=== PATIENT | male | born 1965 | race Caucasian/White ===

== ENCOUNTER → 2016-12-10 | Outpatient (CLI) | payer MEDICARE, MEDICAID ==
[~2016-12-10] MED LIST: COGE1INJ OR; HYDR25TA8 OR; INVE6TAB3 OR; LISI5TAB
--- NOTE | 2016-12-10 09:02 | REP ---
Right upper quadrant sonography: History: Right upper quadrant abdominal pain. Question gallstones. Comparison CT study is from July 28, 2016. Findings: Scanning through the right upper quadrant of the abdomen demonstrates a normal sized thin-walled gallbladder without evidence of stone or polyp. Common bile duct is normal measuring 0.4 cm in greatest diameter. No focal liver lesion is appreciated. There is no evidence of ascites. Limited views of the pancreas due to bowel gas show no abnormality. There is evidence of fatty infiltration of the liver. The right kidney measures 11.6 x 6.0 x 5.0 cm. No hydronephrosis is seen. There are two tiny hyperechoic foci in the right mid lateral kidney each measuring 0.4 and 0.5 cm in greatest diameter. These may reflect small parenchymal scars or calcifications. No cyst or mass is seen. Impression: Mild fatty liver change. No evidence of cholelithiasis. No other acute abnormality. Signed by Robinson Mohr MD 12/10/2016 01:57 P
== END ==
LOC: M RAD 07:45
PROVIDERS: ATTEND Physician Assistant Medical
DX: R10.9 Unspecified abdominal pain (principal)

== ENCOUNTER → 2016-12-30 | Outpatient (CLI) | payer MEDICARE, MEDICAID ==
--- NOTE | 2016-12-30 13:59 | REP ---
Clinical: Lower back pain. Technique: AP, lateral and coned-down views of the lumbosacral spine. Comparison: 07/28/2016. Findings: Moderate to early advanced multilevel degenerative changes involving the visualized lower thoracic spine through the lumbosacral spine including osteophytosis, endplate sclerosis, disc space narrowing and hypertrophic facet changes are minimally progressive compared to prior examination. There is no evidence for acute fracture / compression injury or subluxation. Impression: Moderate to early advanced multilevel degenerative changes mildly progressed from prior examination. No acute fracture / compression injury or subluxation. Signed by Franck Myers MD 12/30/2016 01:50 P
== END ==
LOC: M SMT 13:35
PROVIDERS: ATTEND Nurse Practitioner Adult Health
DX: M51.17 Intervertebral disc disorders with radiculopathy, lumbosacral region (principal); M51.24 Other intervertebral disc displacement, thoracic region

== ENCOUNTER → 2017-05-16 | Outpatient (CLI) | payer MEDICARE, MEDICAID ==
[2017-05-16 11:17] LABS: BASO % 0.5 % (0.0-1.0); EOS # 0.1 K/mm3 (0.0-0.50); LYMPH # 6.3 K/mm3 (1.5-4.5); LYMPH % 27.8 % (24.0-44.0); MEAN CORPUSCULAR HEMOGLOBIN 27.9 pg (27.0-33.0); MEAN CORPUSCULAR HGB CONC 34.3 g/dl (32.0-36.5); MEAN CORPUSCULAR VOLUME 81.3 fl (80.0-96.0); MONO # 0.2 K/mm3 (0.0-0.8); MONO % 2.4 % (0.0-5.0); NEUTROPHILS % 0.1 % (36.0-66.0); RED CELL DISTRIBUTION WIDTH 13.4 % (11.5-14.5)
[2017-05-16 11:40] LABS: WHITE BLOOD COUNT 6.6 K/mm3 (4.0-10.0)
[2017-05-16 11:45] LABS: ALBUMIN 4.2 GM/DL (3.2-5.2); ALBUMIN/GLOBULIN RATIO 1.24 (1.00-1.93); ALKALINE PHOSPHATASE 114 U/L (45-117); ALT/SGPT 26 U/L (12-78); ANION GAP 9 MEQ/L (8-16); AST/SGOT 13 U/L (15-37); BILIRUBIN,TOTAL 0.4 MG/DL (0.2-1.0); BLOOD UREA NITROGEN 10 MG/DL (7-18); CALCIUM LEVEL 9.2 MG/DL (8.5-10.1); CARBON DIOXIDE LEVEL 28 MEQ/L (21-32); CHLORIDE LEVEL 105 MEQ/L (98-107); CHOLESTEROL LEVEL 149 MG/DL (<200); CREATININE FOR GFR 0.89 MG/DL (0.70-1.30); FREE T4 1.22 NG/DL (0.76-1.46); GLOMERULAR FILTRATION RATE > 60.0 (>56); GLUCOSE, FASTING 92 MG/DL (70-105); POTASSIUM SERUM 3.6 MEQ/L (3.5-5.1); SODIUM LEVEL 142 MEQ/L (136-145); TOTAL PROTEIN 7.6 GM/DL (6.4-8.2); TRIGLYCERIDES LEVEL 91 MG/DL (<150)
== END ==
LOC: M LAB 10:07
PROVIDERS: ATTEND Nurse Practitioner Adult Health
DX: E87.6 Hypokalemia (principal); E78.5 Hyperlipidemia, unspecified; E55.9 Vitamin D deficiency, unspecified; Z51.81 Encounter for therapeutic drug level monitoring; Z79.899 Other long term (current) drug therapy

== ENCOUNTER → 2017-08-20 | Outpatient (CLI) | payer MEDICARE, MEDICAID ==
--- NOTE | 2017-08-20 12:31 | REP ---
CT study of the brain without contrast: History: TIA. Comparison brain CT study is from April 12, 2014. Comparison brain MRI study is from April 12, 2014. Those prior studies showed findings consistent with right internal carotid artery occlusion. 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 CT findings: Digital preliminary traffic signal technician radiograph is unremarkable. Bone window settings demonstrate an intact bony calvarium. Visualized paranasal sinuses are clear. No intraorbital abnormality is seen. Lateral third and fourth ventricles are normal in size and position. 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 This is developmental and incidental. There is no evidence of infarction, hemorrhage, extra-axial fluid collection or midline shift on today's CT study. Impression: Previously described area of pachygyria again seen in the right parietal lobe unchanged. This is developmental. No acute intracranial abnormality. Signed by Robinson Mohr MD 08/21/2017 07:34 A
== END ==
LOC: M RAD 09:50
PROVIDERS: ATTEND Internal Medicine Cardiovascular Disease
DX: E55.9 Vitamin D deficiency, unspecified (principal); Z86.73 Personal history of transient ischemic attack (TIA), and cerebral infarction without residual deficits; Z79.899 Other long term (current) drug therapy

== ENCOUNTER → 2017-09-16 | Outpatient (CLI) | payer MEDICARE, MEDICAID ==
[2017-09-16 12:42] LABS: ANION GAP 10 MEQ/L (8-16); BLOOD UREA NITROGEN 11 MG/DL (7-18); CARBON DIOXIDE LEVEL 27 MEQ/L (21-32); CHLORIDE LEVEL 102 MEQ/L (98-107); CREATININE FOR GFR 0.93 MG/DL (0.70-1.30); GLOMERULAR FILTRATION RATE > 60.0 (>56); GLUCOSE, FASTING 90 MG/DL (70-105); POTASSIUM SERUM 3.8 MEQ/L (3.5-5.1); SODIUM LEVEL 139 MEQ/L (136-145)
== END ==
LOC: M LAB 11:31
PROVIDERS: ATTEND Nurse Practitioner Adult Health
DX: E87.6 Hypokalemia (principal)

== ENCOUNTER 2018-01-15 13:10 | Emergency (ER) | payer MEDICARE, MEDICAID ==
[2018-01-15 14:19] LABS: BASO # 0.1 10^3/uL (0.0-0.2); BASO % 0.5 % (0.0-1.0); EOS # 0.2 10^3/uL (0.0-0.50); EOS % 1.4 % (0.0-3.0); HEMATOCRIT 41.9 % (42.0-52.0); HEMOGLOBIN 14.2 g/dl (13.5-17.5); IMMATURE GRANULOCYTE % 0.5 % (0-3.0); LYMPH # 2.4 10^3/uL (1.5-4.5); LYMPH % 22.3 % (24.0-44.0); MEAN CORPUSCULAR HEMOGLOBIN 27.4 pg (27.0-33.0); MEAN CORPUSCULAR HGB CONC 33.9 g/dl (32.0-36.5); MEAN CORPUSCULAR VOLUME 80.9 fl (80.0-96.0); MONO # 0.7 10^3/uL (0.0-0.8); MONO % 6.3 % (0.0-5.0); NEUTROPHILS # 7.6 10^3/uL (1.8-7.7); PLATELET COUNT, AUTOMATED 270 10^3/uL (150-450); RED BLOOD COUNT 5.18 10^6/uL (4.30-6.10); RED CELL DISTRIBUTION WIDTH 13.2 % (11.5-14.5); WHITE BLOOD COUNT 10.9 10^3/uL (4.0-10.0)
[2018-01-15 14:29] LABS: ANION GAP 10 MEQ/L (8-16); BLOOD UREA NITROGEN 10 MG/DL (7-18); CALCIUM LEVEL 9.2 MG/DL (8.5-10.1); CARBON DIOXIDE LEVEL 27 MEQ/L (21-32); CHLORIDE LEVEL 102 MEQ/L (98-107); CK-MB VALUE MASS < 1.0 NG/ML (<3.6); CPK CREATINE PHOSPHOKINASE 150 U/L (39-308); CREATININE FOR GFR 1.08 MG/DL (0.70-1.30); GLOMERULAR FILTRATION RATE > 60.0 (>56); GLUCOSE, FASTING 109 MG/DL (70-100); MB/CK RELATIVE INDEX 0.66 (< OR =4); POTASSIUM SERUM 3.4 MEQ/L (3.5-5.1); SODIUM LEVEL 139 MEQ/L (136-145); TROPONIN I < 0.02 NG/ML (< 0.10)
[2018-01-15] MEDS ORDERED: ISOVUE-370 76% 100ML VIAL (Q9967) As Ordered (15:03)
[2018-01-15] MEDS: POTASSIUM CHLORIDE 10 MEQ SR TABLET PO (16:09)
[2018-01-15 19:54] LABS: CK-MB VALUE MASS < 1.0 NG/ML (<3.6); CPK CREATINE PHOSPHOKINASE 141 U/L (39-308); TROPONIN I < 0.02 NG/ML (< 0.10)
== END 2018-01-15 21:03 | disposition home or self-care (01) ==
LOC: M ED 13:10
DX: E27.9 Disorder of adrenal gland, unspecified (principal); R07.9 Chest pain, unspecified; I10 Essential (primary) hypertension; E78.5 Hyperlipidemia, unspecified; K21.9 Gastro-esophageal reflux disease without esophagitis; F20.9 Schizophrenia, unspecified; M54.40 Lumbago with sciatica, unspecified side; Z82.49 Family history of ischemic heart disease and other diseases of the circulatory system; Z79.899 Other long term (current) drug therapy; Z88.6 Allergy status to analgesic agent; Z91.013 Allergy to seafood; Z91.018 Allergy to other foods; Z91.010 Allergy to peanuts
CPT/HCPCS: Q9967

== ENCOUNTER → 2018-02-05 | Outpatient (CLI) | payer MEDICARE, MEDICAID ==
[2018-02-05 12:45] LABS: BASO % 0.4 % (0.0-1.0); EOS # 0.2 10^3/uL (0.0-0.50); EOS % 1.9 % (0.0-3.0); HEMATOCRIT 45.1 % (42.0-52.0); HEMOGLOBIN 15.5 g/dl (13.5-17.5); IMMATURE GRANULOCYTE % 0.4 % (0-3.0); LYMPH # 2.2 10^3/uL (1.5-4.5); LYMPH % 27.1 % (24.0-44.0); MEAN CORPUSCULAR HGB CONC 34.4 g/dl (32.0-36.5); MEAN CORPUSCULAR VOLUME 81.4 fl (80.0-96.0); MONO # 0.5 10^3/uL (0.0-0.8); NEUTROPHILS # 5.1 10^3/uL (1.8-7.7); NEUTROPHILS % 64.2 % (36.0-66.0); PLATELET COUNT, AUTOMATED 240 10^3/uL (150-450); RED BLOOD COUNT 5.54 10^6/uL (4.30-6.10); RED CELL DISTRIBUTION WIDTH 13.4 % (11.5-14.5)
[2018-02-05 13:14] LABS: TOTAL 25(OH) VITAMIN D 60.1 NG/ML (30.0-100.0)
[2018-02-05 13:17] LABS: ALBUMIN 4.5 GM/DL (3.2-5.2); ALBUMIN/GLOBULIN RATIO 1.29 (1.00-1.93); ALKALINE PHOSPHATASE 104 U/L (45-117); ALT/SGPT 28 U/L (12-78); ANION GAP 9 MEQ/L (8-16); AST/SGOT 19 U/L (7-37); BILIRUBIN,TOTAL 0.6 MG/DL (0.2-1.0); BLOOD UREA NITROGEN 14 MG/DL (7-18); CALCIUM LEVEL 9.7 MG/DL (8.5-10.1); CARBON DIOXIDE LEVEL 27 MEQ/L (21-32); CHLORIDE LEVEL 103 MEQ/L (98-107); CHOLESTEROL LEVEL 146 MG/DL (<200); CREATININE FOR GFR 1.05 MG/DL (0.70-1.30); FREE T4 1.31 NG/DL (0.76-1.46); GLOMERULAR FILTRATION RATE > 60.0 (>56); GLUCOSE, FASTING 82 MG/DL (70-100); HDL CHOLESTEROL 40 MG/DL (>40); NON-HDL-C 106 MG/DL; SODIUM LEVEL 139 MEQ/L (136-145); TRIGLYCERIDES LEVEL 90 MG/DL (<150)
[2018-02-05 13:29] LABS: ESTIMATED AVERAGE GLUCOSE 123 MG/DL (60-110); HEMOGLOBIN A1c 5.9 %
== END ==
LOC: M LAB 11:52
DX: Z51.81 Encounter for therapeutic drug level monitoring (principal); Z79.899 Other long term (current) drug therapy; E55.9 Vitamin D deficiency, unspecified; E78.5 Hyperlipidemia, unspecified; E87.6 Hypokalemia
CPT/HCPCS: 84443

== ENCOUNTER → 2018-05-21 | Outpatient (CLI) | payer MEDICARE, MEDICAID ==
[2018-05-21 09:27] LABS: BASO % 0.5 % (0.0-1.0); EOS # 0.2 10^3/uL (0.0-0.50); EOS % 2.3 % (0.0-3.0); HEMOGLOBIN 14.7 g/dl (13.5-17.5); IMMATURE GRANULOCYTE % 0.5 % (0-3.0); LYMPH # 2.2 10^3/uL (1.5-4.5); LYMPH % 26.5 % (24.0-44.0); MEAN CORPUSCULAR HEMOGLOBIN 27.5 pg (27.0-33.0); MEAN CORPUSCULAR HGB CONC 33.4 g/dl (32.0-36.5); MEAN CORPUSCULAR VOLUME 82.4 fl (80.0-96.0); MONO # 0.6 10^3/uL (0.0-0.8); MONO % 7.5 % (0.0-5.0); NEUTROPHILS # 5.2 10^3/uL (1.8-7.7); NEUTROPHILS % 62.7 % (36.0-66.0); PLATELET COUNT, AUTOMATED 250 10^3/uL (150-450); RED BLOOD COUNT 5.34 10^6/uL (4.30-6.10); RED CELL DISTRIBUTION WIDTH 13.2 % (11.5-14.5); WHITE BLOOD COUNT 8.3 10^3/uL (4.0-10.0)
[2018-05-21 10:03] LABS: TOTAL 25(OH) VITAMIN D 58.8 NG/ML (30.0-100.0)
[2018-05-21 10:06] LABS: ALBUMIN 4.3 GM/DL (3.2-5.2); ALBUMIN/GLOBULIN RATIO 1.26 (1.00-1.93); ALKALINE PHOSPHATASE 101 U/L (45-117); ALT/SGPT 29 U/L (12-78); ANION GAP 9 MEQ/L (8-16); AST/SGOT 14 U/L (7-37); BILIRUBIN,TOTAL 0.4 MG/DL (0.2-1.0); BLOOD UREA NITROGEN 19 MG/DL (7-18); CALCIUM LEVEL 9.2 MG/DL (8.5-10.1); CARBON DIOXIDE LEVEL 28 MEQ/L (21-32); CHLORIDE LEVEL 103 MEQ/L (98-107); CHOLESTEROL LEVEL 138 MG/DL (<200); CHOLESTEROL RISK RATIO 2.875 (<5); CREATININE FOR GFR 1.01 MG/DL (0.70-1.30); GLOMERULAR FILTRATION RATE > 60.0 (>56); GLUCOSE, FASTING 89 MG/DL (70-100); HDL CHOLESTEROL 48 MG/DL (>40); LDL CHOLESTEROL 77.2 MG/DL (<100); NON-HDL-C 90 MG/DL; POTASSIUM SERUM 4.1 MEQ/L (3.5-5.1); SODIUM LEVEL 140 MEQ/L (136-145); TOTAL PROTEIN 7.7 GM/DL (6.4-8.2); TRIGLYCERIDES LEVEL 64 MG/DL (<150)
[2018-05-21 10:29] LABS: ESTIMATED AVERAGE GLUCOSE 120 MG/DL (60-110); HEMOGLOBIN A1c 5.8 %
== END ==
LOC: M LAB 08:08
DX: E78.5 Hyperlipidemia, unspecified (principal); I10 Essential (primary) hypertension; R22.31 Localized swelling, mass and lump, right upper limb; E55.9 Vitamin D deficiency, unspecified
CPT/HCPCS: 84443

== ENCOUNTER → 2018-09-16 | Outpatient (REF) | payer MEDICARE, MEDICAID ==
[2018-09-16 13:42] LABS: BASO % 0.4 % (0.0-1.0); EOS # 0.1 10^3/uL (0.0-0.50); EOS % 1.4 % (0.0-3.0); HEMATOCRIT 43.2 % (42.0-52.0); HEMOGLOBIN 14.7 g/dl (13.5-17.5); IMMATURE GRANULOCYTE % 0.6 % (0-3.0); LYMPH # 1.8 10^3/uL (1.5-4.5); MEAN CORPUSCULAR HEMOGLOBIN 27.8 pg (27.0-33.0); MEAN CORPUSCULAR VOLUME 81.8 fl (80.0-96.0); MONO # 0.7 10^3/uL (0.0-0.8); MONO % 6.9 % (0.0-5.0); NEUTROPHILS # 7.4 10^3/uL (1.8-7.7); NEUTROPHILS % 72.7 % (36.0-66.0); PLATELET COUNT, AUTOMATED 283 10^3/uL (150-450); RED BLOOD COUNT 5.28 10^6/uL (4.30-6.10); WHITE BLOOD COUNT 10.2 10^3/uL (4.0-10.0)
[2018-09-16 14:05] LABS: ALBUMIN 4.3 GM/DL (3.2-5.2); ALBUMIN/GLOBULIN RATIO 1.43 (1.00-1.93); ALKALINE PHOSPHATASE 108 U/L (45-117); ALT/SGPT 30 U/L (12-78); ANION GAP 12 MEQ/L (8-16); AST/SGOT 18 U/L (7-37); BILIRUBIN,TOTAL 0.5 MG/DL (0.2-1.0); BLOOD UREA NITROGEN 14 MG/DL (7-18); CALCIUM LEVEL 9.4 MG/DL (8.5-10.1); CARBON DIOXIDE LEVEL 25 MEQ/L (21-32); CHLORIDE LEVEL 102 MEQ/L (98-107); CREATININE FOR GFR 0.99 MG/DL (0.70-1.30); GLOMERULAR FILTRATION RATE > 60.0 (>56); GLUCOSE, FASTING 80 MG/DL (70-100); POTASSIUM SERUM 3.8 MEQ/L (3.5-5.1); SODIUM LEVEL 139 MEQ/L (136-145); TOTAL PROTEIN 7.3 GM/DL (6.4-8.2)
== END ==
LOC: M SFHCPLAZ 11:44
DX: I10 Essential (primary) hypertension (principal)
CPT/HCPCS: 80053

== ENCOUNTER → 2018-10-19 | Outpatient (REF) | payer MEDICARE, MEDICAID ==
[~2018-10-19] MED LIST changes: +HALD5INJ2 IM; +HYDR25TAB PO; +KLOR20TA42 FT; +RANI1SYP PO; +SING5CHW23 PO; +TIZA4CAP PO; +ZYRT10CA PO
[2018-10-19 13:19] LABS: PTH INTACT 61.5 PG/ML (18.5-88.0); TOTAL 25(OH) VITAMIN D 75.3 NG/ML (30.0-100.0)
== END ==
LOC: M SFHCPLAZ 10:32
PROVIDERS: ATTEND Physician Assistant Medical
DX: Z12.5 Encounter for screening for malignant neoplasm of prostate (principal); E55.9 Vitamin D deficiency, unspecified; E78.00 Pure hypercholesterolemia, unspecified; Z23 Encounter for immunization
CPT/HCPCS: 36415; 82306; 82550; 83970; 90682; G0008; G0103; G0463

== ENCOUNTER → 2018-12-31 | Outpatient (CLI) | payer MEDICARE, MEDICAID ==
[~2018-12-31] MED LIST changes: +PROHANCE 279.3MG/ML 15ML VIAL (A9576) As Ordered ONE; +PROHANCE 279.3MG/ML 5ML VIAL (A9576) As Ordered ONE
--- NOTE | 2019-01-01 09:52 | REP ---
MRI ABDOMEN WITH AND WITHOUT CONTRAST: Multiple sequences obtained in the axial and coronal planes prior to and following the intravenous administration of 19 mL ProHance. Correlation made with prior CT abdomen 07/28/[address] angiogram chest 01/15/2018. Tiny subcentimeter cyst is seen in the right lobe of the liver. Spleen, right adrenal, pancreas and kidneys are unremarkable. No adenopathy or free fluid is seen. Once again, there is a left adrenal nodule seen. It measures approximately 2.8 x 2.[address] abdomen, 07/28/2016, it measured approximately 2.2 x 1.4 cm and therefore has mildly increased in size. On CT of the chest 01/15/2018, it measured approximately 2.4 x 1.8 cm. It is fairly low in signal on T2-weighted images. It is intermediate in signal on T2-weighted images with mixed ill-defined low and high signal areas. There is no significant drop in signal comparing in-phase to [id number]-[id number] images and therefore, this could not be definitely characterized. As an adrenal adenoma. There is fairly avid heterogeneous enhancement following the intravenous administration of gadolinium. IMPRESSION: Nonspecific left adrenal nodule. This cannot be definitively characterized as an adrenal adenoma. It has progressively slowly increased in size since the CT of the abdomen 07/28/2016. At that time, it measured about 2.2 x 1.4 cm. It currently measures 2.8 x 2.2 cm. Further characterization may be possible using triple phase CT scanning, utilizing precontrast, as well as two post contrast scans 70 seconds and 15 minutes after contrast administration. This technique has been shown to diagnose lipid-poor adrenal adenomas. If there is a history of cancer, and therefore, a possibility of a slow-growing metastasis, CT guided biopsy could be performed, however, prior to any biopsy attempt, 24-hour urine metanephrine or catecholamine values should be obtained to exclude pheochromocytoma. Electronically Signed by Harley Rodriguez MD 01/01/2019 07:50 P
== END ==
LOC: M RAD 16:28
PROVIDERS: ATTEND Family Medicine
DX: E27.9 Disorder of adrenal gland, unspecified (principal)
CPT/HCPCS: 74183; A9576

== ENCOUNTER → 2019-01-07 | Outpatient (REF) | payer MEDICARE, MEDICAID ==
[~2019-01-07] MED LIST changes: -PROHANCE 279.3MG/ML 15ML VIAL (A9576) As Ordered ONE; -PROHANCE 279.3MG/ML 5ML VIAL (A9576) As Ordered ONE
[2019-01-13 08:06] LABS: FREE CORTISOL URINE 6 ug/L (Undefined)
[2019-01-13 12:01] LABS: DOPAMINE 387 ug/24 hr (0-510); DOPAMINE TOTAL URINE 172 ug/L (Undefined); EPINEPHRINE 5 ug/24 hr (0-20); EPINEPHRINE TOTAL URINE 2 ug/L (Undefined); NOREPINEPHRINE 38 ug/24 hr (0-135); NOREPINEPHRINE TOTAL URINE 17 ug/L (Undefined)
== END ==
LOC: M LAB REF 09:27
PROVIDERS: ATTEND Family Medicine
DX: E27.9 Disorder of adrenal gland, unspecified (principal)

== ENCOUNTER → 2019-02-08 | Outpatient (CLI) | payer MEDICARE, MEDICAID ==
[~2019-02-08] MED LIST changes: +ISOVUE-370 76% 100ML VIAL (Q9967) As Ordered ONE
--- NOTE | 2019-02-09 07:10 | REP ---
REASON FOR EXAM: Assess adrenal gland. CONTRAST: 100 mL Isovue 370. The latest prior abdominal and pelvic CT for comparison is dated 07/28/2016, a noncontrast enhanced examination. The imaged portion of the upper abdomen seen on the chest CT of 01/15/2018 was also reviewed. That was a contrast enhanced exam only and showed a left adrenal gland nodule. The lung bases are clear. The precontrast enhanced portion of the examination shows a left adrenal gland nodule which measures 2.5 cm. It has increased slightly in size from the prior exam and has consistently high Hounsfield unit readings above what is accepted to diagnose benignity. There is no nephroureterolithiasis. There are no choleliths. Contrast enhanced portion of the examination shows diffuse fatty infiltration of the pancreas. The left adrenal gland nodule enhances significantly on both immediate and delayed contrast enhanced scanning with values increasing when delayed imaging is compared to immediate contrast enhanced imaging. The liver, gallbladder, spleen, right adrenal gland, and kidneys are within normal limits and essentially unchanged. The abdominal aorta and para-aortic regions are within normal limits. There is no evidence of para-aortic adenopathy. The bowel loops and the mesenteries are within normal limits. There is no evidence of free fluid or free air. There is no significant change in appearance of the imaged osseous structures. IMPRESSION: 1. Left adrenal gland nodule as described above. Benignity cannot be confirmed. Pre- and post Gadolinium enhanced abdominal MRI was performed on 12/31/2018 showing the left adrenal gland nodule which could not definitively be characterized as a benign process. This needs to be correlated clinically since benignity cannot be confirmed at this time. 2. Diffuse fatty infiltration of the pancreas. 3. Other findings as discussed above. Electronically Signed by Percy Ellsworth DO 02/09/2019 04:23 P
== END ==
LOC: M RAD 02-04 17:01
PROVIDERS: ATTEND Physician Assistant Medical
DX: E27.9 Disorder of adrenal gland, unspecified (principal); K86.89 Other specified diseases of pancreas
CPT/HCPCS: 74170; Q9967

== ENCOUNTER → 2019-02-16 | Outpatient (REF) | payer MEDICARE, MEDICAID ==
[~2019-02-16] MED LIST changes: -ISOVUE-370 76% 100ML VIAL (Q9967) As Ordered ONE
[2019-02-16 11:58] LABS: BASO % 0.4 % (0.0-1.0); EOS # 0.1 10^3/uL (0.0-0.50); EOS % 1.5 % (0.0-3.0); HEMATOCRIT 44.3 % (42.0-52.0); HEMOGLOBIN 14.7 g/dl (13.5-17.5); LYMPH # 1.6 10^3/uL (1.5-4.5); LYMPH % 19.3 % (24.0-44.0); MEAN CORPUSCULAR HEMOGLOBIN 27.6 pg (27.0-33.0); MEAN CORPUSCULAR HGB CONC 33.2 g/dl (32.0-36.5); MEAN CORPUSCULAR VOLUME 83.1 fl (80.0-96.0); MONO # 0.7 10^3/uL (0.0-0.8); MONO % 8.7 % (0.0-5.0); NEUTROPHILS # 5.7 10^3/uL (1.8-7.7); NEUTROPHILS % 69.2 % (36.0-66.0); PLATELET COUNT, AUTOMATED 239 10^3/uL (150-450); RED BLOOD COUNT 5.33 10^6/uL (4.30-6.10); WHITE BLOOD COUNT 8.2 10^3/uL (4.0-10.0)
[2019-02-16 12:35] LABS: ALBUMIN 4.5 GM/DL (3.2-5.2); ALT/SGPT 27 U/L (12-78); BILIRUBIN,TOTAL 0.4 MG/DL (0.2-1.0); BLOOD UREA NITROGEN 11 MG/DL (7-18); CALCIUM LEVEL 8.8 MG/DL (8.5-10.1); CARBON DIOXIDE LEVEL 29 MEQ/L (21-32); CHLORIDE LEVEL 102 MEQ/L (98-107); CPK CREATINE PHOSPHOKINASE 189 U/L (39-308); CREATININE FOR GFR 0.88 MG/DL (0.70-1.30); GLOMERULAR FILTRATION RATE > 60.0 (>56); GLUCOSE, FASTING 90 MG/DL (70-100); POTASSIUM SERUM 3.4 MEQ/L (3.5-5.1); PTH INTACT 81.1 PG/ML (18.5-88.0); SODIUM LEVEL 138 MEQ/L (136-145)
[2019-02-16 12:47] LABS: HEMOGLOBIN A1c 5.9 %
== END ==
LOC: M SFHCPLAZ 09:19
PROVIDERS: ATTEND Physician Assistant Medical
DX: J30.2 Other seasonal allergic rhinitis (principal); E78.00 Pure hypercholesterolemia, unspecified; E55.9 Vitamin D deficiency, unspecified; Z12.5 Encounter for screening for malignant neoplasm of prostate; E66.9 Obesity, unspecified; R73.01 Impaired fasting glucose
CPT/HCPCS: 36415; 80053; 82306; 82550; 83036; 83970; 85025; G0103; G0463

== ENCOUNTER → 2019-03-22 | Outpatient (CLI) | payer MEDICARE, MEDICAID ==
[~2019-03-22] MED LIST changes: +ACETAMINOPHEN 325 MG TAB As Ordered ONE; +LIDOCAINE 1% MDV 20ML VIAL As Ordered ONE
--- NOTE | 2019-03-22 11:02 | REP ---
Chest x-ray: Single view. History: Post left adrenal needle biopsy. Rule out pneumothorax. Comparison study: February 14, 2018. Findings: The lungs are well inflated and clear. There is no evidence of pneumothorax or hydrothorax. Mediastinum is not widened. Heart size is normal. Pulmonary vasculature is not increased. Impression: No active disease. No pneumothorax seen. Electronically Signed by Robinson Mohr MD 03/22/2019 03:40 P
--- NOTE | 2019-03-22 15:44 | REP ---
CT-guided adrenal gland biopsy The procedure is performed by ANANT Jules, under the personal supervision of Dr. Mohr. The patient has a history of a left adrenal gland nodule measuring 2.[address] scan dated 02/08/2019. The risks and benefits of the procedure were explained to the patient and informed consent was obtained both orally and written. Directly prior to the start of the procedure, a formal timeout was done in the exam room. The left adrenal nodule was localized using CT guidance. Skin was prepped and draped in the usual sterile fashion. 12 ml of 1% lidocaine was used as a local anesthetic. Using CT guidance a 19/20 gauge coaxial needle biopsy system was inserted and advanced into the nodule. 4 core biopsy samples were obtained and sent to the lab. CT images obtained directly after the biopsy show no evidence of hematoma, or pneumothorax. After the appropriate amount of monitored convalescence the patient was discharged from the department. Reviewed by ANANT Delacruz 03/22/2019 12:45 P Electronically Signed by Robinson Mohr MD 03/22/2019 03:35 P
== END ==
LOC: M RADPRO 08:51
PROVIDERS: ATTEND Physician Assistant Medical
DX: D35.02 Benign neoplasm of left adrenal gland (principal)

== ENCOUNTER → 2019-06-02 | Outpatient (REF) | payer MEDICARE, MEDICAID ==
[~2019-06-02] MED LIST changes: -ACETAMINOPHEN 325 MG TAB As Ordered ONE; -LIDOCAINE 1% MDV 20ML VIAL As Ordered ONE
[2019-06-02 11:51] LABS: CHOLESTEROL RISK RATIO 3.511 (<5)
== END ==
LOC: M SFHCPLAZ 07:43
PROVIDERS: ATTEND Physician Assistant Medical
DX: E78.00 Pure hypercholesterolemia, unspecified (principal)

== ENCOUNTER → 2019-08-02 | Outpatient (CLI) | payer MEDICARE, MEDICAID ==
[2019-08-02 10:33] LABS: BASO % 0.5 % (0.0-1.0); EOS # 0.1 10^3/uL (0.0-0.5); EOS % 1.6 % (0.0-3.0); HEMATOCRIT 44.6 % (42.0-52.0); HEMOGLOBIN 14.9 g/dl (13.5-17.5); LYMPH # 2.1 10^3/uL (1.5-5.0); MEAN CORPUSCULAR HEMOGLOBIN 28.4 pg (27.0-33.0); MEAN CORPUSCULAR HGB CONC 33.4 g/dl (32.0-36.5); MEAN CORPUSCULAR VOLUME 85.1 fl (80.0-96.0); MONO # 0.6 10^3/uL (0.0-0.8); MONO % 6.9 % (0.0-5.0); NEUTROPHILS # 5.3 10^3/uL (1.5-8.5); NEUTROPHILS % 64.5 % (36.0-66.0); PLATELET COUNT, AUTOMATED 246 10^3/uL (150-450); RED BLOOD COUNT 5.24 10^6/uL (4.30-6.10); WHITE BLOOD COUNT 8.2 10^3/uL (4.0-10.0)
[2019-08-02 10:59] LABS: ALBUMIN 4.5 GM/DL (3.2-5.2); ALT/SGPT 32 U/L (12-78); BILIRUBIN,TOTAL 0.8 MG/DL (0.2-1.0); BLOOD UREA NITROGEN 13 MG/DL (7-18); CALCIUM LEVEL 9.7 MG/DL (8.5-10.1); CARBON DIOXIDE LEVEL 28 MEQ/L (21-32); CHLORIDE LEVEL 103 MEQ/L (98-107); CHOLESTEROL LEVEL 154 MG/DL (<200); CHOLESTEROL RISK RATIO 3.347 (<5); CPK CREATINE PHOSPHOKINASE 217 U/L (39-308); CREATININE FOR GFR 1.08 MG/DL (0.70-1.30); GLOMERULAR FILTRATION RATE > 60.0 (>56); GLUCOSE, FASTING 86 MG/DL (70-100); HDL CHOLESTEROL 46 MG/DL (>40); LDL CHOLESTEROL 86 MG/DL (<100); NON-HDL-C 108 MG/DL; POTASSIUM SERUM 3.7 MEQ/L (3.5-5.1); SODIUM LEVEL 138 MEQ/L (136-145); TOTAL PROTEIN 7.8 GM/DL (6.4-8.2); TRIGLYCERIDES LEVEL 111 MG/DL (<150)
[2019-08-02 11:10] LABS: TOTAL 25(OH) VITAMIN D 72.5 NG/ML (30.0-100.0)
[2019-08-02 11:11] LABS: PTH INTACT 59.1 PG/ML (18.5-88.0)
[2019-08-02 12:47] LABS: HEMOGLOBIN A1c 5.8 %
== END ==
LOC: M LAB 09:39
PROVIDERS: ATTEND Physician Assistant Medical
DX: E78.00 Pure hypercholesterolemia, unspecified (principal); E55.9 Vitamin D deficiency, unspecified; R73.01 Impaired fasting glucose; Z79.899 Other long term (current) drug therapy

== ENCOUNTER → 2019-12-13 | Outpatient (CLI) | payer MEDICARE, MEDICAID ==
[2019-12-13 11:19] LABS: BASO # 0.1 10^3/uL (0.0-0.2); BASO % 0.6 % (0.0-1.0); EOS # 0.3 10^3/uL (0.0-0.5); EOS % 3.2 % (0.0-3.0); HEMATOCRIT 43.9 % (42.0-52.0); HEMOGLOBIN 14.7 g/dl (13.5-17.5); LYMPH # 2.2 10^3/uL (1.5-5.0); LYMPH % 26.7 % (24.0-44.0); MEAN CORPUSCULAR HEMOGLOBIN 28.2 pg (27.0-33.0); MEAN CORPUSCULAR HGB CONC 33.5 g/dl (32.0-36.5); MEAN CORPUSCULAR VOLUME 84.1 fl (80.0-96.0); MONO # 0.6 10^3/uL (0.0-0.8); MONO % 7.8 % (0.0-5.0); NEUTROPHILS % 61.3 % (36.0-66.0); PLATELET COUNT, AUTOMATED 268 10^3/uL (150-450); RED BLOOD COUNT 5.22 10^6/uL (4.30-6.10); WHITE BLOOD COUNT 8.2 10^3/uL (4.0-10.0)
[2019-12-13 11:31] LABS: HEMOGLOBIN A1c 5.6 %
[2019-12-13 11:52] LABS: ALBUMIN 4.5 GM/DL (3.2-5.2); ALT/SGPT 26 U/L (12-78); BILIRUBIN,TOTAL 0.6 MG/DL (0.2-1.0); BLOOD UREA NITROGEN 14 MG/DL (7-18); CALCIUM LEVEL 9.5 MG/DL (8.5-10.1); CARBON DIOXIDE LEVEL 30 MEQ/L (21-32); CHLORIDE LEVEL 103 MEQ/L (98-107); CPK CREATINE PHOSPHOKINASE 254 U/L (39-308); CREATININE FOR GFR 0.97 MG/DL (0.70-1.30); GLOMERULAR FILTRATION RATE > 60.0 (>56); GLUCOSE, FASTING 87 MG/DL (70-100); POTASSIUM SERUM 3.6 MEQ/L (3.5-5.1); PTH INTACT 72.8 PG/ML (18.5-88.0); SODIUM LEVEL 138 MEQ/L (136-145); TOTAL 25(OH) VITAMIN D 76.5 NG/ML (30.0-100.0); TOTAL PROTEIN 7.7 GM/DL (6.4-8.2)
== END ==
LOC: M LAB 09:53
PROVIDERS: ATTEND Physician Assistant Medical
DX: E78.00 Pure hypercholesterolemia, unspecified (principal); E55.9 Vitamin D deficiency, unspecified; R73.01 Impaired fasting glucose; I10 Essential (primary) hypertension
CPT/HCPCS: 36415; 80053; 82306; 82550; 83036; 83970; 85025; G0463

== ENCOUNTER → 2020-03-15 | Outpatient (CLI) | payer MEDICARE, MEDICAID ==
--- NOTE | 2020-03-15 11:55 | REP ---
THORACIC SPINE: Three AP and lateral views of the thoracic spine performed. No compression fracture is seen. There is no malalignment with normal thoracic kyphosis. There is a small ossific density at the anterior superior margin of T12 representing either an old avulsion fracture or unfused ossification center. There is mild diffuse spurring. There is mild disc space narrowing and subchondral sclerosis at virtually all levels. The posterior elements are intact. IMPRESSION: No acute fracture or malalignment. Mild diffuse degenerative changes. Electronically Signed by Harley Rodriguez MD 03/15/2020 12:59 P
== END ==
LOC: M WUC 10:21
PROVIDERS: ATTEND Nurse Practitioner Family
DX: S29.012D Strain of muscle and tendon of back wall of thorax, subsequent encounter (principal)

== ENCOUNTER → 2020-04-14 | Outpatient (CLI) | payer MEDICARE, MEDICAID ==
[2020-04-14 12:40] LABS: HEMOGLOBIN A1c 5.8 %
== END ==
LOC: M WUC 09:52
PROVIDERS: ATTEND Physician Assistant Medical
DX: Z12.5 Encounter for screening for malignant neoplasm of prostate (principal); Z79.899 Other long term (current) drug therapy
CPT/HCPCS: 36415; 83036; G0103

== ENCOUNTER 2020-05-21 20:05 | Emergency (ER) | payer MEDICARE, MEDICAID ==
[2020-05-21] MEDS ORDERED: CEPHALEXIN 500 MG CAP ONE (23:35)
[2020-05-21] MEDS ORDERED: ACETAMINOPHEN 500 MG TAB ONE (23:35)
[2020-07-06 18:37] LABS: BASO % 0.3 % (0.0-1.0); EOS # 0.2 10^3/uL (0.0-0.5); EOS % 2.1 % (0.0-3.0); HEMATOCRIT 37.9 % (42.0-52.0); HEMOGLOBIN 12.6 g/dl (13.5-17.5); LYMPH # 1.6 10^3/uL (1.5-5.0); LYMPH % 20.2 % (24.0-44.0); MEAN CORPUSCULAR HEMOGLOBIN 28.1 pg (27.0-33.0); MEAN CORPUSCULAR HGB CONC 33.2 g/dl (32.0-36.5); MEAN CORPUSCULAR VOLUME 84.6 fl (80.0-96.0); MONO # 0.8 10^3/uL (0.0-0.8); MONO % 9.8 % (0.0-5.0); NEUTROPHILS # 5.2 10^3/uL (1.5-8.5); NEUTROPHILS % 67.2 % (36.0-66.0); PLATELET COUNT, AUTOMATED 260 10^3/uL (150-450); RED BLOOD COUNT 4.48 10^6/uL (4.30-6.10); WHITE BLOOD COUNT 7.7 10^3/uL (4.0-10.0)
[2020-07-06 18:53] LABS: ERYTHROCYTE SEDIMENTATION RATE 22 mm/hr (0-20)
== END 2020-05-22 02:00 | disposition home or self-care (01) ==
LOC: M ED 20:05
DX: L03.115 Cellulitis of right lower limb (principal); M79.89 Other specified soft tissue disorders; F79 Unspecified intellectual disabilities; I25.10 Atherosclerotic heart disease of native coronary artery without angina pectoris; I65.29 Occlusion and stenosis of unspecified carotid artery; Z79.899 Other long term (current) drug therapy; Z79.02 Long term (current) use of antithrombotics/antiplatelets; Z91.010 Allergy to peanuts; Z88.6 Allergy status to analgesic agent; Z91.013 Allergy to seafood

== ENCOUNTER → 2020-08-10 | Outpatient (CLI) | payer MEDICARE, MEDICAID ==
[2020-08-10 16:11] LABS: HEMOGLOBIN 14.2 g/dl (13.5-17.5); MEAN CORPUSCULAR HEMOGLOBIN 27.5 pg (27.0-33.0); MEAN CORPUSCULAR HGB CONC 32.3 g/dl (32.0-36.5); MEAN CORPUSCULAR VOLUME 85.1 fl (80.0-96.0); PLATELET COUNT, AUTOMATED 234 10^3/uL (150-450); RED BLOOD COUNT 5.17 10^6/uL (4.30-6.10); WHITE BLOOD COUNT 7.4 10^3/uL (4.0-10.0)
[2020-08-10 16:40] LABS: ALBUMIN 4.5 GM/DL (3.2-5.2); ALT/SGPT 33 U/L (12-78); BILIRUBIN,TOTAL 0.8 MG/DL (0.2-1.0); BLOOD UREA NITROGEN 13 MG/DL (7-18); CALCIUM LEVEL 9.2 MG/DL (8.5-10.1); CARBON DIOXIDE LEVEL 29 MEQ/L (21-32); CHLORIDE LEVEL 104 MEQ/L (98-107); CHOLESTEROL LEVEL 147 MG/DL (<200); CREATININE FOR GFR 1.01 MG/DL (0.70-1.30); GLOMERULAR FILTRATION RATE > 60.0 (>56); GLUCOSE, FASTING 83 MG/DL (70-100); HDL CHOLESTEROL 49 MG/DL (>40); LDL CHOLESTEROL 82 MG/DL (<100); MAGNESIUM LEVEL 2.1 MG/DL (1.8-2.4); NON-HDL-C 98 MG/DL; POTASSIUM SERUM 3.5 MEQ/L (3.5-5.1); SODIUM LEVEL 140 MEQ/L (136-145); TOTAL PROTEIN 7.3 GM/DL (6.4-8.2); TRIGLYCERIDES LEVEL 82 MG/DL (<150)
== END ==
LOC: M WUC 10:53
PROVIDERS: ATTEND Family Medicine
DX: Z12.5 Encounter for screening for malignant neoplasm of prostate (principal); I10 Essential (primary) hypertension; R73.01 Impaired fasting glucose
CPT/HCPCS: 36415; 80053; 80061; 83735; 85027; G0103

== ENCOUNTER 2020-10-10 18:52 | Emergency (ER) | payer MEDICARE, MEDICAID ==
[~2020-10-10] VITALS: Ht 167.6 cm; Wt 86.4 kg
--- NOTE | 2020-10-10 19:41 | ED PDOC ---
Post-Departure Follow-Up 54yo M with hypertension, HLD, schizophrenia, carotid artery stenosis, and asthm a presents with seizure vs syncope. He states that he passed out and fell, but is unsure what happened prior. He denies fever, chills, increased sweating, nausea, vomiting, diarrhea, decreased appetite, chest pain, SOB, cough, leg pain/swelling, recent travel, or other symptoms/injuries. His exam is notable for a small laceration to the R tip and center tip of his tongue along with dried blood to his lower lip. He also has abrasion to his nasal bridge without any deformity or septal hematoma. There is no C spine tenderness. He is otherwise neurologically intact, afebrile and hemodynamically stable. Labs, EKG and imaging were obtained. He was placed on the monitor and seizure precautions were maintained. I spoke with the patient's sister, Evie, who stated that his brother who he lives with (Lito) stated that he patient was pacing up and down as usual when he suddenly heard a loud thump. He went over to the patient, and he was stiff as a board for 2-3 minutes. He appeared dazed when he came to. He has a remote history of seizures as a child, and was previously on antiepileptic medications over 20+ years ago. He has not had any seizures recently. Of note, he is currently on Plavix. DONOVAN RODRIGUEZ MD Oct 10, 2020 19:41
[2020-10-10 19:43] LABS: BASO % 0.3 % (0.0-1.0); EOS % 0.1 % (0.0-3.0); HEMATOCRIT 42.1 % (42.0-52.0); HEMOGLOBIN 13.4 g/dl (13.5-17.5); LYMPH # 1.1 10^3/uL (1.5-5.0); LYMPH % 14.6 % (24.0-44.0); MEAN CORPUSCULAR HGB CONC 31.8 g/dl (32.0-36.5); MEAN CORPUSCULAR VOLUME 84.7 fl (80.0-96.0); MONO # 0.6 10^3/uL (0.0-0.8); MONO % 7.6 % (0.0-5.0); PLATELET COUNT, AUTOMATED 214 10^3/uL (150-450); RED BLOOD COUNT 4.97 10^6/uL (4.30-6.10); WHITE BLOOD COUNT 7.8 10^3/uL (4.0-10.0)
[2020-10-10] MEDS ORDERED: FAMO1TAB25 PO (20:08)
[2020-10-10] MEDS ORDERED: PALI1TAB2 PO (20:08)
[2020-10-10] MEDS ORDERED: ALL10TAB PO (20:08)
[2020-10-10] MEDS ORDERED: GNP200TA4 PO (20:08)
[2020-10-10] MEDS ORDERED: AUST6TAB PO (20:08)
[2020-10-10] MEDS ORDERED: LISI10TA4 PO (20:08)
[2020-10-10] MEDS ORDERED: CLOP75TA2 PO (20:08)
[2020-10-10] MEDS ORDERED: SIMV20TA22 PO (20:08)
[2020-10-10] MEDS ORDERED: VITATAB74 PO (20:08)
--- NOTE | 2020-10-10 20:09 | REPVR ---
PROCEDURE INFORMATION: Exam: CT Cervical Spine Without Contrast Exam date and time: 10/10/2020 7:39 PM Age: 54 years old Clinical indication: Injury or trauma; Fall; Blunt trauma; Additional info: S/P fall TECHNIQUE: Imaging protocol: Computed tomography images of the cervical spine without contrast. Radiation optimization: All CT scans at this facility use at least one of these dose optimization techniques: automated exposure control; mA and/or kV adjustment per patient size (includes targeted exams where dose is matched to clinical indication); or iterative reconstruction. COMPARISON: No relevant prior studies available. FINDINGS: Bones/joints: No acute fracture. Normal alignment. Discs/Spinal canal/Neural foramina: Moderate bilateral foraminal stenosis at C6 and mild to moderate bilateral foraminal stenosis at C7 secondary to uncinate joint hypertrophic changes. Multilevel disc osteophyte complexes resulting in mild to moderate cord impingement at C5-C6, mild right hector cord impingement at C6-C7, and mild cord impingement at C7-T1. Lungs: Lung apices are normal. Soft tissues: Unremarkable. IMPRESSION: Degenerative spondylosis. No acute findings. Electronically signed by: Gen Cadena On 10/10/2020 20:09:48 PM
--- NOTE | 2020-10-10 20:12 | REPVR ---
PROCEDURE INFORMATION: Exam: CT Head Without Contrast Exam date and time: 10/10/2020 7:39 PM Age: 54 years old Clinical indication: Injury or trauma; Fall; Blunt trauma (contusions or hematomas); Additional info: S/P fall TECHNIQUE: Imaging protocol: Computed tomography of the head without contrast. Radiation optimization: All CT scans at this facility use at least one of these dose optimization techniques: automated exposure control; mA and/or kV adjustment per patient size (includes targeted exams where dose is matched to clinical indication); or iterative reconstruction. COMPARISON: CT Head without contrast 01/15/2018 3:09 PM FINDINGS: Brain: Normal. No hemorrhage. Unremarkable white matter. No mass effect. Cerebral ventricles: No ventriculomegaly. Bones/joints: Unremarkable. No acute fracture. Paranasal sinuses: Visualized sinuses are unremarkable. No fluid levels. Mastoid air cells: Visualized mastoid air cells are well aerated. Soft tissues: Unremarkable. IMPRESSION: No acute intracranial abnormality. Electronically signed by: Gen Cadena On 10/10/2020 20:12:34 PM
--- NOTE | 2020-10-10 20:17 | REPVR ---
PROCEDURE INFORMATION: Exam: CT Maxillofacial Without Contrast Exam date and time: 10/10/2020 7:39 PM Age: 54 years old Clinical indication: Injury or trauma; Fall; Blunt trauma (contusions or hematomas); Maxilla; Additional info: S/P fall TECHNIQUE: Imaging protocol: Computed tomography images of the face without contrast. Radiation optimization: All CT scans at this facility use at least one of these dose optimization techniques: automated exposure control; mA and/or kV adjustment per patient size (includes targeted exams where dose is matched to clinical indication); or iterative reconstruction. COMPARISON: No relevant prior studies available. FINDINGS: Orbital cavity: Orbits are normal. Globes are unremarkable. Bones/joints: No acute fracture. Paranasal sinuses: Normal. No air-fluid levels. Soft tissues: Unremarkable. Nasal cavity: Bilateral gaudencio bullosa. IMPRESSION: No acute findings. Electronically signed by: Gen Cadena On 10/10/2020 20:17:36 PM
[2020-10-10 20:20] LABS: BLOOD UREA NITROGEN 13 MG/DL (7-18); CALCIUM LEVEL 8.6 MG/DL (8.5-10.1); CARBON DIOXIDE LEVEL 23 MEQ/L (21-32); CHLORIDE LEVEL 104 MEQ/L (98-107); CREATININE FOR GFR 1.05 MG/DL (0.70-1.30); FREE T4 1.38 NG/DL (0.76-1.46); GLOMERULAR FILTRATION RATE > 60.0 (>56); GLUCOSE, FASTING 117 MG/DL (70-100); POTASSIUM SERUM 4.2 MEQ/L (3.5-5.1); SODIUM LEVEL 138 MEQ/L (136-145)
[2020-10-11] VITALS: BP 131/73
--- NOTE | 2020-10-11 07:31 | ECGEPIP ---
[facility] - ED Test Date: 2020-10-10 Pat Name: CARMEN TRAN Department: Room: - Gender: Male Stand Up Comedian: bridgett : 1965 Requested By: DONOVAN Barragan Order Number: [id number] Reading MD: Paul Pretty Measurements Intervals Gateway Rate: 90 P: 22 OK: 163 QRS: -5 QRSD: 105 T: -12 QT: 329 QTc: 403 Interpretive Statements SINUS RHYTHM WITH OCCASIONAL SUPRAVENTRICULAR PREMATURE COMPLEXES INCOMPLETE RIGHT BUNDLE BRANCH BLOCK POSSIBLE LEFT VENTRICULAR HYPERTROPHY ST DEVIATION AND MODERATE T-WAVE ABNORMALITY, CONSIDER ANTEROLATERAL ISCHEMIA Similar to tracing done 01-15-18 Electronically Signed on 10-11-2020 7:31:37 EST by Paul Pretty
== END 2020-10-11 00:21 | disposition home or self-care (01) ==
LOC: M ED 18:52 → EDBD 18:52 → M ED 10-11 00:21
DX: S01.512A Laceration without foreign body of oral cavity, initial encounter (principal); S00.81XA Abrasion of other part of head, initial encounter; X58.XXXA Exposure to other specified factors, initial encounter; Y92.89 Other specified places as the place of occurrence of the external cause; R56.9 Unspecified convulsions; I10 Essential (primary) hypertension; J45.909 Unspecified asthma, uncomplicated; E78.5 Hyperlipidemia, unspecified; F20.9 Schizophrenia, unspecified; I65.29 Occlusion and stenosis of unspecified carotid artery; Z79.899 Other long term (current) drug therapy; Z79.01 Long term (current) use of anticoagulants

== ENCOUNTER → 2020-10-25 | Outpatient (CLI) | payer MEDICARE, MEDICAID ==
[~2020-10-25] MED LIST changes: +ALL10TAB PO; +AUST6TAB PO; +CLOP75TA2 PO; +FAMO1TAB25 PO; +GNP200TA4 PO; +LISI10TA4 PO; +PALI1TAB2 PO; +SIMV20TA22 PO; +VITATAB74 PO
--- NOTE | 2020-10-26 14:44 | EEG ---
ELECTROENCEPHALOGRAM DATE: 10/25/2020 DIAGNOSIS: Syncope and collapse. EEG# 09-21. REFERRING PHYSICIAN: NAHUM Rubin HISTORY: Patient is a 54-year-old man with a history of hypertension, schizophrenia, childhood seizure who had an episode of syncope and collapse. This EEG was done to rule out epileptic potential. He is currently taking Plavix, Austedo, hydrochlorothiazide, melatonin, lisinopril, trazodone, paliperidone, simvastatin. TECHNICAL DESCRIPTION: This digital EEG was recorded by 21-scalp, ear, and two EKG electrodes and was reviewed in bipolar and referential montages following reformatting in 10-20 international electrode placement system. INTERPRETATION: Patient was noted to be in awake and drowsy states during this EEG. Resting and awake background rhythm consisted of well-formed posterior dominant rhythm with anterior-posterior gradient comprising of 9 Hz alpha activity measuring 15-40 microvolts in amplitude, which was symmetric and reactive to eye opening. Attenuation of posterior dominant rhythm was seen during transition to drowsiness. No sleep was achieved. Hyperventilation could not be performed. Photic stimulation remained unremarkable. EKG revealed normal sinus rhythm. No focal, lateralizing, or epileptiform abnormalities were seen. No relevant clinical activity was noted. CONCLUSION: This EEG in awake, drowsy states is within normal limits.
== END ==
LOC: M SLEEP 08:27
PROVIDERS: ATTEND Physician Assistant Medical
DX: R55 Syncope and collapse (principal)

== ENCOUNTER 2020-11-01 13:38 | Inpatient (IN) | payer MEDICARE, MEDICAID ==
[~2020-11-01] VITALS: Ht 167.6 cm; Wt 80.7 kg
--- OUTSIDE RECORDS SUMMARY | 2020-11-01 13:44 | CCD ---
Author Author [facility] Organization [facility] Address Unknown Phone Unavailable Care Team Providers Care Dye House Wheel Operator Name Role Phone Yeni Kelley Unavailable PROBLEMS Type Condition ICD9-CM Code [id number] Code Onset Dates Condition S tatus SNOMED Code Notes Problem Seasonal allergies J30.2 Active 958810837 Problem Gastroesophageal reflux disease, esophagitis pre sence not specified K21.9 Active 239887498 Problem Essential hypertension I10 Active 47716115 Problem Prostate cancer screening Z12.5 Active 207705 001 Problem Pure hypercholesterolemia E78.00 Active 680807 004 Problem Stenosis of right carotid artery I65.21 Active 682503111443120 Problem Tardive dyskinesia G24.01 Active 419321206 Problem Body mass index (BMI) of 34.0-34.9 in adult Z68.34 Active 298936429 Problem Hyperplastic colonic polyp, unspecified part of colon K63.5 Active 529072658 Problem Impaired fasting glucose R73.01 Active 7870665 07 Problem Vitamin D deficiency E55.9 Active 06715047 Problem Adrenal nodule E27.9 Active 6579400 Problem Psychophysiological insomnia F51.04 Active 425 881253 Problem 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 Active 1 98830477 Problem Obesity, unspecified E66.9 Active 046917111 ALLERGIES Allergen (clinical drug ingredient) Drug/Non Drug Allergy do cumented on EMR Reaction Allergy Type Onset Date Status fish, chocolate, peanut butter Hives Non Drug Allergy Active aspirin Aspirin([facility] Code:[address]-28) hives Drug Allergy Active ENCOUNTERS from 1965 to 2020-10-18 Encounter Location Date Provider Diagnosis [address] [place] [address] Oct, Yeni Dianemundelein IMMUNIZATIONS Vaccine Route Administration Date Status Influenza (18 yrs & older) Flublok Unknown Jul 03, 2020 Administered Influenza (18 yrs & older) Flublok IM Intramuscular Aug 27, 2019 Administered Influenza (18 yrs & older) Flublok IM Intramuscular Oct 19, 2018 Administered TDAP 0.5mL (Boostrix) IM Intramuscular December 20, 2019 Administe red SOCIAL HISTORY Tobacco Use: Social History Observation Description Date Details (start date - stop date) Never Smoker Sex Assigned At : Social History Observation Description Sex Assigned At Unknown Education: Question Answer Notes Level of Education: Finished High School Audit Question Answer Notes Total Score: 0 Interpretation: Alcohol Education Language: Question Answer Notes Languages spoken: Bulgarian Orthodoxy: Question Answer Notes Orthodoxy 21 Oriental Orthodox Sexual Hx: Question Answer Notes Had sex in the last 12 months (vaginal, oral, or anal)? No Have you ever had an STD? No Drug and Alcohol Question Answer Notes Total Score: 0 Interpretation: No problems reported Tobacco Use: Question Answer Notes Are you a: never smoker REASON FOR REFERRAL No Information VITAL SIGNS No information MEDICATIONS Medication SIG (Take, Route, Frequency, Duration) Notes Start Da te End Date Status Haloperidol Decanoate 100 MG/ML 1 ml Intramuscular every 4 weeks Active Hydrochlorothiazide 25 MG 1 tablet in the morning Orally Onc e a day for 30 Days Active Austedo 6 MG 1 tablet with food Orally Once a day Active Lisinopril 10 MG 1 tablet Orally Once a day for 30 days Active Benztropine Mesylate 1 mg 1 tablet Orally twice a day Active Melatonin 10 MG 1 tablet at bedtime Orally once a day for 30 day(s) Active Acid Senior Credit Analyst 10 MG 1 tablet as needed Orally Twice a day Active Potassium Chloride 20 MEQ/15ML (10%) 7.5 ml with food Orally Onc e a day Aug, Active Cimetidine 200 MG 1 tablet at bedtime Orally bid for 30 day(s) Oct, Active Simvastatin 20 MG 1 tablet in the evening Orally Once a day for 30 Da ys Active Paliperidone ER 3 MG 1 tablet in the morning Orally Once a day Active Clopidogrel Bisulfate 75 MG 1 tablet Orally Once a day for 30 Days Active Montelukast Sodium 10 MG 1 tablet Orally Once a day for 30 day(s) Active Austedo 6 MG 1 tablet with food Orally bid for 30 day(s) 0 6 Oct, 2020 Active Vitamin D-3 5000 UNIT 1 tablet Orally Once a day for 30 Active Cetirizine HCl 10 MG 1 capsule Orally Once a day for 30 day(s) Active TraZODone HCl 50 MG 1 tablet at bedtime Orally Once a day for 30 day( s) Active PROCEDURES No Information RESULTS No Results REASON FOR VISIT ? MEDICAL (GENERAL) HISTORY Type Description Date Medical History schizophrenia Medical History HTN Medical History Hyperlipidemia Medical History GERD Medical History seasonal allergies Medical History Adrenal nodule 2.3cm L on CT 01/15/2018-f/u Mri for adrenal nodule 2.8cmx2.2cm L c recomm. for triple phase CT 01/2019 enhances c delayed contrast also 24 hr urine cortisol & metanephrines neg. Medical History Tardive Dyskinesia-Extrapyramidal Moveme nt Disorder Medical History Syncope ER 09/2020 Medical History hypomagnesemia 07/2018, hypokalemia Medical History INtellectual Disability Surgical History cyst on buttocks 1984 Surgical History Rt. Carotid stent 2015 Surgical History Extracted teeth-sees Dr. Ford Surgical History s/p colonoscopy-1 hyperplastic polyp out - Dr. Edmonds 10/2014 Hospitalization History [facility]cyst 1985 Hospitalization History [facility] [place] most recent for Schizophrenia 2003 Hospitalization History [facility] MR, schizophrenia hearin g voices had [id number] hospitalized 2009 Hospitalization History [facility]-paranoid schizophrenia threatene d his siter, 2005 Hospitalization History He had an overdose of meds. including seroquel, neurontin and effexor in Resp. Arrest in ICU 2004 Hospitalization History Paranoid Schiizophrenia-11Days@ [facility] 2006 Goals Section No Information Health Concerns No Information MEDICAL EQUIPMENT No Information MENTAL STATUS No Information FUNCTIONAL STATUS No Information ASSESSMENTS No Information PLAN OF TREATMENT Medication Medication Name Sig Start Date Stop Date Paliperidone ER 3 MG 1 tablet in the morning Orally Once a day Benztropine Mesylate 1 mg 1 tablet Orally twice a day Austedo 6 MG 1 tablet with food Orally bid for 30 day(s) 06 2020 Cimetidine 200 MG 1 tablet at bedtime Orally bid for 30 day(s) 0 4 Oct, 2020 Lisinopril 10 MG 1 tablet Orally Once a day for 30 days TraZODone HCl 50 MG 1 tablet at bedtime Orally Once a day for 30 day(s) Clopidogrel Bisulfate 75 MG 1 tablet Orally Once a day for 30 Da ys Haloperidol Decanoate 100 MG/ML 1 ml Intramuscular every 4 weeks Hydrochlorothiazide 25 MG 1 tablet in the morning Orally Onc e a day for 30 Days Next Appt Details Provider Name:Yeni Kelley, 2021-0 12-13 09:30:00 AM, [address] [place], [address], Insurance Providers Payer Name Payer Address Payer Phone Insured Name Patient Relati onship to Insured Coverage Start Date Coverage End Date MEDICAID C[place] Track [address] [facility] [id number] CARMEN TRAN [facility] MEDICARE Part A and B [address] [facility] [address] [phone] CARMEN TRAN self
--- OUTSIDE RECORDS SUMMARY | 2020-11-01 13:44 | CCD ---
Author Author [facility] Organization [facility] Address Unknown Phone Unavailable Care Team Providers Care Motor Coach Operator Name Role Phone Yeni Kelley Unavailable PROBLEMS Type Condition ICD9-CM Code [id number] Code Onset Dates Condition S tatus SNOMED Code Notes Problem Seasonal allergies J30.2 Active 530436870 Problem Gastroesophageal reflux disease, esophagitis pre sence not specified K21.9 Active 768502195 Problem Essential hypertension I10 Active 12308401 Problem Prostate cancer screening Z12.5 Active 252303 001 Problem Pure hypercholesterolemia E78.00 Active 516545 004 Problem Stenosis of right carotid artery I65.21 Active 757431448310146 Problem Tardive dyskinesia G24.01 Active 150303099 Problem Body mass index (BMI) of 34.0-34.9 in adult Z68.34 Active 649526421 Problem Hyperplastic colonic polyp, unspecified part of colon K63.5 Active 017532993 Problem Impaired fasting glucose R73.01 Active 8746501 07 Problem Vitamin D deficiency E55.9 Active 00786989 Problem Adrenal nodule E27.9 Active 0542423 Problem Psychophysiological insomnia F51.04 Active 425 020435 Problem 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 Active 1 98432171 Problem Obesity, unspecified E66.9 Active 400193909 ALLERGIES Allergen (clinical drug ingredient) Drug/Non Drug Allergy do cumented on EMR Reaction Allergy Type Onset Date Status fish, chocolate, peanut butter Hives Non Drug Allergy Active aspirin Aspirin([facility] Code:[address]-06) hives Drug Allergy Active ENCOUNTERS from 1963 to 2020-10-19 Encounter Location Date Provider Diagnosis [address] [place] [address] Oct, Yeni Swatsworth Syncope and collapse R55 ; Essential hyp ertension I10 ; Impaired fasting glucose R73.01 ; Gastroesophageal reflux disease, esophagitis presence not specified K21.9 ; 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 No Have you ever had an STD? No Drug and Alcohol Question Answer Notes Total Score: 0 Interpretation: No problems reported Tobacco Use: Question Answer Notes Are you a: never smoker REASON FOR REFERRAL No Information VITAL SIGNS Weight 192 lbs Oct, Height 66 in Oct, BMI 30.99 kg/m2 Oct, Heart Rate 108 /min Oct, Respiratory Rate 18 /min Oct, Temperature 98.2 degrees Fahrenheit Oct, Oximetry 96 Oct, Blood pressure systolic 100 mm Hg Oct, Blood pressure diastolic 58 mm Hg Oct, MEDICATIONS Medication SIG (Take, Route, Frequency, Duration) [...] a day for 30 day(s) Active Acid Coil Assembler 10 MG 1 tablet as needed Orally Twice a day Active Potassium Chloride 20 MEQ/15ML (10%) 7.5 ml with food Orally Onc e a day 15 Aug, 2019 Active Cimetidine 200 MG 1 tablet at bedtime Orally bid for 30 day(s) 04 Oct, 2020 Active Simvastatin 20 MG 1 tablet in [...] Information RESULTS No Results REASON FOR VISIT [facility] ED f/u MEDICAL (GENERAL) HISTORY Type Description Date Medical [...] out - Dr. Edmonds 10/2014 Hospitalization History [facility]-cyst 1985 Hospitalization History [facility] [place] most recent for Schizophrenia 2003 Hospitalization History [facility] MR, schizophrenia hearin g voices had hallucin.d-jysukcvmoozbvj-9Sizy hospitalized 2009 Hospitalization History [facility]-paranoid schizophrenia threatene d his siter, 2005 Hospitalization History He had an overdose of meds. including seroquel, neurontin and effexor in Resp. Arrest in ICU 2004 Hospitalization History Paranoid Schiizophrenia-11Days@ [facility] 2006 Goals Section No Information Health Concerns No Information MEDICAL EQUIPMENT No Information MENTAL STATUS No Information FUNCTIONAL STATUS No Information ASSESSMENTS Encounter Date Diagnosis Assessment Notes Treatment Notes Treatm ent Clinical Notes Oct, Syncope and collapse (ICD-10 - R55) Event monitor, Echo. c Dr. Sanchez, EEG; in ED 10/10 Lactic Acid 4.7 resolved quickly 0.9 to nl favor 2 not breathing, CT of head, spine, sinuses were all neg. Also notified Psych. Oct, Essential hypertension (ICD-10 - I10) Controlled on current rx 07/2020 wbc 7.4, 14.2&44.0, 234k 04/2020 8.2, 14.7&43.9, 268k 12/2019 8.2, h&H 14.7&43.9, 268k 07/2019 8.2, 14.9&44.6, 246k 02/2019 8.2, 14.7&44.3, 239k 09/2018 WBC 10.2, H&H 14.7 & 43.2, plats. 283k 05/2018 8.3, 14.7&44.0, 250k 01/2018 10.9, 14.2&41.9, 270k 08/2017 8.2, 15.3&44.3,265k 07/2016 7.5,14.6&41.7,279k 04/2014 6.9, 14.8&43.5,274k 05/2010 8.5, 15.6&45.6,269k 10/2004 6.9, 13.2&36.7,199k 05/2003 13.4,15.5&45.2,239k 07/2020 140, 3.5, 13/1.01, 83, calc9.2, 22, 33, mag. 2.1 02/2019 138,3.4,11/0.88, 90, calc. 8.8, 14, 27, cpk 189 09/2018 Na 139, K3.8, BUn/Cr 14/0.99, gluc. 80, calc. 9.4, ast 18, alt 30 05/2018 140,4.1,19/1.01,89gl,9.2ca,14,29 01/2018 139,3.4,10/1.08,109,9.2 08/2017 140,3.4,9/0.92,94,0.7,17,31 07/2016 138.3.6,11/0.87,gl104,calc.9.4 05/2014 142,3.6,10/0.89,92,13,26 01/2006 141,3.9, 123/0.7,gluc 94,calc.9.1, ast 19 alt39 08/2005 143,4.4,10/0.7,117,8.5,18,47 06/2004 135,3.7,11/0.9,106,9.4,30,62,AP 162, amyl.41 05/2003 143,3.914/0.8,107,9.2,22,32 AP129, amyl.42 10/1999 140,3.8,12/0.7134,8.5,26 04 Oct, 2020 Impaired fasting glucose (ICD-10 - R73.01) Wt. down 12lb.s 04/2020 5.8 12/2019 5.6 07/2019 5.8 02/2019 a1c 5.9 04 Oct, 2020 Gastroesophageal reflux dise ase, esophagitis presence not specified (ICD-10 - K21.9) Improved on increase to bid switched to pepcid c carcinogen in Zantac Oct, Undifferentiated schizophrenia (ICD-10 - F20.3) Managed by ROM Cowan-remains stable, will notify of syncope & collapse Oct, Stenosis of right carotid artery (ICD-10 - I65.2 1) Cont. current rx Oct, Psychophysiological insomnia (ICD-10 - F51.04) 2 to TD above had added by other PCP 05/2014 TSH 1.850,FT4 1.22 05/2010 1.00 08/2005 0.64,0.91 02/2005 1.63 04 Oct, 2020 Obesity, unspecified (ICD-10 - E66.9) 7lbs. wt. lost pls. in spring a1c 5.9 Oct, Tardive dyskinesia (ICD-10 - G24.01) Follows raissa Cowan PLAN OF TREATMENT Medication Medication Name Sig Start Date Stop Date Paliperidone ER 3 MG 1 tablet in the morning Orally Once a day Benztropine Mesylate 1 mg 1 tablet Orally twice a day Austedo 6 MG 1 tablet with food Orally bid for 30 day(s) 06 J 2020 Cimetidine 200 MG 1 tablet at [...] Onc e a day for 30 Days Treatment Notes Assessment Notes Clinical Notes Syncope and collapse Event monitor, Echo . c Dr. Sanchez, EEG; in ED 10/10 Lactic Acid 4.7 resolved quickly 0.9 to nl favor 2 not breathing, CT of head, spine, sinuses were all neg. Also notified Psych. Essential hypertension Controlled on cur rent rx10 wbc 7.4, 14.2&44.0, 234k7 8.2, 14.7&43.9, 268k3/2019 8.2, h&H 14.7&43.9, 268k1 8.2, 14.9&44.6, 246k5/2018 8.2, 14.7&44.3, 239k12 WBC 10.2, H&H 14.7 & 43.2, plats. 283k8 8.3, 14.7&44.0, 250k4/2017 10.9, 14.2&41.9, 270k1/2016 8.2, 15.3&44.3,265k10/2015 7.5,14.6&41.7,279k7/2013 6.9, 14.8&43.5,274k8/2009 8.5, 15.6&45.6,269k1/2004 6.9, 13.2&36.7,199k8/2002 13.4,15.5&45.2,239k10/2019 140, 3.5, 13/1.01, 83, calc9.2, 22, 33, mag. 2. 138,3.4,11/0.88, 90, calc. 8.8, 14, 27, cpk 87839/2017 Na 139, K3.8, BUn/Cr 14/0.99, gluc. 80, calc. 9.4, ast 18, alt 308/2017 140,4.1,19/1.01,89gl,9.2ca,14,294/2018 139,3.4,10/1.08,109,9.211/2017 140,3.4,9/0.92,94,0.7,17,3110/2016 138.3.6,11/0.87,gl104,calc.9. 142,3.6,10/0.89,92,13,264/2005 141,3.9, 123/0.7,gluc 94,calc.9.1, ast 19 qmn7213/2004 143,4.4,10/0.7,117,8.5,18,479/2003 135,3.7,11/0.9,106,9.4,30,62,AP 162, amyl.418/2002 143,3.914/0.8,107,9.2,22,32 AP129, amyl.421/1999 140,3.8,12/0.7134,8.5,26 Impaired fasting glucose Wt. down 12lb.s 04/2020 5. 5.610 5. a1c 5.9 Gastroesophageal reflux disease, esophagitis presence not sp ecified Improved on increase to bid switched to pepcid c carcinogen in Zantac Undifferentiated schizophrenia Managed b y HOSPICE CLINICAL SUPERVISOR Camryn-remains stable, will notify of syncope & collapse Stenosis of right carotid artery Cont. c urrent rx Psychophysiological insomnia 2 to TD abo ve had added by other PCP05/2014 TSH 1.850,FT4 1.228/2009 1.0011/2004 0.64,0.915/2004 1.63 Obesity, unspecified 7lbs. wt. lost pls. in a1c 5.9 Tardive dyskinesia Follows raissa HOSPICE CLINICAL SUPERVISOR Ashleigh campo Treatment Notes Test Name Order Date Electroencephalography (EEG) 2020-10-19 Next Appt Details c SS Reason: Provider Name:Yeni Kelley, 12-13 09:30:00 AM, [address] [place], [address], Insurance Providers Payer Name Payer Address Payer Phone Insured Name Patient Relati onship to Insured Coverage Start Date Coverage End Date MEDICARE Part A and B [address] [facility] [phone] [employer] self MEDICAID [facility] P2i [address] [facility] [id number] [employer] self
--- OUTSIDE RECORDS SUMMARY | 2020-11-01 13:44 | CCD ---
Author Author [facility] Organization [facility] Address Unknown Phone Unavailable Care Team Providers Care Shaft Sinker Name Role Phone Yeni Kelley Unavailable PROBLEMS Type Condition ICD9-CM Code UOC36-WN Code Onset Dates Condition S tatus SNOMED Code Notes Problem Seasonal allergies J30.2 Active 776486387 Problem Gastroesophageal reflux disease, esophagitis pre sence not specified K21.9 Active 615335116 Problem Essential hypertension I10 Active 50639690 Problem Prostate cancer screening Z12.5 Active 694999 001 Problem Pure hypercholesterolemia E78.00 Active 519242 004 Problem Stenosis of right carotid artery I65.21 Active 676922013323453 Problem Tardive dyskinesia G24.01 Active 196547941 Problem Body mass index (BMI) of 34.0-34.9 in adult Z68.34 Active 724486096 Problem Hyperplastic colonic polyp, unspecified part of colon K63.5 Active 597797476 Problem Impaired fasting glucose R73.01 Active 3472425 07 Problem Vitamin D deficiency E55.9 Active 89794023 Problem Adrenal nodule E27.9 Active 3620631 Problem Psychophysiological insomnia F51.04 Active 425 249300 Problem 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 Active 1 12124688 Problem Obesity, unspecified E66.9 Active 995430336 ALLERGIES Allergen (clinical drug ingredient) Drug/Non Drug Allergy do cumented on EMR Reaction Allergy Type Onset Date Status fish, chocolate, peanut butter Hives Non Drug Allergy Active aspirin Aspirin([facility] Code:[address]-36) hives Drug Allergy Active ENCOUNTERS from 1965 to 2020-10-11 Encounter Location Date Provider Diagnosis [address] [place] [address] Sep, Yeni [place] IMMUNIZATIONS Vaccine Route Administration Date Status Influenza [...] Education Language: Question Answer Notes Languages spoken: Sinhala Congregational: Question Answer Notes Congregational 21 Spiritism Sexual Hx: Question Answer Notes Had sex [...] Notes Start Da te End Date Status Simvastatin 20 MG 1 tablet in the evening Orally Once a day for 30 Da ys Active Pepcid AC 10 MG 1 tablet as needed Orally Twice a day for 90 day(s) Active Cetirizine HCl 10 MG 1 capsule Orally Once a day for 30 day(s) Active Paliperidone ER 3 MG 1 tablet in the morning Orally Once a day Active Hydrochlorothiazide 25 MG 1 tablet in the morning Orally Onc e a day for 30 Days Active Acid Premium Auditor 10 MG 1 tablet as needed Orally Twice a day Active Haloperidol Decanoate 100 MG/ML 1 ml Intramuscular every 4 weeks Active Vitamin D-3 5000 UNIT 1 tablet Orally Once a day for 30 Active TraZODone HCl 50 MG 1 tablet at bedtime Orally Once a day for 30 day( s) Active Melatonin 10 MG 1 tablet at bedtime Orally once a day for 30 day(s) Active Benztropine Mesylate 1 mg 1 tablet Orally twice a day Active Austedo 6 MG 1 tablet with food Orally Once a day Active Montelukast Sodium 10 MG 1 tablet Orally Once a day for 30 day(s) Active Clopidogrel Bisulfate 75 MG 1 tablet Orally Once a day for 30 Days Active Potassium Chloride 20 MEQ/15ML (10%) 7.5 ml with food Orally Onc e a day Aug, Active Lisinopril 10 MG 1 tablet Orally Once a day for 30 days Active PROCEDURES No Information RESULTS No Results REASON FOR VISIT Memory issues, confusion MEDICAL (GENERAL) HISTORY Type Description Date Medical History schizophrenia Medical History HTN Medical History Hyperlipidemia Medical History GERD Medical History seasonal allergies Medical History Adrenal nodule 2.3cm L on CT 01/15/2018-f/u Mri for adrenal nodule 2.8cmx2.2cm L c recomm. for triple phase CT 01/2019 enhances c delayed contrast also 24 hr urine cortisol & metanephrines neg. Surgical History cyst on buttocks 1984 Surgical History Rt. Carotid stent 2015 Surgical History Extracted teeth-sees Dr. Ford Surgical History s/p colonoscopy-1 hyperplastic polyp out - Dr. Edmonds 10/2014 Hospitalization History [facility]-cyst 1985 Hospitalization History [facility] [place] most recent for Schizophrenia 2003 Hospitalization History [facility] MR, schizophrenia hearin g voices had hallucin.z-dxsgxdonvhivqj-5Vqsi hospitalized 2009 Hospitalization History [facility]-paranoid schizophrenia threatene d his siter, 2005 Hospitalization History He had an overdose of meds. including seroquel, neurontin and effexor in Resp. Arrest in ICU 2004 Hospitalization History Paranoid Schiizophrenia-11Days@ [facility] 2006 Goals Section No Information Health Concerns No Information MEDICAL EQUIPMENT No Information MENTAL STATUS No Information FUNCTIONAL STATUS No Information ASSESSMENTS No Information PLAN OF TREATMENT Medication Medication Name Sig Start Date Stop Date Haloperidol Decanoate 100 MG/ML 1 ml Intramuscular every 4 weeks Clopidogrel Bisulfate 75 MG 1 tablet Orally Once a day for 30 Da ys Paliperidone ER 3 MG 1 tablet in the morning Orally Once a day Hydrochlorothiazide 25 MG 1 tablet in the morning Orally Onc e a day for 30 Days Benztropine Mesylate 1 mg 1 tablet Orally twice a day Montelukast Sodium 10 MG 1 tablet Orally Once a day for 30 day(s ) Cetirizine HCl 10 MG 1 capsule Orally Once a day for 30 day(s) Austedo 6 MG 1 tablet with food Orally Once a day Vitamin D-3 5000 UNIT 1 tablet Orally Once a day for 30 TraZODone HCl 50 MG 1 tablet at bedtime Orally Once a day for 30 day(s) Lisinopril 10 MG 1 tablet Orally Once a day for 30 days Simvastatin 20 MG 1 tablet in the evening Orally Once a day for 30 Days Pepcid AC 10 MG 1 tablet as needed Orally Twice a day for 90 day (s) Next Appt Details Provider Name:Yeni Kelley, 10-16 02:00:00 PM, [address] [place] [address], [phone], Provider Name:Yeni Kelley, 12-13 09:30:00 AM, [address] [place] [address], [phone], Insurance Providers Payer Name Payer Address Payer Phone Insured Name Patient Relati onship to Insured Coverage Start Date Coverage End Date MEDICAID [email or web address] [address] [facility] [id number] [employer] self MEDICARE Part A and B [address] [facility] [address] [employer] self
--- OUTSIDE RECORDS SUMMARY | 2020-11-01 13:44 | CCD ---
Author Author [facility] Organization [facility] Address Unknown Phone Unavailable Care Team Providers Care Car Packer Name Role Phone Yeni Kelley Unavailable PROBLEMS Type Condition ICD9-CM Code [id number] Code Onset Dates Condition S tatus SNOMED Code Notes Problem Seasonal allergies J30.2 Active 160503358 Problem Gastroesophageal reflux disease, esophagitis pre sence not specified K21.9 Active 090311389 Problem Essential hypertension I10 Active 84717745 Problem Prostate cancer screening Z12.5 Active 147285 001 Problem Pure hypercholesterolemia E78.00 Active 508036 004 Problem Stenosis of right carotid artery I65.21 Active 868067334373721 Problem Tardive dyskinesia G24.01 Active 524843330 Problem Body mass index (BMI) of 34.0-34.9 in adult Z68.34 Active 115811459 Problem Hyperplastic colonic polyp, unspecified part of colon K63.5 Active 264400283 Problem Impaired fasting glucose R73.01 Active 1681322 07 Problem Vitamin D deficiency E55.9 Active 10135505 Problem Adrenal nodule E27.9 Active 2468813 Problem Psychophysiological insomnia F51.04 Active 425 599282 Problem 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 Active 1 95864829 Problem Obesity, unspecified E66.9 Active 716663955 ALLERGIES Allergen (clinical drug ingredient) Drug/Non Drug Allergy do cumented on EMR Reaction Allergy Type Onset Date Status fish, chocolate, peanut butter Hives Non Drug Allergy Active aspirin Aspirin([facility] Code:[address]-71) hives Drug Allergy Active ENCOUNTERS from 1965 to 2020-10-17 Encounter Location Date Provider Diagnosis [address] [place] [address] Oct, [place] IMMUNIZATIONS Vaccine Route Administration Date Status Influenza [...] Education Language: Question Answer Notes Languages spoken: Vietnamese Alevism: Question Answer Notes Alevism 21 Hinduism Sexual Hx: Question Answer Notes Had sex [...] Notes Start Da te End Date Status Lisinopril 10 MG 1 tablet Orally Once a day for 30 days Active Haloperidol Decanoate 100 MG/ML 1 ml Intramuscular every 4 weeks Active Austedo 6 MG 1 tablet with food Orally Once a day Active Benztropine Mesylate 1 mg 1 tablet Orally twice a day Active Melatonin 10 MG 1 tablet at bedtime Orally once a day for 30 day(s) Active Acid Implementation Technician 10 MG 1 tablet as needed Orally [...] the morning Orally Once a day Active TraZODone HCl 50 MG 1 tablet at bedtime Orally Once a day for 30 day( s) Active Montelukast Sodium 10 MG 1 tablet Orally Once a day for 30 day(s) Active Clopidogrel Bisulfate 75 MG 1 tablet Orally Once a day for 30 Days Active Vitamin D-3 5000 UNIT 1 tablet Orally Once a day for 30 Active Cetirizine HCl 10 MG 1 capsule Orally Once a day for 30 day(s) Active Hydrochlorothiazide 25 MG 1 tablet in the morning Orally Onc e a day for 30 Days Active PROCEDURES No Information RESULTS No Results REASON FOR VISIT out of work slip MEDICAL (GENERAL) HISTORY Type Description Date Medical [...] out - Dr. Edmonds 10/2014 Hospitalization History [facility]-cyst [address] [facility] [place] most recent for Schizophrenia 2003 Hospitalization History [facility] MR, schizophrenia hearin g voices had hallucin.n-icpikjnsvumgdj-5Forz hospitalized 2009 Hospitalization History [facility]-paranoid schizophrenia threatene d his siter, 2005 Hospitalization History He had an overdose of meds. including seroquel, neurontin and effexor in Resp. Arrest in ICU 2004 Hospitalization History Paranoid Schiizophrenia-11Days@ [facility] 2006 Goals Section No Information Health Concerns No Information MEDICAL EQUIPMENT No Information MENTAL STATUS No Information FUNCTIONAL STATUS No Information ASSESSMENTS No Information PLAN OF TREATMENT Medication Medication Name Sig Start Date Stop Date Paliperidone ER 3 MG 1 tablet in the morning Orally Once a day Benztropine Mesylate 1 mg 1 tablet Orally twice a day Clopidogrel Bisulfate 75 MG 1 tablet Orally Once a day for 30 Da ys Cimetidine 200 MG 1 tablet at bedtime Orally bid for 30 day(s) 0 4 Oct, 2020 Hydrochlorothiazide 25 MG 1 tablet in the morning Orally Onc e a day for 30 Days TraZODone HCl 50 MG 1 tablet at bedtime Orally Once a day for 30 day(s) Lisinopril 10 MG 1 tablet Orally Once a day for 30 days Haloperidol Decanoate 100 MG/ML 1 ml Intramuscular every 4 weeks Next Appt Details Provider Name:Yeni Kelley, 2021-0 12-13 09:30:00 AM, [address] [place], [address], Insurance Providers Payer Name Payer Address Payer Phone Insured Name Patient Relati onship to Insured Coverage Start Date Coverage End Date MEDICARE Part A and B [address] [facility] [address] [phone] [employer] self MEDICAID [employer] [address] [facility] [id number] [employer] self
--- OUTSIDE RECORDS SUMMARY | 2020-11-01 13:44 | CCD ---
Author Author Barak Cowan Organization Unknown Address [address] [address] Phone Care Team Providers Care Deer Farm Worker Name Role Phone VolodymyrQueen Syeda PCP Allergies, Adverse Reactions, Alerts No Data in Section Problem List Concept Problem Description Status Start Date Created Date Resolv ed Date Snomed Code F20.9 Schizophrenia Active 09/13/2015 09/13/2015 G24.01 Tardive Dyskinesia Active 05/13/2018 05/13/2018 Medications Rx Norm Medication Route Route Concept Start Date Stop Date Dosage Garcia quency Duration Formula Strength Dosage Form Dosage Form Code Dosage Description Medication Id Account Npid Author First Name Author Last Name Taxonomy Code Taxonomy Desc Phone Number [phone] trazodone 10/03/2016 at bedtime 50 mg tablet as needed [id number] Syeda Cowan [id number] Psychiatric/Mental Health [phone] [id number] paliperidone by mouth [id number] 06/08/2020 12/04/2020 once a day 30 3 mg tablet extended release 24hr 06823 [id number] Syeda Cowan [id number] Psychiatric/Mental Health [phone] [id number] Austedo by mouth [id number] 09/05/2020 04/03/2021 twice a day 30 6 mg tablet 70575 [id number] Syeda Cowan [id number] Psychia tric/Mental Health [id number] Social History Social History Element Description Concept Effective Date Smoking Status Unknown if ever smoked [id number] Immunizations No Data in Section Vital Signs Encounter Date Height Ins Weight Lbs Bmi Bp Systolic Bp Diastoli c Oxygen Saturation Respiration Rate Pulse Rate Body Temp Head Circumference Heigh t Lying 10/25/2020 0.00 0.00 0.00 0 0 0.00 0 0 0.00 0.0 0.0 0 Procedures Date Concept Id Description Targeted Site Concept Targeted Site Concept Type 10/25/2020 [id number] [facility] Telemed E/M Lvl 3--Est pt CPT Patient has no history of implantable de vices Encounters Encounter Start Date End Date Encounter Type Description Diagnosis Di agnosis Desc Location Author First Name Author Last Name Npid Taxonomy Cod e Taxonomy Desc Phone Number Location Addr1 Location Addr2 Location [facility] Location Sta te Location Zip [id number] 10/25/2020 10/25/2020 [id number] [facility] Telemed E/M Lvl 3--Est p t F20.9 Schizophrenia, unspecified [facility] [id number] Psychiatric/Mental Health [phone] [address] [address] Plan of Treatment No Data in Section Lab Results No Data in Section Instructions No Data in Section Functional Cognitive Status No Data in Section Insurance Providers Insurance Id Policy Effective Date Policy Thru Date Company N chula [id number] 2007 MEDICARE [id number] MEDICAID
--- OUTSIDE RECORDS SUMMARY | 2020-11-01 13:45 | CCD ---
Author Author [facility] Organization [facility] Address Unknown Phone Unavailable Care Team Providers Care Interior Wirer Name Role Phone [facility], JLAM Unavailable Unavailable Fons, M Mariah CUSTOM FRAMING SPECIALIST Unavailable Unavailable Fons, M Mariah CUSTOM FRAMING SPECIALIST Unavailable Unavailable Fons, M Mariah CUSTOM FRAMING SPECIALIST Unavailable Unavailable Fons, M Mariah CUSTOM FRAMING SPECIALIST Unavailable Unavailable Fons, M Mariah CUSTOM FRAMING SPECIALIST Unavailable Unavailable Fons, M Mariah CUSTOM FRAMING SPECIALIST Unavailable Unavailable Fons, M Mariah CUSTOM FRAMING SPECIALIST Unavailable Unavailable Fons, M Mariah CUSTOM FRAMING SPECIALIST Unavailable Unavailable Fons, M Mariah CUSTOM FRAMING SPECIALIST Unavailable Unavailable Fons, M Mariah CUSTOM FRAMING SPECIALIST Unavailable Unavailable Fons, M Mariah CUSTOM FRAMING SPECIALIST Unavailable Unavailable Fons, M Mariah CUSTOM FRAMING SPECIALIST Unavailable Unavailable Fons, M Mariah CUSTOM FRAMING SPECIALIST Unavailable Unavailable Fons, M Mariah CUSTOM FRAMING SPECIALIST Unavailable Unavailable Fons, M Mariah CUSTOM FRAMING SPECIALIST Unavailable Unavailable Fons, M Mariah CUSTOM FRAMING SPECIALIST Unavailable Unavailable Fons, M Mariah CUSTOM FRAMING SPECIALIST Unavailable Unavailable Fons, M Mariah CUSTOM FRAMING SPECIALIST Unavailable Unavailable Fons, M Mariah CUSTOM FRAMING SPECIALIST Unavailable Unavailable Fons, M Mariah CUSTOM FRAMING SPECIALIST Unavailable Unavailable Fons, M Mariah CUSTOM FRAMING SPECIALIST Unavailable Unavailable Fons, M Mariah CUSTOM FRAMING SPECIALIST Unavailable Unavailable Fons, M Mariah CUSTOM FRAMING SPECIALIST Unavailable Unavailable Fons, M Mariah CUSTOM FRAMING SPECIALIST Unavailable Unavailable Fons, M Mariah CUSTOM FRAMING SPECIALIST Unavailable Unavailable Fons, M Mariah CUSTOM FRAMING SPECIALIST Unavailable Unavailable Fons, M Mariah CUSTOM FRAMING SPECIALIST Unavailable Unavailable Fons, M Mariah CUSTOM FRAMING SPECIALIST Unavailable Unavailable Fons, M Mariah CUSTOM FRAMING SPECIALIST Unavailable Unavailable Fons, M Mariah CUSTOM FRAMING SPECIALIST Unavailable Unavailable Fons, M Mariah CUSTOM FRAMING SPECIALIST Unavailable Unavailable Fons, M Mariah CUSTOM FRAMING SPECIALIST Unavailable Unavailable Fons, M Mariah CUSTOM FRAMING SPECIALIST Unavailable Unavailable Fons, M Mariah CUSTOM FRAMING SPECIALIST Unavailable Unavailable Fons, M Mariah CUSTOM FRAMING SPECIALIST Unavailable Unavailable Fons, M Mariah CUSTOM FRAMING SPECIALIST Unavailable Unavailable Fons, M Mariah CUSTOM FRAMING SPECIALIST Unavailable Unavailable Fons, M Mariah CUSTOM FRAMING SPECIALIST Unavailable Unavailable Fons, M Mariah CUSTOM FRAMING SPECIALIST Unavailable Unavailable Fons, M Mariah CUSTOM FRAMING SPECIALIST Unavailable Unavailable Fons, M Mariah CUSTOM FRAMING SPECIALIST Unavailable Unavailable Fons, M Mariah CUSTOM FRAMING SPECIALIST Unavailable Unavailable Fons, M Mariah CUSTOM FRAMING SPECIALIST Unavailable Unavailable Fons, M Mariah CUSTOM FRAMING SPECIALIST Unavailable Unavailable Fons, M Mariah CUSTOM FRAMING SPECIALIST Unavailable Unavailable Fons, M Mariah CUSTOM FRAMING SPECIALIST Unavailable Unavailable Fons, M Mariah CUSTOM FRAMING SPECIALIST Unavailable Unavailable Fons, M Mariah CUSTOM FRAMING SPECIALIST Unavailable Unavailable Fons, M Mariah CUSTOM FRAMING SPECIALIST Unavailable Unavailable Fons, M Mariah CUSTOM FRAMING SPECIALIST Unavailable Unavailable Fons, M Mariah CUSTOM FRAMING SPECIALIST Unavailable Unavailable Fons, M Mariah CUSTOM FRAMING SPECIALIST Unavailable Unavailable Fons, M Mariah CUSTOM FRAMING SPECIALIST Unavailable Unavailable Fons, M Mariah CUSTOM FRAMING SPECIALIST Unavailable Unavailable Oumar Em Unavailable Evy Ellsworth Unavailable SAMYCORNELL PA Unavailable Unavailable SAMYCORNELL PA Unavailable Unavailable SAMYCORNELL PA Unavailable Unavailable SAMYCORNELL PA Unavailable Unavailable SAMY, CORNELL PA Unavailable Unavailable SAMY, CORNELL PA Unavailable Unavailable SAMY, CORNELL PA Unavailable Unavailable SAMY, CORNELL PA Unavailable Unavailable SAMY, CORNELL PA Unavailable Unavailable SAMY, CORNELL PA Unavailable Unavailable SAMY, CORNELL PA Unavailable Unavailable SAMY, CORNELL PA Unavailable Unavailable SAMY, CORNELL PA Unavailable Unavailable SAMY, CORNELL PA Unavailable Unavailable SAMY, CORNELL PA Unavailable Unavailable SAMY, CORNELL PA Unavailable Unavailable SAMY, CORNELL PA Unavailable Unavailable SAMY, CORNELL PA Unavailable Unavailable SAMY, CORNELL PA Unavailable Unavailable SAMY, CORNELL PA Unavailable Unavailable SAMY, CORNELL PA Unavailable Unavailable SAMY, CORNELL PA Unavailable Unavailable SAMY, CORNELL PA Unavailable Unavailable SAMY, CORNELL PA Unavailable Unavailable SAMY, CORNELL PA Unavailable Unavailable SAMY, CORNELL PA Unavailable Unavailable SAMY, CORNELL PA Unavailable Unavailable SAMY, CORNELL PA Unavailable Unavailable SAMY, CORNELL PA Unavailable Unavailable SAMY, CORNELL PA Unavailable Unavailable SAMY, CORNELL PA Unavailable Unavailable SAMY, CORNELL PA Unavailable Unavailable SAMY, CORNELL PA Unavailable Unavailable SAMY, CORNELL PA Unavailable Unavailable SAMY, CORNELL PA Unavailable Unavailable SAMY, CORNELL PA Unavailable Unavailable SAMY, CORNELL PA Unavailable Unavailable SAMY, CORNELL PA Unavailable Unavailable Yost, Liz KILN FIRER HELPER Unavailable Unavailable Yost, Liz KILN FIRER HELPER Unavailable Unavailable Yost, Liz KILN FIRER HELPER Unavailable Unavailable Yost, Liz KILN FIRER HELPER Unavailable Unavailable Yost, Liz KILN FIRER HELPER Unavailable Unavailable Yost, Ilz KILN FIRER HELPER Unavailable Unavailable Yost, Liz KILN FIRER HELPER Unavailable Unavailable Yost, Liz KILN FIRER HELPER Unavailable Unavailable Yost, Liz KILN FIRER HELPER Unavailable Unavailable Yost, Liz KILN FIRER HELPER Unavailable Unavailable Yost, Liz KILN FIRER HELPER Unavailable Unavailable James Lancastera Unavailable MACQUEEN, SYEDA KILN FIRER HELPER Unavailable Unavailable MACQUEEN, SYEDA KILN FIRER HELPER Unavailable Unavailable MACQUEEN, SYEDA KILN FIRER HELPER Unavailable Unavailable MACQUEEN, SYEDA KILN FIRER HELPER Unavailable Unavailable MACQUEEN, SYEDA KILN FIRER HELPER Unavailable Unavailable MACQUEEN, SYEDA KILN FIRER HELPER Unavailable Unavailable MACQUEEN, SYEDA KILN FIRER HELPER Unavailable Unavailable MACQUEEN, SYEDA KILN FIRER HELPER Unavailable Unavailable MACQUEEN, SYEDA KILN FIRER HELPER Unavailable Unavailable MACQUEEN, SYEDA KILN FIRER HELPER Unavailable Unavailable MACQUEEN, SYEDA KILN FIRER HELPER Unavailable Unavailable Rotella, Isa Unavailable Re-disclosure Warning The records that you are about to access may contain information from federally-assisted alcohol or drug abuse programs. If such information is present, then the following federally mandated warning applies: This information has been disclosed to you from records protected by federal confidentiality rules (42 CFR part 2). The federal rules prohibit you from making any further disclosure of this information unless further disclosure is expressly permitted by the written consent of the person to whom it pertains or as otherwise permitted by 42 CFR part 2. A general authorization for the release of medical or other information is NOT sufficient for this purpose. The Federal rules restrict any use of the information to criminally investigate or prosecute any alcohol or drug abuse patient.The records that you are about to access may contain highly sensitive health information, the redisclosure of which is protected by Article 27-F of the [facility] Public Health law. If you continue you may have access to information: Regarding HIV / AIDS; Provided by facilities licensed or operated by the [facility] Office of Mental Health; or Provided by the [facility] Office for People With Developmental Disabilities. If such information is present, then the following [facility] mandated warning applies: This information has been disclosed to you from confidential records which are protected by state law. State law prohibits you from making any further disclosure of this information without the specific written consent of the person to whom it pertains, or as otherwise permitted by law. Any unauthorized further disclosure in violation of state law may result in a fine or usp sentence or both. A general authorization for the release of medical or other information is NOT sufficient authorization for further disc losure. Allergies and Adverse Reactions Type Description Substance Reaction Status Data Source(s ) aspirin Aspirin Aspirin hives Active eCW1 ([facility]) fish, chocolate, peanut butter fish, chocolate, peanut butte r fish, chocolate, peanut butter Hives Active eCW1 ([facility]) fish, chocolate, peanut butter fish, chocolate, peanut butte r fish, chocolate, peanut butter Hives Active eCW1 ([facility]) Food allergy LATEX LATEX [facility] Family History Family Member Name Family Member Gender Family Member Status Date o f Status Description Data Source(s) Unknown Female Problem MEDENT ([facility]) Encounters Encounter Providers Location Date Indications Data Source(s ) Outpatient Referrer: Mariah [email or web address] 10/30/2020 08:54:42 AM EST [facility] Outpatient Attender: SYEDA ZAMARRIPA NP [facility] 10/25/2020 12:30:00 PM EST - 10/25/2020 12:30:00 PM EST [facility] ([facility]) Attender: SYEDA ZAMARRIPA NP 10/25/2020 12:00:00 AM EST [facility] ([facility]) Outpatient Attender: Mariah SINCLAIR [email or web address].[email or web address] 01:41:03 PM EST - 10/24/2020 03:27:51 PM EST [facility] Unknown [address] [facility] [id number] 10/17/2020 12:00:00 AM EST eCW1 ([facility]) Unknown [address] [facility] [id number] 10/17/2020 12:00:00 AM EST eCW1 ([facility]) Office Visit, Est Pt., Level 4 PC [address] [place] [address] 10/16/2020 12:00:00 AM EST eCW1 ([facility]) Unknown [address] [facility] [id number] 10/11/2020 12:00:00 AM EST eCW1 ([facility]) Outpatient Attender: SYEDA ZAMARRIPA NP [facility] 09/26/2020 01:00:00 AM EST - 09/26/2020 01:00:00 AM EST [facility] ([facility]) Attender: SYEDA ZAMARRIPA NP 09/26/2020 12:00:00 AM EST [facility] ([facility]) Outpatient Attender: SYEDA ZAMARRIPA NP [facility] 09/05/2020 10:30:00 AM EST - 09/05/2020 10:30:00 AM EST [facility] ([facility]) Attender: SYEDA ZAMARRIPA NP 09/05/2020 12:00:00 AM EST [facility] ([facility]) Attender: Shea Lancaster 08/25/2020 12:00:00 AM EST [facility] ([facility]) Extended Individual Psychotherapy - 45 min Attender: Lennox Lancaster [facility] 08/24/2020 12:00:00 PM EST - 08/24/2020 12:00:00 PM EST [facility] ([facility]) Outpatient Referrer: Mariah SINCLAIR [email or web address] 08/24/2020 12:00:00 AM EST [facility] Office Visit, Est Pt., Level 4 PC [address] [place] [address] 08/15/2020 12:00:00 AM EST eCW1 ([facility]) [id number]"Psych[facility]/11[facility] 10:00:00 AM EDT - 08/11/2020 10:00:00 AM EDT [facility] ([facility]) Attender: Shea Lancaster 08/11/2020 12:00:00 AM EDT [facility] ([facility]) TEMPMHCTelemed 30" Psychotherapy [facility]: [facility] 07/24/[facility] 01:00:00 AM EDT - 07/24/2020 01:00:00 AM EDT [facility] ([facility]) Attender: Shea Lancaster 07/24/2020 12:00:00 AM EDT [facility] ([facility]) Outpatient Attender: SYEDA ZAMARRIPA NP [facility] Abhilash jean baptiste 07/12/2020 01:00:00 AM EDT - 07/12/2020 01:00:00 AM EDT [facility] ([facility]) Attender: SYEDA ZAMARRIPA NP 07/12/2020 12:00:00 AM EDT [facility] ([facility]) Outpatient Attender: [facility] 06/17/2020 12:02:08 AM EDT [facility] Outpatient Attender: [facility] 06/16/2020 08:41:00 AM EDT [facility] Outpatient Attender: SYEDA ZAMARRIPA NP [facility] Abhilash jean baptiste 06/15/2020 10:00:00 AM EDT - 06/15/2020 10:00:00 AM EDT [facility] ([facility]) Attender: SYEDA ZAMARRIPA NP 06/15/2020 12:00:00 AM EDT [facility] ([facility]) Outpatient Attender: CORNELL coates 05/11/2020 10:45:00 AM EDT [facility] ([facility]) Outpatient Attender: Mariah COSMEP [email or web address] 0 07:55:55 AM EDT - 05/02/2020 08:35:35 AM EDT [facility] Outpatient [address] [facility] [address] 04/20/2020 12:00:00 AM EDT eCW1 ([facility]) TEMPMHCTelemed 30" Psychotherapy Attender: Shea Lancaster [facility] 04/10/2020 01:30:00 AM EDT - 04/10/2020 01:30:00 AM EDT [facility] ([facility]) Attender: Shea Lancaster 04/10/2020 12:00:00 AM EDT [facility] ([facility]) Outpatient Attender: [facility] 03/31/2020 12:09:00 PM EDT [facility] Injectable Medication Administration w/ Monitoring & E ducation Attender: Evy Ellsworth [facility] 03/29/2020 11:15:00 AM EDT - 03/29/2020 11:15:00 AM EDT [facility]: Evy Ellsworth 03/29/2020 12:00:00 AM EDT [facility] ([facility]) Injectable Medication Administration w/ Monitoring & E ducation Attender: Evy Ellsworth [facility] 03/27/2020 09:30:00 AM EDT - 03/27/2020 09:30:00 AM EDT [facility] ([facility]) Attender: Evy Ellsworth 03/27/2020 12:00:00 AM EDT [facility] ([facility]) Outpatient Attender: Liz owens 03/15/2020 10:00:00 AM EDT MED[facility] ([facility]) Outpatient Attender: CORNELL coates 03/13/2020 02:10:00 PM EDT [facility] ([facility]) TEMPMHCTelemed 30" Psychotherapy Attender: Shea Tonny [facility] 03/08/2020 01:30:00 AM EDT - 03/08/2020 01:30:00 AM EDT [facility] ([facility]) Attender: Shea Lancaster 03/08/2020 12:00:00 AM EDT [facility] ([facility]) Injectable Medication Administration w/ Monitoring & E ducation Attender: Evy Ellsworth [facility] 02/28/2020 09:00:00 AM EDT - 02/28/2020 09:00:00 AM EDT [facility]: Evy Ellsworth 02/28/2020 12:00:00 AM EDT [facility] ([facility]) TEMPMHCTelemed 30" Psychotherapy Attender: Shea Lancaster [facility] 02/24/2020 11:00:00 AM EDT - 02/24/2020 11:00:00 AM EDT [facility] ([facility]) Attender: Shea Lancaster 02/24/2020 12:00:00 AM EDT [facility] ([facility]) Outpatient Attender: SYEDA ZAMARRIPA NP [facility] Abhilash jean baptiste 02/16/2020 11:30:00 AM EDT - 02/16/2020 11:30:00 AM EDT [facility] ([facility]) Attender: SYEDA ZAMARRIPA NP 02/16/2020 12:00:00 AM EDT [facility] ([facility]) TEMPMHCTelemed 30" Psychotherapy Attender: Shea Lancaster [facility] 02/04/2020 10:00:00 AM EDT - 02/04/2020 10:00:00 AM EDT [facility] ([facility]) Attender: Shea Lancaster 02/04/2020 12:00:00 AM EDT [facility] ([facility]) Injectable Medication Administration w/ Monitoring & E ducation Attender: Evy Ellsworth [facility] 01/31/2020 09:00:00 AM EDT - 01/31/2020 09:00:00 AM EDT [facility]: Evy Ellsworth 01/31/2020 12:00:00 AM EDT [facility] ([facility]) Outpatient Attender: SYEDA ZAMARRIPA NP [facility] markel 01/26/2020 09:30:00 AM EDT - 01/26/2020 09:30:00 AM EDT [facility] ([facility]) Attender: SYEDA ZAMARRIPA NP 01/26/2020 12:00:00 AM EDT [facility] ([facility]) TEMPMHCTelemed 30" Psychotherapy Attender: Shea Lancaster [facility] 01/14/2020 11:45:00 AM EDT - 01/14/2020 11:45:00 AM EDT [facility] ([facility]) Attender: Shea Lancaster 01/14/2020 12:00:00 AM EDT [facility] ([facility]) TEMPMHCTelemed 20" psychotherapy Attender: Shea Lancaster [facility] 01/06/2020 11:00:00 AM EDT - 01/06/2020 11:00:00 AM EDT [facility] ([facility]) Attender: Shea Lancaster 01/06/2020 12:00:00 AM EDT [facility] ([facility]) Outpatient Att[facility]: [facility] 01/04/2020 02:54:00 PM EDT [facility] Medication Administration w/ Monitoring & E ducation Attender: Evy Ellsworth [facility] 01/03/2020 09:00:00 AM EDT - 01/03/2020 09:00:00 AM EDT [facility] ([facility]) Attender: Evy Ellsworth 01/03/2020 12:00:00 AM EDT [facility] ([facility]) [address] [place] [address] 12/20/2019 12:00:00 AM EDT eCW1 ([facility]) Outpatient Attender: SYEDA ZAMARRIPA NP [facility] markel 12/16/2019 09:30:00 AM EST - 12/16/2019 09:30:00 AM EST [facility] ([facility]) Attender: SYEDA ZAMARIRPA NP 12/16/2019 12:00:00 AM EST [facility] ([facility]) [address] [address] 12/15/2019 12:00:00 AM EST eCW1 ([facility]) [address] [place] [address] 12/13/2019 12:00:00 AM EST eCW1 ([facility]) [address] [address] 12/13/2019 12:00:00 AM EST [facility] [address] [address] 12/09/2019 12:00:00 AM EST eCW1 ([facility]) Brief Individual Psychotherapy - 30 min Attender: Shea lopez [facility] 12/07/2019 12:45:00 PM EST - 12/07/2019 12:45:00 PM EST [facility] ([facility]) Attender: Shea Lancaster 12/07/2019 12:00:00 AM EST [facility] ([facility]) Injectable Medication Administration w/ Monitoring & E ducation [facility] 12[facility]06[facility] 10:00:00 AM EST - 12/06/2019 10:00:00 AM EST [facility]: Evy Ellsworth 12/06/2019 12:00:00 AM EST [facility] ([facility]) Outpatient Attender: SYEDA ZAMARRIPA NP [facility] Abhilash jean baptiste 12/01/2019 09:00:00 AM EST - 12/01/2019 09:00:00 AM EST [facility] ([facility]) Attender: SYEDA ZAMARRIPA NP 12/01/2019 12:00:00 AM EST [facility] ([facility]) [address], [facility] [address] 11/30/2019 12:00:00 AM EST eCW1 ([facility]) Outpatient Attender: [facility] 11/24/2019 09:01:03 PM [facility] Outpatient Attender: [facility] 11/24/2019 04:38:00 PM [facility] Outpatient Attender: [facility] 11/24/2019 12:27:01 PM [facility] Brief Individual Psychotherapy - 30 min Att[facility]: [facility] 11/19/2019 10:00:00 AM EST - 11/19/2019 10:00:00 AM EST [facility] ([facility]) Attender: Shea Lancaster 11/19/2019 12:00:00 AM EST [facility] ([facility]) Injectable Psychotropic Medication Administration (Inj ection Only) Attender: Isa Edmonds [facility] Sybil 11/08/2019 09:00:00 AM EST - 11/08/2019 09:00:00 AM EST [facility]: Isa Edmonds 11/08/2019 12:00:00 AM EST [facility] 11/05/2019 09:32:09 AM [facility] Out[facility] 11/02/2019 09:01:03 PM [facility] Outpatient Attender: [facility] 11/02/2019 10:42:00 AM [facility] Outpatient Attender: [facility] 11/02/2019 10:38:01 AM [facility] Outpatient Attender: [facility] 11/02/2019 10:37:01 AM [facility] Outpatient Attender: [facility] 11/02/2019 10:35:00 AM [facility] Outpatient Attender: [facility] 11/02/2019 12:00:12 AM [facility] Outpatient Attender: [facility] 11/01/2019 03:16:02 PM [facility] Outpatient Attender: [facility] 11/01/2019 03:15:01 PM [facility] Outpatient Attender: [facility] 11/01/2019 01:05:01 PM [facility] Outpatient Attender: [facility] 11/01/2019 01:04:03 PM [facility] Outpatient Att[facility]: [facility] 11/01/2019 01:03:00 PM [facility] Outpatient Attender: SYEDA ZAMARRIPA NP [facility] Abhilash l 10/27/2019 09:30:00 AM EST - 10/27/2019 09:30:00 AM EST [facility] ([facility]) Attender: SYEDA ZAMARRIPA NP 10/27/2019 12:00:00 AM EST [facility] ([facility]) [facility] [address] [place] [address] 10/25/2019 12:00:00 AM EST eCW1 ([facility]) Attender: Shea Lancaster 10/19/2019 12:00:00 AM EST [facility] ([facility]) Brief Individual Psychotherapy - 30 min Attender: Shea lopez [facility] 10/18/2019 10:00:00 AM EST - 10/18/2019 10:00:00 AM EST [facility] ([facility]) [facility] [address] [place] [address] 10/15/2019 12:00:00 AM EST eCW1 ([facility]) Injectable Medication Administration w/ Monitoring & E ducation Attender: Evy Ellsworth [facility] 10/11/2019 09:00:00 AM EST - 10/11/2019 09:00:00 AM EST [facility]: Evy Ellsworth 10/11/2019 12:00:00 AM EST [facility] ([facility]) [facility] [address] [facility] [address] 09/23/2019 12:00:00 AM EST eCW1 ([facility]) [facility] [address] [facility] [address] 09/22/2019 12:00:00 AM EST eCW1 ([facility]) Brief Individual Psychotherapy - 30 min Attender: Oumar Yi [facility] 09/16/2019 10:45:00 AM EST - 09/16/2019 10:45:00 AM EST [facility] ([facility]) Attender: Oumra Yi 09/16/2019 12:00:0 0 AM EST [facility] ([facility]) Functional Status Immunizations Vaccine Date Status Description Data Source(s) influenza, recombinant, quadrIvalent,injectable, prese rvative free 07/03/2020 09:41:00 AM EDT completed eCW1 ([facility]) influenza, recombinant, quadrIvalent,injectable, prese rvative free 07/03/2020 09:41:00 AM EDT completed eCW1 ([facility]) influenza, recombinant, quadrIvalent,injectable, prese rvative free 07/03/2020 09:41:00 AM EDT completed eCW1 ([facility]) influenza, recombinant, quadrIvalent,injectable, prese rvative free 07/03/2020 09:41:00 AM EDT completed eCW1 ([facility]) influenza, recombinant, quadrIvalent,injectable, prese rvative free 07/03/2020 09:41:00 AM EDT completed eCW1 ([facility]) Tdap 12/20/2019 09:01:00 AM EDT completed e CW1 ([facility]) Tdap 12/20/2019 09:01:00 AM EDT completed e CW1 ([facility]) Tdap 12/20/2019 09:01:00 AM EDT completed e CW1 ([facility]) Tdap 12/20/2019 09:01:00 AM EDT completed e CW1 ([facility]) Tdap 12/20/2019 09:01:00 AM EDT completed e CW1 ([facility]) Tdap 12/20/2019 09:01:00 AM EDT completed e CW1 ([facility]) Tdap 12/20/2019 09:01:00 AM EDT completed e CW1 ([facility]) Medications Medication Brand Name Start Date Product Form Dose Route Admi nistrative Instructions Pharmacy Instructions Status Indications Reaction Description Data Source(s) 3 mg 10/27/2020 12:00:00 AM EST tablet extended release 24hr 30 TAKE 1 TABLET BY MOUTH ONCE A DAY START AFTER 7 DAYS OF PALIPERIDONE 1.5MG DAILY TAKE 1 TABLET BY MOUTH ONCE A DAY START AFTER 7 DAYS OF PALIPERIDONE 1.5MG DAILY SOLD: 10/28/2020 [facility] Cimetidine 200 MG Oral Tablet cimetidine (TAGAMET) 200 MG tablet cimetidine (TAGAMET) 200 MG tablet 10/18/2020 12:00:00 AM EST 200 mg Oral active Take 200 mg by mouth 2 (two) times a day [facility] Austedo 6 MG [facility] 6 MG 10/18/2020 12:00:00 AM EST 1.0 {ta blet_with_food} active Austedo 6 MG eCW1 ([facility]) Austedo 6 MG [place] 6 MG 10/18/2020 12:00:00 AM EST 1.0 {ta blet_with_food} active [place] 6 MG eCW1 ([facility]) 200 mg 10/18/2020 12:00:00 AM EST tablet 60 TAKE ONE TABLET BY MOUTH TWICE A DAY TAKE ONE TABLET BY MOUTH TWICE A DAY SOLD: 10/19/2020 [facility] Cimetidine 200 MG Oral Tablet Cimetidine 200 MG 10/16/2020 12:00:00 AM EST 1.0 {tablet_at_bedtime} active Cimetidine 2 00 MG eCW1 ([facility]) Cimetidine 200 MG Oral Tablet Cimetidine 200 MG 10/16/2020 12:00:00 AM EST 1.0 {tablet_at_bedtime} active Cimetidine 2 00 MG eCW1 ([facility]) Cimetidine 200 MG Oral Tablet Cimetidine 200 MG 10/16/2020 12:00:00 AM EST 1.0 {tablet_at_bedtime} active Cimetidine 2 00 MG eCW1 ([facility]) 50 mg 10/12/2020 12:00:00 AM EST tablet 30 TAKE ONE TABLET BY MOUTH AT BEDTIME NEEDED TAKE ONE TABLET BY MOUTH AT BEDTIME NEEDED SOLD: [facility] 24 HR paliperidone 3 MG Extended Release Oral Tablet paliperidone (INVEGA) 3 MG 24 hr tablet paliperidone (INVEGA) 3 MG 24 hr tablet 10/07/2020 12:00:00 AM EST active TAKE 1 TABLET BY MOUTH ONCE A DAY START AFTER 7 DAYS OF PALIPERIDONE 1.5MG DAILY [facility] [place] 6 MG TABS 71192-762-03 10/03/2020 12:00:00 AM EST active [facility] 25 mg 09/28/2020 12:00:00 AM EST tablet 30 TAKE 1 TABLET BY MOUTH ONCE A DAY IN THE MORNING TAKE 1 TABLET BY MOUTH ONCE A DAY IN THE MORNING SOLD: 09/30/2020 [facility] 125 mcg (5,000 unit) 09/11/2020 12:00:00 AM EST tablet 30 TAKE 1 TABLET BY MOUTH ONCE A DAY TAKE 1 TABLET BY MOUTH ONCE A DAY SOLD: 09/14/2020 [facility] 125 mcg (5,000 unit) 09/11/2020 12:00:00 AM EST tablet 30 TAKE 1 TABLET BY MOUTH ONCE A DAY TAKE 1 TABLET BY MOUTH ONCE A DAY SOLD: 10/12/2020 [facility] 3 mg 09/06/2020 12:00:00 AM EST tablet extended release 24hr 30 TAKE 1 TABLET BY MOUTH ONCE A DAY START AFTER 7 DAYS OF PALIPERIDONE 1.5MG DAILY TAKE 1 TABLET BY MOUTH ONCE A DAY START AFTER 7 DAYS OF PALIPERIDONE 1.5MG DAILY SOLD: 10/12/2020 [facility] 3 mg 09/06/2020 12:00:00 AM EST tablet extended release 24hr 30 TAKE 1 TABLET BY MOUTH ONCE A DAY START AFTER 7 DAYS OF PALIPERIDONE 1.5MG DAILY TAKE 1 TABLET BY MOUTH ONCE A DAY START AFTER 7 DAYS OF PALIPERIDONE 1.5MG DAILY SOLD: 09/09/2020 [facility] [place] Austedo 09/05/2020 12:00:00 AM EST 6 mg by mouth completed [id number] [place] by mouth [id number] 09/05/2020 04/03/2021 twice a day 30 6 mg tablet [id number] Syeda Helm [id number] [facility]) 10 mg 08/28/2020 12:00:00 AM EST tablet 30 TAKE 1 TABLET BY MOUTH ONCE A DAY TAKE 1 TABLET BY MOUTH ONCE A DAY SOLD: 08/31/2020 [facility] 75 mg 08/28/2020 12:00:00 AM EST tablet 30 TAKE 1 TABLET BY MOUTH ONCE A DAY TAKE 1 TABLET BY MOUTH ONCE A DAY SOLD: 08/31/2020 [facility] 10 mg 08/28/2020 12:00:00 AM EST tablet 30 TAKE 1 TABLET BY MOUTH ONCE A DAY TAKE 1 TABLET BY MOUTH ONCE A DAY SOLD: 09/30/2020 [facility] 75 mg 08/28/2020 12:00:00 AM EST tablet 30 TAKE 1 TABLET BY MOUTH ONCE A DAY TAKE 1 TABLET BY MOUTH ONCE A DAY SOLD: 09/30/2020 [facility] 20 mg 08/12/2020 12:00:00 AM EDT tablet 30 TAKE 1 TABLET BY MOUTH ONCE A DAY IN THE EVENING TAKE 1 TABLET BY MOUTH ONCE A DAY IN THE EVENING SOLD: 09/14/2020 [facility] 20 mg 08/12/2020 12:00:00 AM EDT tablet 30 TAKE 1 TABLET BY MOUTH ONCE A DAY IN THE EVENING TAKE 1 TABLET BY MOUTH ONCE A DAY IN THE EVENING SOLD: 08/15/2020 [facility] 20 mg 08/12/2020 12:00:00 AM EDT tablet 30 TAKE 1 TABLET BY MOUTH ONCE A DAY IN THE EVENING TAKE 1 TABLET BY MOUTH ONCE A DAY IN THE EVENING SOLD: 10/12/2020 [facility] 50 mg 07/13/2020 12:00:00 AM EDT tablet 30 TAKE ONE TABLET BY MOUTH AT BEDTIME NEEDED TAKE ONE TABLET BY MOUTH AT BEDTIME NEEDED SOLD: [facility] 50 mg 07/13/2020 12:00:00 AM EDT tablet 30 TAKE ONE TABLET BY MOUTH AT BEDTIME NEEDED TAKE ONE TABLET BY MOUTH AT BEDTIME NEEDED SOLD: [facility] 50 mg 07/13/2020 12:00:00 AM EDT tablet 30 TAKE ONE TABLET BY MOUTH AT BEDTIME NEEDED TAKE ONE TABLET BY MOUTH AT BEDTIME NEEDED SOLD: [facility] 3 mg 06/15/2020 12:00:00 AM EDT tablet extended release 24hr 30 TAKE 1 TABLET BY MOUTH EVERY DAY, START AFTER 7 DAYS OF TAKING THE 1.5MG TABLET TAKE 1 TABLET BY MOUTH EVERY DAY, START AFTER 7 DAYS OF TAKING THE 1.5MG TABLET SOLD: 08/15/2020 [facility] 3 mg 06/15/2020 12:00:00 AM EDT tablet extended release 24hr 30 TAKE 1 TABLET BY MOUTH EVERY DAY, START AFTER 7 DAYS OF TAKING THE 1.5MG TABLET TAKE 1 TABLET BY MOUTH EVERY DAY, START AFTER 7 DAYS OF TAKING THE 1.5MG TABLET SOLD: 06/16/2020 [facility] 3 mg 06/15/2020 12:00:00 AM EDT tablet extended release 24hr 30 TAKE 1 TABLET BY MOUTH EVERY DAY, START AFTER 7 DAYS OF TAKING THE 1.5MG TABLET TAKE 1 TABLET BY MOUTH EVERY DAY, START AFTER 7 DAYS OF TAKING THE 1.5MG TABLET SOLD: 07/16/2020 [facility] 1.5 mg 06/09/2020 12:00:00 AM EDT tablet extended release 24hr 7 TAKE ONE TABLET BY MOUTH EVERY DAY FOR 7 DAYS TAKE ONE TABLET BY MOUTH EVERY DAY FOR 7 DAYS SOLD: 06/11/2020 [facility] 24 HR paliperidone 3 MG Extended Release Oral Tablet paliper idone 06/08/2020 12:00:00 AM EDT 3 mg by mouth completed [id number] pa liperidone by mouth [id number] 06/08/2020 12/04/2020 once a day 30 3 mg tablet extended release 24hr [id number] Syeda Zamarripa [id number] [facility] 20 mEq/15 mL 06/08/2020 12:00:00 AM EDT liquid 473 TAKE 7.5 ML BY MOUTH ONCE DAILY TAKE 7.5 ML BY MOUTH ONCE DAILY SOLD: 06/09/2020 [facility] 24 HR paliperidone 3 MG Extended Release Oral Tablet paliper idone 06/08/2020 12:00:00 AM EDT 3 mg by mouth completed [id number] pa liperidone by mouth [id number] 06/08/2020 09/06/2020 once a day 30 3 mg tablet extended release 24hr [id number] Syeda Zamarripa [id number] [facility] ([facility]) 24 HR paliperidone 3 MG Extended Release Oral Tablet paliper idone 06/08/2020 12:00:00 AM EDT 3 mg by mouth completed [id number] pa liperidone by mouth [id number] 06/08/2020 09/06/2020 once a day 30 3 mg tablet extended release 24hr [id number] Syedareyna Zamarripa [id number] [facility] ([facility]) 10 mg 05/31/2020 12:00:00 AM EDT tablet 90 TAKE ONE TABLET BY MOUTH EVERY DAY AT BEDTIME TAKE ONE TABLET BY MOUTH EVERY DAY AT BEDTIME SOLD: 06/02/2020 [facility] 10 mg 05/31/2020 12:00:00 AM EDT tablet 90 TAKE ONE TABLET BY MOUTH EVERY DAY AT BEDTIME TAKE ONE TABLET BY MOUTH EVERY DAY AT BEDTIME SOLD: 09/21/2020 [facility] montelukast 10 MG Oral Tablet MONTELUKAST SODIUM 05/30/2020 12:0 0:00 AM EDT tablet 30 TAKE 1 TABLET BY MOUTH ONCE A DAY TAKE 1 TABLET BY MOUTH ONCE A DAY SOLD: 06/02/2020 [facility] montelukast 10 MG Oral Tablet MONTELUKAST SODIUM 05/30/2020 12:0 0:00 AM EDT tablet 30 TAKE 1 TABLET BY MOUTH ONCE A DAY TAKE 1 TABLET BY MOUTH ONCE A DAY SOLD: 07/02/2020 [facility] montelukast 10 MG Oral Tablet MONTELUKAST SODIUM 05/30/2020 12:0 0:00 AM EDT tablet 30 TAKE 1 TABLET BY MOUTH ONCE A DAY TAKE 1 TABLET BY MOUTH ONCE A DAY SOLD: 08/31/2020 [facility] montelukast 10 MG Oral Tablet MONTELUKAST SODIUM 05/30/2020 12:0 0:00 AM EDT tablet 30 TAKE 1 TABLET BY MOUTH ONCE A DAY TAKE 1 TABLET BY MOUTH ONCE A DAY SOLD: 09/30/2020 [facility] montelukast 10 MG Oral Tablet MONTELUKAST SODIUM 05/30/2020 12:0 0:00 AM EDT tablet 30 TAKE 1 TABLET BY MOUTH ONCE A DAY TAKE 1 TABLET BY MOUTH ONCE A DAY SOLD: 08/01/2020 [facility] Cephalexin 500 MG Oral Capsule CEPHALEXIN 05/22/2020 12:00:00 AM EDT capsule 20 TAKE ONE CAPSULE BY MOUTH TWICE A DAY FOR 10 DAYS TAKE ONE CAPSULE BY MOUTH TWICE A DAY FOR 10 DAYS SOLD: 05/22/2020 [facility] Lidocaine & Menthol Lidocaine & Menthol 05/11/2020 12:00:00 AM EDT active [facility]) clopidogrel 75 MG Oral Tablet clopidogrel (PLAVIX) 75 MG tablet clopidogrel (PLAVIX) 75 MG tablet 05/01/2020 12:00:00 AM EDT a ctive [facility] montelukast 10 MG Oral Tablet montelukast (SINGULAIR) 10 MG tablet montelukast (SINGULAIR) 10 MG tablet 04/30/2020 12:00:00 AM EDT active [facility] Lisinopril 10 MG Oral Tablet lisinopril (PRINIVIL,ZEST RIL) 10 MG tablet lisinopril (PRINIVIL,ZESTRIL) 10 MG tablet 04/30/2020 12:00:00 AM EDT active [facility] Hydrochlorothiazide 25 MG Oral Tablet hy drochlorothiazide (HYDRODIURIL) 25 MG tablet hydrochlorothiazide (HYDRODIURIL) 25 MG tablet 12:00:00 AM EDT active [facility] 100 mg/mL 04/21/2020 12:00:00 AM EDT solution 1 INJECT ONE MILLILITER INTRAMUSCULARLY EVERY FOUR WEEKS INJECT ONE MILLILITER INTRAMUSCULARLY EV NAS FOUR WEEKS SOLD: 05/20/2020 [facility] 100 mg/mL 04/21/2020 12:00:00 AM EDT solution 1 INJECT ONE MILLILITER INTRAMUSCULARLY EVERY FOUR WEEKS INJECT ONE MILLILITER INTRAMUSCULARLY EV NAS FOUR WEEKS SOLD: 04/25/2020 [facility] Trazodone Hydrochloride 50 MG Oral Tablet traZODone (D ESYREL) 50 MG tablet traZODone (DESYREL) 50 MG tablet 04/20/2020 12:00:00 AM EDT active [facility] 50 mg 04/20/2020 12:00:00 AM EDT tablet 30 TAKE ONE TABLET BY MOUTH AT BEDTIME NEEDED TAKE ONE TABLET BY MOUTH AT BEDTIME NEEDED SOLD: [facility] haloperidol decanoate (HALDOL DECANOATE) 100 MG/ML injection [id number] 04/20/2020 12:00:00 AM EDT active [facility] Simvastatin 20 MG Oral Tablet simvastatin (ZOCOR) 20 M G tablet simvastatin (ZOCOR) 20 MG tablet 04/13/2020 12:00:00 AM EDT ac tive [facility] Cholecalciferol 5000 UNT Oral Tablet [place] lecalciferol (VITAMIN D3) 125 MCG (5000 UT) TABS Cholecalciferol (VITAMIN D3) 125 MCG (5000 UT) TABS 12:00:00 AM EDT 1 {tbl} Oral active Take 1 tablet by mouth daily [facility] 25 mg 03/30/2020 12:00:00 AM EDT tablet 30 TAKE 1 TABLET BY MOUTH ONCE A DAY IN THE MORNING TAKE 1 TABLET BY MOUTH ONCE A DAY IN THE MORNING SOLD: 08/01/2020 [facility] 25 mg 03/30/2020 12:00:00 AM EDT tablet 30 TAKE 1 TABLET BY MOUTH ONCE A DAY IN THE MORNING TAKE 1 TABLET BY MOUTH ONCE A DAY IN THE MORNING SOLD: 08/31/2020 [facility] 25 mg 03/30/2020 12:00:00 AM EDT tablet 30 TAKE 1 TABLET BY MOUTH ONCE A DAY IN THE MORNING TAKE 1 TABLET BY MOUTH ONCE A DAY IN THE MORNING SOLD: 05/29/2020 [facility] 25 mg 03/30/2020 12:00:00 AM EDT tablet 30 TAKE 1 TABLET BY MOUTH ONCE A DAY IN THE MORNING TAKE 1 TABLET BY MOUTH ONCE A DAY IN THE MORNING SOLD: 07/02/2020 [facility] 25 mg 03/30/2020 12:00:00 AM EDT tablet 30 TAKE 1 TABLET BY MOUTH ONCE A DAY IN THE MORNING TAKE 1 TABLET BY MOUTH ONCE A DAY IN THE MORNING SOLD: 04/30/2020 [facility] 25 mg 03/30/2020 12:00:00 AM EDT tablet 30 TAKE 1 TABLET BY MOUTH ONCE A DAY IN THE MORNING TAKE 1 TABLET BY MOUTH ONCE A DAY IN THE MORNING SOLD: 04/02/2020 [facility] cetirizine hydrochloride 10 MG Oral Tablet cetirizine (ZYRTEC) 10 MG tablet cetirizine (ZYRTEC) 10 MG tablet 03/24/2020 12:00:00 AM EDT 10 mg Oral active Take 10 mg by mouth daily [facility] benztropine mesylate 0.5 MG Oral Tablet benztropine (C OGENTIN) 0.5 MG tablet benztropine (COGENTIN) 0.5 MG tablet 03/22/2020 12:00:00 AM EDT active [facility] 300-30 mg 03/21/2020 12:00:00 AM EDT tablet 20 TAKE 1 OR 2 TABLETS BY MOUTH EVERY 4 HOURS NEEDED FOR PAIN MAXIMUM DAILY DOSE = 12 TABLETS TAKE 1 OR 2 TABLETS BY MOUTH EVERY 4 HOURS NEEDED FOR PAIN MAXIMUM DAILY DOSE = 12 TABLETS SOLD: 03/21/2020 [facility] 4 mg 03/15/2020 12:00:00 AM EDT tablet 30 TAKE ONE TABLET BY MOUTH EVERY 6 TO 8 HOURS NEEDED TAKE ONE TABLET BY MOUTH EVERY 6 TO 8 HOURS NEEDED SOLD: 03/15/2020 [facility] 125 mcg (5,000 unit) 03/15/2020 12:00:00 AM EDT tablet 30 TAKE 1 TABLET BY MOUTH ONCE A DAY TAKE 1 TABLET BY MOUTH ONCE A DAY SOLD: 05/17/2020 [facility] 125 mcg (5,000 unit) 03/15/2020 12:00:00 AM EDT tablet 30 TAKE 1 TABLET BY MOUTH ONCE A DAY TAKE 1 TABLET BY MOUTH ONCE A DAY SOLD: 03/16/2020 [facility] tizanidine 4 MG Oral Tablet tiZANidine (ZANAFLEX) 4 MG tablet tiZANidine (ZANAFLEX) 4 MG tablet 03/15/2020 12:00:00 AM EDT active [facility] 125 mcg (5,000 unit) 03/15/2020 12:00:00 AM EDT tablet 30 TAKE 1 TABLET BY MOUTH ONCE A DAY TAKE 1 TABLET BY MOUTH ONCE A DAY SOLD: 07/16/2020 [facility] tizanidine 4 MG Oral Tablet Tizanidine HCL 03/15/2020 12:00:00 AM EDT completed [facility] ([facility]) 125 mcg (5,000 unit) 03/15/2020 12:00:00 AM EDT tablet 30 TAKE 1 TABLET BY MOUTH ONCE A DAY TAKE 1 TABLET BY MOUTH ONCE A DAY SOLD: 08/15/2020 [facility] 125 mcg (5,000 unit) 03/15/2020 12:00:00 AM EDT tablet 30 TAKE 1 TABLET BY MOUTH ONCE A DAY TAKE 1 TABLET BY MOUTH ONCE A DAY SOLD: 04/15/2020 [facility] 125 mcg (5,000 unit) 03/15/2020 12:00:00 AM EDT tablet 30 TAKE 1 TABLET BY MOUTH ONCE A DAY TAKE 1 TABLET BY MOUTH ONCE A DAY SOLD: 06/16/2020 [facility] 10 mg 03/04/2020 12:00:00 AM EDT tablet 30 TAKE 1 TABLET BY MOUTH ONCE A DAY TAKE 1 TABLET BY MOUTH ONCE A DAY SOLD: 07/02/2020 [facility] 10 mg 03/04/2020 12:00:00 AM EDT tablet 30 TAKE 1 TABLET BY MOUTH ONCE A DAY TAKE 1 TABLET BY MOUTH ONCE A DAY SOLD: 06/02/2020 [facility] 75 mg 03/04/2020 12:00:00 AM EDT tablet 30 TAKE 1 TABLET BY MOUTH ONCE A DAY TAKE 1 TABLET BY MOUTH ONCE A DAY SOLD: 07/02/2020 [facility] 10 mg 03/04/2020 12:00:00 AM EDT tablet 30 TAKE 1 TABLET BY MOUTH ONCE A DAY TAKE 1 TABLET BY MOUTH ONCE A DAY SOLD: 08/01/2020 [facility] 75 mg 03/04/2020 12:00:00 AM EDT tablet 30 TAKE 1 TABLET BY MOUTH ONCE A DAY TAKE 1 TABLET BY MOUTH ONCE A DAY SOLD: 08/01/2020 [facility] 10 mg 03/04/2020 12:00:00 AM EDT tablet 30 TAKE 1 TABLET BY MOUTH ONCE A DAY TAKE 1 TABLET BY MOUTH ONCE A DAY SOLD: 04/04/2020 [facility] 75 mg 03/04/2020 12:00:00 AM EDT tablet 30 TAKE 1 TABLET BY MOUTH ONCE A DAY TAKE 1 TABLET BY MOUTH ONCE A DAY SOLD: 03/06/2020 [facility] 10 mg 03/04/2020 12:00:00 AM EDT tablet 30 TAKE 1 TABLET BY MOUTH ONCE A DAY TAKE 1 TABLET BY MOUTH ONCE A DAY SOLD: 03/06/2020 [facility] 75 mg 03/04/2020 12:00:00 AM EDT tablet 30 TAKE 1 TABLET BY MOUTH ONCE A DAY TAKE 1 TABLET BY MOUTH ONCE A DAY SOLD: 04/04/2020 [facility] 75 mg 03/04/2020 12:00:00 AM EDT tablet 30 TAKE 1 TABLET BY MOUTH ONCE A DAY TAKE 1 TABLET BY MOUTH ONCE A DAY SOLD: 05/03/2020 [facility] 10 mg 03/04/2020 12:00:00 AM EDT tablet 30 TAKE 1 TABLET BY MOUTH ONCE A DAY TAKE 1 TABLET BY MOUTH ONCE A DAY SOLD: 05/03/2020 [facility] 75 mg 03/04/2020 12:00:00 AM EDT tablet 30 TAKE 1 TABLET BY MOUTH ONCE A DAY TAKE 1 TABLET BY MOUTH ONCE A DAY SOLD: 06/02/2020 [facility] 20 mg 02/17/2020 12:00:00 AM EDT tablet 30 TAKE 1 TABLET BY MOUTH ONCE A DAY IN THE EVENING TAKE 1 TABLET BY MOUTH ONCE A DAY IN THE EVENING SOLD: 07/16/2020 [facility] 20 mg 02/17/2020 12:00:00 AM EDT tablet 30 TAKE 1 TABLET BY MOUTH ONCE A DAY IN THE EVENING TAKE 1 TABLET BY MOUTH ONCE A DAY IN THE EVENING SOLD: 05/17/2020 [facility] 20 mg 02/17/2020 12:00:00 AM EDT tablet 30 TAKE 1 TABLET BY MOUTH ONCE A DAY IN THE EVENING TAKE 1 TABLET BY MOUTH ONCE A DAY IN THE EVENING SOLD: 03/18/2020 [facility] 20 mg 02/17/2020 12:00:00 AM EDT tablet 30 TAKE 1 TABLET BY MOUTH ONCE A DAY IN THE EVENING TAKE 1 TABLET BY MOUTH ONCE A DAY IN THE EVENING SOLD: 06/16/2020 [facility] 20 mg 02/17/2020 12:00:00 AM EDT tablet 30 TAKE 1 TABLET BY MOUTH ONCE A DAY IN THE EVENING TAKE 1 TABLET BY MOUTH ONCE A DAY IN THE EVENING SOLD: 02/19/2020 [facility] 20 mg 02/17/2020 12:00:00 AM EDT tablet 30 TAKE 1 TABLET BY MOUTH ONCE A DAY IN THE EVENING TAKE 1 TABLET BY MOUTH ONCE A DAY IN THE EVENING SOLD: 04/15/2020 [facility] 0.5 mg 01/27/2020 12:00:00 AM EDT tablet 60 TAKE ONE TABLET BY MOUTH TWICE A DAY TAKE ONE TABLET BY MOUTH TWICE A DAY SOLD: 03/27/2020 [facility] 0.5 mg 01/27/2020 12:00:00 AM EDT tablet 60 TAKE ONE TABLET BY MOUTH TWICE A DAY TAKE ONE TABLET BY MOUTH TWICE A DAY SOLD: 01/28/2020 [facility] 0.5 mg 01/27/2020 12:00:00 AM EDT tablet 60 TAKE ONE TABLET BY MOUTH TWICE A DAY TAKE ONE TABLET BY MOUTH TWICE A DAY SOLD: 02/25/2020 [facility] 50 mg 01/26/2020 12:00:00 AM EDT tablet 30 TAKE 1 TABLET BY MOUTH ONCE A DAY AT BEDTIME TAKE 1 TABLET BY MOUTH ONCE A DAY AT BEDTIME SOLD: 02/25/2020 [facility] Austedo 01/26/2020 12:00:00 AM EDT 6 mg by mouth completed [id number] [place] by mouth [id number] 01/26/2020 08/23/2020 twice a day 30 6 mg tablet 26086 [id number] Syeda Zamarripa [id number] [facility]) 50 mg 01/26/2020 12:00:00 AM EDT tablet 30 TAKE 1 TABLET BY MOUTH ONCE A DAY AT BEDTIME TAKE 1 TABLET BY MOUTH ONCE A DAY AT BEDTIME SOLD: 06/16/2020 [facility] 50 mg 01/26/2020 12:00:00 AM EDT tablet 30 TAKE 1 TABLET BY MOUTH ONCE A DAY AT BEDTIME TAKE 1 TABLET BY MOUTH ONCE A DAY AT BEDTIME SOLD: 05/17/2020 [facility] 01/26/2020 12:00:00 AM EDT 6 mg by mouth completed [id number] [facility] by mouth [id number] 01/26/2020 08/23/2020 twice a day 30 6 mg tablet 55916 [id number] Syeda Zamarripa [id number] [facility] ([facility]) [facility] 01/26/2020 12:00:00 AM EDT 6 mg by mouth completed [id number] [facility] by mouth [id number] 01/26/2020 08/23/2020 twice a day 30 6 mg tablet 43014 [id number] Syeda Camryn [id number] [facility] ([facility]) 50 mg 01/26/2020 12:00:00 AM EDT tablet 30 TAKE 1 TABLET BY MOUTH ONCE A DAY AT BEDTIME TAKE 1 TABLET BY MOUTH ONCE A DAY AT BEDTIME SOLD: 03/27/2020 [facility] 50 mg 01/26/2020 12:00:00 AM EDT tablet 30 TAKE 1 TABLET BY MOUTH ONCE A DAY AT BEDTIME TAKE 1 TABLET BY MOUTH ONCE A DAY AT BEDTIME SOLD: 01/27/2020 [facility] 100 mg/mL 12/27/2019 12:00:00 AM EDT solution 1 INJECT 1 ML INTRAMUSCULARLY EVERY 4 WEEKS INJECT 1 ML INTRAMUSCULARLY EVERY 4 WEEKS SOLD: 12/27/2019 [facility] 100 mg/mL 12/27/2019 12:00:00 AM EDT solution 1 INJECT 1 ML INTRAMUSCULARLY EVERY 4 WEEKS INJECT 1 ML INTRAMUSCULARLY EVERY 4 WEEKS SOLD: 03/27/2020 [facility] 100 mg/mL 12/27/2019 12:00:00 AM EDT solution 1 INJECT 1 ML INTRAMUSCULARLY EVERY 4 WEEKS INJECT 1 ML INTRAMUSCULARLY EVERY 4 WEEKS SOLD: 01/28/2020 [facility] 100 mg/mL 12/27/2019 12:00:00 AM EDT solution 1 INJECT 1 ML INTRAMUSCULARLY EVERY 4 WEEKS INJECT 1 ML INTRAMUSCULARLY EVERY 4 WEEKS SOLD: 02/23/2020 [facility] 10 mg 12/21/2019 12:00:00 AM EDT tablet 180 TAKE 1 TABLET BY MOUTH TWICE A DAY NEEDED TAKE 1 TABLET BY MOUTH TWICE A DAY NEEDED SOLD: 12/23/2019 [facility] 10 mg 12/21/2019 12:00:00 AM EDT tablet 60 TAKE 1 TABLET BY MOUTH TWICE A DAY NEEDED TAKE 1 TABLET BY MOUTH TWICE A DAY NEEDED SOLD: 06/09/2020 [facility] 10 mg 12/20/2019 12:00:00 AM EDT tablet 30 TAKE 1 TABLET BY MOUTH ONCE A DAY TAKE 1 TABLET BY MOUTH ONCE A DAY SOLD: 02/25/2020 [facility] 10 mg 12/20/2019 12:00:00 AM EDT tablet 30 TAKE 1 TABLET BY MOUTH ONCE A DAY TAKE 1 TABLET BY MOUTH ONCE A DAY SOLD: 01/24/2020 [facility] 10 mg 12/20/2019 12:00:00 AM EDT tablet 30 TAKE 1 TABLET BY MOUTH ONCE A DAY TAKE 1 TABLET BY MOUTH ONCE A DAY SOLD: 03/27/2020 [facility] 10 mg 12/20/2019 12:00:00 AM EDT tablet 30 TAKE 1 TABLET BY MOUTH ONCE A DAY TAKE 1 TABLET BY MOUTH ONCE A DAY SOLD: 04/28/2020 [facility] 10 mg 12/20/2019 12:00:00 AM EDT tablet 30 TAKE 1 TABLET BY MOUTH ONCE A DAY TAKE 1 TABLET BY MOUTH ONCE A DAY SOLD: 12/23/2019 [facility] montelukast 10 MG Oral Tablet MONTELUKAST SODIUM 12/09/2019 12:0 0:00 AM EST tablet 30 TAKE 1 TABLET BY MOUTH ONCE A DAY TAKE 1 TABLET BY MOUTH ONCE A DAY SOLD: 02/07/2020 [facility] montelukast 10 MG Oral Tablet MONTELUKAST SODIUM 12/09/2019 12:0 0:00 AM EST tablet 30 TAKE 1 TABLET BY MOUTH ONCE A DAY TAKE 1 TABLET BY MOUTH ONCE A DAY SOLD: 04/04/2020 [facility] montelukast 10 MG Oral Tablet MONTELUKAST SODIUM 12/09/2019 12:0 0:00 AM EST tablet 30 TAKE 1 TABLET BY MOUTH ONCE A DAY TAKE 1 TABLET BY MOUTH ONCE A DAY SOLD: 05/03/2020 [facility] montelukast 10 MG Oral Tablet MONTELUKAST SODIUM 12/09/2019 12:0 0:00 AM EST tablet 30 TAKE 1 TABLET BY MOUTH ONCE A DAY TAKE 1 TABLET BY MOUTH ONCE A DAY SOLD: 03/06/2020 [facility] montelukast 10 MG Oral Tablet MONTELUKAST SODIUM 12/09/2019 12:0 0:00 AM EST tablet 30 TAKE 1 TABLET BY MOUTH ONCE A DAY TAKE 1 TABLET BY MOUTH ONCE A DAY SOLD: 01/09/2020 [facility] montelukast 10 MG Oral Tablet MONTELUKAST SODIUM 12/09/2019 12:0 0:00 AM EST tablet 30 TAKE 1 TABLET BY MOUTH ONCE A DAY TAKE 1 TABLET BY MOUTH ONCE A DAY SOLD: 12/11/2019 [facility] 50 mg 11/03/2019 12:00:00 AM EST tablet 30 TAKE ONE TABLET BY MOUTH AT BEDTIME NEEDED TAKE ONE TABLET BY MOUTH AT BEDTIME NEEDED SOLD: [facility] 50 mg 11/03/2019 12:00:00 AM EST tablet 30 TAKE ONE TABLET BY MOUTH AT BEDTIME NEEDED TAKE ONE TABLET BY MOUTH AT BEDTIME NEEDED SOLD: [facility] 50 mg 11/03/2019 12:00:00 AM EST tablet 30 TAKE ONE TABLET BY MOUTH AT BEDTIME NEEDED TAKE ONE TABLET BY MOUTH AT BEDTIME NEEDED SOLD: [facility] 0.12 % 11/02/2019 12:00:00 AM EST mouthwash 473 RINSE 10MLS [2 TEASPOONFULS] FOR 1 MINUTE THEN SPIT BEFORE BED RINSE 10MLS [2 TEASPOONFULS] FOR 1 MINUT E THEN SPIT BEFORE BED SOLD: 11/03/2019 [facility] 0.5 mg 10/27/2019 12:00:00 AM EST tablet 60 TAKE ONE TABLET BY MOUTH TWICE A DAY TAKE ONE TABLET BY MOUTH TWICE A DAY SOLD: 12/24/2019 [facility] 0.5 mg 10/27/2019 12:00:00 AM EST tablet 60 TAKE ONE TABLET BY MOUTH TWICE A DAY TAKE ONE TABLET BY MOUTH TWICE A DAY SOLD: 11/26/2019 [facility] 0.5 mg 10/27/2019 12:00:00 AM EST tablet 60 TAKE ONE TABLET BY MOUTH TWICE A DAY TAKE ONE TABLET BY MOUTH TWICE A DAY SOLD: 10/30/2019 [facility] 25 mg 10/19/2019 12:00:00 AM EST tablet 30 TAKE 1 TABLET BY MOUTH ONCE A DAY IN THE MORNING TAKE 1 TABLET BY MOUTH ONCE A DAY IN THE MORNING SOLD: 2019 [facility] 25 mg 10/19/2019 12:00:00 AM EST tablet 30 TAKE 1 TABLET BY MOUTH ONCE A DAY IN THE MORNING TAKE 1 TABLET BY MOUTH ONCE A DAY IN THE MORNING SOLD: 03/06/2020 [facility] 25 mg 10/19/2019 12:00:00 AM EST tablet 30 TAKE 1 TABLET BY MOUTH ONCE A DAY IN THE MORNING TAKE 1 TABLET BY MOUTH ONCE A DAY IN THE MORNING SOLD: 02/07/2020 [facility] 25 mg 10/19/2019 12:00:00 AM EST tablet 30 TAKE 1 TABLET BY MOUTH ONCE A DAY IN THE MORNING TAKE 1 TABLET BY MOUTH ONCE A DAY IN THE MORNING SOLD: 01/09/2020 [facility] 25 mg 10/19/2019 12:00:00 AM EST tablet 30 TAKE 1 TABLET BY MOUTH ONCE A DAY IN THE MORNING TAKE 1 TABLET BY MOUTH ONCE A DAY IN THE MORNING SOLD: 11/15/2019 [facility] 25 mg 10/19/2019 12:00:00 AM EST tablet 30 TAKE 1 TABLET BY MOUTH ONCE A DAY IN THE MORNING TAKE 1 TABLET BY MOUTH ONCE A DAY IN THE MORNING SOLD: 10/19/2019 [facility] 200 mg 09/24/2019 12:00:00 AM EST tablet 60 TAKE ONE TABLET BY MOUTH TWICE A DAY NEEDED MAXIMUM DAILY DOSE = 2 TABLETS TAKE ONE TABLET BY MOUTH TWICE A DAY NEEDED MAXIMUM DAILY DOSE = 2 TABLETS SOLD: 11/29/2019 [facility] 200 mg 09/24/2019 12:00:00 AM EST tablet 60 TAKE ONE TABLET BY MOUTH TWICE A DAY NEEDED MAXIMUM DAILY DOSE = 2 TABLETS TAKE ONE TABLET BY MOUTH TWICE A DAY NEEDED MAXIMUM DAILY DOSE = 2 TABLETS SOLD: 09/24/2019 [facility] 200 mg 09/24/2019 12:00:00 AM EST tablet 60 TAKE ONE TABLET BY MOUTH TWICE A DAY NEEDED MAXIMUM DAILY DOSE = 2 TABLETS TAKE ONE TABLET BY MOUTH TWICE A DAY NEEDED MAXIMUM DAILY DOSE = 2 TABLETS SOLD: 12/27/2019 [facility] 200 mg 09/24/2019 12:00:00 AM EST tablet 60 TAKE ONE TABLET BY MOUTH TWICE A DAY NEEDED MAXIMUM DAILY DOSE = 2 TABLETS TAKE ONE TABLET BY MOUTH TWICE A DAY NEEDED MAXIMUM DAILY DOSE = 2 TABLETS SOLD: 02/19/2020 [facility] 200 mg 09/24/2019 12:00:00 AM EST tablet 60 TAKE ONE TABLET BY MOUTH TWICE A DAY NEEDED MAXIMUM DAILY DOSE = 2 TABLETS TAKE ONE TABLET BY MOUTH TWICE A DAY NEEDED MAXIMUM DAILY DOSE = 2 TABLETS SOLD: 01/24/2020 [facility] 200 mg 09/24/2019 12:00:00 AM EST tablet 60 TAKE ONE TABLET BY MOUTH TWICE A DAY NEEDED MAXIMUM DAILY DOSE = 2 TABLETS TAKE ONE TABLET BY MOUTH TWICE A DAY NEEDED MAXIMUM DAILY DOSE = 2 TABLETS SOLD: 11/01/2019 [facility] Cimetidine 200 MG Oral Tablet Cimetidine 200 MG 09/22/2019 12:00:00 AM EST 1.0 {tablet_as_needed} active Cimetidine 20 0 MG eCW1 ([facility]) Cimetidine 200 MG Oral Tablet Cimetidine 200 MG 09/22/2019 12:00:00 A M EST active 1 tablet as needed e CW1 ([facility]) Cimetidine 200 MG Oral Tablet Cimetidine 200 MG 09/22/2019 12:00:00 A M EST active 1 tablet as needed e CW1 ([facility]) Cimetidine 200 MG Oral Tablet Cimetidine 200 MG 09/22/2019 12:00:00 A M EST active 1 tablet as needed e CW1 ([facility]) 10 mg 09/15/2019 12:00:00 AM EST tablet 30 TAKE 1 TABLET BY MOUTH ONCE A DAY TAKE 1 TABLET BY MOUTH ONCE A DAY SOLD: 12/11/2019 [facility] 75 mg 09/15/2019 12:00:00 AM EST tablet 30 TAKE 1 TABLET BY MOUTH ONCE A DAY TAKE 1 TABLET BY MOUTH ONCE A DAY SOLD: 11/12/2019 [facility] 75 mg 09/15/2019 12:00:00 AM EST tablet 30 TAKE 1 TABLET BY MOUTH ONCE A DAY TAKE 1 TABLET BY MOUTH ONCE A DAY SOLD: 01/09/2020 [facility] 10 mg 09/15/2019 12:00:00 AM EST tablet 30 TAKE 1 TABLET BY MOUTH ONCE A DAY TAKE 1 TABLET BY MOUTH ONCE A DAY SOLD: 11/12/2019 [facility] 10 mg 09/15/2019 12:00:00 AM EST tablet 30 TAKE 1 TABLET BY MOUTH ONCE A DAY TAKE 1 TABLET BY MOUTH ONCE A DAY SOLD: 01/09/2020 [facility] 75 mg 09/15/2019 12:00:00 AM EST tablet 30 TAKE 1 TABLET BY MOUTH ONCE A DAY TAKE 1 TABLET BY MOUTH ONCE A DAY SOLD: 10/15/2019 [facility] 10 mg 09/15/2019 12:00:00 AM EST tablet 30 TAKE 1 TABLET BY MOUTH ONCE A DAY TAKE 1 TABLET BY MOUTH ONCE A DAY SOLD: 10/15/2019 [facility] 10 mg 09/15/2019 12:00:00 AM EST tablet 30 TAKE 1 TABLET BY MOUTH ONCE A DAY TAKE 1 TABLET BY MOUTH ONCE A DAY SOLD: 02/07/2020 [facility] 50 mg 09/15/2019 12:00:00 AM EST tablet 30 TAKE ONE TABLET BY MOUTH AT BEDTIME NEEDED TAKE ONE TABLET BY MOUTH AT BEDTIME NEEDED SOLD: [facility] 75 mg 09/15/2019 12:00:00 AM EST tablet 30 TAKE 1 TABLET BY MOUTH ONCE A DAY TAKE 1 TABLET BY MOUTH ONCE A DAY SOLD: 12/11/2019 [facility] 75 mg 09/15/2019 12:00:00 AM EST tablet 30 TAKE 1 TABLET BY MOUTH ONCE A DAY TAKE 1 TABLET BY MOUTH ONCE A DAY SOLD: 02/07/2020 [facility] 10 mg 09/15/2019 12:00:00 AM EST tablet 30 TAKE 1 TABLET BY MOUTH ONCE A DAY TAKE 1 TABLET BY MOUTH ONCE A DAY SOLD: 09/16/2019 [facility] 50 mg 09/15/2019 12:00:00 AM EST tablet 30 TAKE ONE TABLET BY MOUTH AT BEDTIME NEEDED TAKE ONE TABLET BY MOUTH AT BEDTIME NEEDED SOLD: [facility] 75 mg 09/15/2019 12:00:00 AM EST tablet 30 TAKE 1 TABLET BY MOUTH ONCE A DAY TAKE 1 TABLET BY MOUTH ONCE A DAY SOLD: 09/16/2019 [facility] 20 mg 08/27/2019 12:00:00 AM EST tablet 30 TAKE 1 TABLET BY MOUTH ONCE A DAY IN THE EVENING TAKE 1 TABLET BY MOUTH ONCE A DAY IN THE EVENING SOLD: 01/21/2020 [facility] 125 mcg (5,000 unit) 08/27/2019 12:00:00 AM EST tablet 30 TAKE 1 TABLET BY MOUTH ONCE A DAY TAKE 1 TABLET BY MOUTH ONCE A DAY SOLD: 11/12/2019 [facility] 20 mg 08/27/2019 12:00:00 AM EST tablet 30 TAKE 1 TABLET BY MOUTH ONCE A DAY IN THE EVENING TAKE 1 TABLET BY MOUTH ONCE A DAY IN THE EVENING SOLD: 12/24/2019 [facility] 20 mEq/15 mL 08/27/2019 12:00:00 AM EST liquid 225 TAKE 7.5MLS (1 & 1/2 TEASPOONFULS) BY MOUTH ONCE A DAY WITH FOOD TAKE 7.5MLS (1 & 1/2 TEASPOONFULS) BY MOUTH ONCE A DAY WITH FOOD SOLD: 12/11/2019 [facility] 125 mcg (5,000 unit) 08/27/2019 12:00:00 AM EST tablet 30 TAKE 1 TABLET BY MOUTH ONCE A DAY TAKE 1 TABLET BY MOUTH ONCE A DAY SOLD: 02/15/2020 [facility] 20 mg 08/27/2019 12:00:00 AM EST tablet 30 TAKE 1 TABLET BY MOUTH ONCE A DAY IN THE EVENING TAKE 1 TABLET BY MOUTH ONCE A DAY IN THE EVENING SOLD: 10/27/2019 [facility] 20 mg 08/27/2019 12:00:00 AM EST tablet 30 TAKE 1 TABLET BY MOUTH ONCE A DAY IN THE EVENING TAKE 1 TABLET BY MOUTH ONCE A DAY IN THE EVENING SOLD: 11/26/2019 [facility] 125 mcg (5,000 unit) 08/27/2019 12:00:00 AM EST tablet 30 TAKE 1 TABLET BY MOUTH ONCE A DAY TAKE 1 TABLET BY MOUTH ONCE A DAY SOLD: 12/13/2019 [facility] 20 mEq/15 mL 08/27/2019 12:00:00 AM EST liquid 225 TAKE 7.5MLS (1 & 1/2 TEASPOONFULS) BY MOUTH ONCE A DAY WITH FOOD TAKE 7.5MLS (1 & 1/2 TEASPOONFULS) BY MOUTH ONCE A DAY WITH FOOD SOLD: 09/24/2019 [facility] 20 mEq/15 mL 08/27/2019 12:00:00 AM EST liquid 225 TAKE 7.5MLS (1 & 1/2 TEASPOONFULS) BY MOUTH ONCE A DAY WITH FOOD TAKE 7.5MLS (1 & 1/2 TEASPOONFULS) BY MOUTH ONCE A DAY WITH FOOD SOLD: 01/09/2020 [facility] 125 mcg (5,000 unit) 08/27/2019 12:00:00 AM EST tablet 30 TAKE 1 TABLET BY MOUTH ONCE A DAY TAKE 1 TABLET BY MOUTH ONCE A DAY SOLD: 01/14/2020 [facility] 20 mEq/15 mL 08/27/2019 12:00:00 AM EST liquid 225 TAKE 7.5MLS (1 & 1/2 TEASPOONFULS) BY MOUTH ONCE A DAY WITH FOOD TAKE 7.5MLS (1 & 1/2 TEASPOONFULS) BY MOUTH ONCE A DAY WITH FOOD SOLD: 10/19/2019 [facility] 20 mg 08/27/2019 12:00:00 AM EST tablet 30 TAKE 1 TABLET BY MOUTH ONCE A DAY IN THE EVENING TAKE 1 TABLET BY MOUTH ONCE A DAY IN THE EVENING SOLD: 09/28/2019 [facility] 20 mEq/15 mL 08/27/2019 12:00:00 AM EST liquid 225 TAKE 7.5MLS (1 & 1/2 TEASPOONFULS) BY MOUTH ONCE A DAY WITH FOOD TAKE 7.5MLS (1 & 1/2 TEASPOONFULS) BY MOUTH ONCE A DAY WITH FOOD SOLD: 11/15/2019 [facility] 100 mg/mL 08/16/2019 12:00:00 AM EST solution 1 INJECT 1 ML INTRAMUSCULARLY EVERY 4 WEEKS INJECT 1 ML INTRAMUSCULARLY EVERY 4 WEEKS SOLD: 10/11/2019 [facility] 100 mg/mL 08/16/2019 12:00:00 AM EST solution 1 INJECT 1 ML INTRAMUSCULARLY EVERY 4 WEEKS INJECT 1 ML INTRAMUSCULARLY EVERY 4 WEEKS SOLD: 12/03/2019 [facility] 100 mg/mL 08/16/2019 12:00:00 AM EST solution 1 INJECT 1 ML INTRAMUSCULARLY EVERY 4 WEEKS INJECT 1 ML INTRAMUSCULARLY EVERY 4 WEEKS SOLD: 11/07/2019 [facility] 0.5 mg 08/07/2019 12:00:00 AM EDT tablet 60 TAKE ONE TABLET BY MOUTH TWICE A DAY TAKE ONE TABLET BY MOUTH TWICE A DAY SOLD: 09/06/2019 [facility] 0.5 mg 08/07/2019 12:00:00 AM EDT tablet 60 TAKE ONE TABLET BY MOUTH TWICE A DAY TAKE ONE TABLET BY MOUTH TWICE A DAY SOLD: 10/07/2019 [facility] montelukast 10 MG Oral Tablet MONTELUKAST SODIUM 07/01/2019 12:0 0:00 AM EDT tablet 30 TAKE ONE TABLET BY MOUTH EVERY D AY TAKE ONE TABLET BY MOUTH EVERY DAY SOLD: 10/23/2019 [facility] montelukast 10 MG Oral Tablet MONTELUKAST SODIUM 07/01/2019 12:0 0:00 AM EDT tablet 30 TAKE ONE TABLET BY MOUTH EVERY D AY TAKE ONE TABLET BY MOUTH EVERY DAY SOLD: 09/24/2019 [facility] 10 mg 06/25/2019 12:00:00 AM EDT tablet 30 TAKE ONE TABLET BY MOUTH EVERY DAY TAKE ONE TABLET BY MOUTH EVERY DAY SOLD: 11/01/2019 [facility] 10 mg 06/25/2019 12:00:00 AM EDT tablet 30 TAKE ONE TABLET BY MOUTH EVERY DAY TAKE ONE TABLET BY MOUTH EVERY DAY SOLD: 09/28/2019 [facility] 100 mg/mL 05/29/2019 12:00:00 AM EDT solution 1 INJECT 1ML INTRAMUSCULARLY EVERY 4 WEEKS INJECT 1ML INTRAMUSCULARLY EVERY 4 WEEKS SOLD: 09/10/2019 [facility] Insurance Providers Payer name Policy type / Coverage type Policy ID Covered democrat ID Covered democrat's relationship to knight Policy Knight Plan Information EMEDNY [id number] SP [id number] MEDICARE [id number] SP [id number] MEDICAID [id number] Eliza [id number] MEDICARE [id number] Eliza [id number] E66 MEDICAID [id number] MEDICARE [id number] MEDICARE [id number] SP [id number] MEDICARE C [id number] S [id number] E66 MEDICAID M [id number] Medicaid P [id number] S [id number] MEDICAID [id number] SP [id number] Medicare P [id number] S [id number] A Medicaid Dental O [id number] S [id number] MEDICAID [id number] SP [id number] ANSI-Medicaid [id number] ANSI-Medicare Part B [id number] MEDICARE A [id number] Self [id number] E66 MEDICAID M [id number] Self [id number] ANSI-Medicaid [id number] ANSI-Medicare Part B [id number] ANSI-Medicaid [id number] ANSI-Medicare Part B [id number] ANSI-Medicaid [id number] ANSI-Medicare Part B [id number] MEDICARE A [id number] Self [id number] A ANSI-Medicaid [id number] ANSI-Medicare Part B [id number] MEDICAID [id number] SP [id number] ANSI-Medicaid [id number] ANSI-Medicare Part B [id number] ANSI-Medicare Part B [id number] ANSI-Medicaid [id number] ANSI-Medicare Part B [id number] ANSI-Medicaid [id number] ANSI-Medicaid [id number] ANSI-Medicare Part B [id number] ANSI-Medicaid [id number] ANSI-Medicare Part B [id number] ANSI-Medicaid [id number] ANSI-Medicare Part B [id number] [facility]-Medicare Part B [id number] [facility] [id number] ANSI-Medicare Part B [id number] [facility]-Medicaid [id number] ANSI-Medicare Part B [id number] [facility]-Medicaid [id number] MEDICARE [id number] SP [id number] E66 MEDICARE [id number] SP [id number] A MEDICARE C [id number] S [id number] A MEDICAID [id number] SP [id number] Medicaid [employer] Part B Self Medicare [place] Primary Self Problems, Conditions, and Diagnoses Code Display Name Description Problem Type Effective Dates Data Source(s) 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 [facility] ndition 10/25/2020 12:00:00 AM EST [facility] ([facility]) F20.9 Schizophrenia, unspecified Schizophrenia Condition 10/25/2020 12:00:00 AM EST [facility] ([facility]) R55 Syncope Syncope [id number] 10/24/2020 12:00:00 AM ES T [facility] G45.9 TIA (transient ischemic attack) TIA (transient ischemi c attack) [id number] 03/27/2020 12:00:00 AM EDT [facility] E78.5 Hyperlipidemia Hyperlipidemia [id number] 03/27/2020 12:00: 00 AM EDT [facility] I10 Hypertension Hypertension [id number] 03/27/2020 12:00:00 A M EDT [facility] 525.13 LOSS OF TEETH DUE TO CARIES LOSS OF TEETH DUE TO RADHA S 11/01/2019 03:14:29 PM EST [facility] G45.9 Transient cerebral ischemic attack, unsp ecified Transient cerebral ischemic attack, unsp Diagnosis 10/24/2020 01:41:03 PM EST [facility] I65.21 Occlusion and stenosis of right carotid artery Occlusion and stenosis of right carotid Diagnosis 10/24/2020 01:41:03 PM EST [facility] E78.5 Hyperlipidemia, unspecified Hyperlipidemia, unspecifie d Diagnosis 10/24/2020 01:41:03 PM EST [facility] I10 Essential (primary) hypertension Essential (primary) h ypertension Diagnosis 10/24/2020 01:41:03 PM EST [facility] R55 Syncope and collapse Syncope and collapse Diagnosis 10/24/2020 01:41:03 PM EST [facility] I73.9 Peripheral vascular disease, unspecified Peripheral vascular disease, unspecified Diagnosis 05/02/2020 07:55:55 AM EDT [facility] Surgeries/Procedures Procedure Description Date Indications Data Source(s) [facility] [place] E/M Lvl 3--Est pt 10/25/2020 12:00:00 AM EST - 10/25/2020 12:00:00 AM [facility] [place]med E/M Lvl 3--Est pt 10/25/2020 12:00:[address] [facility] ([facility]) POCT AMB EKG POCT AMB EKG Routine 10/24/2020 3:58 PM EST Syncope, unspecified syncope type 10/24/2020 08:58:00 PM EST Syncope, unspecified syncope type [facility] Syncope, unspecified syncope type [facility] Telemed E/M Lvl 3--Est pt 09/26/2020 12:00:00 AM EST - 09/26/2020 12:00:00 AM EST [facility] E/M Lvl 3--Est pt 09/26/2020 12:00:[address] [facility] ([facility]) [facility] Telemed E/M Lvl 3--Est pt 09/05/2020 12:00:00 AM EST - 09/05/2020 12:00:00 AM EST [facility] E/M Lvl 3--Est pt 09/05/2020 12:00:[address] [facility] ([facility]) Extended Individual Psychotherapy - 45 min 08/25/2020 12:00:00 AM EST - 08/25/2020 12:00:00 AM EST [facility] ([facility]) Extended Individual Psychotherapy - 45 min 0 12:00:00 AM EST [facility] ([facility]) [id number]"Psychotherapy 0 12:00:00 AM EDT - 08/11/2020 12:00:00 AM EDT [facility] [id number]"Psychotherapy 08/11/2020 12:00:00 AM EDT [facility] ([facility]) TEMPMHCTelemed 30" Psychotherapy 020 12:00:00 AM EDT - 07/24/2020 12:00:00 AM EDT [facility] TEMPMHCTelemed 30" Psychotherapy 07/24/2020 12:00:00 A M EDT [facility] ([facility]) MHC Telemed E/M Lvl 3--Est pt 07/12/2020 12:00:00 AM EDT - 07/12/2020 12:00:00 AM EDT [facility] Tele[facility] E/M Lvl 3--Est pt 07/12/2020 12:00:00 AM E DT [facility] ([facility]) [facility] Telemed E/M Lvl 3--Est pt 06/15/2020 12:00:00 AM EDT - 06/15/2020 12:00:00 AM EDT [facility] [place]med E/M Lvl 3--Est pt 06/15/2020 12:00:00 AM E DT [facility] ([facility]) TEMPMHCTelemed 30" Psychotherapy 020 12:00:00 AM EDT - 04/10/2020 12:00:00 AM EDT [facility] TEMPMHCTelemed 30" Psychotherapy 04/10/2020 12:00:00 A M EDT [facility] ([facility]) Comprehensive medication services, per 15 minutes 03/29/2020 12:00:00 AM EDT - 03/29/2020 12:00:00 AM EDT [facility] ([facility]) Comprehensive medication services, per 15 minutes 03/29/2020 12:00:00 AM EDT [facility] ([facility]) Comprehensive medication services, per 15 minutes 03/27/2020 12:00:00 AM EDT - 03/27/2020 12:00:00 AM EDT [facility] ([facility]) Comprehensive medication services, per 15 minutes 03/27/2020 12:00:00 AM EDT [facility] ([facility]) TEMPMHCTelemed 30" Psychotherapy 020 12:00:00 AM EDT - 03/08/2020 12:00:00 AM EDT [facility] TEMPMHCTelemed 30" Psychotherapy 03/08/2020 12:00:00 A M EDT [facility] ([facility]) Comprehensive medication services, per 15 minutes 02/28/2020 12:00:00 AM EDT - 02/28/2020 12:00:00 AM EDT [facility] ([facility]) Comprehensive medication services, per 15 minutes 02/28/2020 12:00:00 AM EDT [facility] ([facility]) TEMPMHCTelemed 30" Psychotherapy 12:00:00 AM EDT - 02/24/2020 12:00:00 AM EDT [facility] TEMPMHCTelemed 30" Psychotherapy 02/24/2020 12:00:00 A M EDT [facility] ([facility]) OFFICE OUTPATIENT VISIT 15 MINUTES 02/15 12:00:00 AM EDT - 02/16/2020 12:00:00 AM EDT [facility] OUTPATIENT VISIT 15 MINUTES 02/16/2020 12:00:00 AM EDT [facility] ([facility]) TEMPMHCTelemed 30" Psychotherapy 12:00:00 AM EDT - 02/04/2020 12:00:00 AM EDT [facility] TEMPMHCTelemed 30" Psychotherapy 02/04/2020 12:00:00 A M EDT [facility] ([facility]) Comprehensive medication services, per 15 minutes 01/31/2020 12:00:00 AM EDT - 01/31/2020 12:00:00 AM EDT [facility] ([facility]) Comprehensive medication services, per 15 minutes 01/31/2020 12:00:00 AM EDT [facility] ([facility]) MHC Telemed E/M Lvl 3--Est pt 01/26/2020 12:00:00 AM EDT - 01/26/2020 12:00:00 AM EDT [facility] Telemed E/M Lvl 3--Est pt 01/26/2020 12:00:00 AM E DT [facility] ([facility]) TEMPMHCTelemed 30" Psychotherapy 12:00:00 AM EDT - 01/14/2020 12:00:00 AM EDT [facility] ([facility]) TEMPMHCTelemed 30" Psychotherapy 01/14/2020 12:00:00 A M EDT [facility] ([facility]) TEMPMHCTelemed 20" psychotherapy 020 12:00:00 AM EDT - 01/06/2020 12:00:00 AM EDT [facility] ([facility]) TEMPMHCTelemed 20" psychotherapy 01/06/2020 12:00:00 A M EDT [facility] ([facility]) Comprehensive medication services, per 15 minutes 01/03/2020 12:00:00 AM EDT - 01/03/2020 12:00:00 AM EDT [facility] ([facility]) Comprehensive medication services, per 15 minutes 01/03/2020 12:00:00 AM EDT [facility] ([facility]) Office Visit, Est Pt., Level 3 FC 12/20/2019 12:00:00 AM EDT eCW1 ([facility]) Office Visit, Est Pt., Level 4 PC 12/20/2019 12:00:00 AM EDT [facility]CW1 ([facility]) TDAP 0.5mL ([facility]) 12/20/2019 12:00:00 AM EDT [facility] ([facility]) IMMUNIZATION ADMIN 12/20/2019 12:00:00 AM EDT [facility]CW1 ([facility]) OFFICE OUTPATIENT VISIT 15 MINUTES 12/15 12:00:00 AM EST - 12/16/2019 12:00:00 AM EST [facility] ([facility]) OFFICE OUTPATIENT VISIT 15 MINUTES 12/16/2019 12:00:00 AM EST [facility] ([facility]) Office Visit, Est Pt., Level 2 FC 12/13/2019 12:00:00 AM EST eCW1 ([facility]) Brief Individual Psychotherapy - 30 min 12/07/2019 12:00:00 AM EST - 12/07/2019 12:00:00 AM EST [facility] ([facility]) Brief Individual Psychotherapy - 30 min 12/07/2019 12: 00:00 AM EST [facility] ([facility]) Comprehensive medication services, per 15 minutes 12/06/2019 12:00:00 AM EST - 12/06/2019 12:00:00 AM EST [facility] ([facility]) Comprehensive medication services, per 15 minutes 12/06/2019 12:00:00 AM EST [facility] ([facility]) OFFICE OUTPATIENT VISIT 15 MINUTES 12/01 12:00:00 AM EST - 12/01/2019 12:00:00 AM EST [facility] Psych[facility] ADD ON - 30 Minutes 12/01/2019 12:00:00 AM EST [facility] ([facility]) OFFICE OUTPATIENT VISIT 15 MINUTES 12/01/2019 12:00:00 AM EST [facility] ([facility]) Brief Individual Psychotherapy - 30 min 11/19/2019 12:00:00 AM EST - 11/19/2019 12:00:00 AM EST [facility] ([facility]) Brief Individual Psychotherapy - 30 min 11/19/2019 12: 00:00 AM EST [facility] ([facility]) THERAPEUTIC PROPHYLACTIC/DX INJECTION SUBQ/IM 11/08/2019 12:00:00 AM EST - 11/08/2019 12:00:00 AM EST [facility] ([facility]) THERAPEUTIC PROPHYLACTIC/DX INJECTION SUBQ/IM 11/08/19 20 12:00:00 AM EST [facility] ([facility]) OFFICE OUTPATIENT VISIT 15 MINUTES 10/27 12:00:00 AM EST - 10/27/2019 12:00:00 AM EST [facility] OUTPATIENT VISIT 15 MINUTES 10/27/2019 12:00:00 AM EST [facility] ([facility]) Brief Individual Psychotherapy - 30 min 10/19/2019 12:00:00 AM EST - 10/19/2019 12:00:00 AM EST [facility] ([facility]) Brief Individual Psychotherapy - 30 min 10/18/2019 12: 00:00 AM EST [facility] ([facility]) Comprehensive medication services, per 15 minutes 10/11/2019 12:00:00 AM EST - 10/11/2019 12:00:00 AM EST [facility] ([facility]) Comprehensive medication services, per 15 minutes 10/11/2019 12:00:00 AM EST [facility] ([facility]) Brief Individual Psychotherapy - 30 min 09/16/2019 12:00:00 AM EST - 09/16/2019 12:00:00 AM EST [facility] ([facility]) Brief Individual Psychotherapy - 30 min 09/16/2019 12: 00:00 AM EST [facility] ([facility]) Results ID Date Data Source [id number] 10/30/2020 06:09:38 PM EST [facility] Name Value Range Interpretation Code Description Data Lynette rce(s) Supporting Document(s) &PDF [facility] RLHZHf5wKkPKOwQk28/ACSguENZyn5FcYDrcIFh5DJnlNSGaB8KpnXfwMWdVSgSMVphONZBEKN5lJwCv yKE QvzSYaB4jnoPFawjZOs8Sef9QsiBqfevmMIfWxJf6JImJyTE5fru7CAHMvDL0sss4AWHV2PD3DkXx4AM OrX1ZaFOCwQZRnc8GrMJ7AJV9qfPwyJrV9Nm5+DPbtFJE6lxOqhS7CJYTbCK9g7nrLhu/g/gcC+3C7QB 9kIaVCNGCNyyJSHjcf3fdi4u2TYrt8I4+tLXeb/etP EhZrQ9bD53fE3iQDjp4oHUPs+WO8IQxibM00zn9FBpidXK/Rh1EiBBmZ/h3cyfxc7GEt3xjljQ7192R9 9UHBZyAOQlRz2q44KQOPF0ljX7U/5IZHln/+VYl/8j9us+HMP9Lw9s0SA3nYAWYOI8yXj5d156gsZAxO E9fxboMuGtjpEGgCosTSW6vnhCHtFqXmIuCyX1uxLY A3ZAIGyc8iCU1bkNUXYWEoEDlvhL12VRCRCvUBAPiV7aT2DIsYz0tOgkUvfXw41kEDDfapAlQ4DtG/lV OROiaDJOIe9QZQV8LVLxOMeYjtr8wLbM8mdL0rIkNlBRYlbq0xn+2iKWiIpnw0ZZXjv6euf/+2Wudtdn J5/izDlmZlfcsXG3BIFn169ef5KNfUWGX2d6aqyug6 vCOvuKhzJAZjHRrLMACAvoetyT9XcZGfLyjgPE6Tt/gwmCOyqZfb7fGTXfcBgQVhTeURjmOCIgKl0RTW 1PNPYyy96aNsCA2XNhnNIji4UCYvSDN9Icu+hiH8e/PAOLO+9+eNA3ub5N71UtyUnh1zw+yvqE5zypmuAF [file] ICAgICAgICAgICAgICAgICAgICAgICAgICAgICAgICAgICAgICAgICAgICAgICAgICAgICAgICAgICAg ICAgICAgICAgICAgICAgICAgICAgICAgICAgICAgIA 0KICAgICAgICAgICAgICAgICAgICAgICAgICAgICAgICAgICAgICAgICAgICAgICAgICAgICAgICAgIC OpKHOlOFDeGLAqTQJxFIPgLDAuILVcOAUbWZPrHRIfAEQaFBMkFRSfCX0PILSrLOSkZKVaIWSjFZPtCK AgICAgICAgICAgICAgICAgICAgICAgICAgICAgICAg HMHdCIGcRIIsIHXaGYIjEWHzQJEpNMZsJJBzUAYvUWSoMTOvZWPjEVBzQTIdPNCyWZNiSI6TJIDnXXCm ICAgICAgICAgICAgICAgICAgICAgICAgICAgICAgICAgICAgICAgICAgICAgICAgICAgICAgICAgICAg ICAgICAgICAgICAgICAgICAgICAgICAgICAgICAgIC IiIH4HIYVlSZFfVQKtKFNdREWbCDDhYETlOIOiBSRvSIZtYLRnWTZeZWAaDWHnOJYdNAFbOSExMJMhPZ BjVAAvVYBeAWQjCECtWPNjNGYzGUQxAELvMAPmOEVeZZJoZYHrKKUbNYRuBW9VTZMpAODdSLKaHOLaCG AgICAgICAgICAgICAgICAgICAgICAgICAgICAgICAg HHMgEGFdAUNxWIOeYQUrXNQhGOEhIUJjMUGeGPMmEFXtTKOvBEOhDQZwEOElDXCgFUHiIAXvTW1POFQv ICAgICAgICAgICAgICAgICAgICAgICAgICAgICAgICAgICAgICAgICAgICAgICAgICAgICAgICAgICAg ICAgICAgICAgICAgICAgICAgICAgICAgICAgICAgIC PnTQEjPK3LTOBzTDEaPNIeAZAgLBDgOHXdUHLbAVElNMUbMHOkQSKdZZCkPHUmTSYqKQAjTOPgMHLhGZ ZgGFNsLFOdOMRnVMBvJFOmKQThPRNxVNTlKXDfDMBsUGJdTAGcDEKhWWLiAIJnUK2RZSRuZKPtTGMeXQ AgICAgICAgICAgICAgICAgICAgICAgICAgICAgICAg GJDnRJNdXDUnTROpBJBvORAoEMVmFSWjWGIvGTNpAPLbXOYrRIJvWKJvHLMnFEMrAKBjRLPwXYYfDN1A ICAgICAgICAgICAgICAgICAgICAgICAgICAgICAgICAgICAgICAgICAgICAgICAgICAgICAgICAgICAg ICAgICAgICAgICAgICAgICAgICAgICAgICAgICAgIC PdTPAaNBJwFS5XVW03nLChf2U6LOJdWM6bckz/Oq2KJCwalrOipSYoOF9YKdZcCW4sxu5LEfDxMC3ayb 9LVXhDByCmN7M8mMJoGAGaFLDCZbYkJ09rJYyfEa87CWgsFAVwAtMqENd6Cr8UNyLrY4xnJXCzSeT5UG GeGpEvMErhDC5Lo4OzgOBeQCm+Yj6XEL8le2XbBDnr KVHjPQ0ouk5BORnIMkZyF9C3jWJlC3B2FZmsWo4WEAWrMLGgTMynSGYFEHdkGP3TAP5kncW8QK1CiZQp CVPmGPLzoQLgQVb6A97liEWtQNyrAQ0XEKO+Joanna+Oj4XRQOjEXDeONOsZtOdFQPDPpPpX63brCJmIYYx GGT1WTVmJd4CDHLeI5PcykVlpXbgmmZfIIMlLJZZZX 9AHLijyfKvjOOcvGsuJX08tDpzEB7TTt3CYoIkDI7kzh2QzHPhTw3UDIWiXG2JJTAbVEZiFJPjOPM3HG WbWiToAEsiGVEcRFQoGGK4WJFmAKFjSZ1UGzUhTNErLPT2LdooQTWrFQEygo2FZPSqCFUzAzB7AGRfDC GlOIWtVEikZKIuRSPgUOrrFARwUNUwEO9ICxYwAEAt FDX5KsBxXAZtPHBvjg2ULDCaEPTrOpa0FJFjCCIkFKOyRTkoANUlRCZlJIH8UAWtZERoEV2TWwUtCSAd BKZcJcAuUUGrUCZpvi7LQTDzXLWuZWQgNGGxHGIsQEBiZForVDXkFBG4NyXvYPHzZPCoWV6TFtUqVRCf QPO4FzYlKZJrEVOcbo5VWMPmHYWkGCC0JHEbGYZiXR AzJBqjLTEqSFK6TtM3GANaHNLvYN5ANhNoVWKpGZW1DFZvSUVkWGEnlj0KZWObEHFwYkx5ACHsVGHcRS LcPZsqJJDbCLPyLgu2FAZgHDAdOA9UUiPjKHKrLFB1CQDsGTLwHQBdpw1IUAKpKBLmGkHjCTOeRIRdFI ScWAlbLEYgYPH2NGumNUYnCKHjAZ5YHpQuJCsxYZBD Box6BQvfS1n0COVdKW7AR9Gek4VxJApjVAYUOKjjRO3cfcYlNLLvIb9RP4nROnrqOmwqAXZ3R0LhDnkz GDZ3WDApFGYyCRFsMAOcDKH3WA1rHTBbWkLgUeF1IUD3Q5R7FPx3PQQ3NZD4VVS3C9IpViyeDnDlMC7Z Xc2FErT8GRO3cKUkIx8DWCr1WtEGWrIyHS8FOHl= ID Date Data Source [id number] 08/25/2020 07:36:32 AM EST [facility] Name Value Range Interpretation Code Description Data Lynette rce(s) Supporting Document(s) &PDF [facility] ZLIMPd7wYaGCKwPq74/KHTvcOOSsw5CeYRxzVPh6PZdtCYGlT7ZtlKtlUDeGHjFDRlnKVYECTR2yHoFb vci [file] AgICAgICAgICAgICAgICAgICAgICAgICAgICAgICAgICAgICAgICAgICAgICAgICAgICAgICAgICAgIC AgICAgICAgICAgICAgICAgDQogICAgICAgICAgICAg ICAgICAgICAgICAgICAgICAgICAgICAgICAgICAgICAgICAgICAgICAgICAgICAgICAgICAgICAgICAg ICAgICAgICAgICAgICAgICAgICAgICAgICAgDQogICAgICAgICAgICAgICAgICAgICAgICAgICAgICAg ICAgICAgICAgICAgICAgICAgICAgICAgICAgICAgIC AgICAgICAgICAgICAgICAgICAgICAgICAgICAgICAgICAgICAgDQogICAgICAgICAgICAgICAgICAgIC AgICAgICAgICAgICAgICAgICAgICAgICAgICAgICAgICAgICAgICAgICAgICAgICAgICAgICAgICAgIC AgICAgICAgICAgICAgICAgICAgDQogICAgICAgICAg ICAgICAgICAgICAgICAgICAgICAgICAgICAgICAgICAgICAgICAgICAgICAgICAgICAgICAgICAgICAg ICAgICAgICAgICAgICAgICAgICAgICAgICAgICAgDQogICAgICAgICAgICAgICAgICAgICAgICAgICAg ICAgICAgICAgICAgICAgICAgICAgICAgICAgICAgIC AgICAgICAgICAgICAgICAgICAgICAgICAgICAgICAgICAgICAgICAgDQogICAgICAgICAgICAgICAgIC AgICAgICAgICAgICAgICAgICAgICAgICAgICAgICAgICAgICAgICAgICAgICAgICAgICAgICAgICAgIC AgICAgICAgICAgICAgICAgICAgICAgDQogICAgICAg ICAgICAgICAgICAgICAgICAgICAgICAgICAgICAgICAgICAgICAgICAgICAgICAgICAgICAgICAgICAg ICAgICAgICAgICAgICAgICAgICAgICAgICAgICAgICAgDQogICAgICAgICAgICAgICAgICAgICAgICAg ICAgICAgICAgICAgICAgICAgICAgICAgICAgICAgIC AgICAgICAgICAgICAgICAgICAgICAgICAgICAgICAgICAgICAgICAgICAgDQogICAgICAgICAgICAgIC AgICAgICAgICAgICAgICAgICAgICAgICAgICAgICAgICAgICAgICAgICAgICAgICAgICAgICAgICAgIC BhBVRpBACmUYEyOMHkBGXhOJQiQWSpPZIuKZm7N6rt NMXzMWCmKX9nVZf1Cr6+OQeNQoQzWIQ0gyTrgK2NEQ0vg0YwICrrAQNvk5CiJEy6RF4QKSAsWRylFG9S RQvymm8LNHSmJSAgpKWOm8xsDoZcLLI3RNBgUdzhOX7BIVTuP5nwpiGjKCOjLFLAQBpqKPOVYD8UYrMc J1RarG75KBTGHu0+PAlhudMyIzjPOjV6QAYwz8EfQO g9IK0FYABoIWjwHF9WMKYqkN0eAEcjKV4WMmKuOMGoQJCCUgOwK77qdLKaFFq2X2ZmXbXsDLNtDtvkTL MgPDwvTmFtZXMgWyBdDQogID4+ID4+AUodLC3UPUtsygKwQQVvMf9GSSCzEVW2UUSiuMUlHlEzCRAMCE gpJJ1GuIGwOLQ5eX6cFPvyFFOyNHShS3mBOzFuxRnn EQ81bJmcfoHtoLKfOZi+Uo5ALJ3pb7PgBHb3hjShAKgwCOQ2CMnbJYWeUVFoWXWwVYF2PTJ1NPZTQvMa ICQrENLnZWnmSKEkFXBrqt7IDJLoTMAkViAhCBOdDTImTZBqUBeqCLClBPCxWFu7UZNcDIJkFQ5JZcPp IGNfISLtIYHxMKSxGJLgwp5VIAYeMPNkBqXhARVqVP JmZTZqZBldXGCsJWDxRjG4PKDmIIIsQU8IXuUnQXGdQQY2TsJuSAPcOTKbcs3OHSToHYSaWapwNBLoIR UqYKEfVHbdHNPmODN0Lle7WNThYRWzKT4XPcEgSYIxCBY1KYGjDLEiYAFjlc1YRIOaTMJoZFJ7UAMkFN YwOQOlKEhfUSHqEGV3KZH2TKMyQAPlQI7OTiSeYUEy CJWrMbWnSADuIYYaqy4MTWSaLVZmQtUcLKQfIYMzZJGdSRvtRFMvYKYmAlorQVPpUVNnGV0NDbAkYVRb IYX8DLvgCDSqJSYgwf3YWALfDCPsYDd7WERtFRPcPYHmTSjtTUDpTWLwPCM9WEJlMDMnII6QTlAfCPVy QKVeMLBbZIPfQVWspu4KSIUlKRBcYgGwLRMsMXVsAE VeFPstBCOuBYVpKkOnNAHwGIFbFG3QYhDyFVBoIMJ7XWCvKQGdHDKiye4JPRPdBRChFQP6QSBmHVWzLN UzLBzeMSUwELDbSJi8HTFsTFYzPQ1RRwQuAZYrMpA4ZpRaVHMkDQSryu2VYSAgEIIzGML8GQSvPKNlHW RiRNc1xxQhxCTuKAw3HI5WD7ApbuWoTutOTm1Fu205 MDU6YCOaUq6LD9oqKe5qNBUcWDIAPv3JPQh5E2EmYQAjKpI0WnLiY5X4BQG9YoCbAtA6IQKpHME9KeV+ FGajS1T1A3BkSeC6ETYrPXtaRWJ5DrZgKZF1XDGjZspmXM9vQBVREm1+UOfrkJVdbSrzWWTQNkM5LcC2 VIxxWWYMHf8T ID Date Data Source [id number] 11/01/2019 01:11:53 PM [facility] Vital SignsBlood Pressure: 126/78 Patient History Medical History:Impulse control disorderHypertensionHyperlipidemiaObesityparanoid schizophreniamild MRFamily History:FH Stroke-- motherSocial/Personal History: Smoking Status: never smokerCurrent Problems: LOSS OF TEETH DUE TO CARIES (ICD- 525.13) (NGG81-X73.139)PHYSICAL EXAMINATION (ICD-V70.0) (FOI84-D32.00)SPECIAL SCREENING MALIGNANT NEOPLASM OF TESTIS (ICD-V76.45) (PHC00-Y43.71)LOCALIZED SUPERFICIAL SWELLING MASS OR LUMP (ICD-782.2) (FRG26-Z31.9)DYSTROPHIC NAILS (ICD-703.8) (UNV24-N49.3)FH STROKE (ICD-V17.1) (CNB98-L89.3)UNSPECIFIED VITAMIN D DEFICIENCY (ICD-268.9) (BBZ36-G43.9)LONG-TERM (CURRENT) USE OF OTHER MEDICATIONS (ICD-V58.69)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) (UZX91-I61.0)OBESITY (ICD-278.00) (OPX31-J22.9)HYPERLIPIDEMIA (ICD-272.4) (VTV16-S68.5)HYPERTENSION (ICD-401.9) (XFU55-L75)Current Medications: CHLORHEXIDINE GLUCONATE 0.12 % SOLN (CHLORHEXIDINE GLUCONATE) Rinse for 1 minute with 10mL before bed; Route: MOUTH/THROATHYDROXYZINE HCL TABLET (HYDROXYZINE HCL TABS) 3 po @ hsHALDOL DECANOATE 50 MG/ML INTRAMUSCULAR SOLUTION (HALOPERIDOL DECANOATE) 1 1/2 ml (75mg) q 4 wksLISINOPRIL 10 MG ORAL TABLET (LISINOPRIL) 1 po qdHYDROCHL OROTHIAZIDE 25 MG ORAL TABLET (HYDROCHLOROTHIAZIDE) 1 po qdZOCOR 5 MG ORAL TABLET (SIMVASTATIN) 1 po qdCurrent Allergies: * LATEX (Critical)* FISH (Severe)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) (Severe)ADULT ASPIRIN LOW STRENGTH (Moderate)Past Medical History:(reviewed - no changes required) Impulse control disorderHypertensionHyperlipidemiaObesityparanoid schizophreniamild MR Dental Chart: Procedures:Type - CDT Code - Description B - (D0150) Comprehensive oral evaluation - new or established patient (Performed by Trish Lund DMD) B - (D0274) Bitewings, 4 radiographic images (Performed by Alyson Person) B - (D0230) Intraoral, periapical, each additional radiographic image on Tooth # 11 (Performed by Alyson Person) B - (D0230) Intraoral, periapical, each additional radiographic image on Tooth # 24 (Performed by Alyson Persno) B - (D0220) Intraoral, periapical, first radiographic image on Tooth # 6 (Performed by Alyson Person) B - (D0230) Intraoral, periapical, each additional radiographic image on Tooth # 8 (Performed by Alyson Person) Treatments:Type - CDT Code - Description T - (D2330) Resin, one surface, anterior on Tooth # 10 on Tooth Surface F (Performed by Alyson Person) T - (D2150) Amalgam, 2 surfaces, primary or permanent on Tooth # 1 on Tooth Surface MO (Performed by Alyson Person) T - (D5214) Mandibular partial denture, cast metal framework with resin denture bases (including retentive/clasping materials, rests, and teeth) on Tooth # 20,19,18,17,29,30,31 (Performed by Alyson Person) T - (D7140) Extraction, erupted tooth or exposed root (elevation and/or forceps removal) on Tooth # 18 (Performed by Alyson Person) T - (D2330) Resin, one surface, anterior on Tooth # 6 on Tooth Surface F (Performed by Alyson Person) T - (D2331) Resin, 2 surfac es, anterior on Tooth # 8 on Tooth Surface DF (Performed by Alyson Person) T - (D7140) Extraction, erupted tooth or exposed root (elevation and/or forceps removal) on Tooth # 17 (Performed by Alyson Person) T - (D5211) Upper partial denture - resin base (including any conventional clasps, rests and teeth) on Tooth # 2,3,13,14,15,16 (Performed by Alyson Person) T - (D2330) Resin, one surface, anterior on Tooth # 7 on Tooth Surface F (Performed by Alyson Person) Existing:Type - CDT Code - Description[E] Decay On #1 Surface M, #10 Surface F, #17 Surface OB, #6 Surface F, #7 Surface F, #8 Surface FD[E] Amalgam Mormon On #17 Surface MO, #18 Surface MODB, #4 Surface O, #5 Surface O[E] Root Canal On #24 Region A[E] Resin-Based Composite - Direct On #10 Surface DFL, #12 Surface O, #7 Surface MFL, #8 Surface DFL[E] Missing - [place] and Root On #13 Surface O Region XR, #14 Surface O Region XR, #15 Surface O Region XR, #16 Surface O Region XR, #19 Surface O Region XR, #2 Surface O Region XR, #20 S urface O Region XR, #29 Surface O Region XR, #3 Surface O Region XR, #30 Surface O Region XR, #31 Surface O Region XR, #32 Surface O Region XR Chart Notes:jaymie (Nov 01 2019 2:05PM): COUNT INCLUDES THE [facility](-)Comp exam, 4BWX-dexcoy, PA# 6,8,11 and 24Patient referred for extraction of # 17 and 18 and fabrication of max and jason RPD. Patient was given an option for crown on # 18 because of large amalgam bahai. Patient said he cannot afford a crown out of pocket. Patient is brushing once/day, not flossing regularly and no rinsesMarginal and interproximal calculus in sextant 5. Tissues- inflammed and clotted blood seen in sextant [address] Dr[address] Lund prescribed chlorohexidine mouthwash OHI-brushing am pm, flossing and then using Listerine zero total carePatient was cooperativeNV-Adult prophy and Filling ( patient is aware that gums have to be healthy before composite fillings can be done in sextant 2BAlyson taylor by jaymie (11/01/2019 2:04 PM): ; jovi (Nov 01 2019 3:13PM): COUNT INCLUDES THE [facility](-). CC: none. Reviewed Xrays. Exam:spont. bleeding on upper, caries detected. Discussed about #18 and #17 OCS: WNL, IO/ EO completed, No significant hard findings upon clinical exam Pt was cooperative.OHI givenReferral: GD for upper and lower detureRX: CHXNV:recallAlyson Person by jovi (11/01/2019 3:13 PM): Tooth Notes and Watches:- Tooth 18 Note: Patient was given an option for crown on # 18 because of large amalgam bahai. Patient said he cannot afford a crown out of pocket. Referred for extraction of # 17 and 18 and fabrication of max and jason RPDBbrandonLewisa by jaymie (11/01/2019 2:02 PM): Assessment & Plan Problems:Added: LOSS OF TEETH DUE TO CARIES (ICD-525.13) (ICD10- K08.139)Medications:CHLORHEXIDINE GLUCONATE 0.12 % SOLNHYDROXYZINE HCL TABLETHALDOL DECANOATE 50 MG/ML INTRAMUSCULAR SOLUTIONLISINOPRIL 10 MG ORAL TABLETHYDROCHLOROTHIAZIDE 25 MG ORAL TABLETZOCOR 5 MG ORAL TABLETMedication Changes:New Prescription:CHLORHEXIDINE GLUCONATE 0.12 % SOLN-Rinse for 1 minute with 10mL before bed Qty: 1[Bottle] Refills: 0 Method: ElectronicAllergies:* LATEX (Critical)* FISH (Severe)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) (Severe)ADULT ASPIRIN LOW STRENGTH (Moderate)Orders:Multi-Service Referral [CPT- 99363] Name Value Range Interpretation Code Description Data Lynette rce(s) Supporting Document(s) Procedure Social History Code Duration Value Status Description Data Source(s ) Smoking 10/25/2020 12:00:00 AM EST Unknown if ever smoked comp leted Unknown if ever smoked [facility] ([facility] Smoking 10/17/2020 12:00:00 AM EST Never Smoker completed Never S moker eCW1 ([facility]) Smoking 10/17/2020 12:00:00 AM EST Never Smoker completed Never S moker eCW1 ([facility]) Smoking 10/17/2020 12:00:00 AM EST Never Smoker completed Never S moker eCW1 ([facility]) Smoking 09/26/2020 12:00:00 AM EST Unknown if ever smoked comp leted Unknown if ever smoked [facility]) Smoking 09/05/2020 12:00:00 AM EST Unknown if ever smoked comp leted Unknown if ever smoked [facility] ([facility]) Smoking 08/25/2020 12:00:00 AM EST Unknown if ever smoked comp leted Unknown if ever smoked [facility] 08/15/2020 12:00:00 AM EST Never Smoker completed Never S moker eCW1 ([facility]) Smoking 08/15/2020 12:00:00 AM EST Never Smoker completed Never S moker eCW1 ([facility]) Smoking 08/11/2020 12:00:00 AM EDT Unknown if ever smoked comp leted Unknown if ever smoked [facility] ([facility]) Smoking 07/24/2020 12:00:00 AM EDT Unknown if ever smoked comp leted Unknown if ever smoked [facility] ([facility]) Smoking 07/12/2020 12:00:00 AM EDT Unknown if ever smoked comp leted Unknown if ever smoked [facility] ([facility]) Smoking 06/15/2020 12:00:00 AM EDT Unknown if ever smoked comp leted Unknown if ever smoked [facility] ([facility]) Smoking 05/11/2020 12:00:00 AM EDT Patient has never smoked co mpleted Patient has never smoked [facility] ([facility]) Alcohol intake 05/02/2020 12:00:00 AM EDT Never completed [facility] Smoking 05/02/2020 12:00:00 AM EDT Never smoker completed Never s moker [facility] Smoking 04/20/2020 12:00:00 AM EDT Never Smoker completed Never S rangelker eCW1 ([facility]) Smoking 04/10/2020 12:00:00 AM EDT Unknown if ever smoked comp leted Unknown if ever smoked [facility] ([facility]) Smoking 03/29/2020 12:00:00 AM EDT Unknown if ever smoked comp leted Unknown if ever smoked [facility] ([facility]) Smoking 03/27/2020 12:00:00 AM EDT Unknown if ever smoked comp leted Unknown if ever smoked [facility] ([facility]) Smoking 03/08/2020 12:00:00 AM EDT Unknown if ever smoked comp leted Unknown if ever smoked [facility] ([facility]) Smoking 02/28/2020 12:00:00 AM EDT Unknown if ever smoked comp leted Unknown if ever smoked [facility] ([facility]) Smoking 02/24/2020 12:00:00 AM EDT Unknown if ever smoked comp leted Unknown if ever smoked [facility] ([facility]) Smoking 02/16/2020 12:00:00 AM EDT Unknown if ever smoked comp leted Unknown if ever smoked [facility] ([facility]) Smoking 02/04/2020 12:00:00 AM EDT Unknown if ever smoked comp leted Unknown if ever smoked [facility] ([facility]) Smoking 01/31/2020 12:00:00 AM EDT Unknown if ever smoked comp leted Unknown if ever smoked [facility] ([facility]) Smoking 01/26/2020 12:00:00 AM EDT Unknown if ever smoked comp leted Unknown if ever smoked [facility] ([facility]) Smoking 01/14/2020 12:00:00 AM EDT Unknown if ever smoked comp leted Unknown if ever smoked [facility] ([facility]) Smoking 01/06/2020 12:00:00 AM EDT Unknown if ever smoked comp leted Unknown if ever smoked [facility] ([facility]) Smoking 01/03/2020 12:00:00 AM EDT Unknown if ever smoked comp leted Unknown if ever smoked [facility] ([facility]) Smoking 12/16/2019 12:00:00 AM EST Unknown if ever smoked comp leted Unknown if ever smoked [facility] ([facility]) Smoking 12/07/2019 12:00:00 AM EST Unknown if ever smoked comp leted Unknown if ever smoked [facility] ([facility]) Smoking 12/06/2019 12:00:00 AM EST Unknown if ever smoked comp leted Unknown if ever smoked [facility] ([facility]) Smoking 12/01/2019 12:00:00 AM EST Unknown if ever smoked comp leted Unknown if ever smoked [facility] ([facility]) Smoking 11/19/2019 12:00:00 AM EST Unknown if ever smoked comp leted Unknown if ever smoked [facility] ([facility]) Smoking 11/08/2019 12:00:00 AM EST Unknown if ever smoked comp leted Unknown if ever smoked [facility] ([facility]) Smoking 10/27/2019 12:00:00 AM EST Unknown if ever smoked comp leted Unknown if ever smoked [facility] ([facility]) Smoking 10/19/2019 12:00:00 AM EST Unknown if ever smoked comp leted Unknown if ever smoked [facility] ([facility]) Smoking 10/11/2019 12:00:00 AM EST Unknown if ever smoked comp leted Unknown if ever smoked [facility] ([facility]) Smoking 09/16/2019 12:00:00 AM EST Unknown if ever smoked comp leted Unknown if ever smoked [facility] ([facility]) Vital Signs ID Date Data Source UNK Name Value Range Interpretation Code Description Data Source(s) Body mass index (BMI) [Ratio] 0.00 kg/m2 No rmal (applies to non-numeric results) 0.00 kg/m2 [facility] Body weight Measured 0.00 lbs Normal (applies to n on-numeric results) 0.00 lbs [facility]) Body height 0.00 in Normal (applies to non-numeric resu lts) 0.00 in [facility] ([facility]) Diastolic blood pressure 0 mm[Hg] Normal (applies to non-numeric results) 0 mm[Hg] [facility] ([facility]) Systolic blood pressure 0 mm[Hg] Normal (applies t o non-numeric results) 0 mm[Hg] [facility] ([facility]) Oxygen saturation in Arterial blood by Pulse oximetry 96 % 96 % [facility] Body mass index (BMI) [Ratio] 30.99 kg/m2 30.99 kg/m2 [facility] Body weight 87.091 kg 87.091 kg [facility] Body height 167.6 cm 167.6 cm [facility] Heart rate 80 /min 80 /min [facility] Diastolic blood pressure 68 mm[Hg] 68 mm[Hg] [facility] Systolic blood pressure 118 mm[Hg] 118 mm[Hg] [facility] Diastolic blood pressure 58 mm[Hg] 58 mm[Hg] eCW1 ([facility]) Systolic blood pressure 100 mm[Hg] 100 mm[Hg] e CW1 ([facility]) Body temperature 98.2 [degF] 98.2 [degF] eCW1 ( [facility]) Respiratory rate 18 /min 18 /min eCW1 ([facility]) Heart rate 108 /min 108 /min eCW1 ([facility]) Body mass index (BMI) [Ratio] 30.99 kg/m2 30.99 kg/m2 W1 ([facility]) Body height 66 [in_i] 66 [in_i] eCW1 ([facility]) Body weight 192 [lb_av] 192 [lb_av] eCW1 ([facility]) Diastolic blood pressure 0 mm[Hg] Normal (applies to non-numeric results) 0 mm[Hg] [facility] ([facility]) Systolic blood pressure 0 mm[Hg] Normal (applies t o non-numeric results) 0 mm[Hg] [facility] ([facility]) Body mass index (BMI) [Ratio] 0.00 kg/m2 No rmal (applies to non-numeric results) 0.00 kg/m2 [facility] Body weight Measured 0.00 lbs Normal (applies to n on-numeric results) 0.00 lbs [facility] Body height 0.00 in Normal (applies to non-numeric resu lts) 0.00 in [facility] ([facility]) Diastolic blood pressure 78 mm[Hg] 78 mm[Hg] eCW1 ([facility]) Systolic blood pressure 112 mm[Hg] 112 mm[Hg] e CW1 ([facility]) Body temperature 97.2 [degF] 97.2 [degF] eCW1 ( [facility]) Respiratory rate 18 /min 18 /min eCW1 ([facility]) Heart rate 74 /min 74 /min eCW1 ([facility]) Body mass index (BMI) [Ratio] 32.92 kg/m2 32.92 kg/m2 eCW1 ([facility]) Body height 66 [in_i] 66 [in_i] eCW1 ([facility]) Body weight 204 [lb_av] 204 [lb_av] eCW1 ([facility]) Diastolic blood pressure 0 mm[Hg] Normal (applies to non-numeric results) 0 mm[Hg] [facility] ([facility]) Systolic blood pressure 0 mm[Hg] Normal (applies t o non-numeric results) 0 mm[Hg] [facility] ([facility]) Body mass index (BMI) [Ratio] 0.00 kg/m2 No rmal (applies to non-numeric results) 0.00 kg/m2 [facility] Body weight Measured 0.00 lbs Normal (applies to n on-numeric results) 0.00 lbs [facility] Body height 0.00 in Normal (applies to non-numeric resu lts) 0.00 in [facility] ([facility]) Body mass index (BMI) [Ratio] 33.7 kg/m2 33.7 k g/m2 [facility] ([facility]) Body height 66 [in_i] 66 [in_i] [facility] ([facility], [facility]) 5'6" Body weight 209.00 [lb_av] 209.00 [lb_av] MED[facility] T ([facility], [facility]) Body temperature 98.2 [degF] 98.2 [degF] [facility] ([facility], [facility]) Oxygen saturation in Arterial blood by Pulse oximetry 98 % 98 % [facility] ([facility], [facility]) Respiratory rate 14 /min 14 /min [facility] ( [facility], [facility]) Heart rate 88 /min 88 /min [facility] ([facility], [facility]) Diastolic blood pressure 82 mm[Hg] 82 mm[Hg] [facility] ([facility], [facility]) Systolic blood pressure 134 mm[Hg] 134 mm[Hg] M EDENT ([facility], [facility]) Diastolic blood pressure 72 mm[Hg] 72 mm[Hg] eCW1 ([facility]) Systolic blood pressure 120 mm[Hg] 120 mm[Hg] e CW1 ([facility]) Body temperature 98.2 [degF] 98.2 [degF] eCW1 ( [facility]) Respiratory rate 18 /min 18 /min eCW1 ([facility]) Heart rate 106 /min 106 /min eCW1 ([facility]) Body mass index (BMI) [Ratio] 33.34 kg/m2 33.34 kg/m2 W1 ([facility]) Body height 66 [in_i] 66 [in_i] eCW1 ([facility]) Body weight 206.6 [lb_av] 206.6 [lb_av] eCW1 ([facility]) Body mass index (BMI) [Ratio] 34.2 kg/m2 34.2 k g/m2 [facility] ([facility], [facility]) Body height 66 [in_i] 66 [in_i] [facility] ([facility]) 5'6" Body weight 212.00 [lb_av] 212.00 [lb_av] MED[facility] T ([facility], [facility]) Body temperature 98.0 [degF] 98.0 [degF] [facility] ([facility], [facility]) Oxygen saturation in Arterial blood by Pulse oximetry 98 % 98 % [facility] ([facility], [facility]) Respiratory rate 20 /min 20 /min [facility] ( [facility], [facility]) Heart rate 96 /min 96 /min [facility] ([facility], [facility]) Diastolic blood pressure 83 mm[Hg] 83 mm[Hg] [facility] ([facility], [facility]) Systolic blood pressure 145 mm[Hg] 145 mm[Hg] [facility] Body mass index (BMI) [Ratio] 34.2 kg/m2 34.2 k g/m2 [facility] ([facility], [facility]) Body height 66 [in_i] 66 [in_i] [facility] ([facility], [facility]) 5'6" Body weight 212.00 [lb_av] 212.00 [lb_av] [facility] T ([facility], [facility]) Body temperature 98.6 [degF] 98.6 [degF] [facility] ([facility] [place] [facility], [facility]) Oxygen saturation in Arterial blood by Pulse oximetry 98 % 98 % [facility] ([facility] [place] [facility], [facility]) Heart rate 99 /min 99 /min [facility] ([facility], [facility]) Diastolic blood pressure 86 mm[Hg] 86 mm[Hg] [facility] ([facility], [facility]) Systolic blood pressure 146 mm[Hg] 146 mm[Hg] [facility], [facility]) Diastolic blood pressure 0 mm[Hg] Normal (applies to non-numeric results) 0 mm[Hg] [facility] ([facility]) Systolic blood pressure 0 mm[Hg] Normal (applies t o non-numeric results) 0 mm[Hg] [facility] ([facility]) Body mass index (BMI) [Ratio] 0.00 kg/m2 No rmal (applies to non-numeric results) 0.00 kg/m2 [facility] Body weight Measured 0.00 lbs Normal (applies to n on-numeric results) 0.00 lbs [facility] ([facility]) Body height 0.00 in Normal (applies to non-numeric resu lts) 0.00 in [facility] ([facility]) Diastolic blood pressure 0 mm[Hg] Normal (applies to non-numeric results) 0 mm[Hg] [facility] ([facility]) Systolic blood pressure 0 mm[Hg] Normal (applies t o non-numeric results) 0 mm[Hg] [facility] ([facility]) Body mass index (BMI) [Ratio] 0.00 kg/m2 No rmal (applies to non-numeric results) 0.00 kg/m2 [facility] Body weight Measured 0.00 lbs Normal (applies to n on-numeric results) 0.00 lbs [facility] ([facility]) Body height 0.00 in Normal (applies to non-numeric resu lts) 0.00 in [facility]) Diastolic blood pressure 76 mm[Hg] 76 mm[Hg] eCW1 ([facility]) Systolic blood pressure 124 mm[Hg] 124 mm[Hg] e CW1 ([facility]) Body temperature 97.6 [degF] 97.6 [degF] eCW1 ( [facility]) Respiratory rate 20 /min 20 /min eCW1 ([facility]) Heart rate 70 /min 70 /min eCW1 ([facility]) Body mass index (BMI) [Ratio] 34.41 kg/m2 34.41 kg/m2 eCW1 ([facility]) Body height 66 [in_us] 66 [in_us] eCW1 ([facility]) Body weight Measured 213.2 [lb_av] 213.2 [lb_av ] eCW1 ([facility]) Diastolic blood pressure 60 mm[Hg] 60 mm[Hg] eCW1 ([facility]) Systolic blood pressure 122 mm[Hg] 122 mm[Hg] e CW1 ([facility]) Body temperature 98.1 [degF] 98.1 [degF] eCW1 ( [facility]) Respiratory rate 18 /min 18 /min eCW1 ([facility]) Heart rate 99 /min 99 /min eCW1 ([facility]) Body mass index (BMI) [Ratio] 33.73 kg/m2 33.73 kg/m2 eCW1 ([facility]) Body height 66 [in_us] 66 [in_us] eCW1 ([facility]) Body weight Measured 209 [lb_av] 209 [lb_av] eC W1 ([facility]) Diastolic blood pressure 0 mm[Hg] Normal (applies to non-numeric results) 0 mm[Hg] [facility] ([facility]) Systolic blood pressure 0 mm[Hg] Normal (applies t o non-numeric results) 0 mm[Hg] [facility] ([facility]) Body mass index (BMI) [Ratio] 0.00 kg/m2 No rmal (applies to non-numeric results) 0.00 kg/m2 [facility] Body weight Measured 213.00 lbs Normal (applies to n on-numeric results) 213.00 lbs [facility]) Body height 0.00 in Normal (applies to non-numeric resu lts) 0.00 in [facility] ([facility]) Diastolic blood pressure 0 mm[Hg] Normal (applies to non-numeric results) 0 mm[Hg] [facility] ([facility]) Systolic blood pressure 0 mm[Hg] Normal (applies t o non-numeric results) 0 mm[Hg] [facility] ([facility]) Body mass index (BMI) [Ratio] 0.00 kg/m2 No rmal (applies to non-numeric results) 0.00 kg/m2 [facility] Body weight Measured 215.00 lbs Normal (applies to n on-numeric results) 215.00 lbs [facility] ([facility]) Body height 0.00 in Normal (applies to non-numeric resu lts) 0.00 in [facility] ([facility]) Patient Treatment Plan of Care Planned Activity Planned Date Details Description Data Source (s) Cimetidine 200 MG Oral Tablet 10/18/2020 12:00:00 AM EST [facility] Austedo 6 MG 10/18/2020 12:00:00 AM EST e CW1 ([facility]) Austedo 6 MG 10/18/2020 12:00:00 AM EST e CW1 ([facility]) Cimetidine 200 MG Oral Tablet 10/16/2020 12:00:00 AM EST eCW1 ([facility]) Cimetidine 200 MG Oral Tablet 10/16/2020 12:00:00 AM EST eCW1 ([facility]) Cimetidine 200 MG Oral Tablet 10/16/2020 12:00:00 AM EST eCW1 ([facility]) 24 HR paliperidone 3 MG Extended Release Oral Tablet 020 12:00:00 AM EST [facility] AUSTEDO 6 MG TABS 10/03/2020 12:00:00 AM EST [facility] clopidogrel 75 MG Oral Tablet 05/01/2020 12:00:00 AM EDT [facility] montelukast 10 MG Oral Tablet 04/30/2020 12:00:00 AM EDT [facility] Lisinopril 10 MG Oral Tablet 04/30/2020 12:00:00 AM EDT [facility] Hydrochlorothiazide 25 MG Oral Tablet 04/28/2020 12:00:00 AM EDT [facility] Trazodone Hydrochloride 50 MG Oral Tablet 04/20/2020 12:00:00 AM ED T [facility] haloperidol decanoate (HALDOL DECANOATE) 100 MG/ML inj ection 04/20/2020 12:00:00 AM EDT [facility] Simvastatin 20 MG Oral Tablet 04/13/2020 12:00:00 AM EDT [facility] Cholecalciferol 5000 UNT Oral Tablet 04/12/2020 12:00:00 AM EDT [facility] cetirizine hydrochloride 10 MG Oral Tablet 03/24/2020 12:00:00 AM E DT [facility] benztropine mesylate 0.5 MG Oral Tablet 03/22/2020 12:00:00 AM EDT [facility] tizanidine 4 MG Oral Tablet 03/15/2020 12:00:00 AM EDT [facility] Cimetidine 200 MG Oral Tablet 09/22/2019 12:00:00 AM EST eCW1 ([facility])
[2020-11-01 14:57] LABS: HEMATOCRIT 46.1 % (42.0-52.0); HEMOGLOBIN 15.1 g/dl (13.5-17.5); MEAN CORPUSCULAR HGB CONC 32.8 g/dl (32.0-36.5); MEAN CORPUSCULAR VOLUME 85.5 fl (80.0-96.0); PLATELET COUNT, AUTOMATED 284 10^3/uL (150-450); RED BLOOD COUNT 5.39 10^6/uL (4.30-6.10); WHITE BLOOD COUNT 10.1 10^3/uL (4.0-10.0)
--- OUTSIDE RECORDS SUMMARY | 2020-11-01 15:04 | CCD ---
Author Author [facility] Organization [facility] Address Unknown Phone Unavailable Care Team Providers Care Senior Chemical Engineer Name Role Phone [facility], JLAM Unavailable Unavailable Fons, M Mariah CURVE CLEANER Unavailable Unavailable Fons, M Mariah CURVE CLEANER Unavailable Unavailable Fons, M Mariah CURVE CLEANER Unavailable Unavailable Fons, M Mariah CURVE CLEANER Unavailable Unavailable Fons, M Mariah CURVE CLEANER Unavailable Unavailable Fons, M Mariah CURVE CLEANER Unavailable Unavailable Fons, M Mariah CURVE CLEANER Unavailable Unavailable Fons, M Mariah CURVE CLEANER Unavailable Unavailable Fons, M Mariah CURVE CLEANER Unavailable Unavailable Fons, M Mariah CURVE CLEANER Unavailable Unavailable Fons, M Mariah CURVE CLEANER Unavailable Unavailable Fons, M Mariah CURVE CLEANER Unavailable Unavailable Fons, M Mariah CURVE CLEANER Unavailable Unavailable Fons, M Mariah CURVE CLEANER Unavailable Unavailable Fons, M Mariah CURVE CLEANER Unavailable Unavailable Fons, M Mariah CURVE CLEANER Unavailable Unavailable Fons, M Mariah CURVE CLEANER Unavailable Unavailable Fons, M Mariah CURVE CLEANER Unavailable Unavailable Fons, M Mariah CURVE CLEANER Unavailable Unavailable Fons, M Mariah CURVE CLEANER Unavailable Unavailable Fons, M Mariah CURVE CLEANER Unavailable Unavailable Fons, M Mariah CURVE CLEANER Unavailable Unavailable Fons, M Mariah CURVE CLEANER Unavailable Unavailable Fons, M Mariah CURVE CLEANER Unavailable Unavailable Fons, M Mariah CURVE CLEANER Unavailable Unavailable Fons, M Mariah CURVE CLEANER Unavailable Unavailable Fons, M Mariah CURVE CLEANER Unavailable Unavailable Fons, M Mariah CURVE CLEANER Unavailable Unavailable Fons, M Mariah CURVE CLEANER Unavailable Unavailable Fons, M Mariah CURVE CLEANER Unavailable Unavailable Fons, M Mariah CURVE CLEANER Unavailable Unavailable Fons, M Mariah CURVE CLEANER Unavailable Unavailable Fons, M Mariah CURVE CLEANER Unavailable Unavailable Fons, M Mariah CURVE CLEANER Unavailable Unavailable Fons, M Mariah CURVE CLEANER Unavailable Unavailable Fons, M Mariah CURVE CLEANER Unavailable Unavailable Fons, M Mariah CURVE CLEANER Unavailable Unavailable Fons, M Mariah CURVE CLEANER Unavailable Unavailable Fons, M Mariah CURVE CLEANER Unavailable Unavailable Fons, M Mariah CURVE CLEANER Unavailable Unavailable Fons, M Mariah CURVE CLEANER Unavailable Unavailable Fons, M Mariah CURVE CLEANER Unavailable Unavailable Fons, M Mariah CURVE CLEANER Unavailable Unavailable Fons, M Mariah CURVE CLEANER Unavailable Unavailable Fons, M Mariah CURVE CLEANER Unavailable Unavailable Fons, M Mariah CURVE CLEANER Unavailable Unavailable Fons, M Mariah CURVE CLEANER Unavailable Unavailable Fons, M Mariah CURVE CLEANER Unavailable Unavailable Fons, M Mariah CURVE CLEANER Unavailable Unavailable Fons, M Mariah CURVE CLEANER Unavailable Unavailable Fons, M Mariah CURVE CLEANER Unavailable Unavailable Fons, M Mariah CURVE CLEANER Unavailable Unavailable Fons, M Mariah CURVE CLEANER Unavailable Unavailable Fons, M Mariah CURVE CLEANER Unavailable Unavailable Oumar Em Unavailable Evy Ellsworth [...] SAMY, CORNELL PA Unavailable Unavailable Yost, Liz TREASURY ANALYST Unavailable Unavailable Yost, Liz TREASURY ANALYST Unavailable Unavailable Yost, Liz TREASURY ANALYST Unavailable Unavailable Yost, Liz TREASURY ANALYST Unavailable Unavailable Yost, Liz TREASURY ANALYST Unavailable Unavailable Yost, Liz TREASURY ANALYST Unavailable Unavailable Yost, Liz TREASURY ANALYST Unavailable Unavailable Yost, Liz TREASURY ANALYST Unavailable Unavailable Yost, Liz TREASURY ANALYST Unavailable Unavailable Yost, Liz TREASURY ANALYST Unavailable Unavailable Yost, Liz TREASURY ANALYST Unavailable Unavailable James Lancastera Unavailable MACQUEEN, SYEDA TREASURY ANALYST Unavailable Unavailable MACQUEEN, SYEDA TREASURY ANALYST Unavailable Unavailable MACQUEEN, SYEDA TREASURY ANALYST Unavailable Unavailable MACQUEEN, SYEDA TREASURY ANALYST Unavailable Unavailable MACQUEEN, SYEDA TREASURY ANALYST Unavailable Unavailable MACQUEEN, SYEDA TREASURY ANALYST Unavailable Unavailable MACQUEEN, SYEDA TREASURY ANALYST Unavailable Unavailable MACQUEEN, SYEDA TREASURY ANALYST Unavailable Unavailable MACQUEEN, SYEDA TREASURY ANALYST Unavailable Unavailable MACQUEEN, SYEDA TREASURY ANALYST Unavailable Unavailable MACQUEEN, SYEDA TREASURY ANALYST Unavailable Unavailable Rotella, Isa Unavailable Re-disclosure Warning [...] is protected by Article 27-F of the [facility] Public Health law. If you continue you may have access to information: Regarding HIV / AIDS; Provided by facilities licensed or operated by the [facility] Office of Mental Health; or Provided by the [facility] Office for People With Developmental Disabilities. If such information is present, then the following [facility] mandated warning applies: This information has [...] law may result in a fine or long term sentence or both. A general authorization for the release of medical or other information is NOT sufficient authorization for further disc losure. Allergies and Adverse Reactions Type Description Substance Reaction Status Data Source(s ) aspirin Aspirin Aspirin hives Active eCW1 ([facility]) fish, chocolate, peanut butter fish, chocolate, peanut butte r fish, chocolate, peanut butter Hives Active eCW1 ([facility]) fish, chocolate, peanut butter fish, chocolate, peanut butte r fish, chocolate, peanut butter Hives Active eCW1 ([facility]) Food allergy LATEX LATEX [facility] Family History Family Member Name Family Member Gender Family Member Status Date o f Status Description Data Source(s) Unknown Female Problem MEDENT ([facility]) Encounters Encounter Providers Location Date Indications Data Source(s ) Outpatient Referrer: Mariah [email or web address] 10/30/2020 08:54:42 AM EST [facility] Outpatient Attender: SYEDA ZAMARRIPA NP [facility] 10/25/2020 12:30:00 PM EST - 10/25/2020 12:30:00 PM EST [facility] ([facility]) Attender: SYEDA ZAMARRIPA NP 10/25/2020 12:00:00 AM EST [facility] ([facility]) Outpatient Attender: Mariah SINCLAIR SJP.NANCY-SJP 01:41:03 PM EST - 10/24/2020 03:27:51 PM EST [facility] Unknown [address] [address] 10/17/2020 12:00:00 AM EST eCW1 ([facility]) Unknown [address] [address] 10/17/2020 12:00:00 AM EST eCW1 ([facility]) Office Visit, Est Pt., Level 4 PC [address] [place] [address] 10/16/2020 12:00:00 AM EST eCW1 ([facility]) Unknown [address] [address] 10/11/2020 12:00:00 AM EST eCW1 ([facility]) Outpatient Attender: SYEDA ZAMARRIPA NP [facility] 09/26/2020 01:00:00 AM EST - 09/26/2020 01:00:00 AM EST [facility] ([facility]) Attender: SYEDA ZAMARRIPA NP 09/26/2020 12:00:00 AM EST [facility] ([facility]) Outpatient Attender: SYEDA ZAMARRIPA NP [facility] 09/05/2020 10:30:00 AM EST - 09/05/2020 10:30:00 AM EST [facility] ([facility]) Attender: SYEDA ZAMARRIPA NP 09/05/2020 12:00:00 AM EST [facility] ([facility]) Attender: Shea Lancaster 08/25/2020 12:00:00 AM EST [facility] ([facility]) Extended Individual Psychotherapy - 45 min Attender: Lennox Lancaster [facility] 08/24/2020 12:00:00 PM EST - 08/24/2020 12:00:00 PM EST [facility] ([facility]) Outpatient Referrer: Mariah SINCLAIR [email or web address] 08/24/2020 12:00:00 AM EST [facility] Office Visit, Est Pt., Level 4 PC [address] [place] [address] 08/15/2020 12:00:00 AM EST eCW1 ([facility]) [id number]"Psychotherapy [facility] 08/11/2020 10:00:00 AM EDT - 08/11/2020 10:00:00 AM EDT [facility] ([facility]) Attender: Shea Lancaster 08/11/2020 12:00:00 AM EDT [facility] ([facility]) TEMPMHCTelemed 30" Psychotherapy [facility]: [facility] 07/24/2020 01:00:00 AM EDT - 07/24/2020 01:00:00 AM EDT [facility] ([facility]) Attender: Shea Lancaster 07/24/2020 12:00:00 AM EDT [facility] ([facility]) Outpatient Attender: SYEDA ZAMARRIPA NP [facility] Abhilash jean baptiste 07/12/2020 01:00:00 AM EDT - 07/12/2020 01:00:00 AM EDT [facility] ([facility]) Attender: SYEDA ZAMARRIPA NP 07/12/2020 12:00:00 AM EDT [facility] ([facility]) Outpatient Attender: [facility] 06/17/2020 12:02:08 AM EDT [facility] Outpatient Attender: [facility] 06/16/2020 08:41:00 AM EDT [facility] Outpatient Attender: SYEDA ZAMARRIPA NP [facility] Abhilash jean baptiste 06/15/2020 10:00:00 AM EDT - 06/15/2020 10:00:00 AM EDT [facility] ([facility]) Attender: SYEDA ZAMARRIPA NP 06/15/2020 12:00:00 AM EDT [facility] ([facility]) Outpatient Attender: CORNELL coates 05/11/2020 10:45:00 AM EDT MEDENT ([facility]) Outpatient Attender: Mariah COSMEP [email or web address].NANCY 0 07:55:55 AM EDT - 05/02/2020 08:35:35 AM EDT [facility] [place] [address] [address] 04/20/2020 12:00:00 AM EDT eCW1 ([facility]) TEMPMHCTelemed 30" Psychotherapy Attender: Shea Lancaster [facility] 04/10/2020 01:30:00 AM EDT - 04/10/2020 01:30:00 AM EDT [facility] ([facility]) Attender: Shea Lancaster 04/10/2020 12:00:00 AM EDT [facility] ([facility]) Outpatient Attender: [facility] 03/31/2020 12:09:00 PM EDT [facility] Injectable Medication Administration w/ Monitoring & E ducation Attender: Evy Ellsworth [facility] 03/29/2020 11:15:00 AM EDT - 03/29/2020 11:15:00 AM EDT [facility] ([facility]) Attender: Evy Ellsworth 03/29/2020 12:00:00 AM EDT [facility] ([facility]) Injectable Medication Administration w/ Monitoring & E ducation Attender: Evy Ellsworth [facility] 03/27/2020 09:30:00 AM EDT - 03/27/2020 09:30:00 AM EDT [facility] ([facility]) Attender: Evy Ellsworth 03/27/2020 12:00:00 AM EDT [facility] ([facility]) Outpatient Attender: Liz owens 03/15/2020 10:00:00 AM EDT MEDENT ([facility]) Outpatient Attender: CORNELL coates 03/13/2020 02:10:00 PM EDT MED[facility] ([facility]) TEMPMHCTelemed 30" Psychotherapy Attender: Shea Tonny [facility] 03/08/2020 01:30:00 AM EDT - 03/08/2020 01:30:00 AM EDT [facility] ([facility]) Attender: Shea Lancaster 03/08/2020 12:00:00 AM EDT [facility] ([facility]) Injectable Medication Administration w/ Monitoring & E ducation Attender: Evy Ellsworth [facility] 02/28/2020 09:00:00 AM EDT - 02/28/2020 09:00:00 AM EDT [facility] ([facility]) Attender: Evy Ellsworth 02/28/2020 12:00:00 AM EDT [facility] ([facility]) TEMPMHCTelemed 30" Psychotherapy Attender: Shea Lancaster [facility] 02/24/2020 11:00:00 AM EDT - 02/24/2020 11:00:00 AM EDT [facility] ([facility]) Attender: Shea Lancaster 02/24/2020 12:00:00 AM EDT [facility] ([facility]) Outpatient Attender: SYEDA ZAMARRIPA NP [facility] Abhilash jean baptiste 02/16/2020 11:30:00 AM EDT - 02/16/2020 11:30:00 AM EDT [facility] ([facility]) Attender: SYEDA ZAMARRIPA NP 02/16/2020 12:00:00 AM EDT [facility] ([facility]) TEMPMHCTelemed 30" Psychotherapy Attender: Shea Lancaster [facility] 02/04/2020 10:00:00 AM EDT - 02/04/2020 10:00:00 AM EDT [facility] ([facility]) Attender: Shea Lancaster 02/04/2020 12:00:00 AM EDT [facility] ([facility]) Injectable Medication Administration w/ Monitoring & E ducation Attender: Evy Ellsworth [facility] 01/31/2020 09:00:00 AM EDT - 01/31/2020 09:00:00 AM EDT [facility] ([facility]) Attender: Evy Ellsworth 01/31/2020 12:00:00 AM EDT [facility] ([facility]) Outpatient Attender: SYEDA ZAMARRIPA NP [facility] 01/26/2020 09:30:00 AM EDT - 01/26/2020 09:30:00 AM EDT [facility] ([facility]) Attender: SYEDA ZAMARRIPA NP 01/26/2020 12:00:00 AM EDT [facility] ([facility]) TEMPMHCTelemed 30" Psychotherapy Attender: Shea Lancaster [facility] 01/14/2020 11:45:00 AM EDT - 01/14/2020 11:45:00 AM EDT [facility] ([facility]) Attender: Shea Lancaster 01/14/2020 12:00:00 AM EDT [facility] ([facility]) TEMPMHCTelemed 20" psychotherapy Attender: Shea Lancaster [facility] 01/06/2020 11:00:00 AM EDT - 01/06/2020 11:00:00 AM EDT [facility] ([facility]) Attender: Shea Lancaster 01/06/2020 12:00:00 AM EDT [facility] ([facility]) Outpatient Attender: JOVI [facility] 01/04/2020 02:54:00 PM EDT [facility] Medication Administration w/ Monitoring & E ducation Attender: Evy Ellsworth [facility] 01/03/2020 09:00:00 AM EDT - 01/03/2020 09:00:00 AM EDT [facility] ([facility]) Attender: Evy Ellsworth 01/03/2020 12:00:00 AM EDT [facility] ([facility]) [address] [place] [address] 12/20/2019 12:00:00 AM EDT [facility]CW1 [facility] Outpatient Attender: SYEDA ZAMARRIPA NP [facility] 12/16/2019 09:30:00 AM EST - 12/16/2019 09:30:00 AM EST [facility] ([facility]) Attender: SYEDA ZAMARRIPA NP 12/16/2019 12:00:00 AM EST [facility] ([facility]) [address] [address] 12/15/2019 12:00:00 AM EST eCW1 ([facility]) [address] [place] [address] 12/13/2019 12:00:00 AM EST eCW1 ([facility]) [address] [address] 12/13/2019 12:00:00 AM EST [facility] [address] [address] 12/09/2019 12:00:00 AM EST [facility]CW1 [facility]) Brief Individual Psychotherapy - 30 min Attender: Shea lopez [facility] 12/07/2019 12:45:00 PM EST - 12/07/2019 12:45:00 PM EST [facility] ([facility]) Attender: Shea Lancaster 12/07/2019 12:00:00 AM EST [facility] ([facility]) Injectable Medication Administration w/ Monitoring & E ducation [facility]: [facility] 12/06/2019 10:00:00 AM EST - 12/06/2019 10:00:00 AM EST [facility] ([facility]) Attender: Evy Ellsworth 12/06/2019 12:00:00 AM EST [facility] ([facility]) Outpatient Attender: SYEDA ZAMARRIPA NP [facility] Abhilash jean baptiste 12/01/2019 09:00:00 AM EST - 12/01/2019 09:00:00 AM EST [facility] ([facility]) Attender: SYEDA ZAMARRIPA NP 12/01/2019 12:00:00 AM EST [facility] ([facility]) [address], [facility] [address] 11/30/2019 12:00:00 AM EST eCW1 ([facility]) Outpatient Attender: [facility] 11/24/2019 09:01:03 PM [facility] Outpatient Attender: [facility] 11/24/2019 04:38:00 PM [facility] Outpatient Attender: [facility] 11/24/2019 12:27:01 PM [facility] Brief Individual Psychotherapy - 30 min Attender: [facility] 11/19/2019 10:00:00 AM EST - 11/19/2019 10:00:00 AM EST [facility] ([facility]) Attender: Shea Lancaster 11/19/2019 12:00:00 AM EST [facility] ([facility]) Injectable Psychotropic Medication Administration (Inj ection Only) Attender: Isa Edmonds [facility] Sybil 11/08/2019 09:00:00 AM EST - 11/08/2019 09:00:00 AM EST [facility] ([facility]) Attender: Isa Edmonds 11/08/2019 12:00:00 AM EST [facility] Outpatient Attender: JOVI [facility] 11/05/2019 09:32:09 AM [facility] 11/02/2019 09:01:03 PM [facility] Outpatient Attender: JO ANNJAVIER [facility] 11/02/2019 10:42:00 AM [facility] Outpatient Attender: JOVI [facility] 11/02/2019 10:38:01 AM [facility] Outpatient Attender: JO ANNJAVIER [facility] 11/02/2019 10:37:01 AM [facility] Outpatient Attender: JO ANNJAVIER [facility] 11/02/2019 10:35:00 AM [facility] Outpatient Attender: JO ANNJAVIER [facility] 11/02/2019 12:00:12 AM [facility] Outpatient Attender: JOVI [facility] 11/01/2019 03:16:02 PM [facility] Outpatient Attender: JO ANNJAVIER [facility] 11/01/2019 03:15:01 PM [facility] Outpatient Attender: JO ANNJAVIER [facility] 11/01/2019 01:05:01 PM [facility] Outpatient Attender: JOVI [facility] 11/01/2019 01:04:03 PM [facility] 11/01/2019 01:03:00 PM [facility] Outpatient Attender: SYEDA ZAMARRIPA NP [facility] Abhilash l 10/27/2019 09:30:00 AM EST - 10/27/2019 09:30:00 AM EST [facility] ([facility]) Attender: SYEDA ZAMARRIPA NP 10/27/2019 12:00:00 AM EST [facility] ([facility]) [facility] [address] [place] [address] 10/25/2019 12:00:00 AM EST eCW1 ([facility]) Attender: Shea Lancaster 10/19/2019 12:00:00 AM EST [facility] ([facility]) Brief Individual Psychotherapy - 30 min Attender: Shea lopez [facility] 10/18/2019 10:00:00 AM EST - 10/18/2019 10:00:00 AM EST [facility] ([facility]) [facility] [address] [place] [address] 10/15/2019 12:00:00 AM EST eCW1 ([facility]) Injectable Medication Administration w/ Monitoring & E ducation Attender: Evy Ellsworth [facility] 10/11/2019 09:00:00 AM EST - 10/11/2019 09:00:00 AM EST [facility] ([facility]) Attender: Evy Ellsworth 10/11/2019 12:00:00 AM EST [facility] ([facility]) [facility] [place] [address] [address] 09/23/2019 12:00:00 AM EST eCW1 ([facility]) [facility] [address] [address] 09/22/2019 12:00:00 AM EST eCW1 ([facility]) Brief Individual Psychotherapy - 30 min Attender: Oumar Yi [facility] 09/16/2019 10:45:00 AM EST - 09/16/2019 10:45:00 AM EST [facility] ([facility]) Attender: Oumar Yi 09/16/2019 12:00:0 0 AM EST [facility] ([facility]) Functional Status Immunizations Vaccine Date Status Description Data Source(s) influenza, recombinant, quadrIvalent,injectable, prese rvative free 07/03/2020 09:41:00 AM EDT completed eCW1 ([facility]) influenza, recombinant, quadrIvalent,injectable, prese rvative free 07/03/2020 09:41:00 AM EDT completed eCW1 ([facility]) influenza, recombinant, quadrIvalent,injectable, prese rvative free 07/03/2020 09:41:00 AM EDT completed eCW1 ([facility]) influenza, recombinant, quadrIvalent,injectable, prese rvative free 07/03/2020 09:41:00 AM EDT completed eCW1 ([facility]) influenza, recombinant, quadrIvalent,injectable, prese rvative free 07/03/2020 09:41:00 AM EDT completed eCW1 ([facility]) Tdap 12/20/2019 09:01:00 AM EDT completed e CW1 ([facility]) Tdap 12/20/2019 09:01:00 AM EDT completed e CW1 ([facility]) Tdap 12/20/2019 09:01:00 AM EDT completed e CW1 ([facility]) Tdap 12/20/2019 09:01:00 AM EDT completed e CW1 ([facility]) Tdap 12/20/2019 09:01:00 AM EDT completed e CW1 ([facility]) Tdap 12/20/2019 09:01:00 AM EDT completed e CW1 ([facility]) Tdap 12/20/2019 09:01:00 AM EDT completed e CW1 ([facility]) Medications Medication Brand Name Start Date Product [...] by mouth 2 (two) times a day [facility] Austedo 6 MG Austedo 6 MG 10/18/2020 12:00:00 AM EST 1.0 {ta blet_with_food} active Austedo 6 MG eCW1 ([facility]) Austedo 6 MG Austedo 6 MG 10/18/2020 12:00:00 AM EST 1.0 {ta blet_with_food} active Austedo 6 MG eCW1 ([facility]) 200 mg 10/18/2020 12:00:00 AM EST tablet 60 TAKE ONE TABLET BY MOUTH TWICE A DAY TAKE ONE TABLET BY MOUTH TWICE A DAY SOLD: 10/19/2020 [facility] Cimetidine 200 MG Oral Tablet Cimetidine 200 MG 10/16/2020 12:00:00 AM EST 1.0 {tablet_at_bedtime} active Cimetidine 2 00 MG eCW1 ([facility]) Cimetidine 200 MG Oral Tablet Cimetidine 200 MG 10/16/2020 12:00:00 AM EST 1.0 {tablet_at_bedtime} active Cimetidine 2 00 MG eCW1 ([facility]) Cimetidine 200 MG Oral Tablet Cimetidine 200 MG 10/16/2020 12:00:00 AM EST 1.0 {tablet_at_bedtime} active Cimetidine 2 00 MG eCW1 ([facility]) 50 mg 10/12/2020 12:00:00 AM EST tablet 30 TAKE ONE TABLET BY MOUTH AT BEDTIME NEEDED TAKE ONE TABLET BY MOUTH AT BEDTIME NEEDED SOLD: [facility] 24 HR paliperidone 3 MG Extended Release Oral Tablet paliperidone (INVEGA) 3 MG 24 hr tablet paliperidone (INVEGA) 3 MG 24 hr tablet 10/07/2020 12:00:00 AM EST active TAKE 1 TABLET BY MOUTH ONCE A DAY START AFTER 7 DAYS OF PALIPERIDONE 1.5MG DAILY [facility] AUSTEDO 6 MG TABS 06831-634-87 10/03/2020 12:00:00 AM EST active [facility] 25 mg 09/28/2020 12:00:00 AM EST tablet 30 TAKE 1 TABLET BY MOUTH ONCE A DAY IN THE MORNING TAKE 1 TABLET BY MOUTH ONCE A DAY IN THE MORNING SOLD: 09/30/2020 [facility] 125 mcg (5,000 unit) 09/11/2020 12:00:00 [...] AM EST 6 mg by mouth completed [id number] Austedo by mouth [id number] 09/05/2020 04/03/2021 twice a day 30 6 mg tablet 17946 [id number] Syeda Helm [id number] Psychia tric/Mental Health [facility] ([facility]) 10 mg 08/28/2020 12:00:00 AM [...] AM EDT 3 mg by mouth completed [id number] pa liperidone by mouth [id number] 06/08/2020 12/04/2020 once a day 30 3 mg tablet extended release 24hr [id number] Syeda Zamarripa [id number] Psychiatric/Menta l Health [facility] ([facility]) 20 mEq/15 mL 06/08/2020 12:00:00 AM EDT liquid 473 TAKE 7.5 ML BY MOUTH ONCE DAILY TAKE 7.5 ML BY MOUTH ONCE DAILY SOLD: 06/09/2020 [facility] 24 HR paliperidone 3 MG Extended Release Oral Tablet paliper idone 06/08/2020 12:00:00 AM EDT 3 mg by mouth completed [id number] pa liperidone by mouth [id number] 06/08/2020 09/06/2020 once a day 30 3 mg tablet extended release 24hr 57914 [id number] Syeda Zamarripa [id number] [facility] ([facility]) 24 HR paliperidone 3 MG Extended Release Oral Tablet paliper idone 06/08/2020 12:00:00 AM EDT 3 mg by mouth completed [id number] pa liperidone by mouth [id number] 06/08/2020 09/06/2020 once a day 30 3 mg tablet extended release 24hr [id number] Syedareyna Zamarripa [id number] [facility] ([facility]) 10 mg 05/31/2020 12:00:00 AM EDT [...] BY MOUTH ONCE A DAY SOLD: 08/01/2020 [facility] Cephalexin 500 MG Oral Capsule CEPHALEXIN 05/22/2020 12:00:00 AM EDT capsule 20 TAKE ONE CAPSULE BY MOUTH TWICE A DAY FOR 10 DAYS TAKE ONE CAPSULE BY MOUTH TWICE A DAY FOR 10 DAYS SOLD: 05/22/2020 [facility] Lidocaine & Menthol Lidocaine & Menthol 05/11/2020 12:00:00 AM EDT active [facility], [facility]) clopidogrel 75 MG Oral Tablet clopidogrel (PLAVIX) 75 MG tablet clopidogrel (PLAVIX) 75 MG tablet 05/01/2020 12:00:00 AM EDT a ctive [facility] montelukast 10 MG Oral Tablet montelukast (SINGULAIR) 10 MG tablet montelukast (SINGULAIR) 10 MG tablet 04/30/2020 12:00:00 AM EDT active [facility] Lisinopril 10 MG Oral Tablet lisinopril (PRINIVIL,ZEST RIL) 10 MG tablet lisinopril (PRINIVIL,ZESTRIL) 10 MG tablet 04/30/2020 12:00:00 AM EDT active [facility] Hydrochlorothiazide 25 MG Oral Tablet hy drochlorothiazide (HYDRODIURIL) 25 MG tablet hydrochlorothiazide (HYDRODIURIL) 25 MG tablet 12:00:00 AM EDT active [facility] 100 mg/mL 04/21/2020 12:00:00 AM EDT [...] MG tablet 04/20/2020 12:00:00 AM EDT active [facility] 50 mg 04/20/2020 12:00:00 AM EDT tablet 30 TAKE ONE TABLET BY MOUTH AT BEDTIME NEEDED TAKE ONE TABLET BY MOUTH AT BEDTIME NEEDED SOLD: [facility] haloperidol decanoate (HALDOL DECANOATE) 100 MG/ML injection [id number] 04/20/2020 12:00:00 AM EDT active [facility] Simvastatin 20 MG Oral Tablet simvastatin (ZOCOR) 20 M G tablet simvastatin (ZOCOR) 20 MG tablet 04/13/2020 12:00:00 AM EDT ac tive [facility] Cholecalciferol 5000 UNT Oral Tablet [facility] lecalciferol (VITAMIN D3) 125 MCG (5000 UT) TABS Cholecalciferol (VITAMIN D3) 125 MCG (5000 UT) TABS 12:00:00 AM EDT 1 {tbl} Oral active Take 1 tablet by mouth daily [facility] 25 mg 03/30/2020 12:00:00 AM EDT tablet [...] active Take 10 mg by mouth daily [facility] benztropine mesylate 0.5 MG Oral Tablet benztropine (C OGENTIN) 0.5 MG tablet benztropine (COGENTIN) 0.5 MG tablet 03/22/2020 12:00:00 AM EDT active [facility] 300-30 mg 03/21/2020 12:00:00 AM [...] MG tablet 03/15/2020 12:00:00 AM EDT active [facility] 125 mcg (5,000 unit) 03/15/2020 12:00:00 AM EDT tablet 30 TAKE 1 TABLET BY MOUTH ONCE A DAY TAKE 1 TABLET BY MOUTH ONCE A DAY SOLD: 07/16/2020 [facility] tizanidine 4 MG Oral Tablet Tizanidine HCL 03/15/2020 12:00:00 AM EDT completed [facility] ([facility], [facility]) 125 mcg (5,000 unit) 03/15/2020 12:00:00 AM [...] AM EDT 6 mg by mouth completed [id number] [place] by mouth [id number] 01/26/2020 08/23/2020 twice a day 30 6 mg tablet [id number] Syeda Zamarripa [id number] [facility] ([facility]) 50 mg 01/26/2020 12:00:00 AM [...] AM EDT 6 mg by mouth completed [id number] [place] by mouth [id number] 01/26/2020 08/23/2020 twice a day 30 6 mg tablet 60954 [id number] Syeda Zamarripa [id number] [facility] ([facility]) [place] 01/26/2020 12:00:00 AM EDT 6 mg by mouth completed [id number] [place] by mouth [id number] 01/26/2020 08/23/2020 twice a day 30 6 mg tablet 50515 [id number] Syeda Camryn [id number] [facility] ([facility]) 50 mg 01/26/2020 12:00:00 AM [...] {tablet_as_needed} active Cimetidine 20 0 MG eCW1 ([facility]) Cimetidine 200 MG Oral Tablet Cimetidine 200 MG 09/22/2019 12:00:00 A M EST active 1 tablet as needed e CW1 ([facility]) Cimetidine 200 MG Oral Tablet Cimetidine 200 MG 09/22/2019 12:00:00 A M EST active 1 tablet as needed e CW1 ([facility]) Cimetidine 200 MG Oral Tablet Cimetidine 200 MG 09/22/2019 12:00:00 A M EST active 1 tablet as needed e CW1 ([facility]) 10 mg 09/15/2019 12:00:00 AM EST tablet [...] type / Coverage type Policy ID Covered green party ID Covered green party's relationship to knight Policy Knight Plan Information EMEDNY [id number] SP [id number] MEDICARE [id number] SP [id number] MEDICAID [id number] Eliza [id number] MEDICARE [id number] Eliza [id number] E66 MEDICAID [id number] MEDICARE [id number] MEDICARE [id number] SP [id number] E66 MEDICARE C [id number] S [id number] E66 MEDICAID M [id number] S [id number] Medicaid P [id number] S [id number] MEDICAID [id number] SP [id number] Medicare P [id number] S [id number] A Medicaid Dental O [id number] S [id number] MEDICAID [id number] SP [id number] ANSI-Medicaid [id number] ANSI-Medicare Part B [id number] MEDICARE A [id number] Self [id number] E66 MEDICAID M [id number] Self [id number] ANSI-Medicaid [id number] ANSI-Medicare Part B [id number] ANSI-Medicaid [id number] ANSI-Medicare Part B [id number] ANSI-Medicaid [id number] ANSI-Medicare Part B [id number] MEDICARE A [id number] Self [id number] A ANSI-Medicaid [id number] ANSI-Medicare Part B [id number] MEDICAID [id number] SP [id number] ANSI-Medicaid [id number] ANSI-Medicare Part B [id number] ANSI-Medicare Part B [id number] ANSI-Medicaid [id number] ANSI-Medicare Part B [id number] ANSI-Medicaid [id number] ANSI-Medicaid [id number] ANSI-Medicare Part B [id number] ANSI-Medicaid [id number] ANSI-Medicare Part B [id number] ANSI-Medicaid [id number] ANSI-Medicare Part B [id number] [facility]-Medicare Part B [id number] [facility] [id number] ANSI-Medicare Part B [id number] [facility]-Medicaid [id number] ANSI-Medicare Part B [id number] [facility]-Medicaid [id number] MEDICARE [id number] SP [id number] E66 MEDICARE [id number] SP [id number] A MEDICARE C [id number] S [id number] A MEDICAID [id number] SP [id number] Medicaid [facility] Part B Self Medicare [place] Primary Self Problems, Conditions, and Diagnoses Code Display Name Description Problem Type Effective Dates Data Source(s) 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 Tardive Dyskinesia Co ndition 10/25/2020 12:00:00 AM EST [facility] ([facility]) F20.9 Schizophrenia, unspecified Schizophrenia Condition 10/25/2020 12:00:00 AM EST [facility] ([facility]) R55 Syncope Syncope [id number] 10/24/2020 12:00:00 AM ES T [facility] G45.9 TIA (transient ischemic attack) TIA (transient ischemi c attack) [id number] 03/27/2020 12:00:00 AM EDT [facility] E78.5 Hyperlipidemia Hyperlipidemia [id number] 03/27/2020 12:00: 00 AM EDT [facility] I10 Hypertension Hypertension [id number] 03/27/2020 12:00:00 A M EDT [facility] 525.13 LOSS OF TEETH DUE TO CARIES LOSS OF TEETH DUE TO RADHA S 11/01/2019 03:14:29 PM EST [facility] G45.9 Transient cerebral ischemic attack, unsp ecified Transient cerebral ischemic attack, unsp Diagnosis 10/24/2020 01:41:03 PM EST [facility] I65.21 Occlusion and stenosis of right carotid artery Occlusion and stenosis of right carotid Diagnosis 10/24/2020 01:41:03 PM EST [facility] E78.5 Hyperlipidemia, unspecified Hyperlipidemia, unspecifie d Diagnosis 10/24/2020 01:41:03 PM EST [facility] I10 Essential (primary) hypertension Essential (primary) h ypertension Diagnosis 10/24/2020 01:41:03 PM EST [facility] R55 Syncope and collapse Syncope and collapse Diagnosis 10/24/2020 01:41:03 PM EST [facility] I73.9 Peripheral vascular disease, unspecified Peripheral vascular disease, unspecified Diagnosis 05/02/2020 07:55:55 AM EDT [facility] Surgeries/Procedures Procedure Description Date Indications Data Source(s) [facility] Telemed E/M Lvl 3--Est pt 10/25/2020 12:00:00 AM EST - 10/25/2020 12:00:00 AM EST [facility] ([facility]) [facility] Telemed E/M Lvl 3--Est pt 10/25/2020 12:00:[address] [facility] ([facility]) POCT AMB EKG POCT AMB EKG Routine 10/24/2020 3:58 PM EST Syncope, unspecified syncope type 10/24/2020 08:58:00 PM EST Syncope, unspecified syncope type [facility] Syncope, unspecified syncope type [facility] Telemed E/M Lvl 3--Est pt 09/26/2020 12:00:00 AM EST - 09/26/2020 12:00:00 AM EST [facility] ([facility]) [facility] Telemed E/M Lvl 3--Est pt 09/26/2020 12:00:[address] [facility] ([facility]) [facility] Telemed E/M Lvl 3--Est pt 09/05/2020 12:00:00 AM EST - 09/05/2020 12:00:00 AM EST [facility] ([facility]) [facility] Telemed E/M Lvl 3--Est pt 09/05/2020 12:00:[address] [facility] ([facility]) Extended Individual Psychotherapy - 45 min 08/25/2020 12:00:00 AM EST - 08/25/2020 12:00:00 AM EST [facility] ([facility]) Extended Individual Psychotherapy - 45 min 0 12:00:00 AM EST [facility] ([facility]) [id number]"Psychotherapy 0 12:00:00 AM EDT - 08/11/2020 12:00:00 AM EDT [facility] ([facility]) [id number]"Psychotherapy 08/11/2020 12:00:00 AM EDT [facility] ([facility]) TEMPMHCTelemed 30" Psychotherapy 020 12:00:00 AM EDT - 07/24/2020 12:00:00 AM EDT [facility] ([facility]) TEMPMHCTelemed 30" Psychotherapy 07/24/2020 12:00:00 A M EDT [facility] ([facility]) MHC Telemed E/M Lvl 3--Est pt 07/12/2020 12:00:00 AM EDT - 07/12/2020 12:00:00 AM EDT [facility] ([facility]) MHC Telemed E/M Lvl 3--Est pt 07/12/2020 12:00:00 AM E DT [facility] ([facility]) [facility] Telemed E/M Lvl 3--Est pt 06/15/2020 12:00:00 AM EDT - 06/15/2020 12:00:00 AM EDT [facility] ([facility]) [facility] Telemed E/M Lvl 3--Est pt 06/15/2020 12:00:00 AM E DT [facility] ([facility]) TEMPMHCTelemed 30" Psychotherapy 020 12:00:00 AM EDT - 04/10/2020 12:00:00 AM EDT [facility] ([facility]) TEMPMHCTelemed 30" Psychotherapy 04/10/2020 12:00:00 A M EDT [facility] ([facility]) Comprehensive medication services, per 15 minutes 03/29/2020 12:00:00 AM EDT - 03/29/2020 12:00:00 AM EDT [facility] ([facility]) Comprehensive medication services, per 15 minutes 03/29/2020 12:00:00 AM EDT [facility] ([facility]) Comprehensive medication services, per 15 minutes 03/27/2020 12:00:00 AM EDT - 03/27/2020 12:00:00 AM EDT [facility] ([facility]) Comprehensive medication services, per 15 minutes 03/27/2020 12:00:00 AM EDT [facility] ([facility]) TEMPMHCTelemed 30" Psychotherapy 020 12:00:00 AM EDT - 03/08/2020 12:00:00 AM EDT [facility] ([facility]) TEMPMHCTelemed 30" Psychotherapy 03/08/2020 12:00:00 A M EDT [facility] ([facility]) Comprehensive medication services, per 15 minutes 02/28/2020 12:00:00 AM EDT - 02/28/2020 12:00:00 AM EDT [facility] ([facility]) Comprehensive medication services, per 15 minutes 02/28/2020 12:00:00 AM EDT [facility] ([facility]) TEMPMHCTelemed 30" Psychotherapy 12:00:00 AM EDT - 02/24/2020 12:00:00 AM EDT [facility] ([facility]) TEMPMHCTelemed 30" Psychotherapy 02/24/2020 12:00:00 A M EDT [facility] ([facility]) OFFICE OUTPATIENT VISIT 15 MINUTES 02/15 12:00:00 AM EDT - 02/16/2020 12:00:00 AM EDT [facility] ([facility]) OFFICE OUTPATIENT VISIT 15 MINUTES 02/16/2020 12:00:00 AM EDT [facility] ([facility]) TEMPMHCTelemed 30" Psychotherapy 12:00:00 AM EDT - 02/04/2020 12:00:00 AM EDT [facility] ([facility]) TEMPMHCTelemed 30" Psychotherapy 02/04/2020 12:00:00 A M EDT [facility] ([facility]) Comprehensive medication services, per 15 minutes 01/31/2020 12:00:00 AM EDT - 01/31/2020 12:00:00 AM EDT [facility] ([facility]) Comprehensive medication services, per 15 minutes 01/31/2020 12:00:00 AM EDT [facility] ([facility]) MHC Telemed E/M Lvl 3--Est pt 01/26/2020 12:00:00 AM EDT - 01/26/2020 12:00:00 AM EDT [facility] ([facility]) MHC Telemed E/M Lvl 3--Est pt 01/26/2020 12:00:00 AM E DT [facility] ([facility]) TEMPMHCTelemed 30" Psychotherapy 12:00:00 AM EDT - 01/14/2020 12:00:00 AM EDT [facility] ([facility]) TEMPMHCTelemed 30" Psychotherapy 01/14/2020 12:00:00 A M EDT [facility] ([facility]) TEMPMHCTelemed 20" psychotherapy 020 12:00:00 AM EDT - 01/06/2020 12:00:00 AM EDT [facility] ([facility]) TEMPMHCTelemed 20" psychotherapy 01/06/2020 12:00:00 A M EDT [facility] ([facility]) Comprehensive medication services, per 15 minutes 01/03/2020 12:00:00 AM EDT - 01/03/2020 12:00:00 AM EDT [facility] ([facility]) Comprehensive medication services, per 15 minutes 01/03/2020 12:00:00 AM EDT [facility] ([facility]) Office Visit, Est Pt., Level 3 FC 12/20/2019 12:00:00 AM EDT eCW1 ([facility]) Office Visit, Est Pt., Level 4 PC 12/20/2019 12:00:00 AM EDT eCW1 ([facility]) TDAP 0.5mL ([facility]) 12/20/2019 12:00:00 AM EDT eCW1 ([facility]) IMMUNIZATION ADMIN 12/20/2019 12:00:00 AM EDT eCW1 ([facility]) OFFICE OUTPATIENT VISIT 15 MINUTES 12/15 12:00:00 AM EST - 12/16/2019 12:00:00 AM EST [facility] ([facility]) OFFICE OUTPATIENT VISIT 15 MINUTES 12/16/2019 12:00:00 AM EST [facility] ([facility]) Office Visit, Est Pt., Level 2 FC 12/13/2019 12:00:00 AM EST eCW1 ([facility]) Brief Individual Psychotherapy - 30 min 12/07/2019 12:00:00 AM EST - 12/07/2019 12:00:00 AM EST [facility] ([facility]) Brief Individual Psychotherapy - 30 min 12/07/2019 12: 00:00 AM EST [facility] ([facility]) Comprehensive medication services, per 15 minutes 12/06/2019 12:00:00 AM EST - 12/06/2019 12:00:00 AM EST [facility] ([facility]) Comprehensive medication services, per 15 minutes 12/06/2019 12:00:00 AM EST [facility] ([facility]) OFFICE OUTPATIENT VISIT 15 MINUTES 12/01 12:00:00 AM EST - 12/01/2019 12:00:00 AM EST [facility] ([facility]) Psychotherapy ADD ON - 30 Minutes 12/01/2019 12:00:00 AM EST [facility] ([facility]) OFFICE OUTPATIENT VISIT 15 MINUTES 12/01/2019 12:00:00 AM EST [facility] ([facility]) Brief Individual Psychotherapy - 30 min 11/19/2019 12:00:00 AM EST - 11/19/2019 12:00:00 AM EST [facility] ([facility]) Brief Individual Psychotherapy - 30 min 11/19/2019 12: 00:00 AM EST [facility] ([facility]) THERAPEUTIC PROPHYLACTIC/DX INJECTION SUBQ/IM 11/08/2019 12:00:00 AM EST - 11/08/2019 12:00:00 AM EST [facility] ([facility]) THERAPEUTIC PROPHYLACTIC/DX INJECTION SUBQ/IM 11/08/19 20 12:00:00 AM EST [facility] ([facility]) OFFICE OUTPATIENT VISIT 15 MINUTES 10/27 12:00:00 AM EST - 10/27/2019 12:00:00 AM EST [facility] ([facility]) OFFICE OUTPATIENT VISIT 15 MINUTES 10/27/2019 12:00:00 AM EST [facility] ([facility]) Brief Individual Psychotherapy - 30 min 10/19/2019 12:00:00 AM EST - 10/19/2019 12:00:00 AM EST [facility] ([facility]) Brief Individual Psychotherapy - 30 min 10/18/2019 12: 00:00 AM EST [facility] ([facility]) Comprehensive medication services, per 15 minutes 10/11/2019 12:00:00 AM EST - 10/11/2019 12:00:00 AM EST [facility] ([facility]) Comprehensive medication services, per 15 minutes 10/11/2019 12:00:00 AM EST [facility] ([facility]) Brief Individual Psychotherapy - 30 min 09/16/2019 12:00:00 AM EST - 09/16/2019 12:00:00 AM EST [facility] ([facility]) Brief Individual Psychotherapy - 30 min 09/16/2019 12: 00:00 AM EST [facility] ([facility]) Results ID Date Data Source [id number] 10/30/2020 06:09:38 PM EST [facility] Name Value Range Interpretation Code Description Data Lynette rce(s) Supporting Document(s) &PDF [facility] RAGSEf6rNtYGEeZh39/WFJnxIIIrp2BiKDsrMLl4IKqmHGGgJ0AavBkxMHpHGxCFHqyGBNGJLL2cNyBe yKE XrtFQpN5myhFNfsfWJb6Kwn1QwaXmrpjbWLoBxEk7QMkLoEB4xqg5BJQXmTC7nmj9RNSM2VU5SmKn4EF KqX7CnBZRnTASjb0ZeZT5TXY3sqZvhQiA9Mz1+LRtpMYE7ulVkiJ7BGGQaOA0j9quPea/g/gcC+3C7QB 5hBwLZMBNMiuITRfuh1ffi0k9FLge3C4+tLXeb/etP ZtGoS6hW35kA1aEOgn5gZEGj+PH1MMqnhH61sn4BCdvpYJ/Ek4VrRNjA/v1srqhy2FVv8bkotX8931H0 4LANVnYINhUq2c28TEDZO2xaI1Q/5IZHln/+VYl/8j9us+VTE7Td7j5XI7dBPIBLH0cUj1c412njRVkB Y5lhngOeQujpPOsHfdIJY7jgnOZvZlOkRbHcE6cgVB M0RJRFra7jAV0qhEICLFOyXAilvH05GDRHPwWDVTaX2aU8QSmJd8vYbyPsxFg08mGHZuhcJtO9FmM/lV EBBarHLGZg4HGTK2ISZcKVfCyxm8gIiC7koJ1dQnRnASTzyn5nj+4tETcZfev4LIPrk0bgu/+2Wudtdn J5/zyLsoNvnrfIF5MFNa169vz3UArXTXH2f3yrngg7 bPXogKqpHUAjXUyORNREpdbfyL9QqNCdFitlRG6Mx/xwoXDegQav0mQDBymIkIJsTmARcjFWEiMh0FFD 8VHAFqj41bMfWN3RWvwBUxy0MSVjZSB2Ppd+hiH8e/PAOLO+9+vDZ7fc0E16QvkEpm7jr+bgaQ7tangeDY [file] ICAgICAgICAgICAgICAgICAgICAgICAgICAgICAgICAgICAgICAgICAgICAgICAgICAgICAgICAgICAg ICAgICAgICAgICAgICAgICAgICAgICAgICAgICAgIA 0KICAgICAgICAgICAgICAgICAgICAgICAgICAgICAgICAgICAgICAgICAgICAgICAgICAgICAgICAgIC NjOKVnXKQiDERrPENfVZRhEDFmXHDxKJDaEVZcXLEwJCFdBDWaIRLpAI5ZSHTbHLBcLIXbEPIxRRPyAL AgICAgICAgICAgICAgICAgICAgICAgICAgICAgICAg TNCgHIOjAWZeJUJkLOCaOADpWQCdSHFwPOLoMGApMJRnLYCdHRScHAOjJZNtZRYdWDYmLI3XVIDpFKVz ICAgICAgICAgICAgICAgICAgICAgICAgICAgICAgICAgICAgICAgICAgICAgICAgICAgICAgICAgICAg ICAgICAgICAgICAgICAgICAgICAgICAgICAgICAgIC TnHU3RJNPzJRHuLCSwWKVoXCHmIRWtWSMzZDSeKEEbGYPdHIAjAMXbJYMkDKDiBOHaGATvGPAfRNTzNO TfPMLjFVFmNPZdPGXoZRFoNJMdTLDlINHbTHSxZVFvMTLoUHArEEPjUYQcKH0WVKLaPYBkFCOfLNYcCI AgICAgICAgICAgICAgICAgICAgICAgICAgICAgICAg UAYcQJTcOQIsFFCzYVMoNKKpOUWjUXMpINDkVVLrBDWlQNChFFPgIUPoWTBiDGDdVKEnNRMgXC3FKHZv ICAgICAgICAgICAgICAgICAgICAgICAgICAgICAgICAgICAgICAgICAgICAgICAgICAgICAgICAgICAg ICAgICAgICAgICAgICAgICAgICAgICAgICAgICAgIC TiYZXeYN8FTIEnCISaWMTyLXHxKHZuPCNjVHDhZFZxWKPePKWnCZWvFPHpFJBiSXFmKRZgPFSbCSBeUZ IxDUHtUGYjFPXxZHSrOJFaKHCdIIBkWOEiDDZpGEYnCXTgEWNhHSNpIMFzNUMhVX1PFJYcYWRyFRAaAR AgICAgICAgICAgICAgICAgICAgICAgICAgICAgICAg XEIfCCDwMPVuBPVdKBEtPGDpUFCdIOMcGJJgKEOdQPUtLRPiMEQyASIqDXNyZWZiSSJfJLIzPYUrZD3L ICAgICAgICAgICAgICAgICAgICAgICAgICAgICAgICAgICAgICAgICAgICAgICAgICAgICAgICAgICAg ICAgICAgICAgICAgICAgICAgICAgICAgICAgICAgIC DhFGFhEPOnTX8OFJ27gOUdm2B5DDGgAA8wbxk/Rs3ZCEnpmbMiqUUaOB2SYjEyHD8gmw6WItZiVQ3yhi 9FLQwRRzUsE7J9mGHdHPOmCUXFXyNiA72aDGhwTr99PRpmLQLxEbFlEIl8Ew9KLxBgQ9xzATNrCqM9LE AhByXjXOpmAS1Ah6AsfRUhTXx+Ga8RUT9qh0RxRWml SOGaCJ2vte2LZHzLSvEnG5O1aGEcH6V9GOrlAx7DYSEzUHAqEGttKQRKRDhaKO8CKE6szjB9SO5DlMVd XBQcTYEbyRUePMu4Y21yhOPuZRyoHG2YUGF+Joanna+Qb3CZUWhXPCbHCAmHfIiBVLRPrMvY03fgXEgTLAe LIC5BKQjFi4ZNDRnD0DwpjErxUvticZiEOLpKXUQJB 0XGVmpjcPraHTdgShxKW18cXqwVR5YUw9YIxItGA9kbf1BoWQaGe5CCRXnTE9XMNDvUCRoVOIsYKI9ZQ QvLnDzEDoaAYSnFVMjDGE4GZSzKSOdSN1VDeThOAUjVVJ3MrypBLXoJUZpit5ZKWBiASUlQdF2VTCwOV KmTERiJGrwAEZoJWBeEAvmGDLgDTHrBI5KDjVoOUWq DAN3HmMeDGGpTKZyzw4ZIHMaXVWjHbi8QVJmFBCnFQRiKNdwSKUjHFDiJWK2SLQxMMRvTX2PJlNoNQEc YLJsDkZyQPBwCDHopd7NIXFaITVkIERaHBAdVRCgQJAvJLvtZNUgBBK4NwBdOWNcKAZkRL8CSjXlAMCq XOO6ZaHhGMRtIFLjlp0IRJJuBLZxDNH0WPJeMGMnZP DhKUrlZZVoXXY4HtS8BGQrSQKaIY3AFnBfEWBgONT5AUAiVNEzFCMpqu6SCXAbGOUyCco0UQIvXJCwSY NcKWijMLPqWFYpFmb3YCJdYUNxTR6JAwYkCRRpHBH9EAJnVXWvAYLddu7TVIVjFHAvVgRkPSDtJZDpVH SxRTkvMSRhXMW3NCxfSNAlGLOlVD4VMsEoWTmoOZIU Mxs0ZHkyP4m4QGVbMU5JA5Pkt5CjXVseBNZSCIozUZ1sgyBuSMYzOu5MK8gUUxcoLeoeVGV6R6GkBrjv CEP2FFZqWYJeTODoQTImCPL2ZV6gBDPgFwIiIuF3SAG0G6J7TJc1RBK1ZSJ8TQY7D5UnHshvPcRnZX6T Pw6BEiY5OMO4kNLgSb2XORo4PlVEFgOjYW6IZCz= ID Date Data Source [id number] 08/25/2020 07:36:32 AM EST [facility] Name Value Range Interpretation Code Description Data Lynette rce(s) Supporting Document(s) &PDF [facility] SUZONw4iVrJYVgBb40/SGVuxBKRch7FqUZfsWDz6CEkoHTPdY6IxxDkoZQuHVxUAStqNAZOPXU3xWtMu vci [file] AgICAgICAgICAgICAgICAgICAgICAgICAgICAgICAgICAgICAgICAgICAgICAgICAgICAgICAgICAgIC AgICAgICAgICAgICAgICAgDQogICAgICAgICAgICAg ICAgICAgICAgICAgICAgICAgICAgICAgICAgICAgICAgICAgICAgICAgICAgICAgICAgICAgICAgICAg ICAgICAgICAgICAgICAgICAgICAgICAgICAgDQogICAgICAgICAgICAgICAgICAgICAgICAgICAgICAg ICAgICAgICAgICAgICAgICAgICAgICAgICAgICAgIC AgICAgICAgICAgICAgICAgICAgICAgICAgICAgICAgICAgICAgDQogICAgICAgICAgICAgICAgICAgIC AgICAgICAgICAgICAgICAgICAgICAgICAgICAgICAgICAgICAgICAgICAgICAgICAgICAgICAgICAgIC AgICAgICAgICAgICAgICAgICAgDQogICAgICAgICAg ICAgICAgICAgICAgICAgICAgICAgICAgICAgICAgICAgICAgICAgICAgICAgICAgICAgICAgICAgICAg ICAgICAgICAgICAgICAgICAgICAgICAgICAgICAgDQogICAgICAgICAgICAgICAgICAgICAgICAgICAg ICAgICAgICAgICAgICAgICAgICAgICAgICAgICAgIC AgICAgICAgICAgICAgICAgICAgICAgICAgICAgICAgICAgICAgICAgDQogICAgICAgICAgICAgICAgIC AgICAgICAgICAgICAgICAgICAgICAgICAgICAgICAgICAgICAgICAgICAgICAgICAgICAgICAgICAgIC AgICAgICAgICAgICAgICAgICAgICAgDQogICAgICAg ICAgICAgICAgICAgICAgICAgICAgICAgICAgICAgICAgICAgICAgICAgICAgICAgICAgICAgICAgICAg ICAgICAgICAgICAgICAgICAgICAgICAgICAgICAgICAgDQogICAgICAgICAgICAgICAgICAgICAgICAg ICAgICAgICAgICAgICAgICAgICAgICAgICAgICAgIC AgICAgICAgICAgICAgICAgICAgICAgICAgICAgICAgICAgICAgICAgICAgDQogICAgICAgICAgICAgIC AgICAgICAgICAgICAgICAgICAgICAgICAgICAgICAgICAgICAgICAgICAgICAgICAgICAgICAgICAgIC SsJUIyCOGgNRMvGSHyCMQdACDfIIXbRZAxVLe9L8qf FFCwSOGxZM5vNKb7Cd6+OJcBTmSnRHF3nwLveZ4ZFY6fu9TlXPtfEWEtp5SdBWk1RT8WGJErAQviEF2Y VDwxza5QDMSzDHQmiHYJz6mdJwDlZCH8BYEzPpbtDL1OJDKcT2qgsiJvBNJyTHXCFCvzXTDDGY7CTiPc F5RbmC41GTMACw1+YVujhfInLrpDMqX1XIFmo5DhKC y4TR7HXFTtYBxpMQ7FINBdwQ5oEIgtFX8ZOjFdSVAiUNFQOtUwV61pkVAvXHm7I0OsQsPbNVUkBmtvDO MgPDwvTmFtZXMgWyBdDQogID4+ID4+GMwnMW8TTCshfiPsGMZwPw7RMGPmPJM0YHTspZGmQbOhCWOETC neMZ2NfLNiBNN3fJ5qUSihVVZfNSGcD9cMVdOkmPaw DH97zJwhhyWeeYPsWSj+Ao6ZQX4sm3UxEEl7duGdUYdfTON5VTwdQVSoRADcTMRtZCD0HWR4WTRHVzLk TBEfAEWfPHwbCCHpXBUbhq7EKZEdQCGnOjFxFWIuQIKsLFLfVKtxLDAzCYJdTYh4WQWsMCVhVX6UZgJk PTDzKFEnYZFgLWOrNXAqkz0CIUKpYDElUyUzVIMbKD BrGRRzBDwlHQOgCGFwXkF7GWSzVQVuNZ6RCzLiDRXtEEW8MzDhSBCgJUWnly4NCTCuDFSiIhxkMWAdIH VaQNXkLMkrFBSmVRS3Uir1YCAmKOWgEA4ECoVzHOMpPDL5XONcRESeECNxxk7IGDKqMPRvIIQ8BBTfGD UkVZSaBZjsGULhRLI9FRC3HMQxOYKsYJ4ZXzOdWEPy RINlAxFlMSZmVFEjjd8WCXKtDFVoItOfFYRdUGUmUSSgIYbuHVBqLMFzIbrvHNXwQWNnCR1UFyTmBRFm MZB5ITccQLCsJFAxxu5HETYbVDPqIMr2SKMxTCCdSRCiINqnWZNaXAPwZKM7WGDqNJZjKE2WWlNdUESa TROuMXJiWDYzGLNboa9XKLHzPQZfKxDgQXHgUNEwOH WtQLtpFVWyXTVeBeTnVXQwJZWiYU6ROoMmQICzEVX2FQWlESZvYJBkhd7PQTIhXTFlEVL9RVAvXOSxEO ZzERmqWUUoUNPrJSf6KXEeMPSdLH3AYcRaHWLgSyJ2LxWoKNDnYHCqhp7YKGMxZZEcDQK9BSBqFREjUA EkTGg4peFmuWXkQNr6RK3RU6JggzMiXyhCAu0Dn451 SIG8UWErRv3IA9ebEt1kTHBgUUAWSe6KTFc2Y3XmHERuGjF0WeZwQ3Y3WCB0ZtWqRpZ3TADjDUR4EoN+ RAgnB4N0S2AxFjN4WIZsNXumMGW8GoJiKUD0YCNiPfraTV8qWLLXEn9+KNrtaVRiaFboBZBHQyU1KnG8 PZthDUJQLx2C ID Date Data Source [id number] 11/01/2019 01:11:53 PM [facility] Vital SignsBlood Pressure: 126/78 Patient History Medical History:Impulse control disorderHypertensionHyperlipidemiaObesityparanoid schizophreniamild MRFamily History:FH Stroke-- motherSocial/Personal History: Smoking Status: never smokerCurrent Problems: LOSS OF TEETH DUE TO CARIES (ICD- 525.13) (EFV61-P65.139)PHYSICAL EXAMINATION (ICD-V70.0) (MAX49-S49.00)SPECIAL SCREENING MALIGNANT NEOPLASM OF TESTIS (ICD-V76.45) (NGQ50-X11.71)LOCALIZED SUPERFICIAL SWELLING MASS OR LUMP (ICD-782.2) (HAC74-R17.9)DYSTROPHIC NAILS (ICD-703.8) (XEG84-L15.3)FH STROKE (ICD-V17.1) (XPM34-C94.3)UNSPECIFIED VITAMIN D DEFICIENCY (ICD-268.9) (VHN15-Y77.9)LONG-TERM (CURRENT) USE OF OTHER MEDICATIONS (ICD-V58.69)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) (TFA98-L74.0)OBESITY (ICD-278.00) (ZFG22-W53.9)HYPERLIPIDEMIA (ICD-272.4) (JHQ86-X66.5)HYPERTENSION (ICD-401.9) (BXR24-O25)Current Medications: CHLORHEXIDINE GLUCONATE 0.12 % SOLN (CHLORHEXIDINE [...] on Tooth # 24 (Performed by Alyson Person) B - ([id number]) Intraoral, periapical, first radiographic [...] #7 Surface F, #8 Surface FD[E] [employer] [place] On #17 Surface MO, #18 Surface MODB, #4 Surface O, #5 Surface O[E] Root Canal On #24 Region A[E] Resin-Based Composite - Direct On #10 Surface DFL, #12 Surface O, #7 Surface MFL, #8 Surface DFL[E] Missing - Ellerbe and Root On #13 Surface O Region [...] XR Chart Notes:jaymie (Nov 01 2019 2:05PM): [facility](-)Comp exam, 4BWX-dexcoy, PA# 6,8,11 and 24Patient referred for extraction of # 17 and 18 and fabrication of max and jason RPD. Patient was given an option for crown on # 18 because of large amalgam tenriism. Patient said he cannot afford a crown [...] PM): ; jovi (Nov 01 2019 3:13PM): [facility](-). CC: none. Reviewed Xrays. Exam:spont. bleeding on [...] on # 18 because of large amalgam tenriism. Patient said he cannot afford a crown [...] (Severe)ADULT ASPIRIN LOW STRENGTH (Moderate)Orders:Multi-Service Referral [CPT- 26713] Name Value Range Interpretation Code Description Data Lynette rce(s) Supporting Document(s) Procedure Social History Code Duration Value Status Description Data Source(s ) Smoking 10/25/2020 12:00:00 AM EST Unknown if ever smoked comp leted Unknown if ever smoked [facility] ([facility] Smoking 10/17/2020 12:00:00 AM EST Never Smoker completed Never S moker eCW1 ([facility]) Smoking 10/17/2020 12:00:00 AM EST Never Smoker completed Never S moker eCW1 ([facility]) Smoking 10/17/2020 12:00:00 AM EST Never Smoker completed Never S moker eCW1 ([facility]) Smoking 09/26/2020 12:00:00 AM EST Unknown if ever smoked comp leted Unknown if ever smoked [facility] ([facility]) Smoking 09/05/2020 12:00:00 AM EST Unknown if ever smoked comp leted Unknown if ever smoked [facility] ([facility]) Smoking 08/25/2020 12:00:00 AM EST Unknown if ever smoked comp leted Unknown if ever smoked [facility] Sm[facility] 08/15/2020 12:00:00 AM EST Never Smoker completed Never S moker eCW1 ([facility]) Smoking 08/15/2020 12:00:00 AM EST Never Smoker completed Never S moker eCW1 ([facility]) Smoking 08/11/2020 12:00:00 AM EDT Unknown if ever smoked comp leted Unknown if ever smoked [facility] ([facility]) Smoking 07/24/2020 12:00:00 AM EDT Unknown if ever smoked comp leted Unknown if ever smoked [facility] ([facility]) Smoking 07/12/2020 12:00:00 AM EDT Unknown if ever smoked comp leted Unknown if ever smoked [facility] ([facility]) Smoking 06/15/2020 12:00:00 AM EDT Unknown if ever smoked comp leted Unknown if ever smoked [facility] ([facility]) Smoking 05/11/2020 12:00:00 AM EDT Patient has never smoked co mpleted Patient has never smoked [facility] ([facility], [facility]) Alcohol intake 05/02/2020 12:00:00 AM EDT Never completed [facility] Smoking 05/02/2020 12:00:00 AM EDT Never smoker completed Never s moker [facility] Smoking 04/20/2020 12:00:00 AM EDT Never Smoker completed Never S rangelker eCW1 ([facility]) Smoking 04/10/2020 12:00:00 AM EDT Unknown if ever smoked comp leted Unknown if ever smoked [facility] ([facility]) Smoking 03/29/2020 12:00:00 AM EDT Unknown if ever smoked comp leted Unknown if ever smoked [facility] ([facility]) Smoking 03/27/2020 12:00:00 AM EDT Unknown if ever smoked comp leted Unknown if ever smoked [facility] ([facility]) Smoking 03/08/2020 12:00:00 AM EDT Unknown if ever smoked comp leted Unknown if ever smoked [facility] ([facility]) Smoking 02/28/2020 12:00:00 AM EDT Unknown if ever smoked comp leted Unknown if ever smoked [facility] ([facility]) Smoking 02/24/2020 12:00:00 AM EDT Unknown if ever smoked comp leted Unknown if ever smoked [facility] ([facility]) Smoking 02/16/2020 12:00:00 AM EDT Unknown if ever smoked comp leted Unknown if ever smoked [facility] ([facility] [place] [facility]) Smoking 02/04/2020 12:00:00 AM EDT Unknown if ever smoked comp leted Unknown if ever smoked [facility] ([facility]) Smoking 01/31/2020 12:00:00 AM EDT Unknown if ever smoked comp leted Unknown if ever smoked [facility] ([facility] [place] [facility]) Smoking 01/26/2020 12:00:00 AM EDT Unknown if ever smoked comp leted Unknown if ever smoked [facility] ([facility]) Smoking 01/14/2020 12:00:00 AM EDT Unknown if ever smoked comp leted Unknown if ever smoked [facility] ([facility] [place] [facility]) Smoking 01/06/2020 12:00:00 AM EDT Unknown if ever smoked comp leted Unknown if ever smoked [facility] ([facility]) Smoking 01/03/2020 12:00:00 AM EDT Unknown if ever smoked comp leted Unknown if ever smoked [facility] ([facility]) Smoking 12/16/2019 12:00:00 AM EST Unknown if ever smoked comp leted Unknown if ever smoked [facility] ([facility]) Smoking 12/07/2019 12:00:00 AM EST Unknown if ever smoked comp leted Unknown if ever smoked [facility] ([facility]) Smoking 12/06/2019 12:00:00 AM EST Unknown if ever smoked comp leted Unknown if ever smoked [facility] ([facility]) Smoking 12/01/2019 12:00:00 AM EST Unknown if ever smoked comp leted Unknown if ever smoked [facility] ([facility]) Smoking 11/19/2019 12:00:00 AM EST Unknown if ever smoked comp leted Unknown if ever smoked [facility] ([facility]) Smoking 11/08/2019 12:00:00 AM EST Unknown if ever smoked comp leted Unknown if ever smoked [facility] ([facility]) Smoking 10/27/2019 12:00:00 AM EST Unknown if ever smoked comp leted Unknown if ever smoked [facility] ([facility]) Smoking 10/19/2019 12:00:00 AM EST Unknown if ever smoked comp leted Unknown if ever smoked [facility] ([facility]) Smoking 10/11/2019 12:00:00 AM EST Unknown if ever smoked comp leted Unknown if ever smoked [facility] ([facility]) Smoking 09/16/2019 12:00:00 AM EST Unknown if ever smoked comp leted Unknown if ever smoked [facility] ([facility]) Vital Signs ID Date Data Source UNK Name Value Range Interpretation Code Description Data Source(s) Body mass index (BMI) [Ratio] 0.00 kg/m2 No rmal (applies to non-numeric results) 0.00 kg/m2 [facility] ([facility]) Body weight Measured 0.00 lbs Normal (applies to n on-numeric results) 0.00 lbs [facility]) Body height 0.00 in Normal (applies to non-numeric resu lts) 0.00 in [facility] ([facility]) Diastolic blood pressure 0 mm[Hg] Normal (applies to non-numeric results) 0 mm[Hg] [facility] ([facility]) Systolic blood pressure 0 mm[Hg] Normal (applies t o non-numeric results) 0 mm[Hg] [facility] ([facility]) Oxygen saturation in Arterial blood by Pulse oximetry 96 % 96 % [facility] Body mass index (BMI) [Ratio] 30.99 kg/m2 30.99 kg/m2 [facility] Body weight 87.091 kg 87.091 kg [facility] Body height 167.6 cm 167.6 cm [facility] Heart rate 80 /min 80 /min [facility] Diastolic blood pressure 68 mm[Hg] 68 mm[Hg] [facility] Systolic blood pressure 118 mm[Hg] 118 mm[Hg] [facility] Diastolic blood pressure 58 mm[Hg] 58 mm[Hg] eCW1 ([facility]) Systolic blood pressure 100 mm[Hg] 100 mm[Hg] e CW1 ([facility]) Body temperature 98.2 [degF] 98.2 [degF] eCW1 ( [facility]) Respiratory rate 18 /min 18 /min eCW1 ([facility]) Heart rate 108 /min 108 /min eCW1 ([facility]) Body mass index (BMI) [Ratio] 30.99 kg/m2 30.99 kg/m2 W1 ([facility]) Body height 66 [in_i] 66 [in_i] eCW1 ([facility]) Body weight 192 [lb_av] 192 [lb_av] eCW1 ([facility]) Diastolic blood pressure 0 mm[Hg] Normal (applies to non-numeric results) 0 mm[Hg] [facility] ([facility]) Systolic blood pressure 0 mm[Hg] Normal (applies t o non-numeric results) 0 mm[Hg] [facility] ([facility]) Body mass index (BMI) [Ratio] 0.00 kg/m2 No rmal (applies to non-numeric results) 0.00 kg/m2 [facility] ([facility]) Body weight Measured 0.00 lbs Normal (applies to n on-numeric results) 0.00 lbs [facility] ([facility]) Body height 0.00 in Normal (applies to non-numeric resu lts) 0.00 in [facility] ([facility]) Diastolic blood pressure 78 mm[Hg] 78 mm[Hg] eCW1 ([facility]) Systolic blood pressure 112 mm[Hg] 112 mm[Hg] e CW1 ([facility]) Body temperature 97.2 [degF] 97.2 [degF] eCW1 ( [facility]) Respiratory rate 18 /min 18 /min eCW1 ([facility]) Heart rate 74 /min 74 /min eCW1 ([facility]) Body mass index (BMI) [Ratio] 32.92 kg/m2 32.92 kg/m2 eCW1 ([facility]) Body height 66 [in_i] 66 [in_i] eCW1 ([facility]) Body weight 204 [lb_av] 204 [lb_av] eCW1 ([facility]) Diastolic blood pressure 0 mm[Hg] Normal (applies to non-numeric results) 0 mm[Hg] [facility] ([facility]) Systolic blood pressure 0 mm[Hg] Normal (applies t o non-numeric results) 0 mm[Hg] [facility] ([facility]) Body mass index (BMI) [Ratio] 0.00 kg/m2 No rmal (applies to non-numeric results) 0.00 kg/m2 [facility] ([facility]) Body weight Measured 0.00 lbs Normal (applies to n on-numeric results) 0.00 lbs [facility] ([facility]) Body height 0.00 in Normal (applies to non-numeric resu lts) 0.00 in [facility] ([facility]) Body mass index (BMI) [Ratio] 33.7 kg/m2 33.7 k g/m2 [facility] ([facility], [facility]) Body height 66 [in_i] 66 [in_i] [facility] ([facility]) 5'6" Body weight 209.00 [lb_av] 209.00 [lb_av] MEDEN T ([facility], [facility]) Body temperature 98.2 [degF] 98.2 [degF] [facility] ([facility], [facility]) Oxygen saturation in Arterial blood by Pulse oximetry 98 % 98 % [facility] ([facility]) Respiratory rate 14 /min 14 /min [facility] ( [facility], [facility]) Heart rate 88 /min 88 /min [facility] ([facility], [facility]) Diastolic blood pressure 82 mm[Hg] 82 mm[Hg] [facility] ([facility], [facility]) Systolic blood pressure 134 mm[Hg] 134 mm[Hg] M EDENT ([facility], [facility]) Diastolic blood pressure 72 mm[Hg] 72 mm[Hg] eCW1 ([facility]) Systolic blood pressure 120 mm[Hg] 120 mm[Hg] e CW1 ([facility]) Body temperature 98.2 [degF] 98.2 [degF] eCW1 ( [facility]) Respiratory rate 18 /min 18 /min eCW1 ([facility]) Heart rate 106 /min 106 /min eCW1 ([facility]) Body mass index (BMI) [Ratio] 33.34 kg/m2 33.34 kg/m2 W1 ([facility]) Body height 66 [in_i] 66 [in_i] eCW1 ([facility]) Body weight 206.6 [lb_av] 206.6 [lb_av] eCW1 ([facility]) Body mass index (BMI) [Ratio] 34.2 kg/m2 34.2 k g/m2 [facility] ([facility], [facility]) Body height 66 [in_i] 66 [in_i] [facility] ([facility], [facility]) 5'6" Body weight 212.00 [lb_av] 212.00 [lb_av] MED[facility] T ([facility], [facility]) Body temperature 98.0 [degF] 98.0 [degF] [facility] ([facility], [facility]) Oxygen saturation in Arterial blood by Pulse oximetry 98 % 98 % [facility] ([facility], [facility]) Respiratory rate 20 /min 20 /min [facility] ( [facility], [facility]) Heart rate 96 /min 96 /min [facility] ([facility], [facility]) Diastolic blood pressure 83 mm[Hg] 83 mm[Hg] [facility] ([facility], [facility]) Systolic blood pressure 145 mm[Hg] 145 mm[Hg] [facility], [facility]) Body mass index (BMI) [Ratio] 34.2 kg/m2 34.2 k g/m2 [facility] ([facility], [facility]) Body height 66 [in_i] 66 [in_i] [facility] ([facility]) 5'6" Body weight 212.00 [lb_av] 212.00 [lb_av] MED[facility] T ([facility], [facility]) Body temperature 98.6 [degF] 98.6 [degF] [facility], [facility]) Oxygen saturation in Arterial blood by Pulse oximetry 98 % 98 % [facility] ([facility], [facility]) Heart rate 99 /min 99 /min [facility] ([facility], [facility]) Diastolic blood pressure 86 mm[Hg] 86 mm[Hg] [facility] ([facility], [facility]) Systolic blood pressure 146 mm[Hg] 146 mm[Hg] [facility] ([facility], [facility]) Diastolic blood pressure 0 mm[Hg] Normal (applies to non-numeric results) 0 mm[Hg] [facility] ([facility]) Systolic blood pressure 0 mm[Hg] Normal (applies t o non-numeric results) 0 mm[Hg] [facility] ([facility]) Body mass index (BMI) [Ratio] 0.00 kg/m2 No rmal (applies to non-numeric results) 0.00 kg/m2 [facility] ([facility]) Body weight Measured 0.00 lbs Normal (applies to n on-numeric results) 0.00 lbs [facility] ([facility]) Body height 0.00 in Normal (applies to non-numeric resu lts) 0.00 in [facility] ([facility]) Diastolic blood pressure 0 mm[Hg] Normal (applies to non-numeric results) 0 mm[Hg] [facility] ([facility]) Systolic blood pressure 0 mm[Hg] Normal (applies t o non-numeric results) 0 mm[Hg] [facility] ([facility]) Body mass index (BMI) [Ratio] 0.00 kg/m2 No rmal (applies to non-numeric results) 0.00 kg/m2 [facility] ([facility]) Body weight Measured 0.00 lbs Normal (applies to n on-numeric results) 0.00 lbs [facility] ([facility]) Body height 0.00 in Normal (applies to non-numeric resu lts) 0.00 in [facility] ([facility]) Diastolic blood pressure 76 mm[Hg] 76 mm[Hg] eCW1 ([facility]) Systolic blood pressure 124 mm[Hg] 124 mm[Hg] e CW1 ([facility]) Body temperature 97.6 [degF] 97.6 [degF] eCW1 ( [facility]) Respiratory rate 20 /min 20 /min eCW1 ([facility]) Heart rate 70 /min 70 /min eCW1 ([facility]) Body mass index (BMI) [Ratio] 34.41 kg/m2 34.41 kg/m2 eCW1 ([facility]) Body height 66 [in_us] 66 [in_us] eCW1 ([facility]) Body weight Measured 213.2 [lb_av] 213.2 [lb_av ] eCW1 ([facility]) Diastolic blood pressure 60 mm[Hg] 60 mm[Hg] eCW1 ([facility]) Systolic blood pressure 122 mm[Hg] 122 mm[Hg] e CW1 ([facility]) Body temperature 98.1 [degF] 98.1 [degF] eCW1 ( [facility]) Respiratory rate 18 /min 18 /min eCW1 ([facility]) Heart rate 99 /min 99 /min eCW1 ([facility]) Body mass index (BMI) [Ratio] 33.73 kg/m2 33.73 kg/m2 eCW1 ([facility]) Body height 66 [in_us] 66 [in_us] eCW1 ([facility]) Body weight Measured 209 [lb_av] 209 [lb_av] eC W1 ([facility]) Diastolic blood pressure 0 mm[Hg] Normal (applies to non-numeric results) 0 mm[Hg] [facility] ([facility]) Systolic blood pressure 0 mm[Hg] Normal (applies t o non-numeric results) 0 mm[Hg] [facility] ([facility]) Body mass index (BMI) [Ratio] 0.00 kg/m2 No rmal (applies to non-numeric results) 0.00 kg/m2 [facility] ([facility]) Body weight Measured 213.00 lbs Normal (applies to n on-numeric results) 213.00 lbs [facility] ([facility]) Body height 0.00 in Normal (applies to non-numeric resu lts) 0.00 in [facility] ([facility]) Diastolic blood pressure 0 mm[Hg] Normal (applies to non-numeric results) 0 mm[Hg] [facility] ([facility]) Systolic blood pressure 0 mm[Hg] Normal (applies t o non-numeric results) 0 mm[Hg] [facility] ([facility]) Body mass index (BMI) [Ratio] 0.00 kg/m2 No rmal (applies to non-numeric results) 0.00 kg/m2 [facility] ([facility]) Body weight Measured 215.00 lbs Normal (applies to n on-numeric results) 215.00 lbs [facility] ([facility]) Body height 0.00 in Normal (applies to non-numeric resu lts) 0.00 in [facility] ([facility] Patient Treatment Plan of Care Planned Activity Planned Date Details Description Data Source (s) Cimetidine 200 MG Oral Tablet 10/18/2020 12:00:00 AM EST [facility] Austedo 6 MG 10/18/2020 12:00:00 AM EST e CW1 ([facility]) Austedo 6 MG 10/18/2020 12:00:00 AM EST e CW1 ([facility]) Cimetidine 200 MG Oral Tablet 10/16/2020 12:00:00 AM EST eCW1 ([facility]) Cimetidine 200 MG Oral Tablet 10/16/2020 12:00:00 AM EST eCW1 ([facility]) Cimetidine 200 MG Oral Tablet 10/16/2020 12:00:00 AM EST eCW1 ([facility]) 24 HR paliperidone 3 MG Extended Release Oral Tablet 020 12:00:00 AM EST [facility] AUSTEDO 6 MG TABS 10/03/2020 12:00:00 AM EST [facility] clopidogrel 75 MG Oral Tablet 05/01/2020 12:00:00 AM EDT [facility] montelukast 10 MG Oral Tablet 04/30/2020 12:00:00 AM EDT [facility] Lisinopril 10 MG Oral Tablet 04/30/2020 12:00:00 AM EDT [facility] Hydrochlorothiazide 25 MG Oral Tablet 04/28/2020 12:00:00 AM EDT [facility] Trazodone Hydrochloride 50 MG Oral Tablet 04/20/2020 12:00:00 AM ED T [facility] haloperidol decanoate (HALDOL DECANOATE) 100 MG/ML inj ection 04/20/2020 12:00:00 AM EDT [facility] Simvastatin 20 MG Oral Tablet 04/13/2020 12:00:00 AM EDT [facility] Cholecalciferol 5000 UNT Oral Tablet 04/12/2020 12:00:00 AM EDT [facility] cetirizine hydrochloride 10 MG Oral Tablet 03/24/2020 12:00:00 AM E DT [facility] benztropine mesylate 0.5 MG Oral Tablet 03/22/2020 12:00:00 AM EDT [facility] tizanidine 4 MG Oral Tablet 03/15/2020 12:00:00 AM EDT [facility] Cimetidine 200 MG Oral Tablet 09/22/2019 12:00:00 AM EST eCW1 ([facility])
[2020-11-01] MEDS ORDERED: VITA500030 PO (15:28)
[2020-11-01] MEDS ORDERED: PATIENT COMMENT (15:28)
[2020-11-01] MEDS ORDERED: MONT5TAB2 PO (15:28)
[2020-11-01 15:36] LABS: ACETAMINOPHEN LEVEL < 2.0 UG/ML (10.0-30.0); ALBUMIN 4.9 GM/DL (3.2-5.2); ALT/SGPT 35 U/L (12-78); BILIRUBIN,DIRECT 0.2 MG/DL (0.0-0.2); BILIRUBIN,TOTAL 0.6 MG/DL (0.2-1.0); BLOOD UREA NITROGEN 9 MG/DL (7-18); CALCIUM LEVEL 9.7 MG/DL (8.5-10.1); CARBON DIOXIDE LEVEL 26 MEQ/L (21-32); CHLORIDE LEVEL 102 MEQ/L (98-107); CREATININE FOR GFR 0.94 MG/DL (0.70-1.30); ETHYL ALCOHOL (ETHANOL) < 0.003 % (0.000-0.010); GLOMERULAR FILTRATION RATE > 60.0 (>56); GLUCOSE, FASTING 104 MG/DL (70-100); POTASSIUM SERUM 4.1 MEQ/L (3.5-5.1); SALICYLATE LEVEL < 1.7 MG/DL (5.0-30.0); SODIUM LEVEL 137 MEQ/L (136-145); TOTAL PROTEIN 7.7 GM/DL (6.4-8.2)
[2020-11-01] MEDS ORDERED: LIDOCAINE 2% 5ML JELLY UROJET TOP ONE (17:30)
[2020-11-01] MEDS ORDERED: diphenhydrAMINE 50MG/ML VIAL (J1200) IM ONE (17:30)
[2020-11-01] MEDS ORDERED: LORazepam 2 MG/ML VIAL IM ONE (17:30)
[2020-11-01] MEDS ORDERED: HALOPERIDOL 5MG/ML VIAL (J1630 PER 1) IM ONE (17:30)
--- NOTE | 2020-11-01 21:04 | ECGEPIP ---
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
[2020-11-01 21:15] LABS: AMPHETAMINES LEVEL URINE NEGATIVE (NEGATIVE); BARBITURATES URINE NEGATIVE (NEGATIVE); BENZODIAZEPINES URINE NEGATIVE (NEGATIVE); CANNABINOIDS URINE NEGATIVE (NEGATIVE); COCAINE METABOLITE URINE NEGATIVE (NEGATIVE); METHADONE URINE NEGATIVE (NEGATIVE); OPIATES URINE NEGATIVE (NEGATIVE); PHENCYCLIDINE URINE NEGATIVE (NEGATIVE)
[2020-11-01 21:21] LABS: RSV AMPLIFICATION NEGATIVE (NEGATIVE)
[2020-11-02] MEDS ORDERED: PALIPERIDONE PALMITATE 234MG/1.5ML INJ (INVEGA)(FREE PSY INPT ONLY) IM ONE (09:15)
[2020-11-02] MEDS: hydroCHLOROthiazide 25 MG TAB PO SCH (09:55)
[2020-11-02] MEDS: MONTELUKAST 10 MG TAB PO SCH (09:55)
[2020-11-02] MEDS: CLOPIDOGREL 75 MG TAB PO SCH (09:55)
[2020-11-02] MEDS: lisinopriL 10 MG TAB PO SCH (09:56)
[2020-11-02] MEDS ORDERED: PALIPERIDONE 3 MG ER TAB (INVEGA) PO SCH (21:00)
[2020-11-02] MEDS ORDERED: SIMVASTATIN 20 MG TAB PO SCH (21:00)
[2020-11-03] MEDS ORDERED: MOM 30ML SUSPENSION UDC PO PRN (10:00)
[2020-11-03] MEDS ORDERED: haloperidoL 5 MG TAB PO PRN (10:00)
[2020-11-03] MEDS ORDERED: FAMOTIDINE 20 MG TAB PO PRN (10:00)
[2020-11-03] MEDS ORDERED: CETIRIZINE (ZyrTEC) 10 MG TAB PO PRN (10:00)
[2020-11-03] MEDS ORDERED: MAALOX 30 ML SUSP *UDC PO PRN (10:00)
[2020-11-03] MEDS ORDERED: LORazepam 1 MG TAB PO PRN (10:00)
--- OUTSIDE RECORDS SUMMARY | 2020-11-03 10:17 | CCD ---
Author Author Barak Burger Organization Unknown Address [address] [address] Phone Care Team Providers Care Inspector Bullet Slugs Name Role Phone Briana Burger PCP Allergies, Adverse Reactions, Alerts No Data [...] Name Taxonomy Code Taxonomy Desc Phone Number [phone] trazodone 10/03/2016 at bedtime 50 mg tablet as needed [phone] Syeda Cowan [id number] Psychiatric/Mental Health [phone] [id number] paliperidone by mouth [id number] 06/08/2020 01/23/2021 once a day 30 3 mg tablet extended release 24hr [id number] [id number] Syeda Cowan [id number] Psychiatric/Mental Health [phone] [id number] [place] by mouth [id number] 09/05/2020 04/03/2021 twice a day 30 6 mg tablet 06462 [id number] [id number] Syeda Cowan [id number] Psychia tric/Mental Health [id number] Social History Social History Element Description Concept Effective Date Smoking Status Unknown if ever smoked [id number] Immunizations No Data in Section Vital Signs No Data in Section Procedures Date Concept Id Description Targeted Site Concept Targeted Site Concept Type 11/01/2020 61522 Injectable Psychotro pic Medication Administration (Injection Only) CPT Patient has no history of implantable de vices Encounters Encounter Start Date End Date Encounter Type Description Diagnosis Di agnosis Desc Location Author First Name Author Last Name Npid Taxonomy Cod e Taxonomy Desc Phone Number Location Addr1 Location Addr2 Location [place] Location [place] Location Zip [id number] 11/01/2020 11/01/2020 20222 Injectable Psyc hotropic Medication Administration (Injection Only) F20.9 Schizophrenia, unspecified [facility] Monicoalberto Fisher [id number] [place] [facility] [phone] [address] [place] [phone] Plan of Treatment No Data in Section Lab Results No Data in Section Instructions No Data in Section Insurance Providers Insurance Id Policy Effective Date Policy Thru Date Company N chula [id number] 2007 MEDICARE [id number] MEDICAID
--- OUTSIDE RECORDS SUMMARY | 2020-11-03 10:17 | CCD ---
Author Author Barak Cowan Organization Unknown Address [address] [place] [phone] Phone Care Team Providers Care Biomass Technician Name Role Phone Syeda Cowan PCP Allergies, Adverse Reactions, Alerts No Data [...] Name Taxonomy Code Taxonomy Desc Phone Number [phone] trazodone 10/03/2016 at bedtime 50 mg tablet as needed [id number] [phone] Syeda Cowan [id number] Psychiatric/Mental Health [phone] paliperidone by mouth [id number] 06/08/2020 01/23/2021 once a day 30 3 mg tablet extended release 24hr 15140 [id number] [id number] Syeda Cowan [id number] Psychiatric/Mental Health [phone] [place] by mouth [id number] 09/05/2020 04/03/2021 twice a day 30 6 mg tablet 18594 [id number] [phone] Syeda Cowan [id number] Psychia tric/Mental Health [id number] Social History Social History Element Description Concept Effective Date Smoking Status Unknown if ever smoked [id number] Immunizations No Data in Section Vital Signs No Data in Section Procedures Date Concept Id Description Targeted Site Concept Targeted Site Concept Type 11/01/2020 00583-83 [facility] Tele[facility] E/M Lvl 3--Est pt CPT Patient has no history of implantable de vices Encounters Encounter Start Date End Date Encounter Type Description Diagnosis Di agnosis Desc Location Author First Name Author Last Name Npid Taxonomy Cod e Taxonomy Desc Phone Number Location Addr1 Location Addr2 Location [facility] Location Sta [place] Location Zip [id number] 11/01/2020 11/01/2020 05130-41 [facility] Telemed E/M Lvl 3--Est p t F20.9 Schizophrenia, unspecified [facility] [id number] Psychiatric/Mental Health [phone] [address] [address] Plan of Treatment No Data in Section Lab Results No Data in Section Instructions No Data in Section Insurance Providers Insurance Id Policy Effective Date Policy Thru Date Company N chula [id number] 2007 MEDICARE [id number] MEDICAID
--- OUTSIDE RECORDS SUMMARY | 2020-11-03 10:18 | CCD ---
Author Author [facility] Organization [facility] Address Unknown Phone Unavailable Care Team Providers Care Furniture Associate Name Role Phone [facility], JLAM Unavailable Unavailable Fons, M Mariah DISTRICT COURT REPORTER Unavailable Unavailable Fons, M Mariah DISTRICT COURT REPORTER Unavailable Unavailable Fons, M Mariah DISTRICT COURT REPORTER Unavailable Unavailable Fons, M Mariah DISTRICT COURT REPORTER Unavailable Unavailable Fons, M Mariah DISTRICT COURT REPORTER Unavailable Unavailable Fons, M Mariah DISTRICT COURT REPORTER Unavailable Unavailable Fons, M Mariah DISTRICT COURT REPORTER Unavailable Unavailable Fons, M Mariah DISTRICT COURT REPORTER Unavailable Unavailable Fons, M Mariah DISTRICT COURT REPORTER Unavailable Unavailable Fons, M Mariah DISTRICT COURT REPORTER Unavailable Unavailable Fons, M Mariah DISTRICT COURT REPORTER Unavailable Unavailable Fons, M Mariah DISTRICT COURT REPORTER Unavailable Unavailable Fons, M Mariah DISTRICT COURT REPORTER Unavailable Unavailable Fons, M Mariah DISTRICT COURT REPORTER Unavailable Unavailable Fons, M Mariah DISTRICT COURT REPORTER Unavailable Unavailable Fons, M Mariah DISTRICT COURT REPORTER Unavailable Unavailable Fons, M Mariah DISTRICT COURT REPORTER Unavailable Unavailable Fons, M Mariah DISTRICT COURT REPORTER Unavailable Unavailable Fons, M Mariah DISTRICT COURT REPORTER Unavailable Unavailable Fons, M Mariah DISTRICT COURT REPORTER Unavailable Unavailable Fons, M Mariah DISTRICT COURT REPORTER Unavailable Unavailable Fons, M Mariah DISTRICT COURT REPORTER Unavailable Unavailable Fons, M Mariah DISTRICT COURT REPORTER Unavailable Unavailable Fons, M Mariah DISTRICT COURT REPORTER Unavailable Unavailable Fons, M Mariah DISTRICT COURT REPORTER Unavailable Unavailable Fons, M Mariah DISTRICT COURT REPORTER Unavailable Unavailable Fons, M Mariah DISTRICT COURT REPORTER Unavailable Unavailable Fons, M Mariah DISTRICT COURT REPORTER Unavailable Unavailable Fons, M Mariah DISTRICT COURT REPORTER Unavailable Unavailable Fons, M Mariah DISTRICT COURT REPORTER Unavailable Unavailable Fons, M Mariah DISTRICT COURT REPORTER Unavailable Unavailable Fons, M Mariah DISTRICT COURT REPORTER Unavailable Unavailable Fons, M Mariah DISTRICT COURT REPORTER Unavailable Unavailable Fons, M Mariah DISTRICT COURT REPORTER Unavailable Unavailable Fons, M Mariah DISTRICT COURT REPORTER Unavailable Unavailable Fons, M Mariah DISTRICT COURT REPORTER Unavailable Unavailable Fons, M Mariah DISTRICT COURT REPORTER Unavailable Unavailable Fons, M Mariah DISTRICT COURT REPORTER Unavailable Unavailable Fons, M Mariah DISTRICT COURT REPORTER Unavailable Unavailable Fons, M Mariah DISTRICT COURT REPORTER Unavailable Unavailable Fons, M Mariah DISTRICT COURT REPORTER Unavailable Unavailable Fons, M Mariah DISTRICT COURT REPORTER Unavailable Unavailable Fons, M Mariah DISTRICT COURT REPORTER Unavailable Unavailable Fons, M Mariah DISTRICT COURT REPORTER Unavailable Unavailable Fons, M Mariah DISTRICT COURT REPORTER Unavailable Unavailable Fons, M Mariah DISTRICT COURT REPORTER Unavailable Unavailable Fons, M Mariah DISTRICT COURT REPORTER Unavailable Unavailable Fons, M Mariah DISTRICT COURT REPORTER Unavailable Unavailable Fons, M Mariah DISTRICT COURT REPORTER Unavailable Unavailable Fons, M Mariah DISTRICT COURT REPORTER Unavailable Unavailable Fons, M Mariah DISTRICT COURT REPORTER Unavailable Unavailable Fons, M Mariah DISTRICT COURT REPORTER Unavailable Unavailable Fons, M Mariah DISTRICT COURT REPORTER Unavailable Unavailable Fons, M Mariah DISTRICT COURT REPORTER Unavailable Unavailable Oumar Em Unavailable Evy Ellsworth [...] SAMY, CORNELL PA Unavailable Unavailable Yost, Liz DIRECTOR RETIREMENT Unavailable Unavailable Yost, Liz DIRECTOR RETIREMENT Unavailable Unavailable Yost, Liz DIRECTOR RETIREMENT Unavailable Unavailable Yost, Liz DIRECTOR RETIREMENT Unavailable Unavailable Yost, Liz DIRECTOR RETIREMENT Unavailable Unavailable Yost, Liz DIRECTOR RETIREMENT Unavailable Unavailable Yost, Liz DIRECTOR RETIREMENT Unavailable Unavailable Yost, Liz DIRECTOR RETIREMENT Unavailable Unavailable Yost, Liz DIRECTOR RETIREMENT Unavailable Unavailable Yost, Liz DIRECTOR RETIREMENT Unavailable Unavailable Yost, Liz DIRECTOR RETIREMENT Unavailable Unavailable Shea Lancaster Unavailable MACQUEEN, SYEDA DIRECTOR RETIREMENT Unavailable Unavailable MACQUEEN, SYEDA DIRECTOR RETIREMENT Unavailable Unavailable MACQUEEN, SYEDA DIRECTOR RETIREMENT Unavailable Unavailable MACQUEEN, SYEDA DIRECTOR RETIREMENT Unavailable Unavailable MACQUEEN, SYEDA DIRECTOR RETIREMENT Unavailable Unavailable MACQUEEN, SYEDA DIRECTOR RETIREMENT Unavailable Unavailable MACQUEEN, SYEDA DIRECTOR RETIREMENT Unavailable Unavailable MACQUEEN, SYEDA DIRECTOR RETIREMENT Unavailable Unavailable MACQUEEN, SYEDA DIRECTOR RETIREMENT Unavailable Unavailable MACQUEEN, SYEDA DIRECTOR RETIREMENT Unavailable Unavailable MACQUEEN, SYEDA DIRECTOR RETIREMENT Unavailable Unavailable [facility] Unavailable [phone] [facility] Unavailable [phone] Rotella, Isa Unavailable Re-disclosure Warning The records [...] is protected by Article 27-F of the [facility] Public Health law. If you continue you may have access to information: Regarding HIV / AIDS; Provided by facilities licensed or operated by the [facility] Office of Mental Health; or Provided by the [facility] Office for People With Developmental Disabilities. If such information is present, then the following [facility] mandated warning applies: This information has [...] law may result in a fine or nursing home sentence or both. A general authorization for the release of medical or other information is NOT sufficient authorization for further disc losure. Allergies and Adverse Reactions Type Description Substance Reaction Status Data Source(s ) aspirin Aspirin Aspirin hives Active eCW1 ([facility]) fish, chocolate, peanut butter fish, chocolate, peanut butte r fish, chocolate, peanut butter Hives Active eCW1 ([facility]) fish, chocolate, peanut butter fish, chocolate, peanut butte r fish, chocolate, peanut butter Hives Active eCW1 ([facility]) Food allergy LATEX LATEX [facility] Family History Family Member Name Family Member Gender Family Member Status Date o f Status Description Data Source(s) Unknown Female Problem MEDENT ([facility]) Encounters Encounter Providers Location Date Indications Data Source(s ) Injectable Psychotropic Medication Administration (Inj ection Only) Attender: [facility] 11/01/2020 10:45:00 AM EST - 11/01/2020 10:45:00 AM EST [facility]) Outpatient Attender: SYEDA ZAMARRIPA NP [facility] 11/01/2020 10:30:00 AM EST - 11/01/2020 10:30:00 AM EST [facility] ([facility]) Attender: [facility] 12:00:00 AM EST [facility] ([facility]) Attender: SYEDA ZAMARRIPA NP 11/01/2020 12:00:00 AM EST [facility] ([facility]) Outpatient Referrer: Mariah LEECT-CHRISTIANAPDARWIN 10/30/2020 08:54:42 AM EST [facility] Outpatient Attender: SYEDA ZAMARRIPA NP [facility] 10/25/2020 12:30:00 PM EST - 10/25/2020 12:30:00 PM EST [facility] ([facility]) Attender: SYEDA ZAMARRIPA NP 10/25/2020 12:00:00 AM EST [facility] ([facility]) Outpatient Attender: Mariah AN.NANCY-SJP 01:41:03 PM EST - 10/24/2020 03:27:51 PM EST [facility] Unknown [address] [facility] [address] 10/17/2020 12:00:00 AM EST eCW1 ([facility]) [place] [address] [facility] [address] 10/17/2020 12:00:00 AM EST eCW1 ([facility]) Office Visit, Est Pt., Level 4 PC [address] [place] [address] 10/16/2020 12:00:00 AM EST eCW1 ([facility]) Unknown [address] [facility] [address] 10/11/2020 12:00:00 AM EST eCW1 ([facility]) Outpatient Attender: SYEDA ZAMARRIPA NP [facility] l 09/26/2020 01:00:00 AM EST - 09/26/2020 01:00:00 AM EST [facility] ([facility]) Attender: SYEDA ZAMARRIPA NP 09/26/2020 12:00:00 AM EST [facility] ([facility]) Outpatient Attender: SYEDA ZAMARRIPA NP [facility] 09/05/2020 10:30:00 AM EST - 09/05/2020 10:30:00 AM EST [facility] ([facility]) Attender: SYEDA ZAMARRIPA NP 09/05/2020 12:00:00 AM EST [facility] ([facility]) Attender: Shea Lancaster 08/25/2020 12:00:00 AM EST [facility] ([facility]) Extended Individual Psychotherapy - 45 min Attender: Lennox Lancaster [facility] 08/24/2020 12:00:00 PM EST - 08/24/2020 12:00:00 PM EST [facility] ([facility]) Outpatient Referrer: Mariah [email or web address] 08/24/2020 12:00:00 AM EST [facility] Office Visit, Est Pt., Level 4 PC [address] [place] [address] 08/15/2020 12:00:00 AM EST eCW1 ([facility]) [id number]"Psychotherapy [facility] 08/11[facility] 10:00:00 AM EDT - 08/11/2020 10:00:00 AM EDT [facility] ([facility]) Attender: Shea Lancaster 08/11/2020 12:00:00 AM EDT [facility] ([facility]) TEMPMHCTelemed 30" Psychotherapy Att[facility]: [facility] 07/24/2020 01:00:00 AM EDT - 07/24/2020 01:00:00 AM EDT [facility] ([facility]) Attender: Shea Lancaster 07/24/2020 12:00:00 AM EDT [facility] ([facility]) Outpatient Attender: [facility]/12/2020 01:00:00 AM EDT - 07/12/2020 01:00:00 AM EDT [facility] ([facility]) Attender: SYEDA ZAMARRIPA NP 07/12/2020 12:00:00 AM EDT [facility] ([facility]) [facility] 06/17/2020 12:02:[address] [facility] Outpatient Attender: [facility] 06/16/2020 08:41:[address] [facility] Outpatient Attender: SYEDA ZAMARRIPA NP [facility] l 06/15/2020 10:00:00 AM EDT - 06/15/2020 10:00:00 AM EDT [facility] ([facility]) Attender: SYEDA ZAMARRIPA NP 06/15/2020 12:00:00 AM EDT [facility] ([facility]) Outpatient Attender: CORNELL coates 05/11/2020 10:45:00 AM EDT [facility] Outpatient Attender: Mariah SINCLAIR SJP.NANCY-[email or web address].NANCY 0 07:55:55 AM EDT - 05/02/2020 08:35:35 AM EDT [facility] Outpatient [address] [facility] [address] 04/20/2020 12:00:00 AM EDT eCW1 ([facility]) TEMPMHCTelemed 30" Psychotherapy [facility]: [facility] 04/10/2020 01:30:00 AM EDT - 04/10/2020 01:30:00 AM EDT [facility] ([facility]) Attender: Shea Lancaster 04/10/2020 12:00:00 AM EDT [facility] ([facility]) [facility]: [facility] 03/31/[facility] 12:09:[address] [facility] Injectable Medication Administration w/ Monitoring & E ducation Attender: Evy Ellsworth [facility] 03/29/2020 11:15:00 AM EDT - 03/29/2020 11:15:00 AM EDT [facility] ([facility]) Attender: Evy Ellsworth 03/29/2020 12:00:00 AM EDT [facility] ([facility]) Injectable Medication Administration w/ Monitoring & E ducation Attender: Evy Ellsworth [facility] 03/27/2020 09:30:00 AM EDT - 03/27/2020 09:30:00 AM EDT [facility] ([facility]) Attender: Evy Ellsworth 03/27/2020 12:00:00 AM EDT [facility] ([facility]) Outpatient Attender: Liz owens 03/15/2020 10:00:00 AM EDT MEDENT ([facility]) Outpatient Attender: CORNELL coates 03/13/2020 02:10:00 PM EDT MED[facility] ([facility]) TEMPMHCTelemed 30" Psychotherapy Att[facility]: [facility]ika [facility] 03/08/2020 01:30:00 AM EDT - 03/08/2020 01:30:00 AM EDT [facility] ([facility]) Attender: Shea Lancaster 03/08/2020 12:00:00 AM EDT [facility] ([facility]) Injectable Medication Administration w/ Monitoring & E ducation Attender: Evy Ellsworth [facility] 02/28/2020 09:00:00 AM EDT - 02/28/2020 09:00:00 AM EDT [facility] ([facility]) Attender: Evy Ellsworth 02/28/2020 12:00:00 AM EDT [facility] ([facility]) TEMPMHCTelemed 30" Psychotherapy Attender: Shea Lancaster [facility] 02/24/2020 11:00:00 AM EDT - 02/24/2020 11:00:00 AM EDT [facility] ([facility]) Attender: Shea Lancaster 02/24/2020 12:00:00 AM EDT [facility] ([facility]) Outpatient Attender: SYEDA ZAMARRIPA NP [facility] Abhilash jean baptiste 02/16/2020 11:30:00 AM EDT - 02/16/2020 11:30:00 AM EDT [facility] ([facility]) Attender: SYEDA ZAMARRIPA NP 02/16/2020 12:00:00 AM EDT [facility] ([facility]) TEMPMHCTelemed 30" Psychotherapy Attender: Shea Lancasetr [facility] 02/04/2020 10:00:00 AM EDT - 02/04/2020 10:00:00 AM EDT [facility] ([facility]) Attender: Shea Lancaster 02/04/2020 12:00:00 AM EDT [facility] ([facility]) Injectable Medication Administration w/ Monitoring & E ducation Attender: Evy Ellsworth [facility] 01/31/2020 09:00:00 AM EDT - 01/31/2020 09:00:00 AM EDT [facility] ([facility]) Attender: Evy Ellsworth 01/31/2020 12:00:00 AM EDT [facility] ([facility]) Outpatient Attender: SYEDA ZAMARRIPA NP [facility] Abhilash jean baptiste 01/26/2020 09:30:00 AM EDT - 01/26/2020 09:30:00 AM EDT [facility] ([facility]) Attender: SYEDA ZAMARRIPA NP 01/26/2020 12:00:00 AM EDT [facility] ([facility]) TEMPMHCTelemed 30" Psychotherapy Attender: Shea Tonny [facility] 01/14/2020 11:45:00 AM EDT - 01/14/2020 11:45:00 AM EDT [facility] ([facility]) Attender: Shea Lancaster 01/14/2020 12:00:00 AM EDT [facility] ([facility]) TEMPMHCTelemed 20" psychotherapy Attender: Shea Lancaster [facility] 01/06/2020 11:00:00 AM EDT - 01/06/2020 11:00:00 AM EDT [facility] ([facility]) Attender: Shea Lancaster 01/06/2020 12:00:00 AM EDT [facility] ([facility]) Outpatient Attender: RAGHAVENDRA [facility] 01/04/2020 02:54:00 PM EDT [facility] Medication Administration w/ Monitoring & E ducation Attender: Evy Ellsworth [facility] 01/03/2020 09:00:00 AM EDT - 01/03/2020 09:00:00 AM EDT [facility] ([facility]) Attender: Evy Ellsworth 01/03/2020 12:00:00 AM EDT [facility] ([facility]) [facility] [address] [facility] [address] 12/20/2019 12:00:00 AM EDT eCW1 ([facility]) Outpatient Attender: SYEDA ZAMARRIPA NP [facility] Abhilash jean baptiste 12/16/2019 09:30:00 AM EST - 12/16/2019 09:30:00 AM EST [facility] ([facility]) Attender: SYEDA ZAMARRIPA NP 12/16/2019 12:00:00 AM EST [facility] ([facility]) [address] [address] 12/15/2019 12:00:00 AM EST eCW1 ([facility]) [address] [address] 12/13/2019 12:00:00 AM EST eCW1 ([facility]) [address] [address] 12/13/2019 12:00:00 AM EST eCW1 ([facility]) [address] [address] 12/09/2019 12:00:00 AM EST eCW1 ([facility]) Brief Individual Psychotherapy - 30 min Attender: Shea lopez [facility] 12/07/2019 12:45:00 PM EST - 12/07/2019 12:45:00 PM EST [facility] ([facility]) Attender: Shea Lancaster 12/07/2019 12:00:00 AM EST [facility] ([facility]) Injectable Medication Administration w/ Monitoring & E ducation Attender: Evy Ellsworth [facility] 12/06/2019 10:00:00 AM EST - 12/06/2019 10:00:00 AM EST [facility] ([facility]) Attender: Evy Ellsworth 12/06/2019 12:00:00 AM EST [facility] ([facility]) Outpatient Attender: SYEDA ZAMARRIPA NP [facility] Abhilash markel 12/01/2019 09:00:00 AM EST - 12/01/2019 09:00:00 AM EST [facility] ([facility]) Attender: SYEDA ZAMARRIPA NP 12/01/2019 12:00:00 AM EST [facility] ([facility]) [address] [address] 11/30/2019 12:00:00 AM EST eCW1 ([facility]) [facility]patient [facility]: [facility] 11/24/2019 09:01:[address] [facility]: [facility] 11/24/2019 04:38:[address] [facility]: [facility] 11/24/2019 12:27:01 PM [facility] Brief Individual Psychotherapy - 30 min Attender: Shea lopez [facility] 11/19/2019 10:00:00 AM EST - 11/19/2019 10:00:00 AM EST [facility] ([facility]) Attender: Shea Lancaster 11/19/2019 12:00:00 AM EST [facility] ([facility]) Injectable Psychotropic Medication Administration (Inj ection Only) Attender: Isa Edmonds [facility] 11/08/2019 09:00:00 AM EST - 11/08/2019 09:00:00 AM EST [facility] ([facility]) Attender: Isa Edmonds 11/08/2019 12:00:00 AM EST [facility] ([facility]) Outpatient [facility]: [facility] 11/05/2019 09:32:09 AM [facility] Outpatient Attender: [facility] 11/02/2019 09:01:03 PM [facility] Outpatient Attender: [facility] 11/02/2019 10:42:00 AM [facility] Outpatient Attender: [facility] 11/02/2019 10:38:01 AM [facility] Outpatient Attender: [facility] 11/02/2019 10:37:01 AM [facility] Outpatient Attender: [facility] 11/02/2019 10:35:00 AM [facility] Outpatient Attender: [facility] 11/02/2019 12:00:12 AM [facility] Outpatient Attender: [facility] 11/01/2019 03:16:02 PM [facility] Outpatient Attender: [facility] 11/01/2019 03:15:01 PM EST [facility] Outpatient Attender: [facility] 11/01/2019 01:05:01 PM [facility] Attender: [facility] 11/01/2019 01:04:03 PM [facility] Outpatient Attender: [facility] 11/01/2019 01:03:00 PM [facility] Outpatient Attender: SYEDA ZAMARRIPA NP [facility] Abhilash jean baptiste 10/27/2019 09:30:00 AM EST - 10/27/2019 09:30:00 AM EST [facility] ([facility]) Attender: SYEDA ZAMARRIPA NP 10/27/2019 12:00:00 AM EST [facility] ([facility]) [facility] [address] [place] [address] 10/25/2019 12:00:00 AM EST eCW1 ([facility]) Attender: Shea Lancaster 10/19/2019 12:00:00 AM EST [facility] ([facility]) Brief Individual Psychotherapy - 30 min Attender: Shea lopez [facility] 10/18/2019 10:00:00 AM EST - 10/18/2019 10:00:00 AM EST [facility] ([facility]) [facility] [address] [place] [address] 10/15/2019 12:00:00 AM EST eCW1 ([facility]) Injectable Medication Administration w/ Monitoring & E ducation Attender: Evy Ellsworth [facility] 10/11/2019 09:00:00 AM EST - 10/11/2019 09:00:00 AM EST [facility] ([facility]) Attender: Evy Ellsowrth 10/11/2019 12:00:00 AM EST [facility] ([facility]) [address] [address] 09/23/2019 12:00:00 AM EST eCW1 ([facility]) [address] [address] 09/22/2019 12:00:00 AM EST eCW1 ([facility]) Brief Individual Psychotherapy - 30 min Attender: Oumar Yi [facility] 09/16/2019 10:45:00 AM EST - 09/16/2019 10:45:00 AM EST [facility] ([facility]) Attender: Oumar Yi 09/16/2019 12:00:0 0 AM EST [facility] ([facility]) Functional Status Immunizations Vaccine Date Status Description Data Source(s) influenza, recombinant, quadrIvalent,injectable, prese rvative free 07/03/2020 09:41:00 AM EDT completed eCW1 ([facility]) influenza, recombinant, quadrIvalent,injectable, prese rvative free 07/03/2020 09:41:00 AM EDT completed eCW1 ([facility]) influenza, recombinant, quadrIvalent,injectable, prese rvative free 07/03/2020 09:41:00 AM EDT completed eCW1 ([facility]) influenza, recombinant, quadrIvalent,injectable, prese rvative free 07/03/2020 09:41:00 AM EDT completed eCW1 ([facility]) influenza, recombinant, quadrIvalent,injectable, prese rvative free 07/03/2020 09:41:00 AM EDT completed eCW1 ([facility]) Tdap 12/20/2019 09:01:00 AM EDT completed e CW1 ([facility]) Tdap 12/20/2019 09:01:00 AM EDT completed e CW1 ([facility]) Tdap 12/20/2019 09:01:00 AM EDT completed e CW1 ([facility]) Tdap 12/20/2019 09:01:00 AM EDT completed e CW1 ([facility]) Tdap 12/20/2019 09:01:00 AM EDT completed e CW1 ([facility]) Tdap 12/20/2019 09:01:00 AM EDT completed e CW1 ([facility]) Tdap 12/20/2019 09:01:00 AM EDT completed e CW1 ([facility]) Medications Medication Brand Name Start Date Product [...] DAYS OF PALIPERIDONE 1.5MG DAILY SOLD: 10/28/2020 [facility] Push Cimetidine 200 MG Oral Tablet cimetidine (TAGAMET) 200 MG tablet cimetidine (TAGAMET) 200 MG tablet 10/18/2020 12:00:00 AM EST 200 mg Oral active Take 200 mg by mouth 2 (two) times a day [facility] Austedo 6 MG Austedo 6 MG 10/18/2020 12:00:00 AM EST 1.0 {ta blet_with_food} active Austedo 6 MG eCW1 ([facility]) Austedo 6 MG Austedo 6 MG 10/18/2020 12:00:00 AM EST 1.0 {ta blet_with_food} active Austedo 6 MG eCW1 ([facility]) 200 mg 10/18/2020 12:00:00 AM EST tablet 60 TAKE ONE TABLET BY MOUTH TWICE A DAY TAKE ONE TABLET BY MOUTH TWICE A DAY SOLD: 10/19/2020 [facility] Push Cimetidine 200 MG Oral Tablet Cimetidine 200 MG 10/16/2020 12:00:00 AM EST 1.0 {tablet_at_bedtime} active Cimetidine 2 00 MG eCW1 ([facility]) Cimetidine 200 MG Oral Tablet Cimetidine 200 MG 10/16/2020 12:00:00 AM EST 1.0 {tablet_at_bedtime} active Cimetidine 2 00 MG eCW1 ([facility]) Cimetidine 200 MG Oral Tablet Cimetidine 200 MG 10/16/2020 12:00:00 AM EST 1.0 {tablet_at_bedtime} active Cimetidine 2 00 MG eCW1 ([facility]) 50 mg 10/12/2020 12:00:00 AM EST tablet 30 TAKE ONE TABLET BY MOUTH AT BEDTIME NEEDED TAKE ONE TABLET BY MOUTH AT BEDTIME NEEDED SOLD: [facility] 24 HR paliperidone 3 MG Extended Release Oral Tablet paliperidone (INVEGA) 3 MG 24 hr tablet paliperidone (INVEGA) 3 MG 24 hr tablet 10/07/2020 12:00:00 AM EST active TAKE 1 TABLET BY MOUTH ONCE A DAY START AFTER 7 DAYS OF PALIPERIDONE 1.5MG DAILY [facility] AUSTEDO 6 MG TAB 31721-025-72 10/03/2020 12:00:00 AM EST active [facility] 25 mg 09/28/2020 12:00:00 AM EST tablet 30 TAKE 1 TABLET BY MOUTH ONCE A DAY IN THE MORNING TAKE 1 TABLET BY MOUTH ONCE A DAY IN THE MORNING SOLD: 09/30/2020 [facility] 125 mcg (5,000 unit) 09/11/2020 [...] AM EST 6 mg by mouth completed [id number] [place] by mouth [id number] 09/05/2020 04/03/2021 twice a day 30 6 mg tablet 10821 632009 [id number] Syeda Zamarripa [id number] Psychia tric/Mental Health [facility] ([facility]) 10 mg 08/28/2020 12:00:00 AM EST tablet [...] AM EDT 3 mg by mouth completed [id number] pa liperidone by mouth [id number] 06/08/2020 01/23/2021 once a day 30 3 mg tablet extended release 24hr [id number] Syeda Zamarripa [id number] Psychiatric/Menta l Health [facility] ([facility]) 20 mEq/15 mL 06/08/2020 12:00:00 AM EDT liquid 473 TAKE 7.5 ML BY MOUTH ONCE DAILY TAKE 7.5 ML BY MOUTH ONCE DAILY SOLD: 06/09/2020 [facility] 24 HR paliperidone 3 MG Extended Release Oral Tablet paliper idone 06/08/2020 12:00:00 AM EDT 3 mg by mouth completed [id number] pa liperidone by mouth [id number] 06/08/2020 09/06/2020 once a day 30 3 mg tablet extended release 24hr [id number] [id number] Syeda Zamarripa [id number] Psychiatric/Menta l Health [facility] ([facility]) 24 HR paliperidone 3 MG Extended Release Oral Tablet paliper idone 06/08/2020 12:00:00 AM EDT 3 mg by mouth completed [id number] jean-pierre liperidone by mouth [id number] 06/08/2020 09/06/2020 once a day 30 3 mg tablet extended release 24hr 60570 154795 [id number] Syeda Zamarripa [id number] Psychiatric/Menta l Health [facility] ([facility]) 10 mg 05/31/2020 12:00:00 AM EDT [...] ONCE A DAY SOLD: 08/01/2020 [facility] Cephalexin 500 MG Oral Capsule CEPHALEXIN 05/22/2020 12:00:00 AM EDT capsule 20 TAKE ONE CAPSULE BY MOUTH TWICE A DAY FOR 10 DAYS TAKE ONE CAPSULE BY MOUTH TWICE A DAY FOR 10 DAYS SOLD: 05/22/2020 [facility] Lidocaine & Menthol Lidocaine & Menthol 05/11/2020 12:00:00 AM EDT active [facility] ([facility]) clopidogrel 75 MG Oral Tablet clopidogrel (PLAVIX) 75 MG tablet clopidogrel (PLAVIX) 75 MG tablet 05/01/2020 12:00:00 AM EDT a ctive [facility] montelukast 10 MG Oral Tablet montelukast (SINGULAIR) 10 MG tablet montelukast (SINGULAIR) 10 MG tablet 04/30/2020 12:00:00 AM EDT active [facility] Lisinopril 10 MG Oral Tablet lisinopril (PRINIVIL,ZEST RIL) 10 MG tablet lisinopril (PRINIVIL,ZESTRIL) 10 MG tablet 04/30/2020 12:00:00 AM EDT active [facility] Hydrochlorothiazide 25 MG Oral Tablet hy drochlorothiazide (HYDRODIURIL) 25 MG tablet hydrochlorothiazide (HYDRODIURIL) 25 MG tablet 020 12:00:00 AM EDT active [facility] 100 mg/mL 04/21/2020 12:00:00 AM EDT [...] MG tablet 04/20/2020 12:00:00 AM EDT active [facility] 50 mg 04/20/2020 12:00:00 AM EDT tablet 30 TAKE ONE TABLET BY MOUTH AT BEDTIME NEEDED TAKE ONE TABLET BY MOUTH AT BEDTIME NEEDED SOLD: [facility] haloperidol decanoate (HALDOL DECANOATE) 100 MG/ML injection [id number] 04/20/2020 12:00:00 AM EDT active [facility] Simvastatin 20 MG Oral Tablet simvastatin (ZOCOR) 20 M G tablet simvastatin (ZOCOR) 20 MG tablet 04/13/2020 12:00:00 AM EDT ac tive [facility] Cholecalciferol 5000 UNT Oral Tablet [facility] lecalciferol (VITAMIN D3) 125 MCG (5000 UT) TABS Cholecalciferol (VITAMIN D3) 125 MCG (5000 UT) TABS 12:00:00 AM EDT 1 {tbl} Oral active Take 1 tablet by mouth daily [facility] 25 mg 03/30/2020 12:00:00 AM EDT [...] active Take 10 mg by mouth daily [facility] benztropine mesylate 0.5 MG Oral Tablet benztropine (C OGENTIN) 0.5 MG tablet benztropine (COGENTIN) 0.5 MG tablet 03/22/2020 12:00:00 AM EDT active [facility] 300-30 mg 03/21/2020 12:00:00 AM [...] MG tablet 03/15/2020 12:00:00 AM EDT active [facility] 125 mcg (5,000 unit) 03/15/2020 12:00:00 AM EDT tablet 30 TAKE 1 TABLET BY MOUTH ONCE A DAY TAKE 1 TABLET BY MOUTH ONCE A DAY SOLD: 07/16/2020 [facility] tizanidine 4 MG Oral Tablet Tizanidine HCL 03/15/2020 12:00:00 AM EDT completed [facility] ([facility]) 125 mcg (5,000 unit) 03/15/2020 12:00:00 [...] AM EDT 6 mg by mouth completed [id number] [place] by mouth [id number] 01/26/2020 08/23/2020 twice a day 30 6 mg tablet 50802 659066 [id number] Syeda Zamarripa [id number] Psychia tric/Mental Health [facility] ([facility]) 50 mg 01/26/2020 12:00:00 AM EDT tablet [...] AM EDT 6 mg by mouth completed [id number] [place] by mouth [id number] 01/26/2020 08/23/2020 twice a day 30 6 mg tablet 28031 365864 [id number] Syeda Zamarripa [id number] Psychia tric/Mental Health [facility] ([facility]) [facility] [facility] 01/26/2020 12:00:00 AM EDT 6 mg by mouth completed [id number] [place] by mouth [id number] 01/26/2020 08/23/2020 twice a day 30 6 mg tablet 52272 095945 [id number] Syeda Zamarripa [id number] Psychia tric/Mental Health [facility] ([facility]) 50 mg 01/26/2020 12:00:00 AM EDT tablet [...] BY MOUTH ONCE A DAY SOLD: 12/23/2019 [facility] montelukast 10 MG Oral Tablet MONTELUKAST SODIUM 12/09/2019 12:0 0:00 AM EST tablet 30 TAKE 1 TABLET BY MOUTH ONCE A DAY TAKE 1 TABLET BY MOUTH ONCE A DAY SOLD: 02/07/2020 [facility] montelukast 10 MG Oral Tablet MONTELUKAST SODIUM 12/09/2019 12:0 0:00 AM EST tablet 30 TAKE 1 TABLET BY MOUTH ONCE A DAY TAKE 1 TABLET BY MOUTH ONCE A DAY SOLD: 04/04/2020 [facility] montelukast 10 MG Oral Tablet MONTELUKAST SODIUM 12/09/2019 12:0 0:00 AM EST tablet 30 TAKE 1 TABLET BY MOUTH ONCE A DAY TAKE 1 TABLET BY MOUTH ONCE A DAY SOLD: 05/03/2020 [facility] montelukast 10 MG Oral Tablet MONTELUKAST SODIUM 12/09/2019 12:0 0:00 AM EST tablet 30 TAKE 1 TABLET BY MOUTH ONCE A DAY TAKE 1 TABLET BY MOUTH ONCE A DAY SOLD: 03/06/2020 [facility] montelukast 10 MG Oral Tablet [...] ONCE A DAY SOLD: 12/11/2019 [facility] 50 mg 11/03/2019 12:00:00 AM EST tablet 30 TAKE ONE TABLET BY MOUTH AT BEDTIME NEEDED TAKE ONE TABLET BY MOUTH AT BEDTIME NEEDED SOLD: [facility] 50 mg 11/03/2019 12:00:00 AM EST tablet 30 TAKE ONE TABLET BY MOUTH AT BEDTIME NEEDED TAKE ONE TABLET BY MOUTH AT BEDTIME NEEDED SOLD: [facility] 50 mg 11/03/2019 12:00:00 AM EST tablet 30 TAKE ONE TABLET BY MOUTH AT BEDTIME NEEDED TAKE ONE TABLET BY MOUTH AT BEDTIME NEEDED SOLD: [facility] 0.12 % 11/02/2019 12:00:00 AM EST mouthwash 473 RINSE 10MLS [2 TEASPOONFULS] FOR 1 MINUTE THEN SPIT BEFORE BED RINSE 10MLS [2 TEASPOONFULS] FOR 1 MINUT E THEN SPIT BEFORE BED SOLD: 11/03/2019 [facility] 0.5 mg 10/27/2019 12:00:00 AM EST tablet 60 TAKE ONE TABLET BY MOUTH TWICE A DAY TAKE ONE TABLET BY MOUTH TWICE A DAY SOLD: 12/24/2019 [facility] 0.5 mg 10/27/2019 12:00:00 AM EST tablet 60 TAKE ONE TABLET BY MOUTH TWICE A DAY TAKE ONE TABLET BY MOUTH TWICE A DAY SOLD: 11/26/2019 [facility] 0.5 mg 10/27/2019 12:00:00 AM EST tablet 60 TAKE ONE TABLET BY MOUTH TWICE A DAY TAKE ONE TABLET BY MOUTH TWICE A DAY SOLD: 10/30/2019 [facility] 25 mg 10/19/2019 12:00:00 AM [...] {tablet_as_needed} active Cimetidine 20 0 MG eCW1 ([facility]) Cimetidine 200 MG Oral Tablet Cimetidine 200 MG 09/22/2019 12:00:00 A M EST active 1 tablet as needed e CW1 ([facility]) Cimetidine 200 MG Oral Tablet Cimetidine 200 MG 09/22/2019 12:00:00 A M EST active 1 tablet as needed e CW1 ([facility]) Cimetidine 200 MG Oral Tablet Cimetidine 200 MG 09/22/2019 12:00:00 A M EST active 1 tablet as needed e 1 ([facility]) 10 mg 09/15/2019 12:00:00 AM EST tablet [...] type / Coverage type Policy ID Covered republican ID Covered republican's relationship to knight Policy Knight Plan Information EMEDNY [id number] SP [id number] MEDICARE [id number] SP [id number] E66 MEDICAID [id number] Eliza [id number] MEDICARE [id number] Eliza [id number] E66 MEDICAID [id number] MEDICARE [id number] MEDICARE [id number] SP [id number] E66 MEDICARE C [id number] S [id number] E66 MEDICAID M [id number] S [id number] Medicaid P [id number] S [id number] MEDICAID [id number] SP [id number] Medicare P [id number] S [id number] A Medicaid Dental O [id number] S [id number] MEDICAID [id number] SP [id number] ANSI-Medicaid [id number] ANSI-Medicare Part B [id number] MEDICARE A [id number] Self [id number] E66 MEDICAID M [id number] Self [id number] ANSI-Medicaid [id number] ANSI-Medicare Part B [id number] ANSI-Medicaid [id number] ANSI-Medicare Part B [id number] ANSI-Medicaid [id number] ANSI-Medicare Part B [id number] MEDICARE A [id number] Self [id number] A ANSI-Medicaid [id number] ANSI-Medicare Part B [id number] MEDICAID [id number] SP [id number] ANSI-Medicaid [id number] ANSI-Medicare Part B [id number] ANSI-Medicare Part B [id number] ANSI-Medicaid [id number] ANSI-Medicare Part B [id number] ANSI-Medicaid [id number] ANSI-Medicaid [id number] ANSI-Medicare Part B [id number] ANSI-Medicaid [id number] ANSI-Medicare Part B [id number] ANSI-Medicaid [id number] ANSI-Medicare Part B [id number] ANSI-Medicare Part B [id number] ANSI-Medicaid [id number] ANSI-Medicare Part B [id number] ANSI-Medicaid [id number] ANSI-Medicare Part B [id number] ANSI-Medicaid [id number] MEDICARE [id number] SP [id number] E66 MEDICARE [id number] SP [id number] A MEDICARE C [id number] S [id number] A MEDICAID [id number] SP [id number] Medicaid [facility] Part B Self Medicare [place] Primary Self Problems, Conditions, and Diagnoses Code Display Name Description Problem Type Effective Dates Data Source(s) 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 Tardive Dyskinesia Co ndition 11/01/2020 12:00:00 AM EST [facility] ([facility]) F20.9 Schizophrenia, unspecified Schizophrenia Condition 11/01/2020 12:00:00 AM EST [facility] ([facility]) R55 Syncope Syncope [id number] 10/24/2020 12:00:00 AM ES T [facility] G45.9 TIA (transient ischemic attack) TIA (transient ischemi c attack) [id number] 03/27/2020 12:00:00 AM EDT [facility] E78.5 Hyperlipidemia Hyperlipidemia [id number] 03/27/2020 12:00: 00 AM EDT [facility] I10 Hypertension Hypertension [id number] 03/27/2020 12:00:00 A M EDT [facility] 525.13 LOSS OF TEETH DUE TO CARIES LOSS OF TEETH DUE TO RADHA S 11/01/2019 03:14:29 PM [facility] G45.9 Transient cerebral ischemic attack, unsp ecified Transient cerebral ischemic attack, unsp Diagnosis 10/24/2020 01:41:03 PM EST [facility] I65.21 Occlusion and stenosis of right carotid artery Occlusion and stenosis of right carotid Diagnosis 10/24/2020 01:41:03 PM [facility] E78.5 Hyperlipidemia, unspecified Hyperlipidemia, unspecifie d Diagnosis 10/24/2020 01:41:03 PM [facility] I10 Essential (primary) hypertension Essential (primary) h ypertension Diagnosis 10/24/2020 01:41:03 PM EST [facility] R55 Syncope and collapse Syncope and collapse Diagnosis 10/24/2020 01:41:03 PM EST [facility] I73.9 Peripheral vascular disease, unspecified Peripheral vascular disease, unspecified Diagnosis 05/02/2020 07:55:55 AM EDT [facility] Surgeries/Procedures Procedure Description Date Indications Data Source(s) THERAPEUTIC PROPHYLACTIC/DX INJECTION SUBQ/IM 11/01/2020 12:00:00 AM EST - 11/01/2020 12:00:00 AM EST [facility] ([facility]) THERAPEUTIC PROPHYLACTIC/DX INJECTION SUBQ/IM 11/01/19 12:00:00 AM EST [facility] ([facility]) MHC Telemed E/M Lvl 3--Est pt 11/01/2020 12:00:00 AM EST - 11/01/2020 12:00:00 AM EST [facility] ([facility]) MHC Telemed E/M Lvl 3--Est pt 11/01/2020 12:00:[address] [facility] ([facility]) MHC Telemed E/M Lvl 3--Est pt 10/25/2020 12:00:00 AM EST - 10/25/2020 12:00:00 AM EST [facility] ([facility]) MHC Telemed E/M Lvl 3--Est pt 10/25/2020 12:00:[address] [facility] ([facility]) POCT AMB EKG POCT AMB EKG Routine 10/24/2020 3:58 PM EST Syncope, unspecified syncope type 10/24/2020 08:58:00 PM EST Syncope, unspecified syncope type [facility] Syncope, unspecified syncope type MHC Telemed E/M Lvl 3--Est pt 09/26/2020 12:00:00 AM EST - 09/26/2020 12:00:00 AM EST [facility] ([facility]) MHC Telemed E/M Lvl 3--Est pt 09/26/2020 12:00:[address] [facility] ([facility]) MHC Telemed E/M Lvl 3--Est pt 09/05/2020 12:00:00 AM EST - 09/05/2020 12:00:00 AM EST [facility] ([facility]) MHC Telemed E/M Lvl 3--Est pt 09/05/2020 12:00:[address] [facility] ([facility]) Extended Individual Psychotherapy - 45 min 08/25/2020 12:00:00 AM EST - 08/25/2020 12:00:00 AM EST [facility] ([facility]) Extended Individual Psychotherapy - 45 min 0 12:00:00 AM EST [facility] ([facility]) [id number]"Psychotherapy 0 12:00:00 AM EDT - 08/11/2020 12:00:00 AM EDT [facility] ([facility]) [id number]"Psychotherapy 08/11/2020 12:00:00 AM EDT [facility] ([facility]) TEMPMHCTelemed 30" Psychotherapy 020 12:00:00 AM EDT - 07/24/2020 12:00:00 AM EDT [facility] ([facility]) TEMPMHCTelemed 30" Psychotherapy 07/24/2020 12:00:00 A M EDT [facility] ([facility]) MHC Telemed E/M Lvl 3--Est pt 07/12/2020 12:00:00 AM EDT - 07/12/2020 12:00:00 AM EDT [facility] ([facility]) MHC Telemed E/M Lvl 3--Est pt 07/12/2020 12:00:00 AM E DT [facility] ([facility]) MHC Telemed E/M Lvl 3--Est pt 06/15/2020 12:00:00 AM EDT - 06/15/2020 12:00:00 AM EDT [facility] ([facility]) MHC Telemed E/M Lvl 3--Est pt 06/15/2020 12:00:00 AM E DT [facility] ([facility]) TEMPMHCTelemed 30" Psychotherapy 020 12:00:00 AM EDT - 04/10/2020 12:00:00 AM EDT [facility] ([facility]) TEMPMHCTelemed 30" Psychotherapy 04/10/2020 12:00:00 A M EDT [facility] ([facility]) Comprehensive medication services, per 15 minutes 03/29/2020 12:00:00 AM EDT - 03/29/2020 12:00:00 AM EDT [facility] ([facility]) Comprehensive medication services, per 15 minutes 03/29/2020 12:00:00 AM EDT [facility] ([facility]) Comprehensive medication services, per 15 minutes 03/27/2020 12:00:00 AM EDT - 03/27/2020 12:00:00 AM EDT [facility] ([facility]) Comprehensive medication services, per 15 minutes 03/27/2020 12:00:00 AM EDT [facility] ([facility]) TEMPMHCTelemed 30" Psychotherapy 020 12:00:00 AM EDT - 03/08/2020 12:00:00 AM EDT [facility] ([facility]) TEMPMHCTelemed 30" Psychotherapy 03/08/2020 12:00:00 A M EDT [facility] ([facility]) Comprehensive medication services, per 15 minutes 02/28/2020 12:00:00 AM EDT - 02/28/2020 12:00:00 AM EDT [facility] ([facility]) Comprehensive medication services, per 15 minutes 02/28/2020 12:00:00 AM EDT [facility] ([facility]) TEMPMHCTelemed 30" Psychotherapy 020 12:00:00 AM EDT - 02/24/2020 12:00:00 AM EDT [facility] ([facility]) TEMPMHCTelemed 30" Psychotherapy 02/24/2020 12:00:00 A M EDT [facility] ([facility]) OFFICE OUTPATIENT VISIT 15 MINUTES 02/15 12:00:00 AM EDT - 02/16/2020 12:00:00 AM EDT [facility] ([facility]) OFFICE OUTPATIENT VISIT 15 MINUTES 02/16/2020 12:00:00 AM EDT [facility] ([facility]) TEMPMHCTelemed 30" Psychotherapy 12:00:00 AM EDT - 02/04/2020 12:00:00 AM EDT [facility] ([facility]) TEMPMHCTelemed 30" Psychotherapy 02/04/2020 12:00:00 A M EDT [facility] ([facility]) Comprehensive medication services, per 15 minutes 01/31/2020 12:00:00 AM EDT - 01/31/2020 12:00:00 AM EDT [facility] ([facility]) Comprehensive medication services, per 15 minutes 01/31/2020 12:00:00 AM EDT [facility] ([facility]) MHC Telemed E/M Lvl 3--Est pt 01/26/2020 12:00:00 AM EDT - 01/26/2020 12:00:00 AM EDT [facility] ([facility]) MHC Telemed E/M Lvl 3--Est pt 01/26/2020 12:00:00 AM E DT [facility] ([facility]) TEMPMHCTelemed 30" Psychotherapy 12:00:00 AM EDT - 01/14/2020 12:00:00 AM EDT [facility] ([facility]) TEMPMHCTelemed 30" Psychotherapy 01/14/2020 12:00:00 A M EDT [facility] ([facility]) TEMPMHCTelemed 20" psychotherapy 12:00:00 AM EDT - 01/06/2020 12:00:00 AM EDT [facility] ([facility]) TEMPMHCTelemed 20" psychotherapy 01/06/2020 12:00:00 A M EDT [facility] ([facility]) Comprehensive medication services, per 15 minutes 01/03/2020 12:00:00 AM EDT - 01/03/2020 12:00:00 AM EDT [facility] ([facility]) Comprehensive medication services, per 15 minutes 01/03/2020 12:00:00 AM EDT [facility] ([facility]) Office Visit, Est Pt., Level 3 FC 12/20/2019 12:00:00 AM EDT eCW1 ([facility]) Office Visit, Est Pt., Level 4 PC 12/20/2019 12:00:00 AM EDT eCW1 ([facility]) TDAP 0.5mL ([facility]) 12/20/2019 12:00:00 AM EDT eCW1 ([facility]) IMMUNIZATION ADMIN 12/20/2019 12:00:00 AM EDT eCW1 ([facility]) OFFICE OUTPATIENT VISIT 15 MINUTES 12/15 12:00:00 AM EST - 12/16/2019 12:00:00 AM EST [facility] ([facility]) OFFICE OUTPATIENT VISIT 15 MINUTES 12/16/2019 12:00:00 AM EST [facility] ([facility]) Office Visit, Est Pt., Level 2 FC 12/13/2019 12:00:00 AM EST eCW1 ([facility]) Brief Individual Psychotherapy - 30 min 12/07/2019 12:00:00 AM EST - 12/07/2019 12:00:00 AM EST [facility] ([facility]) Brief Individual Psychotherapy - 30 min 12/07/2019 12: 00:00 AM EST [facility] ([facility]) Comprehensive medication services, per 15 minutes 12/06/2019 12:00:00 AM EST - 12/06/2019 12:00:00 AM EST [facility] ([facility]) Comprehensive medication services, per 15 minutes 12/06/2019 12:00:00 AM EST [facility] ([facility]) OFFICE OUTPATIENT VISIT 15 MINUTES 12/01 12:00:00 AM EST - 12/01/2019 12:00:00 AM EST [facility] ([facility]) Psychotherapy ADD ON - 30 Minutes 12/01/2019 12:00:00 AM EST [facility] ([facility]) OFFICE OUTPATIENT VISIT 15 MINUTES 12/01/2019 12:00:00 AM EST [facility] ([facility]) Brief Individual Psychotherapy - 30 min 11/19/2019 12:00:00 AM EST - 11/19/2019 12:00:00 AM EST [facility] ([facility]) Brief Individual Psychotherapy - 30 min 11/19/2019 12: 00:00 AM EST [facility] ([facility]) THERAPEUTIC PROPHYLACTIC/DX INJECTION SUBQ/IM 11/08/2019 12:00:00 AM EST - 11/08/2019 12:00:00 AM EST [facility] ([facility]) THERAPEUTIC PROPHYLACTIC/DX INJECTION SUBQ/IM 11/08/19 20 12:00:00 AM EST [facility] ([facility]) OFFICE OUTPATIENT VISIT 15 MINUTES 10/27 12:00:00 AM EST - 10/27/2019 12:00:00 AM EST [facility] ([facility]) OFFICE OUTPATIENT VISIT 15 MINUTES 10/27/2019 12:00:00 AM EST [facility] ([facility]) Brief Individual Psychotherapy - 30 min 10/19/2019 12:00:00 AM EST - 10/19/2019 12:00:00 AM EST [facility] ([facility]) Brief Individual Psychotherapy - 30 min 10/18/2019 12: 00:00 AM EST [facility] ([facility]) Comprehensive medication services, per 15 minutes 10/11/2019 12:00:00 AM EST - 10/11/2019 12:00:00 AM EST [facility] ([facility]) Comprehensive medication services, per 15 minutes 10/11/2019 12:00:00 AM EST [facility] ([facility]) Brief Individual Psychotherapy - 30 min 09/16/2019 12:00:00 AM EST - 09/16/2019 12:00:00 AM EST [facility] ([facility]) Brief Individual Psychotherapy - 30 min 09/16/2019 12: 00:00 AM EST [facility] ([facility]) Results ID Date Data Source [id number] 10/30/2020 06:09:38 PM EST [facility] Name Value Range Interpretation Code Description Data Lynette rce(s) Supporting Document(s) &PDF [facility] PZHYRn7pJuGFCxPp08/MCLgeYWOwn4PyFAjxCWj7NPlpHUQnC1TfdRqnCYfBOhNMKzrIZMVTAK5pOjUk yKE AvcFNdO6tczONpdbOWp4Lqh8ZmgLpfroeJTfJeLk4HMcYsZW5vij3OTVDnZH1kpv7VGTP0UC9KtKx1AF YpY3DdSKMsLKLng0SaBT7XYZ0uvMtjHxK3Um5+GPazFEO7yxYlvL2ULVMoSC1m0ayUmv/g/gcC+3C7QB 0mSwSQWRKKoiRCXkth7ebe3q9HSve6H1+tLXeb/etP KxRpZ7tC43yE7zTYgf5qWITg+JT8VUdicC73gk2OWbodDD/Po7AzHGaW/c0kafxd2EBi6eebhL1037L4 2HBTRlDFHvVp8n17RKTAG0hkX5B/5IZHln/+VYl/8j9us+AUN8Ck9m2MF5mTPMDJY9iAu6k759vqJDcU T0udagBoZkctOCaKswDBE2kheHCvPaFxPoDrB9zmCW S1ZZZYti9oQQ4qfEYGDZVmMOdauD08CXVEFnYNWCvM3gN5BThTy3vCgwFibFu61aKQWsttClC7McO/lV KNOonGBNDu1USQJ1QDZyIVjPxwx7sOxC1fuP9fOdNlENRvkj3pf+1nVIgXgtg9VVFaj3mxe/+2Wudtdn J5/sfWpxKywftEW9WKEu646qz1IVhVXCY6d5duzae5 aZKmbQvlRNMuNYiEKECPixmbuH1FyGZvPuhxNP9Oq/vqfQBpuOvi1zQKEuvPfKIxCwMFpfWPVlCk3UZH 6XVKXvt25aVrSL6FOpnTDuq0IEVsVMF0Dri+hiH8e/PAOLO+9+jJY4ff2U78FhoXpk6gt+exkT9qntdoWZ [file] ICAgICAgICAgICAgICAgICAgICAgICAgICAgICAgICAgICAgICAgICAgICAgICAgICAgICAgICAgICAg ICAgICAgICAgICAgICAgICAgICAgICAgICAgICAgIA 0KICAgICAgICAgICAgICAgICAgICAgICAgICAgICAgICAgICAgICAgICAgICAgICAgICAgICAgICAgIC QhRBMrUIEiWQReJPGmDHEeXCOdUPLtCLCqSIWkEMXwPDXwJHGyVIFgZS6NSZKsGPNfDEIqPDEmFTSsJC AgICAgICAgICAgICAgICAgICAgICAgICAgICAgICAg XODhYOFqVTGsRQPkZGJwHVDoWLJrSVEwHBHdDGXhMQQaPVMxMKEnAWBuGRGwWEFrVJEsPG4VMGKhBPTb ICAgICAgICAgICAgICAgICAgICAgICAgICAgICAgICAgICAgICAgICAgICAgICAgICAgICAgICAgICAg ICAgICAgICAgICAgICAgICAgICAgICAgICAgICAgIC FvKZ4VOCAhHBFjZFVdLQBnPTUmPOZoRSKeHNZvIVToUFHqDIAgKULtWOXfLTDyKECbNXNgVFKhGWXjJQ PaGYHeSXKdKDNyRNKpNXNwTQFnRAMsWWBhBFNlYFWyEBLgKVRpERItRSMhLF5BQWHwVOQvUJMlGHLyLX AgICAgICAgICAgICAgICAgICAgICAgICAgICAgICAg ZULtGOShSRDuJGPhFQPkKNFwVCLkZTObXVEiSWGmGMPiFVChVLVhPBYkJIWwVAMoAYYwBXYfGP4VUVDl ICAgICAgICAgICAgICAgICAgICAgICAgICAgICAgICAgICAgICAgICAgICAgICAgICAgICAgICAgICAg ICAgICAgICAgICAgICAgICAgICAgICAgICAgICAgIC HySKTeLV8ZRNDxRXPsLVGkEQWjGKCvTRZdCIBcIEPxZGDhGNZqZUAyCAKrOEHtHUTeZDRwFYDdUKZaVW EmFNNmKJJuWBJcXZLyURFwYBZfCQWoAKFbJICzKUSeLUHdTHJgWIVaAYCkVZOfBR4MMAIbYAHnPWFsRJ AgICAgICAgICAgICAgICAgICAgICAgICAgICAgICAg FMQoQKHjIXKvJAPpGZSmDSDhHNFdRHZpDGAeKEVkJDWdWLIgUBYqIXTwIXAgMNTwZXBuARNyVPTiHB6H ICAgICAgICAgICAgICAgICAgICAgICAgICAgICAgICAgICAgICAgICAgICAgICAgICAgICAgICAgICAg ICAgICAgICAgICAgICAgICAgICAgICAgICAgICAgIC IcYABfSWQsQM8IVN69wSGed9A7MZUoRO6jiuj/Mw9YMIqcmmRqoKFkZA8NDyPaFS9znw0GPnYyEQ0zjy 6PNYkLQrSbZ2Q8kRTsEWNuRSEAQcSuA58bTAcyBa39RSveGXQeGmTzEGc8Cb6PVzZbN0dbVQGaZpJ7AI HpAeHbAArcXT1Ht4SepRSwNNs+Tk9BIU9qa0AeVSbi HKRnCR2fkn0EMTqAOvHvO8J3sIXiB6C1NTjiKu4RUPYtHSKiNPspKLRTRYkzYL0VGS9yckK0TR6IlMHz LFLcCFJxhNYoPDb5Q29vkTSwGLxeYW6QNPF+Joanna+Sm5NBJMcGSQaFJMoBoZgTATBMrUxY44kpRLqMAXf TCJ2SSQxVw9GLTIlO5ZdebTqxNqkbaDaYVOfGUBYTD 0JWXdxqlWskFSceNivEN09sGbzWS7CAg7WPeHsSM4uzo3BkIEzGz7IRMQjBE6DRXRbHSCiSBIyYIA1IN BnJcNqZOcqZVBdDZOkRCY6AOUcTVCaWJ6SYpDfMNMyQDS9HotpOVSnUJAdql5CHRFtBGSxUkG9VATbVT EhSOLeUHyvWQFmBHGrVVmdUOBxBTFbAB5RAnWzJBVs GND0AcGuIYSmHQNomz1SWGMtYEUjWhc3TFQcYSGfHYWrGHqrZQWeVEAhVSK2CFMiDVVrSQ4ATiXfAQHo WUWlOxBsSYTlOKAkhl0RBLWoFZSoIHNzGQCaIIZkQDWeKMgjCAWuYWW0NbGbSJHjUGBlIQ0OCfDhYUCm MUD5EsZiAFXjZBRekt3BLOErGGOmZSH9BMGvFKKdWI JhJLvdBAVoBKJ2UvF0ILIiOWRvAA5LXfDrPBNvEHC0XIIdHSHfPFUhxp6IMGEwXPPbQoj8BRLrXHMgGC JgMWyvYRVdQSJrRin6WSBeIYLwHJ9UTwEfJVMxTJZ6ZVLoNCVwZOUwjd2QILPiJHQxNoEjBSZxIQEtTA SeBZorMABeKXM5EWnpLDMkZWVxRV6YPvLuJLotTDMP Tqo8IJwjM8w4GBChPP2UV4Cvs8AkJBibISPRQJnmDJ8gifKlUZUqXq3CA8eMSvhpBuwjZOD4M2TzTami TNN9HGJgPMEtSRTfRFLfFSP1ZC8xVFHoDkWvUpB1XCW7X2W7FLz8AHQ6HYM4ZAT8S5QmZdkwItOgEA0Z Xm8DBrC8TYO3mXVnWn4MVCw9EpZCGwIeAH0TVTe= ID Date Data Source [id number] 08/25/2020 07:36:32 AM EST [facility] Name Value Range Interpretation Code Description Data Lynette rce(s) Supporting Document(s) &PDF [facility] XMHREy1cPwIXTeEk72/MAWbmGTOlq1NrYDioEFi3IRxwEGCyA8BhqXtbNDpWDpJWTafHZKAJMA5hDsAk vci [file] AgICAgICAgICAgICAgICAgICAgICAgICAgICAgICAgICAgICAgICAgICAgICAgICAgICAgICAgICAgIC AgICAgICAgICAgICAgICAgDQogICAgICAgICAgICAg ICAgICAgICAgICAgICAgICAgICAgICAgICAgICAgICAgICAgICAgICAgICAgICAgICAgICAgICAgICAg ICAgICAgICAgICAgICAgICAgICAgICAgICAgDQogICAgICAgICAgICAgICAgICAgICAgICAgICAgICAg ICAgICAgICAgICAgICAgICAgICAgICAgICAgICAgIC AgICAgICAgICAgICAgICAgICAgICAgICAgICAgICAgICAgICAgDQogICAgICAgICAgICAgICAgICAgIC AgICAgICAgICAgICAgICAgICAgICAgICAgICAgICAgICAgICAgICAgICAgICAgICAgICAgICAgICAgIC AgICAgICAgICAgICAgICAgICAgDQogICAgICAgICAg ICAgICAgICAgICAgICAgICAgICAgICAgICAgICAgICAgICAgICAgICAgICAgICAgICAgICAgICAgICAg ICAgICAgICAgICAgICAgICAgICAgICAgICAgICAgDQogICAgICAgICAgICAgICAgICAgICAgICAgICAg ICAgICAgICAgICAgICAgICAgICAgICAgICAgICAgIC AgICAgICAgICAgICAgICAgICAgICAgICAgICAgICAgICAgICAgICAgDQogICAgICAgICAgICAgICAgIC AgICAgICAgICAgICAgICAgICAgICAgICAgICAgICAgICAgICAgICAgICAgICAgICAgICAgICAgICAgIC AgICAgICAgICAgICAgICAgICAgICAgDQogICAgICAg ICAgICAgICAgICAgICAgICAgICAgICAgICAgICAgICAgICAgICAgICAgICAgICAgICAgICAgICAgICAg ICAgICAgICAgICAgICAgICAgICAgICAgICAgICAgICAgDQogICAgICAgICAgICAgICAgICAgICAgICAg ICAgICAgICAgICAgICAgICAgICAgICAgICAgICAgIC AgICAgICAgICAgICAgICAgICAgICAgICAgICAgICAgICAgICAgICAgICAgDQogICAgICAgICAgICAgIC AgICAgICAgICAgICAgICAgICAgICAgICAgICAgICAgICAgICAgICAgICAgICAgICAgICAgICAgICAgIC FhGAKgMQPhEFEeXLUaCUZlHAVaYCDjZNJrUUy7S8lv WMIeOVEtPK5sAPy4Lw5+RLlWAxLvJCS8wpJqjD2IGW9vw8YhAXmjHERqq3WiPVd0GO7BYMJhJZslPD4A HPtglq9OGDKnHYSrbSQFy4bkZhYmKGG0EOHiKranFO8HMALgN1yboxGlNJRxHANFYDucDXWRRB1RMqGc G8CgmP32YGOKCy8+AWwejvZcCssJYvH9ZIVja6XxMY a2II7BYENaTJuvDE9IQXHrxQ2vQAtrDH4QXtRsVYIvEXSPIiCfG22tpCScOSj0G3RcXjIxWCBtHovwZX MgPDwvTmFtZXMgWyBdDQogID4+ID4+EMdjJD9RHLgqelCyKQEaRu8URVBuJFT7JVNypRAbWsEpAPXDVK reSV5QlSImLYD7uB6fYVxbNWRkBRKmZ1sYZqFbwYwt MC63xWfvgaPhgYQxIYw+Ur6LTY2ae6YwBBg1plDvPIigXHV1ZDwnZKLkPABpCRJlHTZ3YEM5TGPESqYd SMMkESCpVUdvCUAuKLPtcb3KJXHqYMEsOmDcVTHwSIYaFKIoJNpuURScOSFoCVd7UGYdDPQvYO3WJgXs IMXzIBSuQQRiLTFvWCMmda5JCGBzSBWtEyCnQNTaGG PkIEVgMMfjOFYgQOZpXuJ1ZJJbOYVqQP3BLvHiQJJbEEJ6QkSuIMQtSJXuet0XBDKgUHUlQnmsNGGbYW HhPWNiEEreCPYhMES6Jhj3RXLjKERtJM0RAfBmQYWvOTB0ZQMbHVWyUZTzis6ORTBaFCXuEBO6CYWiEA BdMMRsCOrgBEAiGWF0QQR4ZTUzCMGlUC9PVeGzWHYt QYCaAuVuYCGeUSQwyr2UKRLgVUOtOhEjNFQxNKGiJAWjFAeaFMLbAGDbMzfiXMOpVMNyYC1EMzLyJADg WTR8IVmsTRTgTOGopn0QCBSkLKZfALw5PDJmHNZaQZUuATstMDPkJLGiVLV2MUGcRPViZQ2BNhOgTUVy IFWjUXOxKRMwXCMzkl1XNYBkVZAqYmSlOICpKZBtCH BmKWmpHEFhAGEzTpSfKTVaXYBvXP2KAzJoMJZxBGQ4SDLxSPIhNPHqsx3WGAUiVOYjMJQ3RWCiVOXqLV LgVXmqWIXjBSStYJq9HQPcJCRbOB9NCgUuFUTmTnF0GbFjPQZyKQYlyq5DFDNiOCKzSZI7YBOcQZObNX SrECn1kzLrmHQbXVj7AU0PQ6UcnuLlQitWBh0Vw458 VGF8BOAmNu6PY6voIl3kVDLkZJRJMt4QEBw5R2NsTXBoVhT8TwYyJ1H2BRC8PaMxCfH9IJLaKWS0RrA+ YTliT3G9O3VfOwI4GBAxRVgaNKQ6YaWbYPT1XCDwEhgiZB2rJETZMe6+ZWpqbUGptNltPXMDJwY5LjA3 JPwfYJSUZl2P ID Date Data Source [id number] 11/01/2019 01:11:53 PM [facility] Vital SignsBlood Pressure: 126/78 Patient History Medical History:Impulse control disorderHypertensionHyperlipidemiaObesityparanoid schizophreniamild MRFamily History:FH Stroke-- motherSocial/Personal History: Smoking Status: never smokerCurrent Problems: LOSS OF TEETH DUE TO CARIES (ICD- 525.13) (FLD04-O92.139)PHYSICAL EXAMINATION (ICD-V70.0) (CRZ78-J79.00)SPECIAL SCREENING MALIGNANT NEOPLASM OF TESTIS (ICD-V76.45) (ZDD87-V07.71)LOCALIZED SUPERFICIAL SWELLING MASS OR LUMP (ICD-782.2) (IAH04-T81.9)DYSTROPHIC NAILS (ICD-703.8) (MHU24-O34.3)FH STROKE (ICD-V17.1) (THE75-B67.3)UNSPECIFIED VITAMIN D DEFICIENCY (ICD-268.9) (SHI20-F84.9)LONG-TERM (CURRENT) USE OF OTHER MEDICATIONS (ICD-V58.69)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) (EPM24-T54.0)OBESITY (ICD-278.00) (GNZ93-M53.9)HYPERLIPIDEMIA (ICD-272.4) (KUB62-T65.5)HYPERTENSION (ICD-401.9) (FBO52-M64)Current Medications: CHLORHEXIDINE GLUCONATE 0.12 % SOLN (CHLORHEXIDINE [...] - new or established patient (Performed by Tirsh Lund DMD) B - (D0274) Bitewings, 4 [...] teeth) on Tooth # 20,19,18,17,29,30,31 (Performed by Alyosn Person) T - (D7140) Extraction, erupted tooth [...] #7 Surface F, #8 Surface FD[E] [employer] On #17 Surface MO, #18 Surface MODB, #4 Surface O, #5 Surface O[E] Root Canal On #24 Region A[E] Resin-Based Composite - Direct On #10 Surface DFL, #12 Surface O, #7 Surface MFL, #8 Surface DFL[E] Missing - [place] and Root On #13 Surface O Region [...] XR Chart Notes:jaymie (Nov 01 2019 2:05PM): [facility])Comp exam, 4BWX-JEAN-PIERRE betancourt# 6,8,11 and 24Patient referred for extraction of [...] taylor by jaymie (11/01/2019 2:04 PM): ; raghavendra (Nov 01 2019 3:13PM): [facility](-). CC: none. Reviewed Xrays. Exam:spont. bleeding on upper, caries detected. Discussed about #18 and #17 OCS: WNL, IO/ EO completed, No significant hard findings upon clinical exam Pt was cooperative.OHI givenReferral: GD for upper and lower detureRX: CHXNV:recallAlyson Person by raghavendra (11/01/2019 3:13 PM): Tooth Notes and Watches:- Tooth 18 Note: Patient was given an option for crown on # 18 because of large amalgam bahai. Patient said he cannot afford a crown out of pocket. Referred for extraction of # 17 and 18 and fabrication of max and jason RPDBAlyson taylor by jaymie (11/01/2019 2:02 PM): Assessment & [...] (Severe)ADULT ASPIRIN LOW STRENGTH (Moderate)Orders:Multi-Service Referral [CPT- 14252] Name Value Range Interpretation Code Description Data Lynette rce(s) Supporting Document(s) Procedure Social History Code Duration Value Status Description Data Source(s ) Smoking 11/01/2020 12:00:00 AM EST Unknown if ever smoked comp leted Unknown if ever smoked [facility] ([facility]) Smoking 10/25/2020 12:00:00 AM EST Unknown if ever smoked comp leted Unknown if ever smoked [facility] ([facility]) Smoking 10/17/2020 12:00:00 AM EST Never Smoker completed Never S moker eCW1 ([facility]) Smoking 10/17/2020 12:00:00 AM EST Never Smoker completed Never S moker eCW1 ([facility]) Smoking 10/17/2020 12:00:00 AM EST Never Smoker completed Never S moker eCW1 ([facility]) Smoking 09/26/2020 12:00:00 AM EST Unknown if ever smoked comp leted Unknown if ever smoked [facility] ([facility]) Smoking 09/05/2020 12:00:00 AM EST Unknown if ever smoked comp leted Unknown if ever smoked [facility] ([facility]) Smoking 08/25/2020 12:00:00 AM EST Unknown if ever smoked comp leted Unknown if ever smoked [facility] ([facility]) Smoking 08/15/2020 12:00:00 AM EST Never Smoker completed Never S moker eCW1 ([facility]) Smoking 08/15/2020 12:00:00 AM EST Never Smoker completed Never S moker eCW1 ([facility]) Smoking 08/11/2020 12:00:00 AM EDT Unknown if [...] co mpleted Patient has never smoked [facility] ([facility]) Alcohol intake 05/02/2020 12:00:00 AM EDT Never completed [facility] Smoking 05/02/2020 12:00:00 AM EDT Never smoker completed Never s moker [facility] Smoking 04/20/2020 12:00:00 AM EDT Never Smoker completed Never S froylan eCW1 ([facility]) Smoking 04/10/2020 12:00:00 AM EDT Unknown if ever smoked comp leted Unknown if ever smoked [facility] ([facility]) Smoking 03/29/2020 12:00:00 AM EDT Unknown if ever smoked comp leted Unknown if ever smoked [facility] ([facility]) Smoking 03/27/2020 12:00:00 AM EDT Unknown if ever smoked comp leted Unknown if ever smoked [facility] ([facility]) Smoking 03/08/2020 12:00:00 AM EDT Unknown if ever smoked comp leted Unknown if ever smoked [facility] ([facility]) Smoking 02/28/2020 12:00:00 AM EDT Unknown if ever smoked comp leted Unknown if ever smoked [facility] ([facility]) Smoking 02/24/2020 12:00:00 AM EDT Unknown if ever smoked comp leted Unknown if ever smoked [facility] ([facility]) Smoking 02/16/2020 12:00:00 AM EDT Unknown if ever smoked comp leted Unknown if ever smoked [facility] ([facility]) Smoking 02/04/2020 12:00:00 AM EDT Unknown if ever smoked comp leted Unknown if ever smoked [facility] ([facility]) Smoking 01/31/2020 12:00:00 AM EDT Unknown if ever smoked comp leted Unknown if ever smoked [facility] ([facility]) Smoking 01/26/2020 12:00:00 AM EDT Unknown if ever smoked comp leted Unknown if ever smoked [facility] ([facility]) Smoking 01/14/2020 12:00:00 AM EDT Unknown if ever smoked comp leted Unknown if ever smoked [facility] ([facility]) Smoking 01/06/2020 12:00:00 AM EDT Unknown if ever smoked comp leted Unknown if ever smoked [facility] ([facility]) Smoking 01/03/2020 12:00:00 AM EDT Unknown if ever smoked comp leted Unknown if ever smoked [facility] ([facility]) Smoking 12/16/2019 12:00:00 AM EST Unknown if ever smoked comp leted Unknown if ever smoked [facility] ([facility]) Smoking 12/07/2019 12:00:00 AM EST Unknown if [...] rmal (applies to non-numeric results) 0.00 kg/m2 [facility] [address] [facility] Body weight Measured 0.00 lbs Normal (applies to n on-numeric results) 0.00 lbs [facility] ([facility]) Body height 0.00 in Normal (applies to non-numeric resu lts) 0.00 in [facility] ([facility]) Diastolic blood pressure 0 mm[Hg] Normal (applies to non-numeric results) 0 mm[Hg] [facility] ([facility]) Systolic blood pressure 0 mm[Hg] Normal (applies t o non-numeric results) 0 mm[Hg] [facility] ([facility]) Oxygen saturation in Arterial blood by Pulse oximetry 96 % 96 % [facility] Body mass index (BMI) [Ratio] 30.99 kg/m2 30.99 kg/m2 [facility] Body weight 87.091 kg 87.091 kg [facility] Body height 167.6 cm 167.6 cm [facility] Heart rate 80 /min 80 /min [facility] Diastolic blood pressure 68 mm[Hg] 68 mm[Hg] [facility] Systolic blood pressure 118 mm[Hg] 118 mm[Hg] [facility] Diastolic blood pressure 58 mm[Hg] 58 mm[Hg] eCW1 ([facility]) Systolic blood pressure 100 mm[Hg] 100 mm[Hg] e CW1 ([facility]) Body temperature 98.2 [degF] 98.2 [degF] eCW1 ( [facility]) Respiratory rate 18 /min 18 /min eCW1 ([facility]) Heart rate 108 /min 108 /min eCW1 ([facility]) Body mass index (BMI) [Ratio] 30.99 kg/m2 30.99 kg/m2 eCW1 ([facility]) Body height 66 [in_i] 66 [in_i] eCW1 ([facility]) Body weight 192 [lb_av] 192 [lb_av] eCW1 ([facility]) Diastolic blood pressure 0 mm[Hg] Normal (applies to non-numeric results) 0 mm[Hg] [facility] ([facility]) Systolic blood pressure 0 mm[Hg] Normal (applies t o non-numeric results) 0 mm[Hg] [facility] Body mass index (BMI) [Ratio] 0.00 kg/m2 No rmal (applies to non-numeric results) 0.00 kg/m2 [facility]) Body weight Measured 0.00 lbs Normal (applies to n on-numeric results) 0.00 lbs [facility] ([facility]) Body height 0.00 in Normal (applies to non-numeric resu lts) 0.00 in [facility] ([facility]) Diastolic blood pressure 78 mm[Hg] 78 mm[Hg] eCW1 ([facility]) Systolic blood pressure 112 mm[Hg] 112 mm[Hg] e CW1 ([facility]) Body temperature 97.2 [degF] 97.2 [degF] eCW1 ( [facility]) Respiratory rate 18 /min 18 /min eCW1 ([facility]) Heart rate 74 /min 74 /min eCW1 ([facility]) Body mass index (BMI) [Ratio] 32.92 kg/m2 32.92 kg/m2 eCW1 ([facility]) Body height 66 [in_i] 66 [in_i] eCW1 ([facility]) Body weight 204 [lb_av] 204 [lb_av] eCW1 ([facility]) Diastolic blood pressure 0 mm[Hg] Normal (applies to non-numeric results) 0 mm[Hg] [facility] ([facility]) Systolic blood pressure 0 mm[Hg] Normal (applies t o non-numeric results) 0 mm[Hg] [facility] ([facility]) Body mass index (BMI) [Ratio] 0.00 kg/m2 No rmal (applies to non-numeric results) 0.00 kg/m2 [facility] ([facility]) Body weight Measured 0.00 lbs Normal (applies to n on-numeric results) 0.00 lbs [facility] ([facility]) Body height 0.00 in Normal (applies to non-numeric resu lts) 0.00 in [facility] ([facility]) Body mass index (BMI) [Ratio] 33.7 kg/m2 33.7 k g/m2 [facility] ([facility]) Body height 66 [in_i] 66 [in_i] [facility] ([facility]) 5'6" Body weight 209.00 [lb_av] 209.00 [lb_av] MEDEN T ([facility], [facility]) Body temperature 98.2 [degF] 98.2 [degF] [facility] ([facility], [facility]) Oxygen saturation in Arterial blood by Pulse oximetry 98 % 98 % [facility] ([facility], [facility]) Respiratory rate 14 /min 14 /min [facility] ( [facility], [facility]) Heart rate 88 /min 88 /min [facility] ([facility]) Diastolic blood pressure 82 mm[Hg] 82 mm[Hg] [facility] ([facility], [facility]) Systolic blood pressure 134 mm[Hg] 134 mm[Hg] M EDENT ([facility], [facility]) Diastolic blood pressure 72 mm[Hg] 72 mm[Hg] eCW1 ([facility]) Systolic blood pressure 120 mm[Hg] 120 mm[Hg] e CW1 ([facility]) Body temperature 98.2 [degF] 98.2 [degF] eCW1 ( [facility]) Respiratory rate 18 /min 18 /min eCW1 ([facility]) Heart rate 106 /min 106 /min eCW1 ([facility]) Body mass index (BMI) [Ratio] 33.34 kg/m2 33.34 kg/m2 W1 ([facility]) Body height 66 [in_i] 66 [in_i] eCW1 ([facility]) Body weight 206.6 [lb_av] 206.6 [lb_av] eCW1 ([facility]) Body mass index (BMI) [Ratio] 34.2 kg/m2 34.2 k g/m2 [facility] ([facility], [facility]) Body height 66 [in_i] 66 [in_i] [facility] ([facility]) 5'6" Body weight 212.00 [lb_av] 212.00 [lb_av] MEDEN T ([facility], [facility]) Body temperature 98.0 [degF] 98.0 [degF] [facility] ([facility], [facility]) Oxygen saturation in Arterial blood by Pulse oximetry 98 % 98 % [facility] ([facility], [facility]) Respiratory rate 20 /min 20 /min [facility] ( [facility], [facility]) Heart rate 96 /min 96 /min [facility] ([facility], [facility]) Diastolic blood pressure 83 mm[Hg] 83 mm[Hg] [facility] ([facility], [facility]) Systolic blood pressure 145 mm[Hg] 145 mm[Hg] [facility]) Body mass index (BMI) [Ratio] 34.2 kg/m2 34.2 k g/m2 [facility] ([facility], [facility]) Body height 66 [in_i] 66 [in_i] [facility] ([facility], [facility]) 5'6" Body weight 212.00 [lb_av] 212.00 [lb_av] MEDEN T ([facility], [facility]) Body temperature 98.6 [degF] 98.6 [degF] [facility] ([facility], [facility]) Oxygen saturation in Arterial blood by Pulse oximetry 98 % 98 % [facility] ([facility], [facility]) Heart rate 99 /min 99 /min [facility] ([facility], [facility]) Diastolic blood pressure 86 mm[Hg] 86 mm[Hg] [facility] ([facility], [facility]) Systolic blood pressure 146 mm[Hg] 146 mm[Hg] [facility]) Diastolic blood pressure 0 mm[Hg] Normal (applies to non-numeric results) 0 mm[Hg] [facility] ([facility]) Systolic blood pressure 0 mm[Hg] Normal (applies t o non-numeric results) 0 mm[Hg] [facility] ([facility]) Body mass index (BMI) [Ratio] 0.00 kg/m2 No rmal (applies to non-numeric results) 0.00 kg/m2 [facility] ([facility]) Body weight Measured 0.00 lbs Normal (applies to n on-numeric results) 0.00 lbs [facility]) Body height 0.00 in Normal (applies to non-numeric resu lts) 0.00 in [facility] ([facility]) Diastolic blood pressure 0 mm[Hg] Normal (applies to non-numeric results) 0 mm[Hg] [facility] ([facility]) Systolic blood pressure 0 mm[Hg] Normal (applies t o non-numeric results) 0 mm[Hg] [facility] ([facility]) Body mass index (BMI) [Ratio] 0.00 kg/m2 No rmal (applies to non-numeric results) 0.00 kg/m2 [facility] ([facility]) Body weight Measured 0.00 lbs Normal (applies to n on-numeric results) 0.00 lbs [facility] ([facility]) Body height 0.00 in Normal (applies to non-numeric resu lts) 0.00 in [facility] ([facility]) Diastolic blood pressure 76 mm[Hg] 76 mm[Hg] eCW1 ([facility]) Systolic blood pressure 124 mm[Hg] 124 mm[Hg] e CW1 ([facility]) Body temperature 97.6 [degF] 97.6 [degF] eCW1 ( [facility]) Respiratory rate 20 /min 20 /min eCW1 ([facility]) Heart rate 70 /min 70 /min eCW1 ([facility]) Body mass index (BMI) [Ratio] 34.41 kg/m2 34.41 kg/m2 W1 ([facility]) Body height 66 [in_us] 66 [in_us] eCW1 ([facility]) Body weight Measured 213.2 [lb_av] 213.2 [lb_av ] eCW1 ([facility]) Diastolic blood pressure 60 mm[Hg] 60 mm[Hg] eCW1 ([facility]) Systolic blood pressure 122 mm[Hg] 122 mm[Hg] e CW1 ([facility]) Body temperature 98.1 [degF] 98.1 [degF] eCW1 ( [facility]) Respiratory rate 18 /min 18 /min eCW1 ([facility]) Heart rate 99 /min 99 /min eCW1 ([facility]) Body mass index (BMI) [Ratio] 33.73 kg/m2 33.73 kg/m2 eCW1 ([facility]) Body height 66 [in_us] 66 [in_us] eCW1 ([facility]) Body weight Measured 209 [lb_av] 209 [lb_av] eC W1 ([facility]) Diastolic blood pressure 0 mm[Hg] Normal (applies to non-numeric results) 0 mm[Hg] [facility] ([facility]) Systolic blood pressure 0 mm[Hg] Normal (applies t o non-numeric results) 0 mm[Hg] [facility] ([facility]) Body mass index (BMI) [Ratio] 0.00 kg/m2 No rmal (applies to non-numeric results) 0.00 kg/m2 [facility] ([facility] [address] [facility]) Body weight Measured 213.00 lbs Normal (applies to n on-numeric results) 213.00 lbs [facility] ([facility]) Body height 0.00 in Normal (applies to non-numeric resu lts) 0.00 in [facility] ([facility]) Diastolic blood pressure 0 mm[Hg] Normal (applies to non-numeric results) 0 mm[Hg] [facility] ([facility]) Systolic blood pressure 0 mm[Hg] Normal (applies t o non-numeric results) 0 mm[Hg] [facility] ([facility]) Body mass index (BMI) [Ratio] 0.00 kg/m2 No rmal (applies to non-numeric results) 0.00 kg/m2 [facility] ([facility] [address]) Body weight Measured 215.00 lbs Normal (applies to n on-numeric results) 215.00 lbs [facility] ([facility]) Body height 0.00 in Normal (applies to non-numeric resu lts) 0.00 in [facility] ([facility]) Patient Treatment Plan of Care Planned Activity Planned Date Details Description Data Source (s) Cimetidine 200 MG Oral Tablet 10/18/2020 12:00:00 AM [facility] [place] 6 MG 10/18/2020 12:00:00 AM EST e CW1 ([facility]) [place] 6 MG 10/18/2020 12:00:00 AM EST e CW1 ([facility]) Cimetidine 200 MG Oral Tablet 10/16/2020 12:00:00 AM EST eCW1 ([facility]) Cimetidine 200 MG Oral Tablet 10/16/2020 12:00:00 AM EST eCW1 ([facility]) Cimetidine 200 MG Oral Tablet 10/16/2020 12:00:00 AM EST eCW1 ([facility]) 24 HR paliperidone 3 MG Extended Release Oral Tablet 12:00:00 AM EST [facility] AUSTEDO 6 MG TABS 10/03/2020 12:00:00 AM EST [facility] clopidogrel 75 MG Oral Tablet 05/01/2020 12:00:00 AM EDT [facility] montelukast 10 MG Oral Tablet 04/30/2020 12:00:00 AM EDT [facility] Lisinopril 10 MG Oral Tablet 04/30/2020 12:00:00 AM EDT [facility] Hydrochlorothiazide 25 MG Oral Tablet 04/28/2020 12:00:00 AM EDT [facility] Trazodone Hydrochloride 50 MG Oral Tablet 04/20/2020 12:00:00 AM ED T [facility] haloperidol decanoate (HALDOL DECANOATE) 100 MG/ML inj ection 04/20/2020 12:00:00 AM EDT [facility] Simvastatin 20 MG Oral Tablet 04/13/2020 12:00:00 AM EDT [facility] Cholecalciferol 5000 UNT Oral Tablet 04/12/2020 12:00:00 AM EDT [facility] cetirizine hydrochloride 10 MG Oral Tablet 03/24/2020 12:00:00 AM E DT [facility] benztropine mesylate 0.5 MG Oral Tablet 03/22/2020 12:00:00 AM EDT [facility] tizanidine 4 MG Oral Tablet 03/15/2020 12:00:00 AM EDT [facility] Cimetidine 200 MG Oral Tablet 09/22/2019 12:00:00 AM EST eCW1 ([facility])
[2020-11-03] MEDS: MONTELUKAST 10 MG TAB PO SCH (11:16)
[2020-11-03] MEDS: hydroCHLOROthiazide 25 MG TAB PO SCH (11:16)
[2020-11-03] MEDS: CLOPIDOGREL 75 MG TAB PO SCH (11:16)
[2020-11-03] MEDS: lisinopriL 10 MG TAB PO SCH (11:16)
[2020-11-03 12:30] VITALS: BP 132/78
[2020-11-03 16:04] VITALS: BP 116/60
[2020-11-03] MEDS: ACETAMINOPHEN TAB 650MG DOSE (2X325MG) PO PRN (18:10)
[2020-11-03] MEDS: SIMVASTATIN 20 MG TAB PO SCH (20:12)
[2020-11-03] MEDS ORDERED: PALIPERIDONE 3 MG ER TAB (INVEGA) PO SCH (21:00)
[2020-11-03] MEDS: traZODone 50 MG TAB PO PRN (21:37)
[2020-11-04 06:31] VITALS: BP 146/80
[2020-11-04] MEDS: MONTELUKAST 10 MG TAB PO SCH (08:24)
[2020-11-04] MEDS: CLOPIDOGREL 75 MG TAB PO SCH (08:24)
[2020-11-04] MEDS: lisinopriL 10 MG TAB PO SCH (08:25)
[2020-11-04] MEDS: hydroCHLOROthiazide 25 MG TAB PO SCH (08:25)
[2020-11-04] MEDS: ACETAMINOPHEN TAB 650MG DOSE (2X325MG) PO PRN (11:18)
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
[2020-11-04 16:25] VITALS: BP 145/75
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
[2020-11-04] MEDS: DIVALPROEX 500 MG TAB PO SCH (21:00)
[2020-11-04] MEDS: SIMVASTATIN 20 MG TAB PO SCH (21:00)
[2020-11-04] MEDS ORDERED: PALIPERIDONE 6 MG ER TAB (INVEGA) PO SCH (21:00)
[2020-11-05 06:32] VITALS: BP 139/66
[2020-11-05] MEDS: CLOPIDOGREL 75 MG TAB PO SCH (09:03)
[2020-11-05] MEDS: DIVALPROEX 500 MG TAB PO SCH ×2 (09:03→20:10)
[2020-11-05] MEDS: hydroCHLOROthiazide 25 MG TAB PO SCH (09:03)
[2020-11-05] MEDS: MONTELUKAST 10 MG TAB PO SCH (09:03)
[2020-11-05] MEDS: lisinopriL 10 MG TAB PO SCH (09:04)
--- NOTE | 2020-11-05 14:10 | MHIPNPDOC ---
[facility] Progress Note Progress Note Subjective: Barak Neal is a 54 year old male with a history of Schizophrenia and Intellectual developmental disorder, mild type who was brought to the [facility] ED by the [facility], after his family and outpatient Psychiatric provider requested for a wellness check due to him being in a decompensated state. Staff states that he was somewhat isolative to himself yesterday and throughout the night. He was somewhat visible in the community milieu but did not interact much with staff or peers. He was seen having self-conversation with a wall on a few occasions. He was compliant with his medication regimen. He did not have any episodes of self-injury or aggression. Sleep is fair with some initial insomnia. Objective: He was seen and evaluated, alert and oriented times three, cognition poor, good eye contact, overweight, poor hygiene, appears younger than stated age, psychomotor retarded; Speech is decreased in production, slow in rate and soft in volume. Mood: good, affect: affable/playful/childlike; TP are concrete and goal directed. TC contains some paranoid ideation but no chip delusional themes; denies AH/VH/TH; he does appear somewhat internally preoccupied, responding to internal stimuli; Insight, impulse control and judgment are poor Diagnosis: Schizophrenia Intellectual developmental disorder, mild type A/P: 1) Today, increased his oral Invega to 9 mg at bedtime to better alleviate psychotic sxs. He is due for Invega Sustenna 156 mg IM injection on 11/09/20. Continued Depakote at 500 mg twice daily and Depakote trough level is due on 11/08/20. 2) Continue to collaborate with treatment team and Hospitalist. 3) Q 15 min checks 4) Collaborate with discharge planners for the safest, most optimal, discharge, upon her clinical stabilization. 5) Continue to encourage participation with group programming and activities on the unit. Total time spent: 45 minutes Vital Signs Vital Signs Date Time Temp Pulse Resp B/P (MAP) Pulse Ox O2 Delivery O2 Flow Rate FiO2 11/05/20 09:04 133/73 11/05/20 06:32 99.6 85 14 98 Room Air Current Medications Current Medications Medications (Trade) Dose Ordered Sig/Carmel Route PRN Reason Start Time Stop Time Status Last Admin Dose Admin Acetaminophen (Tylenol Tab) 650 mg Q6HP PRN PO HEADACHE or DISCOMFORT 11/03/20 10:00 11/04/20 11:18 Al Hydrox/Mg Hydrox/Simethicone (Mylanta) 30 ml Q4HP PRN PO HEARTBURN/INDIGESTION 11/03/20 10:00 Cetirizine HCl (ZyrTEC) 10 mg DAILY PRN PO ALLERGIES 11/03/20 10:00 Clopidogrel Bisulfate (PLAVix) 75 mg DAILY PO 11/02/20 09:00 11/03/20 12:00 DC 11/03/20 11:16 Clopidogrel Bisulfate (PLAVix) 75 mg DAILY PO 11/04/20 09:00 11/05/20 09:03 Divalproex Sodium (Depakote) 500 mg BID PO 11/04/20 21:00 11/05/20 09:03 Famotidine (Pepcid) 10 mg BID PRN PO HEARTBURN 11/03/20 10:00 Haloperidol (Haldol) 5 mg Q6HP PRN PO ANXIETY/AGITATION 11/03/20 10:00 Home Med (Med Rec Complete!) ASDIRECTED XX 11/01/20 15:30 11/01/20 15:29 DC Hydrochlorothiazide (Hydrodiuril) 25 mg DAILY PO 11/02/20 09:00 11/03/20 12:00 DC 11/03/20 11:16 Hydrochlorothiazide (Hydrodiuril) 25 mg DAILY PO 11/04/20 09:00 11/05/20 09:03 Lisinopril (Prinivil) 10 mg DAILY PO 11/02/20 09:00 11/05/20 09:04 Lorazepam (Ativan) 1 mg Q6HP PRN PO ANXIETY/AGITATION 11/03/20 10:00 Magnesium Hydroxide (Milk Of Magnesia) 30 ml DAILYPRN PRN PO CONSTIPATION 11/03/20 10:00 Montelukast Sodium (Singulair) 10 mg DAILY PO 11/02/20 09:00 11/03/20 12:00 DC 11/03/20 11:16 Montelukast Sodium (Singulair) 10 mg DAILY PO 11/04/20 09:00 11/05/20 09:03 Paliperidone (Invega) 3 mg QHS PO 11/03/20 21:00 11/04/20 13:45 DC 11/03/20 20:12 Paliperidone (Invega) 3 mg QHS PO 11/05/20 21:00 Paliperidone (Invega) 3 mg QPM PO 11/02/20 21:00 11/03/20 10:14 DC 11/02/20 21:53 Paliperidone (Invega) 6 mg QHS PO 11/04/20 21:00 11/05/20 12:08 DC Paliperidone (Invega) 6 mg QHS PO 11/05/20 21:00 Simvastatin (Zocor) 20 mg QHS PO 11/03/20 21:00 11/03/20 20:12 Simvastatin (Zocor) 20 mg QPM PO 11/02/20 21:00 11/03/20 10:14 DC 11/02/20 21:53 Trazodone HCl (Desyrel) 50 mg QHSP PRN PO INSOMNIA 11/03/20 10:00 11/03/20 21:37 Allergies Coded Allergies: FISH (Verified Allergy, Unknown, unknown, 10/10/20) Peanut (Verified Allergy, Unknown, 10/01/18) aspirin (Verified Allergy, Unknown, hives, 10/10/20) chocolate flavor (Verified Allergy, Unknown, hives, 10/10/20) CHANTE CRISTINA MD Nov 05, 2020 14:10
[2020-11-05 16:17] VITALS: BP 131/70
[2020-11-05] MEDS: SIMVASTATIN 20 MG TAB PO SCH (20:09)
[2020-11-05] MEDS ORDERED: PALIPERIDONE 3 MG ER TAB (INVEGA) PO SCH (21:00)
[2020-11-05] MEDS ORDERED: PALIPERIDONE 6 MG ER TAB (INVEGA) PO SCH (21:00)
[2020-11-05] MEDS: traZODone 50 MG TAB PO PRN (21:12)
[2020-11-06 06:43] VITALS: BP 125/62
[2020-11-06] MEDS: hydroCHLOROthiazide 25 MG TAB PO SCH (08:09)
[2020-11-06] MEDS: MONTELUKAST 10 MG TAB PO SCH (08:09)
[2020-11-06] MEDS: DIVALPROEX 500 MG TAB PO SCH ×2 (08:09→22:38)
[2020-11-06] MEDS: lisinopriL 10 MG TAB PO SCH (08:09)
[2020-11-06] MEDS: CLOPIDOGREL 75 MG TAB PO SCH (08:09)
--- NOTE | 2020-11-06 15:55 | MHIPNPDOC ---
[facility] Progress Note Progress Note DATE OF SERVICE: 11/06/20 Subjective: Barak Neal is a 54 year old male with a history of Schizophrenia and Intellectual developmental disorder, mild type who was brought to the [facility] ED by the [facility], after his family and outpatient Psychiatric pr ovider requested for a wellness check due to him being in a decompensated state. His affect is starting to improve. Hes a bit more visible in the community milieu; appetite is fair; still appears somewhat internally preoccupied, responding to internal stimul. Energy levels are fair/poor. He has been compliant with his medication regimen. Objective: He was seen and evaluated, alert and oriented times three, cognition poor, good eye contact, overweight, poor hygiene, appears younger than stated age, psychomotor retarded; Speech is decreased in production, slow in rate and soft in volume. Mood: ok, I think, affect: affable/playful/childlike; TP are concrete and goal directed. TC contains some paranoid ideation but no chip delusional themes; denies AH/VH/TH; he does appear somewhat internally preoccupied, responding to internal stimuli; Insight, impulse control and judgment are poor Diagnosis: Schizophrenia Intellectual developmental disorder, mild type A/P: 1) Today, increased his oral Invega to 12 mg at bedtime to better alleviate psychotic sxs. He is due for Invega Sustenna 156 mg IM injection on 11/09/20. Continued Depakote at 500 mg twice daily and Depakote trough level is due on 11/08/20. Likely will be discharged after he receives his Invega sustenna injection on 11/09/20, with aftercare in place. 2) Continue to collaborate with treatment team and Hospitalist. 3) Q 15 min checks 4) Collaborate with discharge planners for the safest, most optimal, discharge, upon her clinical stabilization. 5) Continue to encourage participation with group programming and activities on the unit. Total time spent: 45 minutes Vital Signs Vital Signs Date Time Temp Pulse Resp B/P (MAP) Pulse Ox O2 Delivery O2 Flow Rate FiO2 11/06/20 08:09 125/62 11/06/20 06:43 98.4 90 14 97 Room Air Current Medications Current Medications Medications (Trade) Dose Ordered Sig/Carmel Route PRN Reason Start Time Stop Time Status Last Admin Dose Admin Acetaminophen (Tylenol Tab) 650 mg Q6HP PRN PO HEADACHE or DISCOMFORT 11/03/20 10:00 11/04/20 11:18 Al Hydrox/Mg Hydrox/Simethicone (Mylanta) 30 ml Q4HP PRN PO HEARTBURN/INDIGESTION 11/03/20 10:00 Cetirizine HCl (ZyrTEC) 10 mg DAILY PRN PO ALLERGIES 11/03/20 10:00 Clopidogrel Bisulfate (PLAVix) 75 mg DAILY PO 11/02/20 09:00 11/03/20 12:00 DC 11/03/20 11:16 Clopidogrel Bisulfate (PLAVix) 75 mg DAILY PO 11/04/20 09:00 11/06/20 08:09 Divalproex Sodium (Depakote) 500 mg BID PO 11/04/20 21:00 11/06/20 08:09 Famotidine (Pepcid) 10 mg BID PRN PO HEARTBURN 11/03/20 10:00 Haloperidol (Haldol) 5 mg Q6HP PRN PO ANXIETY/AGITATION 11/03/20 10:00 Home Med (Med Rec Complete!) ASDIRECTED XX 11/01/20 15:30 11/01/20 15:29 DC Hydrochlorothiazide (Hydrodiuril) 25 mg DAILY PO 11/02/20 09:00 11/03/20 12:00 DC 11/03/20 11:16 Hydrochlorothiazide (Hydrodiuril) 25 mg DAILY PO 11/04/20 09:00 11/06/20 08:09 Lisinopril (Prinivil) 10 mg DAILY PO 11/02/20 09:00 11/06/20 08:09 Lorazepam (Ativan) 1 mg Q6HP PRN PO ANXIETY/AGITATION 11/03/20 10:00 Magnesium Hydroxide (Milk Of Magnesia) 30 ml DAILYPRN PRN PO CONSTIPATION 11/03/20 10:00 Montelukast Sodium (Singulair) 10 mg DAILY PO 11/02/20 09:00 11/03/20 12:00 DC 11/03/20 11:16 Montelukast Sodium (Singulair) 10 mg DAILY PO 11/04/20 09:00 11/06/20 08:09 Paliperidone (Invega) 3 mg QHS PO 11/03/20 21:00 11/04/20 13:45 DC 11/03/20 20:12 Paliperidone (Invega) 3 mg QHS PO 11/05/20 21:00 11/06/20 13:39 DC 11/05/20 20:10 Paliperidone (Invega) 3 mg QHS PO 11/06/20 21:00 UNV Paliperidone (Invega) 3 mg QPM PO 11/02/20 21:00 11/03/20 10:14 DC 11/02/20 21:53 Paliperidone (Invega) 6 mg QHS PO 11/04/20 21:00 11/05/20 12:08 DC Paliperidone (Invega) 6 mg QHS PO 11/05/20 21:00 11/06/20 15:48 DC 11/05/20 20:10 Paliperidone (Invega) 9 mg QHS PO 11/06/20 21:00 UNV Simvastatin (Zocor) 20 mg QHS PO 11/03/20 21:00 11/05/20 20:09 Simvastatin (Zocor) 20 mg QPM PO 11/02/20 21:00 11/03/20 10:14 DC 11/02/20 21:53 Trazodone HCl (Desyrel) 50 mg QHSP PRN PO INSOMNIA 11/03/20 10:00 11/05/20 21:12 Allergies Coded Allergies: FISH (Verified Allergy, Unknown, unknown, 10/10/20) Peanut (Verified Allergy, Unknown, 10/01/18) aspirin (Verified Allergy, Unknown, hives, 10/10/20) chocolate flavor (Verified Allergy, Unknown, hives, 10/10/20) CHANTE CRISTINA MD Nov 06, 2020 15:55
[2020-11-06 18:01] VITALS: BP 112/62
[2020-11-06] MEDS ORDERED: PALIPERIDONE 3 MG ER TAB (INVEGA) PO SCH (21:00)
[2020-11-06] MEDS: traZODone 50 MG TAB PO PRN (22:37)
[2020-11-06] MEDS: SIMVASTATIN 20 MG TAB PO SCH (22:38)
[2020-11-06] MEDS: PALIPERIDONE 6 MG ER TAB (INVEGA) PO SCH (22:38)
[2020-11-07 06:00] VITALS: BP 116/63
[2020-11-07] MEDS: DIVALPROEX 500 MG TAB PO SCH ×2 (09:06→20:04)
[2020-11-07] MEDS: MONTELUKAST 10 MG TAB PO SCH (09:06)
[2020-11-07] MEDS: lisinopriL 10 MG TAB PO SCH (09:06)
[2020-11-07] MEDS: hydroCHLOROthiazide 25 MG TAB PO SCH (09:06)
[2020-11-07] MEDS: CLOPIDOGREL 75 MG TAB PO SCH (09:06)
[2020-11-07 17:51] VITALS: BP 126/59
[2020-11-07] MEDS: PALIPERIDONE 6 MG ER TAB (INVEGA) PO SCH (20:04)
[2020-11-07] MEDS: SIMVASTATIN 20 MG TAB PO SCH (20:04)
[2020-11-07] MEDS: traZODone 50 MG TAB PO PRN (21:02)
[2020-11-08 05:52] VITALS: BP 123/66
[2020-11-08] MEDS: lisinopriL 10 MG TAB PO SCH (08:05)
[2020-11-08] MEDS: MONTELUKAST 10 MG TAB PO SCH (08:05)
[2020-11-08] MEDS: hydroCHLOROthiazide 25 MG TAB PO SCH (08:05)
[2020-11-08] MEDS: CLOPIDOGREL 75 MG TAB PO SCH (08:05)
[2020-11-08] MEDS: DIVALPROEX 500 MG TAB PO SCH ×2 (08:05→20:16)
--- NOTE | 2020-11-08 15:32 | MHIPNPDOC ---
[facility] Progress Note Progress Note Late entry for 11/07/20 Subjective: Barak Neal is a 54 year old male with a history of Schizophrenia and Intellectual developmental disorder, mild type who was brought to the [facility] ED by the [facility], after his family and outpatient Psychiatric provider requested for a wellness check due to him being in a decompensated state. He continues to have very poor hygiene with poor ADLs. He primarily keeps to himself and does not participate in group programming. He is not very much engaged with other staff and peers. He is seen, at times, having self- conversation; I dont feel good today. Objective: He was seen and evaluated, alert and oriented times three, cognition poor, good eye contact, overweight, poor hygiene, malodorous, appears younger than stated age, psychomotor retarded; Speech is decreased in production, slow in rate and soft in volume. Mood: lorna sad today, affect: constricted, decreased intensity and range; TP are concrete and goal directed. TC contains some paranoid ideation but no chip delusional themes; endorsing non-command AH, denies VH/TH; he does appear somewhat internally preoccupied, responding to internal stimuli; Insight, impulse control and judgment are poor Diagnosis: Schizophrenia Intellectual developmental disorder, mild type A/P: 1) Today, continued his oral Invega 12 mg at bedtime to better alleviate psychotic sxs. He is due for Invega Sustenna 156 mg IM injection on 11/09/20. Continued Depakote at 500 mg twice daily and Depakote trough level drawn to be drawn on 11/08/20 and will follow up on results. Discharge on 11/13/20 with appropriate aftercare in place. 2) Continue to collaborate with treatment team and Hospitalist. 3) Q 15 min checks 4) Collaborate with discharge planners for the safest, most optimal, discharge, which is likely to occur on 11/13/20. 5) Continue to encourage participation with group programming and activities on the unit. Total time spent: 30 minutes Vital Signs Vital Signs Date Time Temp Pulse Resp B/P (MAP) Pulse Ox O2 Delivery O2 Flow Rate FiO2 11/08/20 08:05 123/66 11/08/20 05:52 97.6 96 18 96 Room Air Laboratory Data 24H Labs Laboratory Tests 2 11/08/20 08:09: Valproic Acid (Depakene) Level 85.0 Current Medications Current Medications Medications (Trade) Dose Ordered Sig/Carmel Route PRN Reason Start Time Stop Time Status Last Admin Dose Admin Acetaminophen (Tylenol Tab) 650 mg Q6HP PRN PO HEADACHE or DISCOMFORT 11/03/20 10:00 11/04/20 11:18 Al Hydrox/Mg Hydrox/Simethicone (Mylanta) 30 ml Q4HP PRN PO HEARTBURN/INDIGESTION 11/03/20 10:00 Cetirizine HCl (ZyrTEC) 10 mg DAILY PRN PO ALLERGIES 11/03/20 10:00 Clopidogrel Bisulfate (PLAVix) 75 mg DAILY PO 11/02/20 09:00 11/03/20 12:00 DC 11/03/20 11:16 Clopidogrel Bisulfate (PLAVix) 75 mg DAILY PO 11/04/20 09:00 11/08/20 08:05 Divalproex Sodium (Depakote) 500 mg BID PO 11/04/20 21:00 11/08/20 08:05 Famotidine (Pepcid) 10 mg BID PRN PO HEARTBURN 11/03/20 10:00 Haloperidol (Haldol) 5 mg Q6HP PRN PO ANXIETY/AGITATION 11/03/20 10:00 Home Med (Med Rec Complete!) ASDIRECTED XX 11/01/20 15:30 11/01/20 15:29 DC Hydrochlorothiazide (Hydrodiuril) 25 mg DAILY PO 11/02/20 09:00 11/03/20 12:00 DC 11/03/20 11:16 Hydrochlorothiazide (Hydrodiuril) 25 mg DAILY PO 11/04/20 09:00 11/08/20 08:05 Lisinopril (Prinivil) 10 mg DAILY PO 11/02/20 09:00 11/08/20 08:05 Lorazepam (Ativan) 1 mg Q6HP PRN PO ANXIETY/AGITATION 11/03/20 10:00 Magnesium Hydroxide (Milk Of Magnesia) 30 ml DAILYPRN PRN PO CONSTIPATION 11/03/20 10:00 Montelukast Sodium (Singulair) 10 mg DAILY PO 11/02/20 09:00 11/03/20 12:00 DC 11/03/20 11:16 Montelukast Sodium (Singulair) 10 mg DAILY PO 11/04/20 09:00 11/08/20 08:05 Paliperidone (Invega) 3 mg QHS PO 11/03/20 21:00 11/04/20 13:45 DC 11/03/20 20:12 Paliperidone (Invega) 3 mg QHS PO 11/05/20 21:00 11/06/20 13:39 DC 11/05/20 20:10 Paliperidone (Invega) 3 mg QPM PO 11/02/20 21:00 11/03/20 10:14 DC 11/02/20 21:53 Paliperidone (Invega) 6 mg QHS PO 11/04/20 21:00 11/05/20 12:08 DC Paliperidone (Invega) 6 mg QHS PO 11/05/20 21:00 11/06/20 15:48 DC 11/05/20 20:10 Paliperidone (Invega) 9 mg QHS PO 11/06/20 21:00 UNV Paliperidone (Invega) 12 mg QHS PO 11/06/20 21:00 11/07/20 20:04 Simvastatin (Zocor) 20 mg QHS PO 11/03/20 21:00 11/07/20 20:04 Simvastatin (Zocor) 20 mg QPM PO 11/02/20 21:00 11/03/20 10:14 DC 11/02/20 21:53 Trazodone HCl (Desyrel) 50 mg QHSP PRN PO INSOMNIA 11/03/20 10:00 11/07/20 21:02 Allergies Coded Allergies: FISH (Verified Allergy, Unknown, unknown, 10/10/20) Peanut (Verified Allergy, Unknown, 10/01/18) aspirin (Verified Allergy, Unknown, hives, 10/10/20) chocolate flavor (Verified Allergy, Unknown, hives, 10/10/20) CHANTE CRISTINA MD Nov 08, 2020 15:32
[2020-11-08 17:38] VITALS: BP 147/74
--- NOTE | 2020-11-08 19:07 | MHIPNPDOC ---
[facility] Progress Note Progress Note Subjective: Barak Neal is a 54 year old male with a history of Schizophrenia and Intellectual developmental disorder, mild type who was brought to the [facility] ED by the [facility], after his family and outpatient Psychiatric provider requested for a wellness check due to him being in a decompensated state. Staff states that he has been pacing the unit, remaining isolative, having self-conversation; despite giving him encouragement to shower, he still has not showered since hes been admitted. I dont know; I feel ok I think Sleep and appetite are poor. Rates mood as a 5/10. Objective: He was seen and evaluated, alert and oriented times three, cognition poor, good eye contact, overweight, poor hygiene, malodorous, appears younger than stated age, psychomotor retarded; Speech is decreased in production, slow in rate and soft in volume. Mood: ok, affect: constricted, decreased intensity and range; TP are concrete and goal directed. TC contains some paranoid ideation but no chip delusional themes; endorsing non-command AH, denies VH/TH; he does appear somewhat internally preoccupied, responding to internal stimuli; Insight, impulse control and judgment are poor Diagnosis: Schizophrenia Intellectual developmental disorder, mild type A/P: 1) Today, continued his oral Invega 12 mg at bedtime to better alleviate psychotic sxs. He will receiv Invega Sustenna 156 mg IM injection on 11/09/20. Continued Depakote at 500 mg twice daily and Depakote trough level drawn today and will follow up on results. Discharge on 11/13/20 with appropriate aftercare in place. 2) Continue to collaborate with treatment team and Hospitalist. 3) Q 15 min checks 4) Collaborate with discharge planners for the safest, most optimal, discharge, which is likely to occur on 11/13/20. 5) Continue to encourage participation with group programming and activities on the unit. Total time spent: 30 minutes Vital Signs Vital Signs Date Time Temp Pulse Resp B/P (MAP) Pulse Ox O2 Delivery O2 Flow Rate FiO2 11/08/20 17:38 98.4 108 18 147/74 (98) 99 Room Air Laboratory Data 24H Labs Laboratory Tests 2 11/08/20 08:09: Valproic Acid (Depakene) Level 85.0 Current Medications Current Medications Medications (Trade) Dose Ordered Sig/Carmel Route PRN Reason Start Time Stop Time Status Last Admin Dose Admin Acetaminophen (Tylenol Tab) 650 mg Q6HP PRN PO HEADACHE or DISCOMFORT 11/03/20 10:00 11/04/20 11:18 Al Hydrox/Mg Hydrox/Simethicone (Mylanta) 30 ml Q4HP PRN PO HEARTBURN/INDIGESTION 11/03/20 10:00 Cetirizine HCl (ZyrTEC) 10 mg DAILY PRN PO ALLERGIES 11/03/20 10:00 Clopidogrel Bisulfate (PLAVix) 75 mg DAILY PO 11/02/20 09:00 11/03/20 12:00 DC 11/03/20 11:16 Clopidogrel Bisulfate (PLAVix) 75 mg DAILY PO 11/04/20 09:00 11/08/20 08:05 Divalproex Sodium (Depakote) 500 mg BID PO 11/04/20 21:00 11/08/20 08:05 Famotidine (Pepcid) 10 mg BID PRN PO HEARTBURN 11/03/20 10:00 Haloperidol (Haldol) 5 mg Q6HP PRN PO ANXIETY/AGITATION 11/03/20 10:00 Home Med (Med Rec Complete!) ASDIRECTED XX 11/01/20 15:30 11/01/20 15:29 DC Hydrochlorothiazide (Hydrodiuril) 25 mg DAILY PO 11/02/20 09:00 11/03/20 12:00 DC 11/03/20 11:16 Hydrochlorothiazide (Hydrodiuril) 25 mg DAILY PO 11/04/20 09:00 11/08/20 08:05 Lisinopril (Prinivil) 10 mg DAILY PO 11/02/20 09:00 11/08/20 08:05 Lorazepam (Ativan) 1 mg Q6HP PRN PO ANXIETY/AGITATION 11/03/20 10:00 Magnesium Hydroxide (Milk Of Magnesia) 30 ml DAILYPRN PRN PO CONSTIPATION 11/03/20 10:00 Montelukast Sodium (Singulair) 10 mg DAILY PO 11/02/20 09:00 11/03/20 12:00 DC 11/03/20 11:16 Montelukast Sodium (Singulair) 10 mg DAILY PO 11/04/20 09:00 11/08/20 08:05 Paliperidone (Invega) 3 mg QHS PO 11/03/20 21:00 11/04/20 13:45 DC 11/03/20 20:12 Paliperidone (Invega) 3 mg QHS PO 11/05/20 21:00 11/06/20 13:39 DC 11/05/20 20:10 Paliperidone (Invega) 3 mg QPM PO 11/02/20 21:00 11/03/20 10:14 DC 11/02/20 21:53 Paliperidone (Invega) 6 mg QHS PO 11/04/20 21:00 11/05/20 12:08 DC Paliperidone (Invega) 6 mg QHS PO 11/05/20 21:00 11/06/20 15:48 DC 11/05/20 20:10 Paliperidone (Invega) 9 mg QHS PO 11/06/20 21:00 UNV Paliperidone (Invega) 12 mg QHS PO 11/06/20 21:00 11/07/20 20:04 Simvastatin (Zocor) 20 mg QHS PO 11/03/20 21:00 11/07/20 20:04 Simvastatin (Zocor) 20 mg QPM PO 11/02/20 21:00 11/03/20 10:14 DC 11/02/20 21:53 Trazodone HCl (Desyrel) 50 mg QHSP PRN PO INSOMNIA 11/03/20 10:00 11/07/20 21:02 Allergies Coded Allergies: FISH (Verified Allergy, Unknown, unknown, 10/10/20) Peanut (Verified Allergy, Unknown, 10/01/18) aspirin (Verified Allergy, Unknown, hives, 10/10/20) chocolate flavor (Verified Allergy, Unknown, hives, 10/10/20) CHANTE CRISTINA MD Nov 08, 2020 19:07
[2020-11-08] MEDS: SIMVASTATIN 20 MG TAB PO SCH (20:16)
[2020-11-08] MEDS: PALIPERIDONE 6 MG ER TAB (INVEGA) PO SCH (20:16)
[2020-11-08] MEDS: traZODone 50 MG TAB PO PRN (21:03)
[2020-11-09 06:31] VITALS: BP 101/54
[2020-11-09] MEDS: CLOPIDOGREL 75 MG TAB PO SCH (08:13)
[2020-11-09] MEDS: DIVALPROEX 500 MG TAB PO SCH ×2 (08:13→20:14)
[2020-11-09] MEDS: lisinopriL 10 MG TAB PO SCH (08:13)
[2020-11-09] MEDS: hydroCHLOROthiazide 25 MG TAB PO SCH (08:13)
[2020-11-09] MEDS: MONTELUKAST 10 MG TAB PO SCH (08:13)
[2020-11-09] MEDS ORDERED: PALIPERIDONE PALMITATE 156MG/1ML INJ(INVEGA)(FREE PSY INPT ONLY) IM ONE (09:00)
--- NOTE | 2020-11-09 13:48 | MHIPNPDOC ---
[facility] Progress Note Progress Note Subjective: Barak Neal is a 54 year old male with a history of Schizophrenia and Intellectual developmental disorder, mild type who was brought to the [facility] ED by the [facility], after his family and outpatient Psychiatric provider requested for a wellness check due to him being in a decompensated state. Continues to be isolative on the unit; Staff states that he did take a shower this morning; He states that his energy levels are starting to improve. Appetite is improved. He does not participate in group activities and does not interact with peers or staff. When can I go back home? Objective: He was seen and evaluated, alert and oriented times three, cognition poor, good eye contact, overweight, poor hygiene, malodorous, appears younger than stated age, psychomotor retarded; Speech is decreased in production, slow in rate and soft in volume. Mood: average, affect: constricted, decreased intensity and range; TP are concrete and goal directed. TC contains some paranoid ideation but no chip delusional themes; endorsing non-command AH, denies VH/TH; he does appear somewhat internally preoccupied, responding to internal stimuli; Insight, impulse control and judgment are poor Diagnosis: Schizophrenia Intellectual developmental disorder, mild type A/P: 1) Today, continued his oral Invega 12 mg at bedtime to better alleviate psychotic sxs. He received Invega Sustenna 156 mg IM injection, today, 11/09/20. No EPS, good tolerability. Continued Depakote at 500 mg twice daily and Depakote trough level drawn yesterday and will follow up results and titrate accordingly. Discharge on 11/13/20 with appropriate aftercare in place. 2) Continue to collaborate with treatment team and Hospitalist. 3) Q 15 min checks 4) Collaborate with discharge planners for the safest, most optimal, discharge, which is likely to occur on 11/13/20. 5) Continue to encourage participation with group programming and activities on the unit. Total time spent: 30 minutes Vital Signs Vital Signs Date Time Temp Pulse Resp B/P (MAP) Pulse Ox O2 Delivery O2 Flow Rate FiO2 11/09/20 08:13 130/70 11/09/20 06:31 99.0 88 14 97 Room Air Current Medications Current Medications Medications (Trade) Dose Ordered Sig/Carmel Route PRN Reason Start Time Stop Time Status Last Admin Dose Admin Acetaminophen (Tylenol Tab) 650 mg Q6HP PRN PO HEADACHE or DISCOMFORT 11/03/20 10:00 11/04/20 11:18 Al Hydrox/Mg Hydrox/Simethicone (Mylanta) 30 ml Q4HP PRN PO HEARTBURN/INDIGESTION 11/03/20 10:00 Cetirizine HCl (ZyrTEC) 10 mg DAILY PRN PO ALLERGIES 11/03/20 10:00 Clopidogrel Bisulfate (PLAVix) 75 mg DAILY PO 11/02/20 09:00 11/03/20 12:00 DC 11/03/20 11:16 Clopidogrel Bisulfate (PLAVix) 75 mg DAILY PO 11/04/20 09:00 11/09/20 08:13 Divalproex Sodium (Depakote) 500 mg BID PO 11/04/20 21:00 11/09/20 08:13 Famotidine (Pepcid) 10 mg BID PRN PO HEARTBURN 11/03/20 10:00 Haloperidol (Haldol) 5 mg Q6HP PRN PO ANXIETY/AGITATION 11/03/20 10:00 Home Med (Med Rec Complete!) ASDIRECTED XX 11/01/20 15:30 11/01/20 15:29 DC Hydrochlorothiazide (Hydrodiuril) 25 mg DAILY PO 11/02/20 09:00 11/03/20 12:00 DC 11/03/20 11:16 Hydrochlorothiazide (Hydrodiuril) 25 mg DAILY PO 11/04/20 09:00 11/09/20 08:13 Lisinopril (Prinivil) 10 mg DAILY PO 11/02/20 09:00 11/09/20 08:13 Lorazepam (Ativan) 1 mg Q6HP PRN PO ANXIETY/AGITATION 11/03/20 10:00 Magnesium Hydroxide (Milk Of Magnesia) 30 ml DAILYPRN PRN PO CONSTIPATION 11/03/20 10:00 Miscellaneous (Unresolved Clarification Entry) SEE LABEL COMMENTS DAILY XX 11/09/20 09:00 11/09/20 13:37 DC Montelukast Sodium (Singulair) 10 mg DAILY PO 11/02/20 09:00 11/03/20 12:00 DC 11/03/20 11:16 Montelukast Sodium (Singulair) 10 mg DAILY PO 11/04/20 09:00 11/09/20 08:13 Paliperidone (Invega) 3 mg QHS PO 11/03/20 21:00 11/04/20 13:45 DC 11/03/20 20:12 Paliperidone (Invega) 3 mg QHS PO 11/05/20 21:00 11/06/20 13:39 DC 11/05/20 20:10 Paliperidone (Invega) 3 mg QPM PO 11/02/20 21:00 11/03/20 10:14 DC 11/02/20 21:53 Paliperidone (Invega) 6 mg QHS PO 11/04/20 21:00 11/05/20 12:08 DC Paliperidone (Invega) 6 mg QHS PO 11/05/20 21:00 11/06/20 15:48 DC 11/05/20 20:10 Paliperidone (Invega) 9 mg QHS PO 11/06/20 21:00 UNV Paliperidone (Invega) 12 mg QHS PO 11/06/20 21:00 11/08/20 20:16 Simvastatin (Zocor) 20 mg QHS PO 11/03/20 21:00 11/08/20 20:16 Simvastatin (Zocor) 20 mg QPM PO 11/02/20 21:00 11/03/20 10:14 DC 11/02/20 21:53 Trazodone HCl (Desyrel) 50 mg QHSP PRN PO INSOMNIA 11/03/20 10:00 11/08/20 21:03 Allergies Coded Allergies: FISH (Verified Allergy, Unknown, unknown, 10/10/20) Peanut (Verified Allergy, Unknown, 10/01/18) aspirin (Verified Allergy, Unknown, hives, 10/10/20) chocolate flavor (Verified Allergy, Unknown, hives, 10/10/20) CHANTE CRISTINA MD Nov 09, 2020 13:48
[2020-11-09 16:17] VITALS: BP 115/67
[2020-11-09] MEDS: SIMVASTATIN 20 MG TAB PO SCH (20:15)
[2020-11-09] MEDS: PALIPERIDONE 6 MG ER TAB (INVEGA) PO SCH (20:15)
[2020-11-09] MEDS: traZODone 50 MG TAB PO PRN (21:02)
[2020-11-10 06:18] VITALS: BP 125/68
[2020-11-10] MEDS: lisinopriL 10 MG TAB PO SCH (08:03)
[2020-11-10] MEDS: MONTELUKAST 10 MG TAB PO SCH (08:03)
[2020-11-10] MEDS: CLOPIDOGREL 75 MG TAB PO SCH (08:03)
[2020-11-10] MEDS: hydroCHLOROthiazide 25 MG TAB PO SCH (08:04)
[2020-11-10] MEDS: DIVALPROEX 500 MG TAB PO SCH ×2 (08:04→19:45)
--- NOTE | 2020-11-10 11:42 | MHIPNPDOC ---
[facility] Progress Note Progress Note DATE OF SERVICE: 11/10/20 HISTORY: Barak Neal is a 54 year old male with a history of Schizophrenia and Intellectual developmental disorder, mild type who was brought to the [facility] ED by the [facility], after his family and outpatient Psychiatric provider requested for a wellness check due to him being in a decompensated state. Pt brought in by [facility] after reportedly making suicidal statements to his sister. Pt's sister reports he has been hallucinating lately and has become more uncooperative. VITAL SIGNS: See below. CURRENT MEDICATIONS: See below. MENTAL STATUS EXAMINATION: Patient is a 54-year old male single, disabled, domiciled , who is had decompensated at home and was brought in by police. On interview, he appears slightly older than his stated age, his eye contact is fleeting, he is disheveled and his hygiene and grooming is poor. Speech: Is slowed, low tone and volume Language skills are below average Thought processes including: improving Thought content: denies depression, admits to moderate anxiety, denies SI/HI and denies AH/VH Abstract reasoning, and computation: below average Description of associations: denies to having any but appears to be having internal stimuli Description of abnormal or psychotic thoughts: Denies but exhibits delayed responses due to internal stimuli Judgment: fair, improving Insight: fair, improving Orientation: alert and oriented Recent and remote memory: fair Attention span and concentration: below average Language: intellectually disability Fund of knowledge: below average Mood: "I am ok" Affect: constricted DIAGNOSES: Schizophrenia Intellectual developmental disorder, mild type ASSESSMENT: Patient agreeable to interview, states that he is "doing ok." Has some delayed responses to questions and is observed to have internal stimuli. He is mildly withdrawn and guarded. He stays close to his room. Reports that he is social with some peers but I don't believe this to be factual. He does not attend groups, but he states that he gets anxious. No reports of any abnormal or aggressive behaviors. He states that he is looking forward to being discharged soon. "I will be happy when I go home." Patient appears to be improving in mood and affect and his discharge will probably occur on Friday. NO reports of any exacerbated psychotic symptoms by staff. MANAGEMENT PLAN: Continue all medications and treatment modalities as ordered. Possibly discharge on 11/13/20 TIME SPENT: 30 minutes. Vital Signs Vital Signs Date Time Temp Pulse Resp B/P (MAP) Pulse Ox O2 Delivery O2 Flow Rate FiO2 11/10/20 08:03 125/68 11/10/20 06:18 98.6 85 16 95 Room Air Current Medications Current Medications Medications (Trade) Dose Ordered Sig/Carmel Route PRN Reason Start Time Stop Time Status Last Admin Dose Admin Acetaminophen (Tylenol Tab) 650 mg Q6HP PRN PO HEADACHE or DISCOMFORT 11/03/20 10:00 11/04/20 11:18 Al Hydrox/Mg Hydrox/Simethicone (Mylanta) 30 ml Q4HP PRN PO HEARTBURN/INDIGESTION 11/03/20 10:00 Cetirizine HCl (ZyrTEC) 10 mg DAILY PRN PO ALLERGIES 11/03/20 10:00 Clopidogrel Bisulfate (PLAVix) 75 mg DAILY PO 11/02/20 09:00 11/03/20 12:00 DC 11/03/20 11:16 Clopidogrel Bisulfate (PLAVix) 75 mg DAILY PO 11/04/20 09:00 11/10/20 08:03 Divalproex Sodium (Depakote) 500 mg BID PO 11/04/20 21:00 11/10/20 08:04 Famotidine (Pepcid) 10 mg BID PRN PO HEARTBURN 11/03/20 10:00 Haloperidol (Haldol) 5 mg Q6HP PRN PO ANXIETY/AGITATION 11/03/20 10:00 Home Med (Med Rec Complete!) ASDIRECTED XX 11/01/20 15:30 11/01/20 15:29 DC Hydrochlorothiazide (Hydrodiuril) 25 mg DAILY PO 11/02/20 09:00 11/03/20 12:00 DC 11/03/20 11:16 Hydrochlorothiazide (Hydrodiuril) 25 mg DAILY PO 11/04/20 09:00 11/10/20 08:04 Lisinopril (Prinivil) 10 mg DAILY PO 11/02/20 09:00 11/10/20 08:03 Lorazepam (Ativan) 1 mg Q6HP PRN PO ANXIETY/AGITATION 11/03/20 10:00 Magnesium Hydroxide (Milk Of Magnesia) 30 ml DAILYPRN PRN PO CONSTIPATION 11/03/20 10:00 Miscellaneous (Unresolved Clarification Entry) SEE LABEL COMMENTS DAILY XX 11/09/20 09:00 11/09/20 13:37 DC Montelukast Sodium (Singulair) 10 mg DAILY PO 11/02/20 09:00 11/03/20 12:00 DC 11/03/20 11:16 Montelukast Sodium (Singulair) 10 mg DAILY PO 11/04/20 09:00 11/10/20 08:03 Paliperidone (Invega) 3 mg QHS PO 11/03/20 21:00 11/04/20 13:45 DC 11/03/20 20:12 Paliperidone (Invega) 3 mg QHS PO 11/05/20 21:00 11/06/20 13:39 DC 11/05/20 20:10 Paliperidone (Invega) 3 mg QPM PO 11/02/20 21:00 11/03/20 10:14 DC 11/02/20 21:53 Paliperidone (Invega) 6 mg QHS PO 11/04/20 21:00 11/05/20 12:08 DC Paliperidone (Invega) 6 mg QHS PO 11/05/20 21:00 11/06/20 15:48 DC 11/05/20 20:10 Paliperidone (Invega) 9 mg QHS PO 11/06/20 21:00 UNV Paliperidone (Invega) 12 mg QHS PO 11/06/20 21:00 11/09/20 20:15 Simvastatin (Zocor) 20 mg QHS PO 11/03/20 21:00 11/09/20 20:15 Simvastatin (Zocor) 20 mg QPM PO 11/02/20 21:00 11/03/20 10:14 DC 11/02/20 21:53 Trazodone HCl (Desyrel) 50 mg QHSP PRN PO INSOMNIA 11/03/20 10:00 11/09/20 21:02 Allergies Coded Allergies: FISH (Verified Allergy, Unknown, unknown, 10/10/20) Peanut (Verified Allergy, Unknown, 10/01/18) aspirin (Verified Allergy, Unknown, hives, 10/10/20) chocolate flavor (Verified Allergy, Unknown, hives, 10/10/20) RAYMUNDO GAFFNEY NP Nov 10, 2020 11:42
[2020-11-10 19:27] VITALS: BP 146/83
[2020-11-10] MEDS: SIMVASTATIN 20 MG TAB PO SCH (19:45)
[2020-11-10] MEDS: PALIPERIDONE 6 MG ER TAB (INVEGA) PO SCH (19:46)
[2020-11-10] MEDS: traZODone 50 MG TAB PO PRN (21:08)
[2020-11-11 06:40] VITALS: BP 111/60
[2020-11-11] MEDS: MONTELUKAST 10 MG TAB PO SCH (08:08)
[2020-11-11] MEDS: DIVALPROEX 500 MG TAB PO SCH ×2 (08:08→19:53)
[2020-11-11] MEDS: lisinopriL 10 MG TAB PO SCH (08:09)
[2020-11-11] MEDS: CLOPIDOGREL 75 MG TAB PO SCH (08:09)
[2020-11-11] MEDS: hydroCHLOROthiazide 25 MG TAB PO SCH (08:09)
[2020-11-11 18:04] VITALS: BP 112/59
[2020-11-11] MEDS: SIMVASTATIN 20 MG TAB PO SCH (19:53)
[2020-11-11] MEDS: PALIPERIDONE 6 MG ER TAB (INVEGA) PO SCH (19:53)
[2020-11-11] MEDS: traZODone 50 MG TAB PO PRN (20:54)
[2020-11-12 06:23] VITALS: BP 98/77
[2020-11-12] MEDS: MONTELUKAST 10 MG TAB PO SCH (08:10)
[2020-11-12] MEDS: CLOPIDOGREL 75 MG TAB PO SCH (08:11)
[2020-11-12] MEDS: DIVALPROEX 500 MG TAB PO SCH ×2 (08:11→20:10)
[2020-11-12] MEDS: hydroCHLOROthiazide 25 MG TAB PO SCH (08:11)
[2020-11-12] MEDS: lisinopriL 10 MG TAB PO SCH (08:11)
[2020-11-12] MEDS: PALIPERIDONE 6 MG ER TAB (INVEGA) PO SCH (20:09)
[2020-11-12] MEDS: SIMVASTATIN 20 MG TAB PO SCH (20:09)
[2020-11-12] MEDS: traZODone 50 MG TAB PO PRN (20:52)
[2020-11-13 07:03] VITALS: BP 143/68
[2020-11-13 08:53] VITALS: BP 134/69
[2020-11-13] MEDS: hydroCHLOROthiazide 25 MG TAB PO SCH (08:53)
[2020-11-13] MEDS: CLOPIDOGREL 75 MG TAB PO SCH (08:53)
[2020-11-13] MEDS: lisinopriL 10 MG TAB PO SCH (08:53)
[2020-11-13] MEDS: MONTELUKAST 10 MG TAB PO SCH (08:53)
[2020-11-13] MEDS: DIVALPROEX 500 MG TAB PO SCH (08:54)
[2020-11-13] MEDS ORDERED: INVE234I IM (12:21)
[2020-11-13] MEDS ORDERED: DEPA1TAB3 PO (12:21)
[2020-11-13] MEDS ORDERED: FAMO20TA PO (12:21)
[2020-11-13] MEDS ORDERED: PALI1TAB3 PO (12:21)
--- NOTE | 2020-11-13 12:45 | MHDSPDOC ---
[facility] Discharge Summary Discharge Summary DATE OF ADMISSION: Nov 03, 2020 at 09:50 DATE OF DISCHARGE: November 13, 2020 at 1228 DISCHARGE DIAGNOSES: 1. Schizophrenia 2. Intellectual developmental disorder, mild type REASON FOR ADMISSION: Barak Neal is a 54 year old male with a history of Schizophrenia and Intellectual developmental disorder, mild type who was brought to the [facility] ED by the [facility], after his family and outpatient Psychiatric provider requested for a wellness check due to him being in a decompensated state. Patient is a very poor historian due to his intellectual delays and is very concrete with all responses. As per report, his provider at [facility], Syeda Cowan stated that she switched him from the Haldol long acting injectable to oral Invega approximately 3 months ago, due to him having a local skin reaction to the Haldol injection. He was functioning at his baseline while on the Haldol long acting injectable, but since the switch was made to oral Invega, his family states that he has gradually been decompensating over the past 3 months. He resides with one of his brothers, Lito, who stated that his ADLs have been worsening over the past few months and he has started to become very verbally aggressive with his family, which is not his usual character. Before things worsened even further, a wellness check was sent out and they brought him to the [facility] ED where he is now admitted at the [facility]. CONSULTANTS INVOLVED: See Medical H + P by Hospitalist TREATMENT AND PROGRESS ON THE UNIT: Patient was admitted to the [facility] on a 9.39 legal status he was afforded the following treatment modalities: 1) Individual Therapy 2) Group Therapy 3) Medication Management 4) Milieu Therapy 5) Safe Environment HOSPITAL COURSE: Patient was admitted to [facility] on a 9.39 legal status due to his decompensation of mood and behaviors. He was compliant with his medications and was cooperative in the milieu. DISCHARGE ASSESSMENT: He was seen and evaluated, alert and oriented times three, cognition poor, good eye contact, overweight, fair hygiene and grooming, appears his stated age, psychomotor retarded; Speech is decreased in production, slow in rate and soft in volume. Mood: average, affect: co nstricted, decreased intensity and range; Thought Process are concrete and goal directed. Thought Content contains milimal paranoid ideation but no chip delusional themes; denies command AH, denies VH/TH; he does appear somewhat internally preoccupied, but this has improved; Insight, impulse control and judgment are improving. In today's interview, patient is alert and oriented, pts dress is appropriate. Hygiene and grooming is well-kempt. Smiles on approach and is pleasant and engaged in the interview. Denies depression and anxiety. Denies suicidal and homicidal ideation, planning or intent. He d is not observed with deena, psychotic symptoms of delusions, bizarre thinking, obsessions, paranoia, ruminations illogical thoughts, flight of ideas or having poor insight and judgement. Patient has improved mentation, declines further hospitalization on a voluntary status and meets criteria for discharge today. MENTAL STATUS EXAMINATION ON DISCHARGE: Patient is a 54 -year old Single, Disabled, Domiciled, male, who was brought to the ED after decompensating due to medication changes. General Appearance: unkempt, disheveled, ds/not appear stated age, personal clothing Build: overweight Demeanor: guarded Eye Contact: improving Activity: slowed Behavior: resistant Speech: slurred, slow, low in volume, impoverished Mood: anxious Affect: constricted Thought Process: concrete, slow Thought Content (Delusions): denies SI, HI, AVH Thought Content (Other): autistic, preoccupied Thought Content (Aggressive): none reported Perception (Hallucinations): none reported Perception (Other): none reported Cognition (Impairment of): attention/concentration, ability to abstract Cognition(Intelligence Est.): MR Oriented: Oriented times three Insight: fair, improving Judgment: fair, improving Psychosis: Denies MEDICATIONS ON DISCHARGE: See Medication Reconciliation PLAN/FOLLOWUP ARRANGEMENTS: [facility] The amount of time spent in the coordination of care for this patient was approximately 40 minutes. Vital Signs/I&Os Vital Signs Date Time Temp Pulse Resp B/P (MAP) Pulse Ox O2 Delivery O2 Flow Rate FiO2 11/13/20 08:53 134/69 11/13/20 07:03 98.2 85 18 99 Room Air Medications Scheduled Cholecalciferol (Vitamin D3) (Vitamin D3) 125 Mcg Tablet, 125 MCG PO DAILY, (Reported) Cimetidine (Cimetidine) 200 Mg Tablet, 200 MG PO BID, (Reported) Clopidogrel Bisulfate (Clopidogrel) 75 Mg Tablet, 75 MG PO DAILY, (Reported) Deutetrabenazine (Austedo) 6 Mg Tablet, 6 MG PO BID, (Reported) Divalproex Sodium (Depakote) 500 Mg Tablet.dr, 500 MG PO BID for Mood, #14 Hydrochlorothiazide (Hydrochlorothiazide) 25 Mg Tab, 25 MG PO DAILY, (Reported) Lisinopril (Lisinopril) 10 Mg Tablet, 10 MG PO DAILY, (Reported) Montelukast Sodium (Montelukast Sodium) 10 Mg Tablet, 10 MG PO DAILY, (Reported) Paliperidone (Paliperidone ER) 6 Mg Tab.er.24, 12 MG PO QHS for antipsychotic, #14 Paliperidone Palmitate (Invega Sustenna) 234 Mg/1.5 Ml Syringe, 1 SYRINGE IM Q30D for antipsychotic for 1 Days, #1 Due 11/30/20 Simvastatin (Simvastatin) 20 Mg Tablet, 20 MG PO QPM, (Reported) Scheduled PRN Cetirizine HCl (All Day Allergy) 10 Mg Tablet, 10 MG PO DAILY PRN for ALLERGIES, (Reported) Famotidine (Famotidine) 20 Mg Tablet, 10 MG PO BID PRN for HEARTBURN, #14 Miscellaneous Medications [Patient Comment] , (Reported) MED LIST OBTAINED FROM EXT MED HISTORY AND LAST MD VISIT Allergies Coded Allergies: FISH (Verified Allergy, Unknown, unknown, 10/10/20) Peanut (Verified Allergy, Unknown, 10/01/18) aspirin (Verified Allergy, Unknown, hives, 10/10/20) chocolate flavor (Verified Allergy, Unknown, hives, 10/10/20) RAYMUNDO GAFFNEY NP Nov 13, 2020 12:30
== END 2020-11-13 14:15 | disposition home or self-care (01) | DRG 885 ==
LOC: M ED 13:38 → M ED INP 11-03 09:50 → M PSY 11-03 12:00
PROVIDERS: ADMIT Psychiatry & Neurology Geriatric Psychiatry; ATTEND Psychiatry & Neurology Psychiatry
DX: F20.9 Schizophrenia, unspecified (principal); F70 Mild intellectual disabilities; I10 Essential (primary) hypertension; J45.909 Unspecified asthma, uncomplicated; G40.909 Epilepsy, unspecified, not intractable, without status epilepticus; K21.9 Gastro-esophageal reflux disease without esophagitis; Z79.02 Long term (current) use of antithrombotics/antiplatelets; Z79.899 Other long term (current) drug therapy; Z91.013 Allergy to seafood; Z91.010 Allergy to peanuts; Z88.6 Allergy status to analgesic agent; Z91.018 Allergy to other foods

== ENCOUNTER → 2020-11-21 | Outpatient (REF) | payer MEDICARE, MEDICAID ==
[~2020-11-21] MED LIST changes: +DEPA1TAB3 PO; +FAMO20TA PO; +HYDR-3490 PO; -HYDR25TAB PO; +INVE234I IM; +LISI10TA22 PO; -LISI10TA4 PO; +MONT10TA10 PO; +PALI1TAB3 PO; +PATIENT COMMENT; +VITA500030 PO
[2020-11-21 17:30] LABS: BASO % 0.5 % (0.0-1.0); EOS # 0.1 10^3/uL (0.0-0.5); EOS % 0.9 % (0.0-3.0); HEMATOCRIT 40.9 % (42.0-52.0); LYMPH # 1.8 10^3/uL (1.5-5.0); LYMPH % 23.8 % (24.0-44.0); MEAN CORPUSCULAR HEMOGLOBIN 27.5 pg (27.0-33.0); MEAN CORPUSCULAR HGB CONC 31.8 g/dl (32.0-36.5); MEAN CORPUSCULAR VOLUME 86.7 fl (80.0-96.0); MONO # 0.7 10^3/uL (0.0-0.8); MONO % 9.4 % (0.0-5.0); NEUTROPHILS # 4.8 10^3/uL (1.5-8.5); NEUTROPHILS % 64.9 % (36.0-66.0); PLATELET COUNT, AUTOMATED 237 10^3/uL (150-450); RED BLOOD COUNT 4.72 10^6/uL (4.30-6.10); WHITE BLOOD COUNT 7.4 10^3/uL (4.0-10.0)
[2020-11-21 17:50] LABS: ALBUMIN 3.8 GM/DL (3.2-5.2); ALT/SGPT 33 U/L (12-78); BILIRUBIN,TOTAL 0.3 MG/DL (0.2-1.0); BLOOD UREA NITROGEN 14 MG/DL (7-18); CALCIUM LEVEL 9.4 MG/DL (8.5-10.1); CARBON DIOXIDE LEVEL 29 MEQ/L (21-32); CHLORIDE LEVEL 105 MEQ/L (98-107); CPK CREATINE PHOSPHOKINASE 88 U/L (39-308); CREATININE FOR GFR 1.03 MG/DL (0.70-1.30); GLOMERULAR FILTRATION RATE > 60.0 (>56); GLUCOSE, FASTING 81 MG/DL (70-100); POTASSIUM SERUM 3.6 MEQ/L (3.5-5.1); SODIUM LEVEL 142 MEQ/L (136-145); TOTAL PROTEIN 6.9 GM/DL (6.4-8.2)
[2020-11-21 18:01] LABS: HEMOGLOBIN A1c 5.5 %
== END ==
LOC: M SFHCPLAZ 14:59
PROVIDERS: ATTEND Physician Assistant Medical
DX: E78.00 Pure hypercholesterolemia, unspecified (principal); I10 Essential (primary) hypertension; R73.01 Impaired fasting glucose
CPT/HCPCS: 36415; 80053; 82550; 83036; 85025; G0463

== ENCOUNTER → 2021-03-22 | Outpatient (CLI) | payer MEDICARE, MEDICAID ==
--- NOTE | 2021-03-23 06:56 | REPPI ---
INDICATION: S39.012A BACK STRAIN, INITIAL ENCOUNTER COMPARISON: 12/30/2016 TECHNIQUE: AP, lateral, bilateral oblique, and coned-down views of the lumbar spine. FINDINGS: Alignment is relatively well maintained and without acute fracture/compression injury or subluxation. Moderate/advanced multilevel degenerative changes include endplate sclerosis, disc space narrowing, osteophytosis, and facet hypertrophy throughout the visualized lower thoracic through lumbar levels. IMPRESSION: Moderate/advanced multilevel degenerative changes. <Electronically signed by Franck Myers > 03/23/21 0624
--- NOTE | 2021-03-23 06:59 | REPPI ---
INDICATION: S39.012A BACK STRAIN, INITIAL ENCOUNTER COMPARISON: None. TECHNIQUE: Upright view of the chest with supine and upright views of the abdomen and pelvis. FINDINGS: Frontal upright view of the chest demonstrates no acute cardiopulmonary process or free air below the diaphragm to suspect pneumoperitoneum. Supine and upright views of the abdomen and pelvis demonstrate nonspecific bowel gas pattern without obstruction or perforation. No organomegaly. No abnormal calcifications. Skeletal structures normal for age. IMPRESSION: Nonspecific bowel gas pattern. <Electronically signed by Franck Myers > 03/23/21 0634
== END ==
LOC: M PLAIMG 08:28
PROVIDERS: ATTEND Physician Assistant Medical
DX: M51.36 Other intervertebral disc degeneration, lumbar region (principal)

== ENCOUNTER 2021-03-24 14:32 | Emergency (ER) | payer MEDICARE, MEDICAID ==
[~2021-03-24] VITALS: Ht 167.6 cm; Wt 93.0 kg
--- NOTE | 2021-03-24 15:06 | REP ---
INDICATION: CHEST PAIN. COMPARISON: Comparison chest x-ray March 22, 2019. TECHNIQUE: Portable upright AP chest radiograph. FINDINGS: Today's radiograph is exposed at a lesser level of inspiration compared to the prior study. Cardiomegaly is observed probably unchanged. Pleural angles are sharp. No infiltrate is seen. Monitoring electrodes are noted. Pulmonary vasculature is not increased. No acute bony abnormality is seen.. IMPRESSION: Lesser level of inspiration. Mild cardiomegaly. Otherwise no acute disease.. <Electronically signed by Charles Mohr > 03/24/21 [id number]
[2021-03-24 15:10] LABS: BASO % 0.3 % (0.0-1.0); EOS # 0.4 10^3/uL (0.0-0.5); HEMATOCRIT 41.5 % (42.0-52.0); HEMOGLOBIN 13.7 g/dl (13.5-17.5); LYMPH # 1.7 10^3/uL (1.5-5.0); LYMPH % 27.6 % (24.0-44.0); MEAN CORPUSCULAR HEMOGLOBIN 28.8 pg (27.0-33.0); MEAN CORPUSCULAR VOLUME 87.4 fl (80.0-96.0); MONO # 0.5 10^3/uL (0.0-0.8); MONO % 8.4 % (2.0-8.0); NEUTROPHILS # 3.5 10^3/uL (1.5-8.5); NEUTROPHILS % 55.9 % (36.0-66.0); PLATELET COUNT, AUTOMATED 175 10^3/uL (150-450); RED BLOOD COUNT 4.75 10^6/uL (4.30-6.10); WHITE BLOOD COUNT 6.3 10^3/uL (4.0-10.0)
[2021-03-24] MEDS ORDERED: ASPIRIN 81 MG CHEW TABLET PO ONE (15:15)
[2021-03-24 15:39] LABS: ALBUMIN 3.8 GM/DL (3.2-5.2); ALT/SGPT 32 U/L (12-78); BILIRUBIN,DIRECT < 0.1 MG/DL (0.0-0.2); BILIRUBIN,TOTAL 0.3 MG/DL (0.2-1.0); BLOOD UREA NITROGEN 12 MG/DL (7-18); CARBON DIOXIDE LEVEL 27 MEQ/L (21-32); CHLORIDE LEVEL 109 MEQ/L (98-107); CK-MB VALUE MASS 1.6 NG/ML (<3.6); CPK CREATINE PHOSPHOKINASE 262 U/L (39-308); CREATININE FOR GFR 0.94 MG/DL (0.70-1.30); GLOMERULAR FILTRATION RATE > 60.0 (>56); GLUCOSE, FASTING 128 MG/DL (70-100); LIPASE 72 U/L (73-393); MB/CK RELATIVE INDEX 0.61 (< OR =4); POTASSIUM SERUM 3.8 MEQ/L (3.5-5.1); SODIUM LEVEL 143 MEQ/L (136-145); TROPONIN I < 0.02 NG/ML (< 0.10)
[2021-03-24 21:11] LABS: CK-MB VALUE MASS < 1.0 NG/ML (<3.6); CPK CREATINE PHOSPHOKINASE 198 U/L (39-308); MB/CK RELATIVE INDEX 0.51 (< OR =4); TROPONIN I < 0.02 NG/ML (< 0.10)
[2021-03-24 21:34] VITALS: BP 149/68
--- NOTE | 2021-03-26 16:38 | ECGEPIP ---
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
--- NOTE | 2021-03-26 16:42 | ECGEPIP ---
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
== END 2021-03-24 21:58 | disposition home or self-care (01) ==
LOC: M ED 14:32
DX: R07.9 Chest pain, unspecified (principal); I10 Essential (primary) hypertension; E78.5 Hyperlipidemia, unspecified; K21.9 Gastro-esophageal reflux disease without esophagitis; F20.9 Schizophrenia, unspecified; F90.9 Attention-deficit hyperactivity disorder, unspecified type; J30.2 Other seasonal allergic rhinitis; Z79.899 Other long term (current) drug therapy

== ENCOUNTER → 2021-05-04 | Outpatient (REF) | payer MEDICARE, MEDICAID ==
[~2021-05-04] MED LIST changes: +FAMO10TA50 PO; -FAMO1TAB25 PO
== END ==
LOC: M LAB REF 15:41
PROVIDERS: ATTEND Nurse Practitioner Family
DX: J00 Acute nasopharyngitis [common cold] (principal)

== ENCOUNTER → 2021-06-06 | Outpatient (CLI) | payer MEDICARE, MEDICAID ==
[2021-06-06 11:01] LABS: BASO % 0.7 % (0.0-1.0); EOS # 0.2 10^3/uL (0.0-0.5); HEMATOCRIT 42.9 % (42.0-52.0); HEMOGLOBIN 14.5 g/dl (13.5-17.5); LYMPH # 2.2 10^3/uL (1.5-5.0); LYMPH % 38.8 % (24.0-44.0); MEAN CORPUSCULAR HGB CONC 33.8 g/dl (32.0-36.5); MEAN CORPUSCULAR VOLUME 85.8 fl (80.0-96.0); MONO # 0.5 10^3/uL (0.0-0.8); MONO % 8.3 % (2.0-8.0); NEUTROPHILS # 2.8 10^3/uL (1.5-8.5); NEUTROPHILS % 48.8 % (36.0-66.0); PLATELET COUNT, AUTOMATED 171 10^3/uL (150-450); WHITE BLOOD COUNT 5.7 10^3/uL (4.0-10.0)
[2021-06-06 11:58] LABS: HEMOGLOBIN A1c 5.5 %
[2021-06-06 12:10] LABS: ALBUMIN 4.1 GM/DL (3.2-5.2); ALT/SGPT 30 U/L (12-78); BILIRUBIN,TOTAL 0.5 MG/DL (0.2-1.0); BLOOD UREA NITROGEN 19 MG/DL (7-18); CALCIUM LEVEL 9.4 MG/DL (8.5-10.1); CARBON DIOXIDE LEVEL 29 MEQ/L (21-32); CHLORIDE LEVEL 106 MEQ/L (98-107); CHOLESTEROL LEVEL 153 MG/DL (<200); CHOLESTEROL RISK RATIO 2.942 (<5); CREATININE FOR GFR 0.98 MG/DL (0.70-1.30); GLOMERULAR FILTRATION RATE > 60.0 (>56); GLUCOSE, FASTING 95 MG/DL (70-100); HDL CHOLESTEROL 52 MG/DL (>40); LDL CHOLESTEROL 83 MG/DL (<100); NON-HDL-C 101 MG/DL; POTASSIUM SERUM 3.5 MEQ/L (3.5-5.1); SODIUM LEVEL 141 MEQ/L (136-145); TRIGLYCERIDES LEVEL 88 MG/DL (<150)
== END ==
LOC: M PLALAB 08:54
PROVIDERS: ATTEND Physician Assistant Medical
DX: R73.01 Impaired fasting glucose (principal); E78.00 Pure hypercholesterolemia, unspecified; I10 Essential (primary) hypertension

== ENCOUNTER → 2021-07-11 | Outpatient (CLI) | payer MEDICARE, MEDICAID ==
[~2021-07-11] MED LIST changes: -KLOR20TA42 FT; +POTA-141 FT
--- NOTE | 2021-07-11 10:39 | REP ---
INDICATION: PAIN IN RIGHT KNEE. COMPARISON: None. TECHNIQUE: Four views FINDINGS: The joint spaces are symmetric and relatively well maintained. There is no evidence of acute fracture or destructive osseous lesion. There is a small plantar calcaneal heel spur. 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 IMPRESSION: No acute osseous abnormality. Chronic changes as described above. <Electronically signed by Percy Ellsworth > 07/11/21 0471
--- NOTE | 2021-07-11 10:41 | REP ---
INDICATION: PAIN IN RIGHT KNEE COMPARISON: 05/21/2020 TECHNIQUE: Four views without sunrise view. The patient was unable to flex the knee for a sunrise view. FINDINGS: There is no significant change from the prior exam. The compartments are symmetric and well maintained. There is no evidence of an acute fracture, dislocation, or subluxation. The examination, however, is limited without a sunrise view. IMPRESSION: No acute abnormality or significant change compared to the prior exam with findings and limitations as described above. <Electronically signed by Percy Ellsworth > 07/11/21 1037
== END ==
LOC: M PLAIMG 09:47
PROVIDERS: ATTEND Physician Assistant Medical
DX: M25.561 Pain in right knee (principal); M77.31 Calcaneal spur, right foot; Q66.81 Congenital vertical talus deformity, right foot
CPT/HCPCS: 73564; 73630; G0463

== ENCOUNTER → 2021-08-08 | Outpatient (CLI) | payer MEDICARE, MEDICAID ==
[2021-08-08 11:09] LABS: BASO # 0.1 10^3/uL (0.0-0.2); BASO % 0.8 % (0.0-1.0); EOS # 0.2 10^3/uL (0.0-0.5); EOS % 3.2 % (0.0-3.0); HEMOGLOBIN 13.9 g/dl (13.5-17.5); LYMPH # 2.2 10^3/uL (1.5-5.0); LYMPH % 36.1 % (24.0-44.0); MEAN CORPUSCULAR HEMOGLOBIN 29.3 pg (27.0-33.0); MEAN CORPUSCULAR HGB CONC 33.9 g/dl (32.0-36.5); MEAN CORPUSCULAR VOLUME 86.3 fl (80.0-96.0); MONO # 0.6 10^3/uL (0.0-0.8); MONO % 10.1 % (2.0-8.0); NEUTROPHILS # 3.1 10^3/uL (1.5-8.5); NEUTROPHILS % 49.3 % (36.0-66.0); PLATELET COUNT, AUTOMATED 183 10^3/uL (150-450); RED BLOOD COUNT 4.75 10^6/uL (4.30-6.10); WHITE BLOOD COUNT 6.2 10^3/uL (4.0-10.0)
[2021-08-08 11:25] LABS: HEMOGLOBIN A1c 5.5 %
[2021-08-08 11:49] LABS: CREATININE, URINE 21.4 MG/DL; MALB URINE SIEMENS < 5.0 MG/L; MAU/CREAT RATIO 23.3 MCG/MG (0.0-30.0)
[2021-08-08 12:02] LABS: ALT/SGPT 31 U/L (12-78); BILIRUBIN,TOTAL 0.3 MG/DL (0.2-1.0); BLOOD UREA NITROGEN 15 MG/DL (7-18); CALCIUM LEVEL 9.4 MG/DL (8.5-10.1); CARBON DIOXIDE LEVEL 30 MEQ/L (21-32); CHLORIDE LEVEL 104 MEQ/L (98-107); CHOLESTEROL LEVEL 137 MG/DL (<200); CHOLESTEROL RISK RATIO 2.362 (<5); CREATININE FOR GFR 0.98 MG/DL (0.70-1.30); FREE T4 1.35 NG/DL (0.76-1.46); GLOMERULAR FILTRATION RATE > 60.0 (>56); GLUCOSE, FASTING 96 MG/DL (70-100); HDL CHOLESTEROL 58 MG/DL (>40); LDL CHOLESTEROL 58 MG/DL (<100); NON-HDL-C 79 MG/DL; POTASSIUM SERUM 3.7 MEQ/L (3.5-5.1); SODIUM LEVEL 139 MEQ/L (136-145); TOTAL PROTEIN 7.1 GM/DL (6.4-8.2); TRIGLYCERIDES LEVEL 106 MG/DL (<150); URIC ACID 7.1 MG/DL (3.5-7.2)
== END ==
LOC: M PLALAB 08:35
PROVIDERS: ATTEND Physician Assistant Medical
DX: M79.671 Pain in right foot (principal); R73.01 Impaired fasting glucose; I10 Essential (primary) hypertension; E78.00 Pure hypercholesterolemia, unspecified; E66.9 Obesity, unspecified
CPT/HCPCS: 36415; 80053; 80061; 82043; 83036; 84439; 84443; 84550; 85025; G0463

== ENCOUNTER → 2022-01-10 | Outpatient (CLI) | payer MEDICARE, MEDICAID ==
[~2022-01-10] MED LIST changes: -MONT10TA10 PO; +MONT10TA97 PO
== END ==
LOC: M PLAIMG 10:13
PROVIDERS: ATTEND Physician Assistant Medical
DX: M65.321 Trigger finger, right index finger (principal)

== ENCOUNTER → 2022-01-25 | Outpatient (CLI) | payer MEDICARE, MEDICAID ==
[~2022-01-25] MED LIST changes: +CIME200T4 PO; -GNP200TA4 PO
[2022-01-25 14:19] LABS: ALBUMIN 3.9 GM/DL (3.2-5.2); ALT/SGPT 28 U/L (12-78); BILIRUBIN,TOTAL 0.4 MG/DL (0.2-1.0); BLOOD UREA NITROGEN 18 MG/DL (7-18); CALCIUM LEVEL 9.1 MG/DL (8.5-10.1); CARBON DIOXIDE LEVEL 31 MEQ/L (21-32); CHLORIDE LEVEL 103 MEQ/L (98-107); CREATININE FOR GFR 1.08 MG/DL (0.70-1.30); GLOMERULAR FILTRATION RATE > 60.0 (>56); GLUCOSE, FASTING 85 MG/DL (70-100); SODIUM LEVEL 140 MEQ/L (136-145); TOTAL PROTEIN 6.9 GM/DL (6.4-8.2); VALPROIC ACID (DEPAKOTE) 77.6 UG/ML (50.0-100.0)
== END ==
LOC: M PLALAB 09:33
PROVIDERS: ATTEND Physician Assistant Medical
DX: F20.1 Disorganized schizophrenia (principal)

== ENCOUNTER → 2022-06-11 | Outpatient (CLI) | payer MEDICARE, MEDICAID ==
[2022-06-11 13:21] LABS: BASO % 0.4 % (0.0-1.0); EOS # 0.1 10^3/uL (0.0-0.5); EOS % 1.5 % (0.0-3.0); HEMATOCRIT 40.4 % (42.0-52.0); HEMOGLOBIN 13.4 g/dl (13.5-17.5); LYMPH # 1.7 10^3/uL (1.5-5.0); LYMPH % 33.5 % (24.0-44.0); MEAN CORPUSCULAR HEMOGLOBIN 28.5 pg (27.0-33.0); MEAN CORPUSCULAR HGB CONC 33.2 g/dl (32.0-36.5); MONO # 0.4 10^3/uL (0.0-0.8); MONO % 7.7 % (2.0-8.0); NEUTROPHILS # 2.9 10^3/uL (1.5-8.5); NEUTROPHILS % 56.5 % (36.0-66.0); PLATELET COUNT, AUTOMATED 154 10^3/uL (150-450); WHITE BLOOD COUNT 5.2 10^3/uL (4.0-10.0)
[2022-06-11 13:31] LABS: ALBUMIN 3.5 GM/DL (3.2-5.2); ALT/SGPT 22 U/L (12-78); BILIRUBIN,TOTAL 0.4 MG/DL (0.2-1.0); BLOOD UREA NITROGEN 17 MG/DL (7-18); CALCIUM LEVEL 8.9 MG/DL (8.5-10.1); CARBON DIOXIDE LEVEL 28 MEQ/L (21-32); CHLORIDE LEVEL 105 MEQ/L (98-107); CHOLESTEROL LEVEL 122 MG/DL (<200); CHOLESTEROL RISK RATIO 2.489 (<5); CREATININE FOR GFR 0.88 MG/DL (0.70-1.30); GLOMERULAR FILTRATION RATE > 60.0 (>56); GLUCOSE, FASTING 84 MG/DL (70-100); HDL CHOLESTEROL 49 MG/DL (>40); LDL CHOLESTEROL 54 MG/DL (<100); NON-HDL-C 73 MG/DL; POTASSIUM SERUM 3.2 MEQ/L (3.5-5.1); SODIUM LEVEL 140 MEQ/L (136-145); TRIGLYCERIDES LEVEL 94 MG/DL (<150)
[2022-06-11 14:03] LABS: TOTAL 25(OH) VITAMIN D 81.4 NG/ML (30.0-100.0)
[2022-06-11 18:31] LABS: HEMOGLOBIN A1c 5.6 %
== END ==
LOC: M PLAIMG 10:23
PROVIDERS: ATTEND Physician Assistant Medical
DX: Z12.5 Encounter for screening for malignant neoplasm of prostate (principal); G57.02 Lesion of sciatic nerve, left lower limb; I10 Essential (primary) hypertension; E78.00 Pure hypercholesterolemia, unspecified; R73.01 Impaired fasting glucose; E55.9 Vitamin D deficiency, unspecified
CPT/HCPCS: 36415; 72110; 80053; 80061; 82306; 83036; 85025; G0103

== ENCOUNTER → 2022-06-27 | Outpatient (CLI) | payer MEDICARE, MEDICAID ==
[2022-06-27 07:52] LABS: BASO % 0.5 % (0.0-1.0); EOS # 0.2 10^3/uL (0.0-0.5); EOS % 2.5 % (0.0-3.0); HEMATOCRIT 38.2 % (42.0-52.0); HEMOGLOBIN 12.4 g/dl (13.5-17.5); LYMPH # 2.4 10^3/uL (1.5-5.0); MEAN CORPUSCULAR HEMOGLOBIN 28.5 pg (27.0-33.0); MEAN CORPUSCULAR HGB CONC 32.5 g/dl (32.0-36.5); MEAN CORPUSCULAR VOLUME 87.8 fl (80.0-96.0); MONO # 0.6 10^3/uL (0.0-0.8); MONO % 9.4 % (2.0-8.0); NEUTROPHILS # 2.9 10^3/uL (1.5-8.5); NEUTROPHILS % 47.3 % (36.0-66.0); PLATELET COUNT, AUTOMATED 173 10^3/uL (150-450); RED BLOOD COUNT 4.35 10^6/uL (4.30-6.10); WHITE BLOOD COUNT 6.1 10^3/uL (4.0-10.0)
[2022-06-27 08:07] LABS: HEMOGLOBIN A1c 5.8 %
[2022-06-27 08:17] LABS: ALBUMIN 3.8 GM/DL (3.2-5.2); ALT/SGPT 25 U/L (12-78); BILIRUBIN,TOTAL 0.4 MG/DL (0.2-1.0); BLOOD UREA NITROGEN 18 MG/DL (7-18); CARBON DIOXIDE LEVEL 26 MEQ/L (21-32); CHLORIDE LEVEL 110 MEQ/L (98-107); CHOLESTEROL LEVEL 124 MG/DL (<200); CHOLESTEROL RISK RATIO 2.384 (<5); CREATININE FOR GFR 1.02 MG/DL (0.70-1.30); GLOMERULAR FILTRATION RATE > 60.0 (>56); GLUCOSE, FASTING 87 MG/DL (70-100); HDL CHOLESTEROL 52 MG/DL (>40); LDL CHOLESTEROL 54 MG/DL (<100); NON-HDL-C 72 MG/DL; POTASSIUM SERUM 3.9 MEQ/L (3.5-5.1); SODIUM LEVEL 141 MEQ/L (136-145); TOTAL PROTEIN 6.6 GM/DL (6.4-8.2); TRIGLYCERIDES LEVEL 92 MG/DL (<150)
[2022-06-27 10:28] LABS: TOTAL 25(OH) VITAMIN D 72.7 NG/ML (30.0-100.0)
== END ==
LOC: M LAB 07:20
PROVIDERS: ATTEND Physician Assistant Medical
DX: E78.00 Pure hypercholesterolemia, unspecified (principal); R73.01 Impaired fasting glucose; E55.9 Vitamin D deficiency, unspecified; Z12.5 Encounter for screening for malignant neoplasm of prostate; Z79.899 Other long term (current) drug therapy
CPT/HCPCS: 36415; 80053; 80061; 82306; 83036; 85025; G0103

== ENCOUNTER → 2022-06-28 | Outpatient (REF) | payer MEDICARE, MEDICAID | LOC: M WUC 21:21 | PROVIDERS: ATTEND Physician Assistant Medical | DX: J02.9 Acute pharyngitis, unspecified (principal) ==

== ENCOUNTER → 2022-07-19 | Outpatient (CLI) | payer MEDICARE, MEDICAID ==
[2022-07-19 08:42] LABS: BASO % 0.5 % (0.0-1.0); EOS # 0.1 10^3/uL (0.0-0.5); EOS % 2.2 % (0.0-3.0); HEMATOCRIT 41.3 % (42.0-52.0); HEMOGLOBIN 13.2 g/dl (13.5-17.5); LYMPH # 2.2 10^3/uL (1.5-5.0); MEAN CORPUSCULAR HEMOGLOBIN 28.2 pg (27.0-33.0); MEAN CORPUSCULAR VOLUME 88.2 fl (80.0-96.0); MONO # 0.6 10^3/uL (0.0-0.8); MONO % 9.8 % (2.0-8.0); NEUTROPHILS # 3.3 10^3/uL (1.5-8.5); NEUTROPHILS % 52.2 % (36.0-66.0); PLATELET COUNT, AUTOMATED 147 10^3/uL (150-450); RED BLOOD COUNT 4.68 10^6/uL (4.30-6.10); WHITE BLOOD COUNT 6.4 10^3/uL (4.0-10.0)
[2022-07-19 08:43] LABS: HEMATOCRIT 41.3 % (42.0-52.0)
[2022-07-19 09:12] LABS: FERRITIN 228 NG/ML (26-388); IRON (FE) 57 UG/DL (65-175)
[2022-07-19 15:00] LABS: VITAMIN B12 LEVEL 537 PG/ML (247-911)
== END ==
LOC: M LAB 07:54
PROVIDERS: ATTEND Physician Assistant Medical
DX: D64.9 Anemia, unspecified (principal)

== ENCOUNTER → 2022-07-25 | Outpatient (REF) | payer MEDICARE, MEDICAID | LOC: M SFHCPLAZ 11:39 | PROVIDERS: ATTEND Physician Assistant Medical | DX: D50.8 Other iron deficiency anemias (principal) ==

== ENCOUNTER → 2022-09-18 | Outpatient (CLI) | payer MEDICARE, MEDICAID ==
[2022-09-18 07:33] LABS: BASO % 0.5 % (0.0-1.0); EOS # 0.2 10^3/uL (0.0-0.5); HEMATOCRIT 41.9 % (42.0-52.0); HEMOGLOBIN 13.5 g/dl (13.5-17.5); LYMPH % 47.6 % (24.0-44.0); MEAN CORPUSCULAR HEMOGLOBIN 28.1 pg (27.0-33.0); MEAN CORPUSCULAR HGB CONC 32.2 g/dl (32.0-36.5); MEAN CORPUSCULAR VOLUME 87.3 fl (80.0-96.0); MONO # 0.5 10^3/uL (0.0-0.8); MONO % 7.4 % (2.0-8.0); NEUTROPHILS # 2.6 10^3/uL (1.5-8.5); NEUTROPHILS % 41.2 % (36.0-66.0); PLATELET COUNT, AUTOMATED 169 10^3/uL (150-450); WHITE BLOOD COUNT 6.3 10^3/uL (4.0-10.0)
[2022-09-18 09:31] LABS: FERRITIN 152.6 NG/ML (10.5-307.3)
== END ==
LOC: M LAB 06:42
PROVIDERS: ATTEND Physician Assistant Medical
DX: D50.8 Other iron deficiency anemias (principal)

== ENCOUNTER → 2022-12-18 | Outpatient (REF) | payer MEDICARE, MEDICAID | LOC: M SFHCPLAZ 12:50 | PROVIDERS: ATTEND Physician Assistant | DX: J00 Acute nasopharyngitis [common cold] (principal) ==

== ENCOUNTER → 2022-12-27 | Outpatient (CLI) | payer MEDICARE, MEDICAID ==
[2022-12-27 12:31] LABS: HEMATOCRIT 40.7 % (42.0-52.0)
[2022-12-27 12:32] LABS: BASO % 0.4 % (0.0-1.0); EOS # 0.3 10^3/uL (0.0-0.5); EOS % 3.9 % (0.0-3.0); HEMATOCRIT 40.9 % (42.0-52.0); HEMOGLOBIN 13.2 g/dl (13.5-17.5); LYMPH # 2.2 10^3/uL (1.5-5.0); LYMPH % 31.4 % (24.0-44.0); MEAN CORPUSCULAR HEMOGLOBIN 28.4 pg (27.0-33.0); MEAN CORPUSCULAR HGB CONC 32.3 g/dl (32.0-36.5); MONO # 0.6 10^3/uL (0.0-0.8); NEUTROPHILS # 3.8 10^3/uL (1.5-8.5); NEUTROPHILS % 54.9 % (36.0-66.0); PLATELET COUNT, AUTOMATED 178 10^3/uL (150-450); RED BLOOD COUNT 4.65 10^6/uL (4.30-6.10); WHITE BLOOD COUNT 6.9 10^3/uL (4.0-10.0)
[2022-12-27 12:44] LABS: IRON (FE) 58 UG/DL (65-175)
[2022-12-27 12:52] LABS: ALBUMIN 3.9 G/DL (3.2-5.2); ALKALINE PHOSPHATASE 69 U/L (46-116); ALT/SGPT 16 U/L (7.0-40); AST/SGOT 10 U/L (<34); BILIRUBIN,TOTAL 0.3 MG/DL (0.3-1.2); BLOOD UREA NITROGEN 24 MG/DL (9-23); CALCIUM LEVEL 9.2 MG/DL (8.5-10.1); CARBON DIOXIDE LEVEL 28 MMOL/L (20-31); CHLORIDE LEVEL 107 MMOL/L (98-107); CREATININE FOR GFR 0.88 MG/DL (0.70-1.30); FERRITIN 168.1 NG/ML (10.5-307.3); GLOMERULAR FILTRATION RATE > 60.0 (>56); GLUCOSE, FASTING 107 MG/DL (60-100); POTASSIUM SERUM 3.8 MMOL/L (3.5-5.1); PTH INTACT 37.2 PG/ML (18.5-88.0); SODIUM LEVEL 142 MMOL/L (136-145); TOTAL 25(OH) VITAMIN D 77.3 NG/ML (20.0-100.0)
[2022-12-27 13:03] LABS: HEMOGLOBIN A1c 5.5 % (4.0-6.0)
[2022-12-27 18:10] LABS: TOTAL PROTEIN 6.5 G/DL (5.7-8.2)
== END ==
LOC: M WUC 09:05
PROVIDERS: ATTEND Physician Assistant Medical
DX: Z00.00 Encounter for general adult medical examination without abnormal findings (principal); D50.8 Other iron deficiency anemias; E55.9 Vitamin D deficiency, unspecified; R73.01 Impaired fasting glucose; I10 Essential (primary) hypertension

== ENCOUNTER 2023-01-27 11:47 | Day surgery (SDC) | payer MEDICARE, MEDICAID ==
[~2023-01-27] VITALS: Ht 167.6 cm; Wt 97.9 kg
[~2023-01-27 11:47] MED LIST changes: +ACID10TA14 PO; +ATOR1TAB21 PO; +CIME200T5 PO; +DIVA500T94 PO; +FAMO40TA3 PO; +FERR32TA PO; +MELA10CA2 PO; +MELO7.5T35 PO; +ONDA4TAB6 PO; +POTA1TAB22 PO; +SERT50TA29 PO; +TIZA2TA PO
[2023-01-27] MEDS ORDERED: propofoL 200 MG/20 ML VIAL As Ordered ONE (12:11)
[2023-01-27] MEDS ORDERED: LIDOCAINE 2% 100MG/5ML SDV (FOR ANES.) As Ordered ONE (12:11)
[2023-01-27] MEDS ORDERED: fentaNYL 100 MCG/2 ML INJECTION As Ordered ONE (12:11)
[2023-01-27 13:18] VITALS: BP 119/60
== END 2023-01-27 13:30 | disposition home or self-care (01) ==
LOC: M OPP 11:47
PROVIDERS: ATTEND Internal Medicine Gastroenterology
DX: D50.9 Iron deficiency anemia, unspecified (principal)
CPT/HCPCS: 43239; 45378; 88305; J3010

== ENCOUNTER → 2023-04-16 | Outpatient (CLI) | payer MEDICARE, MEDICAID ==
[2023-04-16 13:56] LABS: BASO % 0.5 % (0.0-1.0); EOS # 0.2 10^3/uL (0.0-0.5); EOS % 2.3 % (0.0-3.0); HEMATOCRIT 40.8 % (42.0-52.0); HEMOGLOBIN 13.3 g/dl (13.5-17.5); LYMPH % 27.2 % (24.0-44.0); MEAN CORPUSCULAR HEMOGLOBIN 28.3 pg (27.0-33.0); MEAN CORPUSCULAR HGB CONC 32.6 g/dl (32.0-36.5); MEAN CORPUSCULAR VOLUME 86.8 fl (80.0-96.0); MONO # 0.7 10^3/uL (0.0-0.8); MONO % 9.3 % (2.0-8.0); NEUTROPHILS # 4.5 10^3/uL (1.5-8.5); PLATELET COUNT, AUTOMATED 198 10^3/uL (150-450); WHITE BLOOD COUNT 7.4 10^3/uL (4.0-10.0)
[2023-04-16 14:15] LABS: ALKALINE PHOSPHATASE 88 U/L (46-116); ALT/SGPT 13 U/L (7.0-40); AST/SGOT < 8 U/L (<34); BILIRUBIN,TOTAL 0.3 MG/DL (0.3-1.2); BLOOD UREA NITROGEN 24 MG/DL (9-23); CALCIUM LEVEL 9.7 MG/DL (8.5-10.1); CARBON DIOXIDE LEVEL 27 MMOL/L (20-31); CHLORIDE LEVEL 106 MMOL/L (98-107); CHOLESTEROL LEVEL 135 MG/DL (<200); CHOLESTEROL RISK RATIO 3.01 (<5); GLOMERULAR FILTRATION RATE > 60.0 (>56); GLUCOSE, FASTING 92 MG/DL (60-100); HDL CHOLESTEROL 44.8 MG/DL (>40); IRON (FE) 46 UG/DL (65-175); LDL CHOLESTEROL 72.2 MG/DL (<100); NON-HDL-C 90.2 MG/DL; POTASSIUM SERUM 3.7 MMOL/L (3.5-5.1); PTH INTACT 43.3 PG/ML (18.5-88.0); SODIUM LEVEL 141 MMOL/L (136-145); TOTAL PROTEIN 6.5 G/DL (5.7-8.2); TRIGLYCERIDES LEVEL 90 MG/DL (<150)
[2023-04-16 14:17] LABS: FERRITIN 218.2 NG/ML (10.5-307.3)
[2023-04-16 14:36] LABS: HEMOGLOBIN A1c 5.7 % (4.0-6.0)
== END ==
LOC: M PLALAB 09:36
PROVIDERS: ATTEND Physician Assistant Medical
DX: E55.9 Vitamin D deficiency, unspecified (principal); R73.01 Impaired fasting glucose; D50.8 Other iron deficiency anemias; E78.00 Pure hypercholesterolemia, unspecified

== ENCOUNTER → 2023-09-15 | Outpatient (CLI) | payer MEDICARE, MEDICAID ==
[2023-09-15 10:46] LABS: BASO % 0.4 % (0.0-1.0); EOS # 0.2 10^3/uL (0.0-0.5); EOS % 2.5 % (0.0-3.0); HEMATOCRIT 41.3 % (42.0-52.0); HEMOGLOBIN 13.4 g/dl (13.5-17.5); LYMPH # 2.2 10^3/uL (1.5-5.0); MEAN CORPUSCULAR HEMOGLOBIN 27.5 pg (27.0-33.0); MEAN CORPUSCULAR HGB CONC 32.4 g/dl (32.0-36.5); MEAN CORPUSCULAR VOLUME 84.8 fl (80.0-96.0); MONO # 0.6 10^3/uL (0.0-0.8); MONO % 9.2 % (2.0-8.0); NEUTROPHILS # 3.7 10^3/uL (1.5-8.5); NEUTROPHILS % 55.5 % (36.0-66.0); PLATELET COUNT, AUTOMATED 162 10^3/uL (150-450); RED BLOOD COUNT 4.87 10^6/uL (4.30-6.10); WHITE BLOOD COUNT 6.7 10^3/uL (4.0-10.0)
[2023-09-15 11:23] LABS: ALBUMIN 3.9 G/DL (3.2-5.2); ALKALINE PHOSPHATASE 72 U/L (46-116); ALT/SGPT 16 U/L (7.0-40); AST/SGOT < 8 U/L (<34); BILIRUBIN,TOTAL 0.2 MG/DL (0.3-1.2); BLOOD UREA NITROGEN 21 MG/DL (9-23); CARBON DIOXIDE LEVEL 30 MMOL/L (20-31); CHLORIDE LEVEL 105 MMOL/L (98-107); CREATININE FOR GFR 1.08 MG/DL (0.70-1.30); GLOMERULAR FILTRATION RATE > 60.0 (>56); GLUCOSE, FASTING 86 MG/DL (60-100); IRON (FE) 59 UG/DL (65-175); POTASSIUM SERUM 3.9 MMOL/L (3.5-5.1); SODIUM LEVEL 141 MMOL/L (136-145); TOTAL PROTEIN 6.6 G/DL (5.7-8.2)
[2023-09-15 11:25] LABS: TOTAL 25(OH) VITAMIN D 79.3 NG/ML (20.0-100.0)
[2023-09-15 11:27] LABS: FERRITIN 272.6 NG/ML (10.5-307.3)
== END ==
LOC: M PLALAB 09:03
PROVIDERS: ATTEND Physician Assistant Medical
DX: D50.8 Other iron deficiency anemias (principal); E55.9 Vitamin D deficiency, unspecified

== ENCOUNTER → 2023-10-02 | Outpatient (REF) | payer MEDICARE, MEDICAID ==
[~2023-10-02] MED LIST changes: -CIME200T4 PO; +CIME200T40 PO
== END ==
LOC: M SFHCDERM 10:56
PROVIDERS: ATTEND Physician Assistant
DX: L82.0 Inflamed seborrheic keratosis (principal)

== ENCOUNTER → 2023-10-04 | Outpatient (REF) | payer MEDICARE, MEDICAID | LOC: M SFHCPLAZ 09:57 | PROVIDERS: ATTEND Physician Assistant Medical | DX: D50.8 Other iron deficiency anemias (principal) ==

== ENCOUNTER → 2024-01-12 | Outpatient (CLI) | payer MEDICARE, MEDICAID ==
[~2024-01-12] MED LIST changes: +MONT5TAB7 PO; -SING5CHW23 PO
[2024-01-12 13:23] LABS: BASO % 0.5 % (0.0-1.0); EOS # 0.1 10^3/uL (0.0-0.5); EOS % 1.7 % (0.0-3.0); HEMATOCRIT 39.5 % (42.0-52.0); HEMOGLOBIN 12.9 g/dl (13.5-17.5); LYMPH # 1.6 10^3/uL (1.5-5.0); LYMPH % 27.2 % (24.0-44.0); MEAN CORPUSCULAR HEMOGLOBIN 28.2 pg (27.0-33.0); MEAN CORPUSCULAR HGB CONC 32.7 g/dl (32.0-36.5); MEAN CORPUSCULAR VOLUME 86.4 fl (80.0-96.0); MONO # 0.5 10^3/uL (0.0-0.8); MONO % 7.9 % (2.0-8.0); NEUTROPHILS # 3.7 10^3/uL (1.5-8.5); NEUTROPHILS % 62.2 % (36.0-66.0); PLATELET COUNT, AUTOMATED 163 10^3/uL (150-450); RED BLOOD COUNT 4.57 10^6/uL (4.30-6.10); WHITE BLOOD COUNT 5.9 10^3/uL (4.0-10.0)
[2024-01-12 13:31] LABS: VALPROIC ACID (DEPAKOTE) 110.5 UG/ML (50.0-100.0)
[2024-01-12 13:32] LABS: ALBUMIN 4.3 G/DL (3.2-5.2); ALKALINE PHOSPHATASE 65 U/L (46-116); ALT/SGPT 22 U/L (7.0-40); AST/SGOT 10 U/L (<34); BILIRUBIN,TOTAL 0.4 MG/DL (0.3-1.2); BLOOD UREA NITROGEN 26 MG/DL (9-23); CALCIUM LEVEL 9.6 MG/DL (8.3-10.6); CARBON DIOXIDE LEVEL 29 MMOL/L (20-31); CHLORIDE LEVEL 103 MMOL/L (98-107); CHOLESTEROL LEVEL 134 MG/DL (<200); CHOLESTEROL RISK RATIO 2.99 (<5); CREATININE FOR GFR 0.98 MG/DL (0.70-1.30); FERRITIN 226.4 NG/ML (10.5-307.3); FREE T4 1.03 NG/DL (0.89-1.76); GLOMERULAR FILTRATION RATE > 60.0 (>49); GLUCOSE, FASTING 92 MG/DL (74-106); HDL CHOLESTEROL 44.7 MG/DL (>40); IRON (FE) 50 UG/DL (65-175); LDL CHOLESTEROL 66.7 MG/DL (<100); NON-HDL-C 89.3 MG/DL; POTASSIUM SERUM 3.9 MMOL/L (3.5-5.1); PSA SCREENING 1.71 NG/ML (< 4.00); PTH INTACT 48.5 PG/ML (18.5-88.0); SODIUM LEVEL 138 MMOL/L (136-145); THYROID STIMULATING HORMONE 4.034 uIU/ML (0.55-4.78); TOTAL PROTEIN 6.6 G/DL (5.7-8.2); TRIGLYCERIDES LEVEL 113 MG/DL (<150)
[2024-01-12 13:34] LABS: TOTAL 25(OH) VITAMIN D 77.3 NG/ML (20.0-100.0)
[2024-01-12 13:41] LABS: HEMOGLOBIN A1c 5.6 % (4.0-6.0)
== END ==
LOC: M PLALAB 08:54
PROVIDERS: ATTEND Physician Assistant Medical
DX: J02.9 Acute pharyngitis, unspecified (principal); E78.00 Pure hypercholesterolemia, unspecified; I10 Essential (primary) hypertension; D50.8 Other iron deficiency anemias; E55.9 Vitamin D deficiency, unspecified; F20.1 Disorganized schizophrenia; Z12.5 Encounter for screening for malignant neoplasm of prostate; Z79.899 Other long term (current) drug therapy

== ENCOUNTER → 2024-01-26 | Outpatient (CLI) | payer MEDICARE, MEDICAID ==
[2024-01-26 10:31] LABS: VALPROIC ACID (DEPAKOTE) 63.6 UG/ML (50.0-100.0)
[2024-01-26 10:32] LABS: ALBUMIN 3.8 G/DL (3.2-5.2); ALKALINE PHOSPHATASE 68 U/L (46-116); ALT/SGPT 17 U/L (7.0-40); AST/SGOT 9 U/L (<34); BILIRUBIN,TOTAL 0.3 MG/DL (0.3-1.2); BLOOD UREA NITROGEN 12 MG/DL (9-23); CALCIUM LEVEL 9.2 MG/DL (8.3-10.6); CARBON DIOXIDE LEVEL 31 MMOL/L (20-31); CHLORIDE LEVEL 104 MMOL/L (98-107); CREATININE FOR GFR 0.95 MG/DL (0.70-1.30); GLOMERULAR FILTRATION RATE > 60.0 (>49); GLUCOSE, FASTING 95 MG/DL (74-106); POTASSIUM SERUM 4.2 MMOL/L (3.5-5.1); SODIUM LEVEL 141 MMOL/L (136-145); TOTAL PROTEIN 6.5 G/DL (5.7-8.2)
== END ==
LOC: M LAB 09:19
PROVIDERS: ATTEND Physician Assistant Medical
DX: F20.1 Disorganized schizophrenia (principal)

== ENCOUNTER → 2024-02-17 | Outpatient (REF) | payer MEDICARE, MEDICAID | LOC: M SFHCPLAZ 13:40 | PROVIDERS: ATTEND Physician Assistant Medical | DX: Z53.9 Procedure and treatment not carried out, unspecified reason (principal) ==

== ENCOUNTER → 2024-02-18 | Outpatient (CLI) | payer OTHER, MEDICAID ==
[2024-02-18 12:08] LABS: BASO % 0.7 % (0.0-1.0); EOS # 0.1 10^3/uL (0.0-0.5); EOS % 2.6 % (0.0-3.0); HEMATOCRIT 40.1 % (42.0-52.0); HEMOGLOBIN 13.3 g/dl (13.5-17.5); LYMPH # 2.1 10^3/uL (1.5-5.0); LYMPH % 38.2 % (24.0-44.0); MEAN CORPUSCULAR HEMOGLOBIN 28.2 pg (27.0-33.0); MEAN CORPUSCULAR HGB CONC 33.2 g/dl (32.0-36.5); MONO # 0.4 10^3/uL (0.0-0.8); NEUTROPHILS # 2.7 10^3/uL (1.5-8.5); NEUTROPHILS % 49.8 % (36.0-66.0); PLATELET COUNT, AUTOMATED 138 10^3/uL (150-450); RED BLOOD COUNT 4.72 10^6/uL (4.30-6.10); WHITE BLOOD COUNT 5.4 10^3/uL (4.0-10.0)
[2024-02-18 12:38] LABS: ALBUMIN 3.7 G/DL (3.2-5.2); ALKALINE PHOSPHATASE 68 U/L (46-116); ALT/SGPT 16 U/L (7.0-40); AST/SGOT 11 U/L (<34); BILIRUBIN,TOTAL 0.4 MG/DL (0.3-1.2); BLOOD UREA NITROGEN 20 MG/DL (9-23); CALCIUM LEVEL 9.5 MG/DL (8.3-10.6); CARBON DIOXIDE LEVEL 27 MMOL/L (20-31); CHLORIDE LEVEL 107 MMOL/L (98-107); GLOMERULAR FILTRATION RATE > 60.0 (>49); GLUCOSE, FASTING 84 MG/DL (74-106); SODIUM LEVEL 142 MMOL/L (136-145); TOTAL PROTEIN 6.6 G/DL (5.7-8.2)
== END ==
LOC: M PLALAB 08:30
PROVIDERS: ATTEND Physician Assistant Medical
DX: T14.8XXA Other injury of unspecified body region, initial encounter (principal); Y93.9 Activity, unspecified; Y92.9 Unspecified place or not applicable

== ENCOUNTER → 2024-04-27 | Outpatient (CLI) | payer MEDICARE, MEDICAID ==
[~2024-04-27] MED LIST changes: +D 50CAP2 PO; +HALO5TAB33 PO; +ONDA-282 PO; -ONDA4TAB6 PO; +ZOLO100T PO
[2024-04-27 15:51] LABS: BASO % 0.5 % (0.0-1.0); EOS # 0.1 10^3/uL (0.0-0.5); EOS % 1.3 % (0.0-3.0); HEMOGLOBIN 13.5 g/dl (13.5-17.5); LYMPH # 1.9 10^3/uL (1.5-5.0); LYMPH % 24.2 % (24.0-44.0); MEAN CORPUSCULAR HEMOGLOBIN 28.1 pg (27.0-33.0); MEAN CORPUSCULAR HGB CONC 32.9 g/dl (32.0-36.5); MEAN CORPUSCULAR VOLUME 85.2 fl (80.0-96.0); MONO # 0.7 10^3/uL (0.0-0.8); NEUTROPHILS # 5.1 10^3/uL (1.5-8.5); NEUTROPHILS % 64.2 % (36.0-66.0); PLATELET COUNT, AUTOMATED 157 10^3/uL (150-450); RED BLOOD COUNT 4.81 10^6/uL (4.30-6.10)
[2024-04-27 15:57] LABS: ALBUMIN 4.1 G/DL (3.2-5.2); ALKALINE PHOSPHATASE 66 U/L (46-116); ALT/SGPT 21 U/L (7.0-40); AST/SGOT 8 U/L (<34); BILIRUBIN,TOTAL 0.3 MG/DL (0.3-1.2); BLOOD UREA NITROGEN 17 MG/DL (9-23); CALCIUM LEVEL 9.5 MG/DL (8.3-10.6); CARBON DIOXIDE LEVEL 29 MMOL/L (20-31); CHLORIDE LEVEL 106 MMOL/L (98-107); GLOMERULAR FILTRATION RATE > 60.0 (>49); GLUCOSE, FASTING 79 MG/DL (74-106); POTASSIUM SERUM 3.6 MMOL/L (3.5-5.1); SODIUM LEVEL 141 MMOL/L (136-145); TOTAL PROTEIN 6.6 G/DL (5.7-8.2)
== END ==
LOC: M PLALAB 12:39
PROVIDERS: ATTEND Physician Assistant Medical
DX: T14.8XXA Other injury of unspecified body region, initial encounter (principal); Z79.899 Other long term (current) drug therapy

== ENCOUNTER 2024-05-12 12:05 | Day surgery (SDC) | payer MEDICARE, OTHER ==
[~2024-05-12] VITALS: Ht 167.6 cm; Wt 99.7 kg
[2024-05-12] MEDS ORDERED: LR 1,000 ML IV SCH (12:10)
[2024-05-12] MEDS ORDERED: CHLOROPROCAINE PRES. FREE 2% 20ML VIAL As Ordered ONE (12:50)
[2024-05-12] MEDS ORDERED: propofoL 200 MG/20 ML VIAL As Ordered ONE (12:54)
[2024-05-12] MEDS ORDERED: LIDOCAINE PRES-FREE 2% 10ML AMP As Ordered ONE (12:54)
[2024-05-12] MEDS ORDERED: LIDOCAINE 2% 100MG/5ML SDV (FOR ANES.) As Ordered ONE (12:55)
[2024-05-12] MEDS ORDERED: CHLOROPROCAINE PRES. FREE 3% 20ML VIAL As Ordered ONE (12:59)
[2024-05-12] MEDS: LIDOCAINE W/EPINEPHRINE 1% 20ML VIAL As Ordered ONE (13:15)
[2024-05-12] MEDS ORDERED: MIDAZOLAM INJ 2MG/2ML VIAL As Ordered ONE (13:15)
[2024-05-12] MEDS ORDERED: ONDANSETRON 4MG 2ML VIAL IV PRN (14:30)
[2024-05-12] MEDS ORDERED: fentaNYL 100 MCG/2 ML INJECTION IV PRN (14:30)
[2024-05-12] MEDS ORDERED: oxyCODONE 5MG TAB PO PRN (14:30)
[2024-05-12 15:44] VITALS: BP 138/77; TEMP 97.2; O2SAT 98
== END 2024-05-12 15:49 | disposition home or self-care (01) ==
LOC: M SDC 12:05
PROVIDERS: ATTEND Surgery
DX: L05.91 Pilonidal cyst without abscess (principal); I10 Essential (primary) hypertension; E78.00 Pure hypercholesterolemia, unspecified; K21.9 Gastro-esophageal reflux disease without esophagitis; R25.8 Other abnormal involuntary movements; F20.9 Schizophrenia, unspecified; F41.9 Anxiety disorder, unspecified; F32.A Depression, unspecified; M19.90 Unspecified osteoarthritis, unspecified site; M54.9 Dorsalgia, unspecified; R56.9 Unspecified convulsions; Z88.6 Allergy status to analgesic agent; Z91.010 Allergy to peanuts; Z91.013 Allergy to seafood; Z91.018 Allergy to other foods; Z79.899 Other long term (current) drug therapy; Z79.02 Long term (current) use of antithrombotics/antiplatelets
CPT/HCPCS: 11770; 88304; J2250; J2401

== ENCOUNTER → 2024-08-25 | Outpatient (CLI) | payer MEDICARE, MEDICAID ==
[2024-08-25 17:41] LABS: BASO % 0.5 % (0.0-1.0); EOS # 0.1 10^3/uL (0.0-0.5); EOS % 1.5 % (0.0-3.0); HEMATOCRIT 40.8 % (42.0-52.0); HEMOGLOBIN 13.2 g/dl (13.5-17.5); LYMPH # 1.9 10^3/uL (1.5-5.0); LYMPH % 21.2 % (24.0-44.0); MEAN CORPUSCULAR HGB CONC 32.4 g/dl (32.0-36.5); MEAN CORPUSCULAR VOLUME 83.6 fl (80.0-96.0); MONO # 0.6 10^3/uL (0.0-0.8); MONO % 6.8 % (2.0-8.0); NEUTROPHILS # 6.1 10^3/uL (1.5-8.5); NEUTROPHILS % 69.5 % (36.0-66.0); PLATELET COUNT, AUTOMATED 191 10^3/uL (150-450); RED BLOOD COUNT 4.88 10^6/uL (4.30-6.10); WHITE BLOOD COUNT 8.8 10^3/uL (4.0-10.0)
[2024-08-25 18:04] LABS: IRON (FE) 34 UG/DL (65-175)
[2024-08-25 18:05] LABS: ALBUMIN 4.1 G/DL (3.2-5.2); ALKALINE PHOSPHATASE 88 U/L (40-129); ALT/SGPT 20 U/L (7.0-40); AST/SGOT 10 U/L (<34); BILIRUBIN,TOTAL 0.2 MG/DL (0.3-1.2); BLOOD UREA NITROGEN 24 MG/DL (9-23); CALCIUM LEVEL 9.6 MG/DL (8.3-10.6); CARBON DIOXIDE LEVEL 29 MMOL/L (20-31); CHLORIDE LEVEL 110 MMOL/L (98-107); CHOLESTEROL LEVEL 155 MG/DL (<200); CHOLESTEROL RISK RATIO 3.69 (<5); CREATININE FOR GFR 0.97 MG/DL (0.70-1.30); GLOMERULAR FILTRATION RATE > 60.0 (>49); GLUCOSE, FASTING 141 MG/DL (74-106); POTASSIUM SERUM 3.9 MMOL/L (3.5-5.1); SODIUM LEVEL 144 MMOL/L (136-145); TOTAL PROTEIN 6.9 G/DL (5.7-8.2); TRIGLYCERIDES LEVEL 300 MG/DL (<150)
[2024-08-25 18:07] LABS: FERRITIN 180.3 NG/ML (10.5-307.3)
[2024-08-25 18:34] LABS: HEMOGLOBIN A1c 5.6 % (4.0-6.0)
== END ==
LOC: M PLALAB 14:15
PROVIDERS: ATTEND Physician Assistant Medical
DX: I10 Essential (primary) hypertension (principal); D50.8 Other iron deficiency anemias; R73.01 Impaired fasting glucose; E78.00 Pure hypercholesterolemia, unspecified

== ENCOUNTER → 2025-02-03 | Outpatient (REF) | payer OTHER, MEDICAID ==
[2025-02-03 15:30] LABS: BASO % 0.5 % (0.0-1.0); EOS # 0.1 10^3/uL (0.0-0.5); EOS % 1.1 % (0.0-3.0); HEMATOCRIT 41.5 % (42.0-52.0); HEMOGLOBIN 13.6 g/dl (13.5-17.5); LYMPH % 25.2 % (24.0-44.0); MEAN CORPUSCULAR HEMOGLOBIN 27.5 pg (27.0-33.0); MEAN CORPUSCULAR HGB CONC 32.8 g/dl (32.0-36.5); MEAN CORPUSCULAR VOLUME 83.8 fl (80.0-96.0); MONO # 0.7 10^3/uL (0.0-0.8); MONO % 8.9 % (2.0-8.0); NEUTROPHILS % 63.9 % (36.0-66.0); PLATELET COUNT, AUTOMATED 158 10^3/uL (150-450); RED BLOOD COUNT 4.95 10^6/uL (4.30-6.10); WHITE BLOOD COUNT 7.9 10^3/uL (4.0-10.0)
[2025-02-03 15:35] LABS: IRON (FE) 55 UG/DL (65-175)
[2025-02-03 15:36] LABS: ALBUMIN 4.2 G/DL (3.2-5.2); ALKALINE PHOSPHATASE 72 U/L (40-129); ALT/SGPT 18 U/L (7.0-40); AST/SGOT 11 U/L (<34); BILIRUBIN,TOTAL 0.3 MG/DL (0.3-1.2); BLOOD UREA NITROGEN 23 MG/DL (9-23); CALCIUM LEVEL 9.6 MG/DL (8.3-10.6); CARBON DIOXIDE LEVEL 26 MMOL/L (20-31); CHLORIDE LEVEL 101 MMOL/L (98-107); CREATININE FOR GFR 0.82 MG/DL (0.70-1.30); GLOMERULAR FILTRATION RATE > 90.0 (>49); GLUCOSE, FASTING 88 MG/DL (74-106); POTASSIUM SERUM 3.4 MMOL/L (3.5-5.1); PSA SCREENING 1.37 NG/ML (< 4.00); SODIUM LEVEL 139 MMOL/L (136-145); TOTAL PROTEIN 6.9 G/DL (5.7-8.2)
[2025-02-03 15:38] LABS: FERRITIN 182.6 NG/ML (10.5-307.3)
[2025-02-03 15:50] LABS: HEMOGLOBIN A1c 5.6 % (4.0-6.0)
== END ==
LOC: M SFHCPLAZ 11:11
PROVIDERS: ATTEND Physician Assistant Medical
DX: D50.8 Other iron deficiency anemias (principal); Z12.5 Encounter for screening for malignant neoplasm of prostate; R73.01 Impaired fasting glucose; I10 Essential (primary) hypertension
CPT/HCPCS: 80053; 82728; 83036; 83540; 85025; G0103

== ENCOUNTER → 2025-06-22 | Outpatient (CLI) | payer MEDICARE ==
[~2025-06-22] MED LIST changes: +CVS10CAP8 PO; +DIVA-41 PO; -DIVA500T94 PO; -MELA10CA2 PO
[2025-06-22 11:20] LABS: ESTIMATED AVERAGE GLUCOSE 123.0 MG/DL (60-110)
[2025-06-22 11:40] LABS: ALT/SGPT 15 U/L (7.0-40); AST/SGOT 12 U/L (<34); CALCIUM LEVEL 9.6 MG/DL (8.3-10.6); CARBON DIOXIDE LEVEL 29 MMOL/L (20-31); CHLORIDE LEVEL 104 MMOL/L (98-107); CHOLESTEROL LEVEL 141 MG/DL (<200); CHOLESTEROL RISK RATIO 3.24 (<5); CREATININE FOR GFR 0.86 MG/DL (0.70-1.30); GLOMERULAR FILTRATION RATE > 90.0 (>49); LDL CHOLESTEROL 77.4 MG/DL (<100); NON-HDL-C 97.6 MG/DL; POTASSIUM SERUM 4.0 MMOL/L (3.5-5.1); SODIUM LEVEL 145 MMOL/L (136-145); TRIGLYCERIDES LEVEL 101 MG/DL (<150)
[2025-06-26 08:08] LABS: VALPROIC ACID TOTAL 81.3 mg/L (50.0-100.0)
== END ==
LOC: M PLALAB 08:29
PROVIDERS: ATTEND Student in an Organized Health Care Education/Training Program
DX: G40.909 Epilepsy, unspecified, not intractable, without status epilepticus (principal); Z68.33 Body mass index [BMI] 33.0-33.9, adult; Z79.899 Other long term (current) drug therapy

== ENCOUNTER → 2025-07-20 | Outpatient (CLI) | payer MEDICARE, MEDICAID ==
[2025-07-20 10:18] LABS: BASO # 0.0 10^3/uL (0.0-0.2); BASO % 0.6 % (0.0-1.0); EOS # 0.2 10^3/uL (0.0-0.5); EOS % 2.7 % (0.0-3.0); LYMPH # 2.2 10^3/uL (1.5-5.0); LYMPH % 32.3 % (24.0-44.0); MONO # 0.5 10^3/uL (0.0-0.8); MONO % 7.8 % (2.0-8.0); NEUTROPHILS # 3.8 10^3/uL (1.5-8.5); NEUTROPHILS % 56.2 % (36.0-66.0); PLATELET COUNT, AUTOMATED 162 10^3/uL (150-450)
[2025-07-20 10:51] LABS: CALCIUM LEVEL 9.0 MG/DL (8.3-10.6); CARBON DIOXIDE LEVEL 29 MMOL/L (20-31); CHLORIDE LEVEL 106 MMOL/L (98-107); CREATININE FOR GFR 0.86 MG/DL (0.70-1.30); GLOMERULAR FILTRATION RATE > 90.0 (>49); POTASSIUM SERUM 3.7 MMOL/L (3.5-5.1); SODIUM LEVEL 143 MMOL/L (136-145)
== END ==
LOC: M RAD 09:16
PROVIDERS: ATTEND Student in an Organized Health Care Education/Training Program
DX: Z01.818 Encounter for other preprocedural examination (principal)

== ENCOUNTER → 2025-07-26 | Outpatient (REF) | payer MEDICARE ==
[2025-07-26 15:01] LABS: CALCIUM LEVEL 9.7 MG/DL (8.3-10.6); CARBON DIOXIDE LEVEL 31.0 MMOL/L (20-31); CHLORIDE LEVEL 102.0 MMOL/L (98-107); CREATININE FOR GFR 0.97 MG/DL (0.70-1.30); GLOMERULAR FILTRATION RATE 88.8 (>49); POTASSIUM SERUM 4.1 MMOL/L (3.5-5.1); SODIUM LEVEL 143.0 MMOL/L (136-145)
== END ==
LOC: M LAB REF 13:27
PROVIDERS: ATTEND Student in an Organized Health Care Education/Training Program
DX: Z01.818 Encounter for other preprocedural examination (principal)

== ENCOUNTER 2025-08-02 07:24 | Day surgery (SDC) | payer MEDICARE, MEDICAID ==
[~2025-08-02] VITALS: Ht 167.6 cm; Wt 100.5 kg
[~2025-08-02 07:24] MED LIST changes: +MIDAZOLAM INJ 2 MG/2 ML VIAL As Ordered ONE
[2025-08-02] MEDS ORDERED: LR 1,000 ML IV SCH ×2 (07:35→10:00)
[2025-08-02] MEDS ORDERED: POTA10CA70 PO (07:59)
[2025-08-02] MEDS ORDERED: LIDOCAINE 2% 100 MG/5 ML SDV (FOR ANES.) As Ordered ONE (08:07)
[2025-08-02] MEDS ORDERED: ONDANSETRON 4MG/2ML VIAL As Ordered ONE (08:08)
[2025-08-02] MEDS ORDERED: dexAMETHasone 4 MG/ML 1 ML VIAL As Ordered ONE (08:08)
[2025-08-02] MEDS ORDERED: dexmedeTOMIDine (4 MCG/ML) 200 MCG/50 ML BTL As Ordered ONE (08:10)
[2025-08-02] MEDS: ceFAZolin SOD 2 GM IV ONCE IV ONE (08:54)
[2025-08-02] MEDS ORDERED: ACETAMINOPHEN 1000MG/100ML IV BAG As Ordered ONE (09:00)
[2025-08-02] MEDS: POVIDONE-IODINE 5% OPHTH PREP SOL 30ML As Ordered ONE (09:07)
[2025-08-02] MEDS: LIDOCAINE 2% W/EPINEPHrine 20 ML VIAL **PRES FREE As Ordered ONE (09:07)
[2025-08-02] MEDS ORDERED: PHENYLephrine 500MCG 5ML (100MCG/ML) SYRINGE As Ordered ONE (09:12)
[2025-08-02] MEDS: LIDOCAINE W/EPINEPHrine 1% 20 ML VIAL As Ordered ONE (09:38)
[2025-08-02] MEDS: TRIAMCINOLONE ACETONIDE SUSP 40MG/ML 1ML VIAL As Ordered ONE (09:46)
[2025-08-02] MEDS ORDERED: HYDROMORPHONE HCL 0.5 MG/0.5 ML SYRINGE IV PRN (10:00)
[2025-08-02] MEDS ORDERED: ONDANSETRON 4MG/2ML VIAL IV PRN (10:00)
[2025-08-02 11:00] VITALS: TEMP 97.1
[2025-08-02 11:25] VITALS: BP 122/62; O2SAT 95
== END 2025-08-02 11:32 | disposition home or self-care (01) ==
LOC: M SDC 07:24
PROVIDERS: ATTEND Plastic Surgery Surgery of the Hand
DX: L91.0 Hypertrophic scar (principal); I10 Essential (primary) hypertension; E78.00 Pure hypercholesterolemia, unspecified; D64.9 Anemia, unspecified; R56.9 Unspecified convulsions; K21.9 Gastro-esophageal reflux disease without esophagitis; Z79.899 Other long term (current) drug therapy; Z79.02 Long term (current) use of antithrombotics/antiplatelets; Z79.1 Long term (current) use of non-steroidal anti-inflammatories (NSAID); Z88.8 Allergy status to other drugs, medicaments and biological substances; Z91.013 Allergy to seafood; Z91.010 Allergy to peanuts
CPT/HCPCS: 11442; 11444; 88302; J0131; J0688; J1100; J2250; J2371; J2405; J3010; J3301